=== PATIENT | female | born 1935 | race Caucasian/White ===

== ENCOUNTER → 2016-06-16 | Outpatient (CLI) | payer MEDICARE, BC ==
[2015-12-28 10:30] VITALS: BP 154/51
[~2016-06-16] MED LIST: 5-HY50CA PO; ACET500C6 PO; ALBU0.63 NEB; ASCO10002 PO; ASPI-482 PO; BETA1TAB10 PO; CALC1CAP13 PO; CHOL5000 PO; CLON0.1T PO; CLON0.2T PO; FLUT16SP NS; FURO40TA4 PO; GABA-585 PO; GABA-586 PO; GARL10002 PO; GEMF600T3 PO; GLUC1CAP48 PO; HYDR-2868 PO; IODI30TI TP; LEVO125T PO; MULT-658 PO; OMEG500C PO; POTA10CA PO; SELE200T10 PO; THYROID PO; TRAM50TA PO; TYROSINE PO; UBID200C4 PO; VERA240C2 PO; VITA100016 PO; VITA80003 PO
--- NOTE | 2016-06-16 12:00 | KCIC ---
PQRS STATEMENT One or more of the following individualized dose reduction techniques were utilized for this study: 1.Automated exposure control 2.Adjustment of the mA and/or kV according to patient size 3.Use of iterative reconstruction technique CT HEAD Indication: Reason For StudyReason: CONTUSION OF GLOBE RT EYE / Spl. Instructions: Hematoma Rt eye/temporal area. / History: Pt fell and struck Rt side of head on tile floor. Headache TECHNIQUE: 5 mm contiguous axial images were obtained from the skull base to the vertex in both bone and soft tissue algorithm. FINDINGS: There is some encephalomalacia in the right frontal lobe likely from an old infarct. No evidence of acute intracranial hemorrhage. No extra-axial fluid collections. No mass effect or midline shift.Ventricular size is appropriate. Basal cisterns are patent. There is a right frontal scalp contusion. No fractures identified. Globes and orbits are within normal limits. Paranasal sinuses and mastoid air cells are clear. IMPRESSION: - Right frontal scalp contusion with no evidence for calvarial fracture or acute intracranial hemorrhage. 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 Electronically signed by: Francois Mojica (Jun 16, 2016 11:58:37)
--- NOTE | 2016-06-16 12:37 | KCIC ---
Humerus right, two views Indication: Fall with pain and bruising to the right arm. Time of exam 11:57 a.m. Alignment at the shoulder and elbow appears normal. The humerus appears intact. No fractures are seen. Impression: No acute bony abnormality is detected. Electronically signed by: Parag Garrison MD (Jun 16, 2016 12:35:46)
--- NOTE | 2016-06-16 12:38 | KCIC ---
Shoulder three views right Indication: Fall and right shoulder pain. Time of exam 11:54 a.m. The glenohumeral and acromioclavicular alignment are normal. The acromiohumeral space is normal. No fracture or dislocation is seen. Mild degenerative changes at the AC joint are noted. There appear to be chronic interstitial changes in the right lung. Impression: No acute bony abnormality is detected. Electronically signed by: Parag Garrison MD (Jun 16, 2016 12:36:49)
== END | disposition home or self-care (01) ==
LOC: KCIC CT 11:26
PROVIDERS: ATTEND Nurse Practitioner Family
DX: S05.11XA Contusion of eyeball and orbital tissues, right eye, initial encounter (principal); S49.91XA Unspecified injury of right shoulder and upper arm, initial encounter; W19.XXXA Unspecified fall, initial encounter; Y93.89 Activity, other specified; Y92.89 Other specified places as the place of occurrence of the external cause; Y99.8 Other external cause status
CPT/HCPCS: 70450; 73030; 73060

== ENCOUNTER → 2016-11-09 | Outpatient (CLI) | payer MEDICARE, BC ==
[2015-12-28 10:30] VITALS: BP 154/51
[~2016-11-09] MED LIST changes: -POTA10CA PO; +POTASSIUM CHLO10 MEQ PO; -UBID200C4 PO; +UBID200C7 PO; -VITA100016 PO; +VITA100075 PO
--- NOTE | 2016-11-09 16:40 | RAD ---
Indication left calf swelling. Grayscale color Doppler and spectral imaging was performed. Examination was targeted to the veins of the left lower extremity. The common femoral, femoral and popliteal vessels demonstrate normal flow compressibility and augmentation. No thrombus is seen. The visualized calf veins appeared unremarkable. IMPRESSION: Negative left lower extremity venous analysis for DVT
== END | disposition home or self-care (01) ==
LOC: US 15:34
PROVIDERS: ATTEND Nurse Practitioner Family
DX: I87.312 Chronic venous hypertension (idiopathic) with ulcer of left lower extremity (principal); M79.89 Other specified soft tissue disorders
CPT/HCPCS: 93971

== ENCOUNTER → 2016-11-15 | Outpatient (CLI) | payer MEDICARE, BC ==
[2015-12-28 10:30] VITALS: BP 154/51
== END | disposition home or self-care (01) ==
LOC: PMGWOUND 10:27
PROVIDERS: ATTEND Emergency Medicine Undersea and Hyperbaric Medicine
DX: I87.312 Chronic venous hypertension (idiopathic) with ulcer of left lower extremity (principal); L97.221 Non-pressure chronic ulcer of left calf limited to breakdown of skin; I11.0 Hypertensive heart disease with heart failure; I50.9 Heart failure, unspecified; Z90.710 Acquired absence of both cervix and uterus
CPT/HCPCS: 99215

== ENCOUNTER → 2016-11-18 | Outpatient (CLI) | payer MEDICARE, BC ==
[2015-12-28 10:30] VITALS: BP 154/51
== END | disposition home or self-care (01) ==
LOC: PMGWOUND 12:04
PROVIDERS: ATTEND Preventive Medicine Undersea and Hyperbaric Medicine
DX: I87.312 Chronic venous hypertension (idiopathic) with ulcer of left lower extremity (principal); L97.821 Non-pressure chronic ulcer of other part of left lower leg limited to breakdown of skin; I11.0 Hypertensive heart disease with heart failure; I50.9 Heart failure, unspecified; Z90.710 Acquired absence of both cervix and uterus
CPT/HCPCS: 29581

== ENCOUNTER → 2016-11-21 | Outpatient (CLI) | payer MEDICARE, BC ==
[2015-12-28 10:30] VITALS: BP 154/51
== END | disposition home or self-care (01) ==
LOC: PMGWOUND 12:25
PROVIDERS: ATTEND Emergency Medicine Undersea and Hyperbaric Medicine
DX: I87.312 Chronic venous hypertension (idiopathic) with ulcer of left lower extremity (principal); L97.211 Non-pressure chronic ulcer of right calf limited to breakdown of skin; I11.0 Hypertensive heart disease with heart failure; I50.9 Heart failure, unspecified; Z90.710 Acquired absence of both cervix and uterus
CPT/HCPCS: 29581

== ENCOUNTER → 2016-11-28 | Outpatient (CLI) | payer MEDICARE, BC ==
[2015-12-28 10:30] VITALS: BP 154/51
== END | disposition home or self-care (01) ==
LOC: PMGWOUND 12:35
PROVIDERS: ATTEND Emergency Medicine Undersea and Hyperbaric Medicine
DX: I87.312 Chronic venous hypertension (idiopathic) with ulcer of left lower extremity (principal); L97.221 Non-pressure chronic ulcer of left calf limited to breakdown of skin; I11.0 Hypertensive heart disease with heart failure; I50.9 Heart failure, unspecified; Z90.710 Acquired absence of both cervix and uterus
CPT/HCPCS: 29580

== ENCOUNTER → 2016-12-05 | Outpatient (CLI) | payer MEDICARE, BC ==
[2015-12-28 10:30] VITALS: BP 154/51
== END | disposition home or self-care (01) ==
LOC: PMGWOUND 11:42
PROVIDERS: ATTEND Emergency Medicine Undersea and Hyperbaric Medicine
DX: I87.312 Chronic venous hypertension (idiopathic) with ulcer of left lower extremity (principal); L97.221 Non-pressure chronic ulcer of left calf limited to breakdown of skin; E03.9 Hypothyroidism, unspecified; E78.00 Pure hypercholesterolemia, unspecified; Z85.828 Personal history of other malignant neoplasm of skin; Z90.710 Acquired absence of both cervix and uterus
CPT/HCPCS: 99214

== ENCOUNTER 2017-07-13 11:33 | Emergency (ER) | payer MEDICARE, BC ==
[2017-07-13 13:14] LABS: ADD MAN DIFF? NO
[2017-07-13 13:16] LABS: BASO # 0.1 x10^3/uL (0.0-0.2); BASO % 1 % (0-3); EOS # 0.5 x10^3/uL (0.0-0.7); EOS % 6 % (0-3); HEMOGLOBIN 12.2 g/dL (12.0-15.5); LYMPH # 0.9 x10^3/uL (1.0-4.8); LYMPH % 12 % (24-48); MEAN CORPUSCULAR HEMOGLOBIN 32 pg (25-35); MEAN CORPUSCULAR HGB CONC 34 g/dL (31-37); MEAN CORPUSCULAR VOLUME 94 fL (79-100); MONO # 0.5 x10^3/uL (0.0-1.1); MONO % 7 % (0-9); NEUT # 5.6 x10^3uL (1.8-7.7); NEUT % 73 % (31-73); PLATELET COUNT 502 x10^3/uL (140-400); RED BLOOD COUNT 3.84 x10^6/uL (3.50-5.40); RED CELL DISTRIBUTION WIDTH 14.6 % (11.5-14.5); WHITE BLOOD COUNT 7.7 x10^3/uL (4.0-11.0)
== END 2017-07-13 15:30 | disposition home or self-care (01) ==
LOC: ER 11:33
DX: R04.0 Epistaxis (principal); I11.0 Hypertensive heart disease with heart failure; I50.9 Heart failure, unspecified; J45.909 Unspecified asthma, uncomplicated; M19.90 Unspecified osteoarthritis, unspecified site; M79.7 Fibromyalgia; Z86.718 Personal history of other venous thrombosis and embolism; Z88.2 Allergy status to sulfonamides; Z88.8 Allergy status to other drugs, medicaments and biological substances; Z88.6 Allergy status to analgesic agent; Z88.1 Allergy status to other antibiotic agents; Z91.041 Radiographic dye allergy status
CPT/HCPCS: 30905; 36415; 85025; 99284

== ENCOUNTER 2017-07-14 12:07 | Emergency (ER) | payer MEDICARE, BC ==
[2017-07-14] MEDS: traMADol 50 MG TABLET PO (13:51)
[2017-07-14 13:53] LABS: ADD MAN DIFF? NO
[2017-07-14 14:01] LABS: BASO # 0.1 x10^3/uL (0.0-0.2); BASO % 2 % (0-3); EOS # 0.3 x10^3/uL (0.0-0.7); EOS % 3 % (0-3); HEMATOCRIT 37.5 % (36.0-47.0); HEMOGLOBIN 12.6 g/dL (12.0-15.5); LYMPH # 1.2 x10^3/uL (1.0-4.8); LYMPH % 14 % (24-48); MEAN CORPUSCULAR HEMOGLOBIN 32 pg (25-35); MEAN CORPUSCULAR HGB CONC 34 g/dL (31-37); MEAN CORPUSCULAR VOLUME 94 fL (79-100); MONO # 0.7 x10^3/uL (0.0-1.1); MONO % 8 % (0-9); NEUT # 6.5 x10^3uL (1.8-7.7); NEUT % 74 % (31-73); PLATELET COUNT 526 x10^3/uL (140-400); RED BLOOD COUNT 3.98 x10^6/uL (3.50-5.40); RED CELL DISTRIBUTION WIDTH 15.1 % (11.5-14.5); WHITE BLOOD COUNT 8.8 x10^3/uL (4.0-11.0)
[2017-07-14 14:06] LABS: ANION GAP 10 (6-14); BLOOD UREA NITROGEN 26 mg/dL (7-20); CALCIUM 9.4 mg/dL (8.5-10.1); CARBON DIOXIDE 30 mmol/L (21-32); CHLORIDE 98 mmol/L (98-107); CREATININE 1.2 mg/dL (0.6-1.0); GFR 42.9; GLUCOSE 106 mg/dL (70-99); POTASSIUM 3.8 mmol/L (3.5-5.1); SODIUM 138 mmol/L (136-145)
== END 2017-07-14 15:51 | disposition home or self-care (01) ==
LOC: ER 12:07
DX: R04.0 Epistaxis (principal); I11.0 Hypertensive heart disease with heart failure; I50.9 Heart failure, unspecified; J45.909 Unspecified asthma, uncomplicated; M19.90 Unspecified osteoarthritis, unspecified site; M79.7 Fibromyalgia; Z88.2 Allergy status to sulfonamides; Z88.1 Allergy status to other antibiotic agents; Z88.5 Allergy status to narcotic agent; Z88.8 Allergy status to other drugs, medicaments and biological substances; Z88.6 Allergy status to analgesic agent
CPT/HCPCS: 36415; 80048; 85025; 99284

== ENCOUNTER 2017-09-08 15:43 | Emergency (ER) | payer MEDICARE, BC ==
[2017-09-08] MEDS: LIDOCAINE/EPI/TETRACAINE TOPICAL GEL 3 ML. TP (17:29)
[2017-09-08] MEDS: DIPHTH,PERTUSS(ACELL),TET TOX 0.5 ML DISP.SYRIN. VAX IM (17:31)
[2017-09-08] MEDS ORDERED: traMADol 50 MG TABLET PO (17:45)
[2017-09-08 18:03] LABS: BILIRUBIN,URINE NEGATIVE (NEG); CLARITY,URINE CLEAR; COLOR,URINE YELLOW; GLUCOSE,URINE NEGATIVE (NEG); NITRITE,URINE NEGATIVE (NEG); PROTEIN,URINE 30 mg/dL (NEG-TRACE)
[2017-09-08] MEDS: traMADol 50 MG TABLET PO (18:12)
[2017-09-08 18:14] LABS: BACTERIA,URINE MANY /HPF (0-FEW); SQUAMOUS EPITHELIAL CELL,UR FEW /LPF
== END 2017-09-08 20:05 | disposition home or self-care (01) ==
LOC: ER 20:05
DX: S01.01XA Laceration without foreign body of scalp, initial encounter (principal); S00.83XA Contusion of other part of head, initial encounter; S20.211A Contusion of right front wall of thorax, initial encounter; Z86.2 Personal history of diseases of the blood and blood-forming organs and certain disorders involving the immune mechanism; M19.90 Unspecified osteoarthritis, unspecified site; J45.909 Unspecified asthma, uncomplicated; M79.7 Fibromyalgia; I10 Essential (primary) hypertension; I50.9 Heart failure, unspecified; Z88.6 Allergy status to analgesic agent; Z88.1 Allergy status to other antibiotic agents; Z88.8 Allergy status to other drugs, medicaments and biological substances; W19.XXXA Unspecified fall, initial encounter; Y93.89 Activity, other specified; Y99.8 Other external cause status; Y92.89 Other specified places as the place of occurrence of the external cause
CPT/HCPCS: 12002; 70450; 71101; 72125; 72128; 81001; 87086; 90471; 90715; 99285-25

== ENCOUNTER → 2017-09-22 | Outpatient (CLI) | payer MEDICARE, BC | END | disposition home or self-care (01) | LOC: KCIC US 13:40 | DX: R22.1 Localized swelling, mass and lump, neck (principal); I11.0 Hypertensive heart disease with heart failure; I50.9 Heart failure, unspecified; E78.00 Pure hypercholesterolemia, unspecified; E03.9 Hypothyroidism, unspecified; E66.9 Obesity, unspecified | CPT/HCPCS: 76536 ==

== ENCOUNTER → 2017-09-22 | Outpatient (CLI) | payer MEDICARE, BC | END | disposition home or self-care (01) | LOC: KCIC MAMMO 13:50 | DX: Z12.31 Encounter for screening mammogram for malignant neoplasm of breast (principal); I11.0 Hypertensive heart disease with heart failure; I50.9 Heart failure, unspecified; E78.00 Pure hypercholesterolemia, unspecified; E03.9 Hypothyroidism, unspecified; J45.909 Unspecified asthma, uncomplicated | CPT/HCPCS: 77067 ==

== ENCOUNTER → 2017-09-22 | Outpatient (CLI) | payer MEDICARE, BC | END | disposition home or self-care (01) | LOC: KCIC 13:33 | DX: K44.9 Diaphragmatic hernia without obstruction or gangrene (principal); K22.4 Dyskinesia of esophagus; E78.00 Pure hypercholesterolemia, unspecified; I11.0 Hypertensive heart disease with heart failure; I50.31 Acute diastolic (congestive) heart failure; Z85.828 Personal history of other malignant neoplasm of skin | CPT/HCPCS: 74220 ==

== ENCOUNTER → 2017-10-20 | Outpatient (CLI) | payer MEDICARE, BC ==
[2017-09-08 17:08] VITALS: BP 156/74
[~2017-10-20] MED LIST changes: +ALLO300T PO; +CEPH-264 PO; +ONDA4TAB10 SL; +POTA10TA12 PO; -POTASSIUM CHLO10 MEQ PO
--- NOTE | 2017-10-20 16:32 | KCIC ---
Ultrasound of the left neck HISTORY: Left neck mass. TECHNIQUE: Targeted grayscale and color Doppler ultrasound performed at the area of concern Comparison: October 02, 2017. FINDINGS: Small nodule seen at the area of concern, measuring 4 mm x 5 mm x 7 mm. Morphology appears similar as on the prior study, with a central echogenic hilum. No other masses or fluid collections are seen in this area. IMPRESSION: Nonspecific lymph node appears similar as prior study, could be reactive or metastatic. Electronically signed by: Blake Funes MD (10/20/2017 4:28 PM) [facility]
== END | disposition home or self-care (01) ==
LOC: KCIC US 14:57
PROVIDERS: ATTEND Internal Medicine Gastroenterology
DX: R22.1 Localized swelling, mass and lump, neck (principal); I11.0 Hypertensive heart disease with heart failure; I50.32 Chronic diastolic (congestive) heart failure; E78.00 Pure hypercholesterolemia, unspecified; E03.9 Hypothyroidism, unspecified; Z90.49 Acquired absence of other specified parts of digestive tract; Z88.2 Allergy status to sulfonamides; Z88.1 Allergy status to other antibiotic agents; Z88.8 Allergy status to other drugs, medicaments and biological substances; Z88.5 Allergy status to narcotic agent; Z88.6 Allergy status to analgesic agent
CPT/HCPCS: 76536

== ENCOUNTER → 2017-10-23 | Outpatient (CLI) | payer MEDICARE, BC ==
[2017-09-08 17:08] VITALS: BP 156/74
--- NOTE | 2017-10-24 08:39 | KCIC ---
MRI Cervical Spine Without Contrast History: Cervical stenosis, neck pain Technique: Multiplanar, multi sequential noncontrast MR imaging was performed of the cervical spine. Comparison: None Findings: There is motion degradation, also decreased zkaunh-mt-zehvv ratio as the anterior neck coil could not be utilized. There is old superior compression deformity of T3 and T4. There is negligible anterior spondylolisthesis at C3-C4, also at T2-3. There is no significant abnormality of the cervical medullary junction. There is no significant marrow edema. Cervical cord caliber is within normal limits without convincing focal or expansile signal abnormality although limited evaluation for subtle signal change due to motion. There is abnormal T2 and STIR signal of the visualized andrés. There is more advanced degenerative disc disease at C6-7, mild to moderate degenerative disc disease C5-C6 and to a lesser degree at C3-4 greater posteriorly. C2-C3: Spinal canal and neural foramina are adequate. C3-C4: There is buckling of the ligamentum flavum. There is minimal posterior bulge/protrusion. Central canal is minimally narrowed to about 9 mm. Neural foramina are overall adequate. There is bilateral facet hypertrophic change. C4-C5: There is bilateral facet hypertrophic change. Spinal canal is adequate 11 mm. There is likely mild narrowing of the left neural foramen, right neural foramen adequate. C5-C6: There is bilateral facet hypertrophic change. Spinal canal is adequate. There is suspected at least moderate narrowing of the left neural foramen. Right neural foramen is adequate. C6-C7: There is bilateral facet hypertrophic change. There is negligible posterior protrusion. Central canal is adequate 11 mm. Right neural foramen is adequate, probable gbqw-xf-rmavwgve narrowing of the left neural foramen. C7-T1: Spinal canal and neural foramina are adequate. Impression: 1. There is some motion degradation. There is mild spinal stenosis C3-4. There is suspected moderate narrowing of the left C5-C6 and C6-7 neural foramina mostly from facet degenerative change. 2. There is degenerative disc disease greatest at C6-7, to lesser degree C5-6 and C3-4. 3. There is old compression deformity of T3 and T4. 4. There is multilevel facet degenerative change, negligible anterior spondylolisthesis C3-C4. 5. There is abnormal T2 and STIR signal of the visualized andrés, nonspecific findings most commonly due to chronic microvascular ischemic disease in a patient of this age. Electronically signed by: Marvin Brown MD (10/24/2017 8:35 AM) [facility]-KCIC1
--- NOTE | 2017-10-24 08:52 | KCIC ---
MRI Lumbar Spine without contrast History: Lumbar stenosis, back pain Technique: Multiplanar, multi sequential noncontrast MR imaging was performed of the lumbar spine. Contrast: None Comparison: 12/08/2014 Findings: There is some motion degradation. Lumbar vertebral body stature is unchanged. There is grade 1 anterior spondylolisthesis L4-5 and negligible anterior spondylolisthesis at L5-S1 and negligible posterior subluxation L1 relative L2 as seen previously. There is no significant marrow edema. There is again the moderate to severe degenerative disc disease greater anteriorly at L1-2, mild degenerative disc disease L4-5 and mild disc desiccation at other levels. Conus terminates at L1-L2. T12-L1: Spinal canal and neural foramina are adequate. L1-L2: There is minimal disc osteophyte complex superimposed on the posteriorly subluxed L1 vertebral body margin as seen previously. Spinal canal is adequate. There is mild narrowing of the left neural foramen, right neural foramen adequate. L2-L3: There is anterior annular tear. There is minimal disc osteophyte complex and bulge. There is mild buckling of the ligamentum flavum and mild to moderate facet hypertrophic change. Spinal canal is adequate. There is moderate left and reeu-di-dzlrrept right neural foramina compromise. L3-L4: There is mild buckling of the ligamentum flavum and moderate facet degenerative change. There is negligible bulge. There is mild narrowing of the far left lateral recess. There is mild left and mzwa-nw-obisyjyi right neural foramina compromise. L4-L5: There is moderate buckling of the ligamentum flavum and sgmp-ly-xkkkuqzg facet hypertrophic change. There is mild partial uncovering of the posterior aspect of the disc due to spondylolisthesis with minimal superimposed bulge. There is mild to moderate narrowing the far lateral recesses bilaterally somewhat greater on the right. There is mild neural foramina compromise bilaterally greater on the left. L5-S1: There is fairly severe, right greater than left facet degenerative change. There is mild buckling of the ligamentum flavum. There is a small synovial cyst associated with the left ligamentum flavum about 0.2 cm. There is mild narrowing of the far left lateral recess. There is moderate to severe narrowing of the left neural foramen primarily from posteriorly. Right neural foramen is adequate. Impression: 1. There is vgyw-go-itaqwnlw lateral recess stenosis bilaterally at L4-5, mild left lateral recess stenosis L5-S1 and L3-4. 2. There is multilevel facet degenerative change, multilevel abnormal alignment as stated. 3. There is neural foramina compromise as stated most notable moderate to severe narrowing on the left at L5-S1, lesser degree of prex-jq-ruywcvtq neural foramina compromise bilaterally at L2-L3 and on the right at L3-4. 4. There is degenerative disc disease greatest at L1-2. Electronically signed by: Marvin Brown MD (10/24/2017 8:49 AM) [facility]
== END | disposition home or self-care (01) ==
LOC: KCIC MRI 16:09
PROVIDERS: ATTEND Neurological Surgery
DX: M50.323 Other cervical disc degeneration at C6-C7 level (principal); M48.02 Spinal stenosis, cervical region; M51.36 Other intervertebral disc degeneration, lumbar region; M48.54XD Collapsed vertebra, not elsewhere classified, thoracic region, subsequent encounter for fracture with routine healing; M71.38 Other bursal cyst, other site; M43.16 Spondylolisthesis, lumbar region; M25.78 Osteophyte, vertebrae; M48.061 Spinal stenosis, lumbar region without neurogenic claudication; I11.0 Hypertensive heart disease with heart failure; I50.32 Chronic diastolic (congestive) heart failure; E78.00 Pure hypercholesterolemia, unspecified; Z86.2 Personal history of diseases of the blood and blood-forming organs and certain disorders involving the immune mechanism; Z86.73 Personal history of transient ischemic attack (TIA), and cerebral infarction without residual deficits; Z86.718 Personal history of other venous thrombosis and embolism; Z85.828 Personal history of other malignant neoplasm of skin; Z90.710 Acquired absence of both cervix and uterus; Z90.49 Acquired absence of other specified parts of digestive tract; Z88.8 Allergy status to other drugs, medicaments and biological substances; Z88.2 Allergy status to sulfonamides; Z88.1 Allergy status to other antibiotic agents; Z88.5 Allergy status to narcotic agent; Z83.3 Family history of diabetes mellitus
CPT/HCPCS: 72141; 72148

== ENCOUNTER → 2017-12-21 | Outpatient (CLI) | payer MEDICARE, BC, MEDICAID ==
[2017-09-08 17:08] VITALS: BP 156/74
[~2017-12-21] MED LIST changes: -GEMF600T3 PO; +GEMF600T4 PO; +IOHEXOL 300 MG/ML 100ML VIAL. IV ONE
--- NOTE | 2017-12-21 16:20 | KCIC ---
CT SOFT TISSUE NECK W/CONTRAST dated 12/21/2017 1:30 PM Indication: Lumps inside her neck, right greater than left... Comparison: Ultrasound dated 10/20/2017. Technique: Contiguous axial imaging the neck performed following the intravenous demonstration of 95 cc Isovue-300 One or more of the following individualized dose reduction techniques were utilized for this examination: 1. Automated exposure control 2. Adjustment of the mA and/or kV according to patient size 3. Use of iterative reconstruction technique Findings: Thyroid gland is heterogeneous. There is a heterogeneous mass of the right lobe thyroid gland that measures up to 1.9 cm in size. There is also a low-density nodular focus along the anterolateral margin of the right lobe thyroid gland anterior to the internal jugular vein that measures about 1.5 cm long axis. Nodular focus located posterior to the internal jugular vein on the right measures 1.2 cm long axis, likely a borderline enlarged lymph node. Small nodule at the posterior left lobe thyroid gland measures 7 mm. Visualized soft tissue structures are otherwise unremarkable. There is a borderline enlarged jugular digastric lymph node on the left measuring 7 mm long axis. Submandibular and parotid glands are symmetric. There are atherosclerotic calcifications of the bilateral carotid bifurcation. Mild narrowing of the proximal right ICA, estimated at about 50% stenosis. There is milder narrowing at the proximal left ICA. Images of the lung apices show mild interstitial changes and emphysema. No acute bony abnormality. Multilevel spondylosis. There is mild superior endplate compression deformity of T3, age indeterminate. IMPRESSION: 1. There is a heterogeneous mass at the right lobe thyroid gland measures up to 1.9 cm in size, nonspecific. Follow-up imaging versus FNA for further evaluation. 2. There is a smaller indeterminate nodule at the left lobe thyroid gland measuring 7 mm. 3. There are mildly enlarged lymph nodes at the lower right neck, largest of which measures 1.5 cm long axis, nonspecific. Consider infectious, inflammatory or neoplastic etiology. 4. Atherosclerotic calcifications at the carotid bifurcation with estimated 50% stenosis of the proximal right ICA. 5. Mild superior endplate compression deformity at T3, age indeterminate. Electronically signed by: Blake Bernal MD (12/21/2017 4:17 PM) [facility]2
== END | disposition home or self-care (01) ==
LOC: KCIC CT 13:45
PROVIDERS: ATTEND Otolaryngology
DX: I65.23 Occlusion and stenosis of bilateral carotid arteries (principal)
CPT/HCPCS: 70491; 82565; Q9967

== ENCOUNTER → 2017-12-26 | Outpatient (CLI) | payer MEDICARE, BC, MEDICAID ==
[2017-09-08 17:08] VITALS: BP 156/74
[~2017-12-26] MED LIST changes: -IOHEXOL 300 MG/ML 100ML VIAL. IV ONE
--- NOTE | 2017-12-27 10:20 | KCIC ---
2 views of the right foot compared to similar study dated June 13, 2015 for foot pain, ulcer. FINDINGS: There is no fracture, dislocation, or acute osseous abnormality identified. A small calcaneal bone spur is present. Dystrophic calcifications are seen along the medial soft tissues just above the ankle. These are unchanged. There is diffuse osteopenia. Old healed deformity of the fifth metatarsal is unchanged. There is also deformity of the medial aspect of the head of the first metatarsal, which may reflect surgical change from a prior bunionectomy. No significant degenerative changes are seen. No radiopaque foreign bodies are seen. IMPRESSION: 1. Stable right foot radiographs demonstrate diffuse osteopenia, with no acute localizable abnormalities. If there is clinical concern for osteomyelitis, consider further evaluation with MRI. Electronically signed by: Bethel Chandler MD (12/27/2017 10:17 AM) [facility]
== END | disposition home or self-care (01) ==
LOC: KCIC 15:57
PROVIDERS: ATTEND Nurse Practitioner Family
DX: L97.911 Non-pressure chronic ulcer of unspecified part of right lower leg limited to breakdown of skin (principal); M77.31 Calcaneal spur, right foot; G62.9 Polyneuropathy, unspecified; I11.0 Hypertensive heart disease with heart failure; I50.9 Heart failure, unspecified; E78.00 Pure hypercholesterolemia, unspecified; G47.30 Sleep apnea, unspecified; M19.90 Unspecified osteoarthritis, unspecified site; E03.9 Hypothyroidism, unspecified; Z90.49 Acquired absence of other specified parts of digestive tract; Z90.710 Acquired absence of both cervix and uterus; Z79.82 Long term (current) use of aspirin; Z79.899 Other long term (current) drug therapy
CPT/HCPCS: 73620

== ENCOUNTER → 2017-12-29 | Outpatient (CLI) | payer MEDICARE, BC, MEDICAID ==
[2017-09-08 17:08] VITALS: BP 156/74
== END | disposition home or self-care (01) ==
LOC: PMGWOUND 10:38
PROVIDERS: ATTEND Preventive Medicine Undersea and Hyperbaric Medicine
DX: I87.311 Chronic venous hypertension (idiopathic) with ulcer of right lower extremity (principal); L97.212 Non-pressure chronic ulcer of right calf with fat layer exposed; I11.0 Hypertensive heart disease with heart failure; I50.9 Heart failure, unspecified; E03.9 Hypothyroidism, unspecified; E78.00 Pure hypercholesterolemia, unspecified; M79.7 Fibromyalgia; G62.9 Polyneuropathy, unspecified; G47.30 Sleep apnea, unspecified; M19.90 Unspecified osteoarthritis, unspecified site; Z85.41 Personal history of malignant neoplasm of cervix uteri; Z90.710 Acquired absence of both cervix and uterus; Z90.49 Acquired absence of other specified parts of digestive tract
CPT/HCPCS: 97597; 97598

== ENCOUNTER → 2018-01-02 | Outpatient (CLI) | payer MEDICARE, BC, MEDICAID ==
[2017-09-08 17:08] VITALS: BP 156/74
== END | disposition home or self-care (01) ==
LOC: PMGWOUND 11:15
PROVIDERS: ATTEND Emergency Medicine Undersea and Hyperbaric Medicine
DX: I87.312 Chronic venous hypertension (idiopathic) with ulcer of left lower extremity (principal); L97.211 Non-pressure chronic ulcer of right calf limited to breakdown of skin; I11.0 Hypertensive heart disease with heart failure; I50.9 Heart failure, unspecified; E03.9 Hypothyroidism, unspecified; M79.7 Fibromyalgia; G62.9 Polyneuropathy, unspecified; G47.30 Sleep apnea, unspecified; E78.00 Pure hypercholesterolemia, unspecified; M19.90 Unspecified osteoarthritis, unspecified site; Z90.710 Acquired absence of both cervix and uterus; Z85.41 Personal history of malignant neoplasm of cervix uteri; Z90.49 Acquired absence of other specified parts of digestive tract
CPT/HCPCS: 29581

== ENCOUNTER → 2018-01-05 | Outpatient (CLI) | payer MEDICARE, BC, MEDICAID ==
[2017-09-08 17:08] VITALS: BP 156/74
== END | disposition home or self-care (01) ==
LOC: PMGWOUND 08:54
PROVIDERS: ATTEND Preventive Medicine Undersea and Hyperbaric Medicine
DX: I87.311 Chronic venous hypertension (idiopathic) with ulcer of right lower extremity (principal); L97.212 Non-pressure chronic ulcer of right calf with fat layer exposed; I11.0 Hypertensive heart disease with heart failure; I50.9 Heart failure, unspecified; E78.00 Pure hypercholesterolemia, unspecified; M79.7 Fibromyalgia; G62.9 Polyneuropathy, unspecified; G47.30 Sleep apnea, unspecified; E03.9 Hypothyroidism, unspecified; M19.90 Unspecified osteoarthritis, unspecified site; Z90.710 Acquired absence of both cervix and uterus; Z90.49 Acquired absence of other specified parts of digestive tract; Z85.41 Personal history of malignant neoplasm of cervix uteri
CPT/HCPCS: 29581; 97597; 97598

== ENCOUNTER → 2018-01-12 | Outpatient (CLI) | payer MEDICARE, BC, MEDICAID ==
[2017-09-08 17:08] VITALS: BP 156/74
== END | disposition home or self-care (01) ==
LOC: PMGWOUND 09:44
PROVIDERS: ATTEND Preventive Medicine Undersea and Hyperbaric Medicine
DX: I87.311 Chronic venous hypertension (idiopathic) with ulcer of right lower extremity (principal); L97.812 Non-pressure chronic ulcer of other part of right lower leg with fat layer exposed; I11.0 Hypertensive heart disease with heart failure; I50.9 Heart failure, unspecified; E03.9 Hypothyroidism, unspecified; E78.00 Pure hypercholesterolemia, unspecified; M79.7 Fibromyalgia; G47.30 Sleep apnea, unspecified; G62.9 Polyneuropathy, unspecified; M19.90 Unspecified osteoarthritis, unspecified site; E66.9 Obesity, unspecified; Z68.35 Body mass index [BMI] 35.0-35.9, adult; Z90.710 Acquired absence of both cervix and uterus; Z90.49 Acquired absence of other specified parts of digestive tract; Z85.41 Personal history of malignant neoplasm of cervix uteri
CPT/HCPCS: 29581; 97597; 97598

== ENCOUNTER → 2018-01-19 | Outpatient (CLI) | payer MEDICARE, BC, MEDICAID ==
[2017-09-08 17:08] VITALS: BP 156/74
== END | disposition home or self-care (01) ==
LOC: PMGWOUND 09:32
PROVIDERS: ATTEND Preventive Medicine Undersea and Hyperbaric Medicine
DX: I87.312 Chronic venous hypertension (idiopathic) with ulcer of left lower extremity (principal); L97.212 Non-pressure chronic ulcer of right calf with fat layer exposed; I11.0 Hypertensive heart disease with heart failure; I50.9 Heart failure, unspecified; E03.9 Hypothyroidism, unspecified; E78.00 Pure hypercholesterolemia, unspecified; M79.7 Fibromyalgia; G62.9 Polyneuropathy, unspecified; G47.30 Sleep apnea, unspecified; M19.90 Unspecified osteoarthritis, unspecified site; E66.9 Obesity, unspecified; Z68.35 Body mass index [BMI] 35.0-35.9, adult; Z90.49 Acquired absence of other specified parts of digestive tract; Z85.41 Personal history of malignant neoplasm of cervix uteri; Z90.710 Acquired absence of both cervix and uterus
CPT/HCPCS: 29581; 97597; 97598

== ENCOUNTER → 2018-01-24 | Outpatient (CLI) | payer MEDICARE, BC, MEDICAID ==
[2017-09-08 17:08] VITALS: BP 156/74
== END | disposition home or self-care (01) ==
LOC: PMGWOUND 09:32
PROVIDERS: ATTEND Preventive Medicine Undersea and Hyperbaric Medicine
DX: I87.312 Chronic venous hypertension (idiopathic) with ulcer of left lower extremity (principal); L97.212 Non-pressure chronic ulcer of right calf with fat layer exposed; I11.0 Hypertensive heart disease with heart failure; I50.9 Heart failure, unspecified; E03.9 Hypothyroidism, unspecified; E78.00 Pure hypercholesterolemia, unspecified; G47.30 Sleep apnea, unspecified; M79.7 Fibromyalgia; G62.9 Polyneuropathy, unspecified; M19.90 Unspecified osteoarthritis, unspecified site; E66.9 Obesity, unspecified; Z68.35 Body mass index [BMI] 35.0-35.9, adult; Z90.710 Acquired absence of both cervix and uterus; Z90.49 Acquired absence of other specified parts of digestive tract; Z85.41 Personal history of malignant neoplasm of cervix uteri
CPT/HCPCS: 29581; 97597

== ENCOUNTER → 2018-02-01 | Outpatient (CLI) | payer MEDICARE, BC, MEDICAID ==
[2017-09-08 17:08] VITALS: BP 156/74
[~2018-02-01] MED LIST changes: -GABA-586 PO; +GABA300C18 PO; -GEMF600T4 PO; +GEMF600T8 PO
== END | disposition home or self-care (01) ==
LOC: PMGWOUND 10:00
PROVIDERS: ATTEND Preventive Medicine Undersea and Hyperbaric Medicine
DX: I87.311 Chronic venous hypertension (idiopathic) with ulcer of right lower extremity (principal); L97.212 Non-pressure chronic ulcer of right calf with fat layer exposed; I11.0 Hypertensive heart disease with heart failure; I50.9 Heart failure, unspecified; M79.7 Fibromyalgia; E03.9 Hypothyroidism, unspecified; G62.9 Polyneuropathy, unspecified; E78.00 Pure hypercholesterolemia, unspecified; G47.30 Sleep apnea, unspecified; M19.90 Unspecified osteoarthritis, unspecified site; E66.9 Obesity, unspecified; Z68.35 Body mass index [BMI] 35.0-35.9, adult; Z90.710 Acquired absence of both cervix and uterus; Z90.49 Acquired absence of other specified parts of digestive tract; Z85.41 Personal history of malignant neoplasm of cervix uteri
CPT/HCPCS: 29581; 97597

== ENCOUNTER → 2018-02-08 | Outpatient (CLI) | payer MEDICARE, BC, MEDICAID ==
[2017-09-08 17:08] VITALS: BP 156/74
== END | disposition home or self-care (01) ==
LOC: PMGWOUND 10:21
PROVIDERS: ATTEND Emergency Medicine Undersea and Hyperbaric Medicine
DX: L97.211 Non-pressure chronic ulcer of right calf limited to breakdown of skin (principal); I87.2 Venous insufficiency (chronic) (peripheral); I11.0 Hypertensive heart disease with heart failure; I50.9 Heart failure, unspecified; E03.9 Hypothyroidism, unspecified; G62.9 Polyneuropathy, unspecified; E78.00 Pure hypercholesterolemia, unspecified; G47.30 Sleep apnea, unspecified; M19.90 Unspecified osteoarthritis, unspecified site; E66.9 Obesity, unspecified; Z68.35 Body mass index [BMI] 35.0-35.9, adult; Z90.710 Acquired absence of both cervix and uterus; Z90.49 Acquired absence of other specified parts of digestive tract; Z85.41 Personal history of malignant neoplasm of cervix uteri; Z79.82 Long term (current) use of aspirin; Z79.899 Other long term (current) drug therapy
CPT/HCPCS: 29581

== ENCOUNTER → 2018-02-14 | Outpatient (CLI) | payer MEDICARE, BC, MEDICAID ==
[2017-09-08 17:08] VITALS: BP 156/74
== END | disposition home or self-care (01) ==
LOC: PMGWOUND 10:23
PROVIDERS: ATTEND Preventive Medicine Undersea and Hyperbaric Medicine
DX: L97.211 Non-pressure chronic ulcer of right calf limited to breakdown of skin (principal); L97.222 Non-pressure chronic ulcer of left calf with fat layer exposed; I11.0 Hypertensive heart disease with heart failure; I50.9 Heart failure, unspecified; I87.2 Venous insufficiency (chronic) (peripheral); E03.9 Hypothyroidism, unspecified; E78.00 Pure hypercholesterolemia, unspecified; M79.7 Fibromyalgia; G62.9 Polyneuropathy, unspecified; G47.30 Sleep apnea, unspecified; M19.90 Unspecified osteoarthritis, unspecified site; E66.9 Obesity, unspecified; Z68.35 Body mass index [BMI] 35.0-35.9, adult; Z90.49 Acquired absence of other specified parts of digestive tract; Z90.710 Acquired absence of both cervix and uterus; Z85.41 Personal history of malignant neoplasm of cervix uteri
CPT/HCPCS: 29581; 97597

== ENCOUNTER → 2018-02-23 | Outpatient (CLI) | payer MEDICARE, BC, MEDICAID ==
[2017-09-08 17:08] VITALS: BP 156/74
== END | disposition home or self-care (01) ==
LOC: PMGWOUND 09:33
PROVIDERS: ATTEND Preventive Medicine Undersea and Hyperbaric Medicine
DX: L97.211 Non-pressure chronic ulcer of right calf limited to breakdown of skin (principal); I11.0 Hypertensive heart disease with heart failure; I50.9 Heart failure, unspecified; M79.7 Fibromyalgia; E03.9 Hypothyroidism, unspecified; G47.30 Sleep apnea, unspecified; I87.2 Venous insufficiency (chronic) (peripheral); E78.00 Pure hypercholesterolemia, unspecified; M19.90 Unspecified osteoarthritis, unspecified site; G90.09 Other idiopathic peripheral autonomic neuropathy; E66.9 Obesity, unspecified; Z68.35 Body mass index [BMI] 35.0-35.9, adult; Z85.41 Personal history of malignant neoplasm of cervix uteri; Z90.710 Acquired absence of both cervix and uterus; Z90.49 Acquired absence of other specified parts of digestive tract
CPT/HCPCS: 29581

== ENCOUNTER → 2018-03-02 | Outpatient (CLI) | payer MEDICARE, BC, MEDICAID ==
[2017-09-08 17:08] VITALS: BP 156/74
== END | disposition home or self-care (01) ==
LOC: PMGWOUND 09:03
PROVIDERS: ATTEND Preventive Medicine Undersea and Hyperbaric Medicine
DX: L97.212 Non-pressure chronic ulcer of right calf with fat layer exposed (principal); I11.0 Hypertensive heart disease with heart failure; I50.9 Heart failure, unspecified; M79.7 Fibromyalgia; I87.2 Venous insufficiency (chronic) (peripheral); E03.9 Hypothyroidism, unspecified; E78.00 Pure hypercholesterolemia, unspecified; G47.30 Sleep apnea, unspecified; M19.90 Unspecified osteoarthritis, unspecified site; G62.9 Polyneuropathy, unspecified; E66.9 Obesity, unspecified; Z68.35 Body mass index [BMI] 35.0-35.9, adult; Z85.41 Personal history of malignant neoplasm of cervix uteri; Z90.49 Acquired absence of other specified parts of digestive tract; Z90.710 Acquired absence of both cervix and uterus; Z85.118 Personal history of other malignant neoplasm of bronchus and lung
CPT/HCPCS: 29581; 97597

== ENCOUNTER → 2018-03-09 | Outpatient (CLI) | payer MEDICARE, BC, MEDICAID ==
[2017-09-08 17:08] VITALS: BP 156/74
== END | disposition home or self-care (01) ==
LOC: PMGWOUND 09:12
PROVIDERS: ATTEND Preventive Medicine Undersea and Hyperbaric Medicine
DX: L97.218 Non-pressure chronic ulcer of right calf with other specified severity (principal); I11.0 Hypertensive heart disease with heart failure; I50.9 Heart failure, unspecified; I87.2 Venous insufficiency (chronic) (peripheral); E03.9 Hypothyroidism, unspecified; E78.00 Pure hypercholesterolemia, unspecified; G47.30 Sleep apnea, unspecified; M79.7 Fibromyalgia; G62.9 Polyneuropathy, unspecified; M19.90 Unspecified osteoarthritis, unspecified site; E66.9 Obesity, unspecified; Z68.35 Body mass index [BMI] 35.0-35.9, adult; Z90.49 Acquired absence of other specified parts of digestive tract; Z85.41 Personal history of malignant neoplasm of cervix uteri; Z90.710 Acquired absence of both cervix and uterus; Z85.118 Personal history of other malignant neoplasm of bronchus and lung
CPT/HCPCS: 99213

== ENCOUNTER → 2018-04-03 | Outpatient (CLI) | payer MEDICARE, OTHER ==
[2017-09-08 17:08] VITALS: BP 156/74
--- NOTE | 2018-04-03 16:55 | RAD ---
MR#: [id number] Date of Study: 04/03/2018 Ordering Physician: TRACE LAURENT, Referring Physician: TRACE LAURENT, Tech: Leroy Cancino, CORBIN, RDMS, RVT, RDCS, RTR APPROVED REPORT Patient Location : OUT-PATIENT Indications Lower Extremity Edema : Bilateral Findings Grayscale images of the bilateral saphenofemoral junctions do not reveal any obvious evidence of thro mbus on limited images. The bilateral greater saphenous veins of been previously stripped. The bilateral lesser saphenous veins do not demonstrate any evidence of reflux. Critical Notification Critical Value: No <Conclusion> 1. Prior bilateral greater saphenous vein stripping 2. Negative for reflux in the bilateral lesser saphenous veins. Signed by : Diaz Reid, Electronically Approved : 04/03/2018 16:53:17
== END | disposition home or self-care (01) ==
LOC: US 09:47
PROVIDERS: ATTEND Internal Medicine Cardiovascular Disease
DX: I87.2 Venous insufficiency (chronic) (peripheral) (principal)
CPT/HCPCS: 93970

== ENCOUNTER → 2018-05-04 | Outpatient (CLI) | payer MEDICARE, OTHER ==
[2017-09-08 17:08] VITALS: BP 156/74
[~2018-05-04] MED LIST changes: +LEVO500T11 PO; +REGADENOSON 0.4 MG/5 ML DISP.SYRIN. IV ONE; +TYRO500C2 PO
--- NOTE | 2018-05-04 13:41 | RAD ---
MR#: [id number] Date of Study: 05/04/2018 Ordering Physician: TRACE LAURENT, Referring Physician: JAN ROSALES Tech: RT Armani (R) (N) APPROVED REPORT Test Type: Pharmacological Stress Nurse/Tech: Nina Pruett RN Test Indications: Pre-op clearance Cardiac History: asthma, arrythmia, syncope Medications: See Electronic Medical Record Medical History: See Electronic Medical Record Resting ECG: SR with PAC, PVC Resting Heart Rate: 85 bpm Resting Blood Pressure: 132/81mmHg Pretest Chest Pain: None Nurse/Tech Notes Lungs CTA, S1S2 Consent: The procedure was explained to the patient in lay terms. Informed consent was witnessed. Charanjit eout was entered into [employer]. History and Stress Test performed by Nina Pruett RN Pharm. Details Pharmacologic stress testing was performed using 0.4mg per 5ml of regadenoson given intravenously ove r 7-10 seconds. Stress Symptoms No chest pain or symptoms. POST EXERCISE Reason for Termination: Infusion complete Max HR: 115 bpm Max Blood Pressure: 132/81mmHg Blood Pressure response to exercise: Normal blood pressure response during stress. Heart Rate response to exercise: Normal response Chest Pain: No. Arrhythmia: Yes. see above baseline ST Change: No. INTERPRETATION Stress EKG Conclusion: The resting EKG shows a sinus rhythm with nonspecific ST-T wave changes and oc casional PVCs. The stress EKG shows no significant changes from baseline. No EKG evidence of stressed induced ischemia. Imaging Protocol IMAGE PROTOCOL: Rest Tc-99m/stress Tc-99m 1 day Rest: Stress: Viability: Radiopharm.Tc99m NvbitlnjkHq77r Sestamibi Vjea62wPm 31mCi Duration 13min. 13min. Img Date 05/04/2018 05/04/2018 Inj-Img Sxql09mcm. 60min. Rest Admin Site:IV - Left AntecubitalAdministrator:MJ Purvis Stress Admin Site: IV - Left AntecubitalAdministrator: RT Armani (R)(N) STRESS DATA End Diast. Vol.108.0mlLVEDV index BSA56.0ml End Syst. Vol.40.0mlLVESV index BSA21.0ml Myocardial Enyt272.0gEject. Gllwtrsu01.0% Stress Scores Regional WT2.00Summed WT19.00 Regional WM0.00Summed WM3.00 LV Perfusion The stress scans show no significant defects. The rest scans show no significant defects. Nuclear imaging shows no reversible ischemia or infarct. Wall Motion Left ventricular systolic function is normal with an ejection fraction of 63%. LV Perf. Quant 17 Seg. SSS1.00 17 Seg. SRS1.00 17 Seg. SDS1.00 Stress Defect Extent (% LAD)0.00Rest Defect Extent (% LAD)0.00Rev. Defect Extent (% LAD)0.00 Stress Defect Extent (% LCX) 0.00Rest Defect Extent (% LCX)0.00Rev. Defect Extent (% LCX)0.00 Stress Defect Extent (% RCA)0.00Rest Defect Extent (% RCA)0.00Rev. Defect Extent (% RCA)0.00 Stress Defect Extent (% EMILIANO)0.00Rest Defect Extent (% EMILIANO)1.10Rev. Defect Extent (% EMILIANO)0.00 IMPRESSION Diseased Vessels: Left Anterior Descending, Right Coronary, Left Circumflex, Left Main Conclusion 1. Abnormal baseline EKG but no EKG evidence of stressed induced ischemia. 2. Nuclear imaging shows no reversible ischemia or infarct. 3. Normal left ventricular systolic function with an ejection fraction of 63%. 4. Moderately low risk Lexiscan nuclear stress test. Signed by : Nino Chapa MD Electronically Approved : 05/04/2018 13:40:52
--- NOTE | 2018-05-04 13:46 | CARD ---
MR#: [id number] Date of Study: 05/04/2018 Ordering Physician: TRACE LAURENT, Referring Physician: TRACE LAURENT, Tech: Erna Cortes APPROVED REPORT EXAM: Two-dimensional and M-mode echocardiogram with Doppler and color Doppler. Other Information Quality : AverageHR: 53bpm INDICATION Pre-Op RISK FACTORS Hypertension 2D DIMENSIONS Left Atrium(2D)4.3 (1.6-4.0cm)IVSd1.5 (0.7-1.1cm) Aortic Root(2D)3.0 (2.0-3.7cm)LVDd4.4 (3.9-5.9cm) LVOT Diameter2.0 (1.8-2.4cm)PWd1.3 (0.7-1.1cm) IVSs1.5 (0.8-1.2cm)LVDs3.6 (2.5-4.0cm) FS (%) 18.4 %PWs1.2 (0.8-1.2cm) SV33.4 ml Aortic Valve AoV Peak Avery.107.6cm/sAoV VTI23.6cm AO Peak GR.4.6mmHgLVOT Peak Avery.87.8cm/s LVOT VTI 22.41cmAO Mean GR.2mmHg PAULINE (VMAX)2.95bn4THE (VTI)3.11cm2 AI P 1/2 Xxjy814cl Mitral Valve MV E Pxncdcpp665.6cm/sMV DECEL PHPM399ua MV A Waeybaom08.3cm/sMV SUF83rs E/A Ratio1.4MVA (PHT)5.09cm2 TDI E/Lateral E'9.9E/Medial E'18.6 Pulmonary Valve PV Peak Nwcnjtdc456.3cm/sPV Peak Grad.5mmHg Tricuspid Valve TR P. Reisncby830op/sRAP XHYWSBSG3zuMh TR Peak Gr.85ykLiJQIF06gpJd Pulmonary Vein S1 Lhctftju68.2cm/sD2 Bouobnib98.7cm/s PVa aqnjsiya630ongv LEFT VENTRICLE The left ventricle is normal size. There is mild concentric left ventricular hypertrophy. The left ve ntricular systolic function is normal. The Ejection Fraction is 55-60%. There is normal LV segmental wall motion. Transmitral Doppler flow pattern is Grade II-pseudonormal filling dynamics. RIGHT VENTRICLE The right ventricle is borderline dilated. There is normal right ventricular wall thickness. The righ t ventricular systolic function is normal. ATRIA The left atrium is borderline dilated. The right atrium size is normal. The interatrial septum is int act with no evidence for an atrial septal defect or patent foramen ovale as noted on 2-D or Doppler i maging. AORTIC VALVE The aortic valve is normal in structure and function. Doppler and Color Flow revealed mild aortic reg urgitation. There is no significant aortic valvular stenosis. MITRAL VALVE The mitral valve is thickened but opens well. There is no evidence of mitral valve prolapse. There is no mitral valve stenosis. Doppler and Color-flow revealed mild mitral regurgitation. TRICUSPID VALVE The tricuspid valve is normal in structure and function. Doppler and Color Flow revealed mild tricusp id regurgitation with an estimated PAP of 47 mmHg. There is no tricuspid valve stenosis. PULMONIC VALVE The pulmonary valve is normal in structure and function. Doppler and Color Flow revealed no pulmonic valvular regurgitation. GREAT VESSELS The aortic root is normal in size. The IVC is normal in size and collapses >50% with inspiration. PERICARDIAL EFFUSION There is no evidence of significant pericardial effusion. Critical Notification Critical Value: No <Conclusion> The left ventricle is normal size. The left ventricular systolic function is normal. The Ejection Fraction is 55-60%. There is mild concentric left ventricular hypertrophy. There is no significant aortic valvular stenosis. Doppler and Color Flow revealed mild aortic regurgitation. Doppler and Color-flow revealed mild mitral regurgitation. Doppler and Color Flow revealed mild tricuspid regurgitation with an estimated PAP of 47 mmHg. Signed by : Nino Chapa MD Electronically Approved : 05/04/2018 13:45:36
== END | disposition home or self-care (01) ==
LOC: NM 08:31
PROVIDERS: ATTEND Internal Medicine Cardiovascular Disease
DX: Z01.810 Encounter for preprocedural cardiovascular examination (principal); I08.3 Combined rheumatic disorders of mitral, aortic and tricuspid valves; I49.9 Cardiac arrhythmia, unspecified; I49.3 Ventricular premature depolarization; I11.9 Hypertensive heart disease without heart failure; J45.909 Unspecified asthma, uncomplicated; R55 Syncope and collapse
CPT/HCPCS: 78452; 93017; 93306; 96374; A9500; J2785

== ENCOUNTER → 2018-05-18 | Outpatient (CLI) | payer MEDICARE, OTHER ==
[2017-09-08 17:08] VITALS: BP 156/74
[~2018-05-18] MED LIST changes: -REGADENOSON 0.4 MG/5 ML DISP.SYRIN. IV ONE
--- NOTE | 2018-05-18 16:37 | KCIC ---
Carotid ultrasound, 05/18/2018: HISTORY: Blurred vision, dizziness Duplex evaluation of the carotid arteries and neck was performed including grayscale, color-flow and spectral Doppler analysis. There is mild to moderate atherosclerotic plaquing at the carotid bifurcations, left greater the right. The plaques are partially calcified. The peak systolic velocity in the right internal carotid artery is 114 cm per sec with an end-diastolic velocity of 10 cm/s and an internal carotid to common carotid artery ratio of 1.1. These Doppler findings suggest luminal narrowing in the 0-50 percent diameter range. There is a mild velocity acceleration in the right external carotid artery up to 162 cm/s. The color images do not suggest high-grade stenosis. On the left, the peak systolic velocity in the internal carotid artery is 134 cm/s with an end-diastolic velocity of 13 cm/s and an internal carotid to common carotid artery ratio 1.3. The peak systolic velocity suggests narrowing in the 50-70 percent diameter range while the end-diastolic velocity measurement and the internal carotid to common carotid artery ratio suggest a lesser degree of narrowing. Correlation with the color images suggests that the narrowing is probably in the 0-50 percent diameter range. Antegrade flow is present in both vertebral arteries in the neck. IMPRESSION: Mild to moderate atherosclerotic plaquing at both carotid bifurcations with underlying luminal narrowing in the 0-50 percent diameter range bilaterally. Note: Stenosis calculations for CT, MRA and conventional angiography are based upon determination of the distal ICA diameter in accordance with the NASCET methodology. Stenosis calculations for Doppler studies are derived from validated velocity criteria which are known to correlate with NASCET methodology of determining stenosis. Electronically signed by: Edgar Esteban MD (05/18/2018 4:34 PM) [facility]
== END | disposition home or self-care (01) ==
LOC: KCIC US 12:20
PROVIDERS: ATTEND Psychiatry & Neurology Neurology
DX: I65.23 Occlusion and stenosis of bilateral carotid arteries (principal)
CPT/HCPCS: 93880

== ENCOUNTER → 2018-07-11 | Outpatient (CLI) | payer MEDICARE, OTHER ==
[2017-09-08 17:08] VITALS: BP 156/74
--- NOTE | 2018-07-11 13:13 | RAD ---
Cervical spine, 5 views, 07/11/2018: HISTORY: Cervical radiculopathy The bony structures are demineralized. There is accentuation of the normal thoracic kyphosis with a prominent cervical lordosis. No cervical fracture is identified. There are moderate degenerative changes involving scattered facet joints, most severe at C3-4. There is partial fusion of the facet joints at C2-3. There is a slight anterolisthesis at C3-4. There are mild degenerative changes at that disc level. These findings appear unchanged since the CT study of 12/22/2017. Moderate calcific plaquing is present at both carotid bifurcations. IMPRESSION: 1. Demineralization. 2. Mild scattered degenerative changes. 3. Slight chronic anterolisthesis at C3-4 due to facet joint arthropathy. Electronically signed by: Edgar Esteban MD (07/11/2018 1:10 PM) [facility]
--- NOTE | 2018-07-12 01:50 | PAIN ---
DATE OF SERVICE: 07/11/2018 INITIAL CONSULTATION FOR PAIN CLINIC CHIEF COMPLAINT: Low back and bilateral lower extremity pain. SECONDARY COMPLAINT: Neck and bilateral shoulder and upper extremity pain. HISTORY OF PRESENT ILLNESS: This is an 82-year-old female who presents with history of pain in the low back, bilateral lower extremities, left greater than right and neck and upper extremities bilaterally for about 3 years, worse over the past year or so. The patient reports no specific injury or action that she is aware of, but has been getting worse with time. She is currently doing physical therapy, which she feels does help to some extent. She feels like she is getting stronger with her back, but her neck and shoulders is not improving as much. The patient reports the pain is across the low back, left greater than right and into the left posterior gluteus, posterior thigh, posterior calf with some pain into the right side as well, but mostly on the left. The patient reports it is worse with walking, standing, change in positions, describes the pain as constant, tingling in the legs, aching in the back, also in the base of the shoulders and neck and the bilateral upper extremities, mostly in the posterior aspect of the shoulder to some in the anterior as well, essentially equal left to right on the upper extremities and shoulders. The patient reports no loss of motor function, reports it wakes her from sleep at night fairly frequently, mostly with the low back and legs, especially when she changes positions or rolls from one side or the other. The patient is using a walker at all times, reports it does affect her ability to walk significantly, does not affect her bowel or bladder control, but again does affect her sleeping to a fairly significant extent. Physical therapy seems to be helping, but again the patient reports it is not decreasing the pain significantly. The patient has tried tramadol as well as acetaminophen. Acetaminophen does help as does the tramadol, but she only uses it very sparingly. The patient did have MRI scan of the lumbar spine dated 10/2017 and that is showing mild to moderate lateral recess stenosis bilaterally at L4-L5, mild lateral recess stenosis at L5-S1 and L3-L4, multilevel degenerative changes, neural foraminal compromise, most notable that is [id number] narrowing on the left at L5-S1. PAST MEDICAL HISTORY: Significant for shortness of breath, hypothyroidism, rhinitis, cervical cancer in 1973, blood clots in the leg in 2000, enlarged thyroid, hypertension, sleep apnea, congestive heart failure, paroxysmal atrial tachycardia, hyperlipidemia, phlebitis, peritonitis, gallstones, incontinence, dizziness, fainting, arthritis, osteoporosis, fibromyalgia. PREVIOUS SURGERY: Include excision of the coccyx, bilateral total knee replacements, hysterectomy, cholecystectomy, bilateral cataract extraction, kidney stone extraction, repair of bleeding ulcer, Kev shunt, varicose vein stripping, bilateral foot surgeries, bladder repair, hiatal hernia and abdominal hernia repairs. CURRENT MEDICATIONS: Include verapamil, potassium, Lasix, Synthroid, gemfibrozil, tramadol, clonidine, hydralazine, albuterol inhaler, and fluticasone. FAMILY HISTORY: Significant for tuberculosis, strokes, and stomach ulcers. SOCIAL HISTORY: The patient is retired, is . Does not drink alcohol, does not smoke. Does not use any illegal, illicit or recreational drugs. Have 4 children, not living with her. She lives in assisted living facility in [facility]. REVIEW OF SYSTEMS: The patient's review of systems is positive for those items mentioned in history of present illness. All systems reviewed and otherwise negative. It is complete, full and well documented on the patient's chart. ALLERGIES: THE PATIENT IS ALLERGIC TO SENOKOT, ZANTAC, LISINOPRIL, RITALIN, LIPITOR, MACROBID, ASPIRIN, DARVOCET, PAXIL, CARDIZEM, SULFA, FELDENE, HYDROCODONE, BEXTRA, BERENICE INHIBITORS, CIPRO, ALEVE, RED DYE AND ZEBETA. PHYSICAL EXAMINATION: VITAL SIGNS: The patient's blood pressure is 137/69, pulse 74, respirations 16, temperature 97.5 degrees Fahrenheit, height is 5 feet 2 inches, weight is 198 pounds. GENERAL: The patient is awake, alert, oriented, appropriate, very pleasant demeanor. HEENT: Shows normocephalic, atraumatic. Extraocular movements are intact and symmetrical. Oral cavity: Mucous membranes are moist and pink. Dentition is intact. NECK: Shows anterior throat supple without palpable lymphadenopathy noted. Swallow reflex is symmetrical. CHEST: Shows normal on inspection. Breath sounds are clear to auscultation bilaterally. HEART: Shows S1, S2 clear. No murmurs auscultated. ABDOMEN: Soft, nontender, nondistended. No palpable organomegaly is noted. No rebound or guarding demonstrated. BACK: Shows spine grossly in the midline. Normal appearing cervical lordotic curvature. Thoracic kyphosis is slightly exaggerated and some flattening of lumbar lordotic curvature. Cervical paraspinous muscle shows symmetrical on inspection. On palpation shows some moderate tenderness diffusely bilaterally with palpation, but only diffusely in the middle and lower distribution of paraspinous muscles without radiation, without trigger points. The patient has good rotational motion of cervical spine past 45 degrees, right and left lateral as well as extension and forward flexion without significant pain reported. The patient's lower back shows lumbar paraspinous muscles are symmetrical on inspection. On palpation shows some moderate tenderness diffusely, slightly worse on the left than the right in the low lumbar distribution, but without trigger points or without asymmetry. No tenderness over the sacrum or sacroiliac region or spinous processes. The patient has good rotational motion of lumbar spine, both laterally greater than 10 degrees right and left as well as extension greater than 10 degrees, forward flexion 45 degrees without significant increase in pain. EXTREMITIES: The patient's extremities show upper extremity deep tendon reflexes at 2+ in the biceps and triceps tendons. Motor exam is approximately 4 on a scale of 5 with lead generator strength that is equal and symmetrical. Peripheral pulses are 2+ radial distribution. Lower extremities show deep tendon reflexes 1+ in the patellar and tendo calcaneus tendons. Well-healed surgical scar is noted over the knees bilaterally. Motor exam is strong with approximately 4 on a scale of 5, symmetrical dorsiflexion, extension, quadriceps and hamstring flexion. Peripheral pulses are 1+ posterior tibia. No peripheral edema is noted in the upper or lower extremities. The patient's straight leg raise noted to be negative for reproduction of radicular symptoms on the right, but positive on the left at about 35-40 degrees, decreased with knee flexion. Gaenslen's and Steve's maneuvers are grossly negative bilaterally. The patient is able to stand, but has difficulty rising from her chair and requires assistance holding on to the arms of the chair and is using a walker to ambulate with a shuffling gait. DERMATOLOGIC: The patient's skin shows warm and dry, good turgor. No edema. No sores, rashes or bruising throughout. IMPRESSION: This is an 82-year-old female with: 1. Long history of approximately 3 years of increasing pain in the low back, bilateral lower extremities, left greater than right in a radicular fashion. 2. Cervical radicular pain in the bilateral lower extremities, right equal to left. 3. Lumbar MRI scan as noted. 4. Hypertension. 5. Dizziness. 6. Arthritis. PLAN: Options were discussed with the patient including conservative medical management, physical therapy, interventional techniques and she is doing physical therapy currently. She would like to complete this. We discussed the possible lumbar epidural steroid injection and possible cervical epidural steroid injection. In the future, she would like to consider this and think about it. Also, she has not had any recent films on her cervical spine. We will order a C-spine series today and see the result of this and decide further treatment as dictated in the future. The patient will continue with physical therapy at this point, would like to consider her options and we will contact the clinic for followup if she desires once x-rays are obtained and physical therapy is completed. HALLIE PERDOMO MD DR: MAGALI/dillon JOB#: [id number] / [id number]
== END | disposition home or self-care (01) ==
LOC: PNCL 10:55
PROVIDERS: ATTEND Anesthesiology
DX: M47.22 Other spondylosis with radiculopathy, cervical region (principal); M12.88 Other specific arthropathies, not elsewhere classified, other specified site; E03.9 Hypothyroidism, unspecified; I11.0 Hypertensive heart disease with heart failure; I50.9 Heart failure, unspecified; R42 Dizziness and giddiness; M19.90 Unspecified osteoarthritis, unspecified site; E78.5 Hyperlipidemia, unspecified; M81.0 Age-related osteoporosis without current pathological fracture; Z90.710 Acquired absence of both cervix and uterus; Z90.49 Acquired absence of other specified parts of digestive tract; Z88.8 Allergy status to other drugs, medicaments and biological substances; Z96.653 Presence of artificial knee joint, bilateral; Z85.41 Personal history of malignant neoplasm of cervix uteri
CPT/HCPCS: 72050; G0463

== ENCOUNTER → 2018-08-31 | Outpatient (CLI) | payer MEDICARE, OTHER ==
[2017-09-08 17:08] VITALS: BP 156/74
--- NOTE | 2018-09-04 11:54 | EEG ---
DATE OF SERVICE: 08/31/2018 EEG NUMBER: [id number]. OBJECTIVE: This is an 83-year-old female patient with a syncopal spell. EEG was requested to help rule out seizure. METHODS: Twenty electrodes were applied according to the international 10-20 electrode placement system. EKG monitoring, hyperventilation, intermittent photic stimulation, monopolar and bipolar montages are routinely utilized. The record was obtained on a digital system with video monitoring. FINDINGS: 1. Background: The patient was recorded in the awake, drowsy, and sleep states. The overall background amplitude is 10-30 microvolts. A posterior dominant rhythm of 8-9 Hz is observed. 2. Abnormalities: No specific epileptiform discharge or electrographic seizure is seen. No focal or diffuse slowing. 3. Activation: Hyperventilation was performed with good efforts and normal response. Intermittent photic stimulation was performed with photic driving. IMPRESSION: This EEG is a normal study for the awake, drowsy, and sleep states. No focal, lateralizing, specific epileptiform discharge or electrographic seizure is seen. PAULINO RAMON MD DR: MANISH/dillon JOB#: [id number] / [id number] LUCA
== END | disposition home or self-care (01) ==
LOC: RT 08:32
PROVIDERS: ATTEND Psychiatry & Neurology Neurology
DX: R55 Syncope and collapse (principal)
CPT/HCPCS: 95816

== ENCOUNTER 2018-11-16 11:06 | Inpatient (IN) | payer MEDICARE, OTHER ==
[~2018-11-16] VITALS: Ht 160 cm; Wt 82.7 kg
[~2018-11-16 11:06] MED LIST changes: +BISA10SU4 PR; +CEPH250C PO; +GABA300C9 PO; +LACT1CAP19 PO
--- NOTE | 2018-11-16 11:41 | PHYS DOC ---
Past Medical History Past Medical History: Anemia, Arthritis, Asthma, Cancer, CHF, Fibromyalgia, Hypertension, Other Additional Past Medical Histor: SLEEP APNEA, ARTHRITIS OF SPINE BOTH KNEES, AND LEFT HIP, CELLULITIS Past Surgical History: Cholecystectomy, Hysterectomy, Other Additional Past Surgical Histo: FOOT, COCCYX RMVD, VARICOSE VEINS BILAT LEG, BLADDER REPAIR, HERNIA, Alcohol Use: None Drug Use: None Adult General Chief Complaint Chief Complaint: MECHANICAL FALL HPI HPI Patient is a 83 year old right-handed female resident of assisted living who presents via EMS with complaining of a fall. Patient states she was going to the kitchen to make some for forehead at 0330 AM and lost her balance and had a fall without loss of consciousness. Patient complaining of pain in left shoulder and left elbow and left hip and rated her pain 9/10 with activity and movement. Patient also had some injury to right upper extremity with operation but denies pain in right upper extremity and other injuries. Patient complaining of problem with her balance for the last 2 or 3 weeks without focal neuro deficit. Patient last tetanus immunization is unknown. Patient has had the dressing of bilateral lower extremity and stated she has had some dove bilateral lower extremity f ourth to 4 months and has had home health care with changing the dressing daily but does not have a primary care physician. Review of Systems Review of Systems Constitutional: Denies fever or chills [] Eyes: Denies change in visual acuity, redness, or eye pain [] HENT: Denies nasal congestion or sore throat [] Respiratory: Denies cough or shortness of breath [] Cardiovascular: No additional information not addressed in HPI [] GI: Denies abdominal pain, nausea, vomiting, bloody stools or diarrhea [] : Denies dysuria or hematuria [] Musculoskeletal: Denies back pain, reports joint pain [] Integument: Denies rash or skin lesions [] Neurologic: Denies headache, focal weakness or sensory changes [] Endocrine: Denies polyuria or polydipsia [] All other systems were reviewed and found to be within normal limits, except as documented in this note. Allergies Allergies Allergies Coded Allergies Type Severity Reaction Last Updated Verified linaclotide Allergy Severe 07/03/17 Yes Sulfa (Sulfonamide Antibiotics) Allergy Intermediate 09/17/15 Yes acetaminophen Allergy Intermediate 09/17/15 Yes atorvastatin Allergy Intermediate 09/17/15 Yes bisoprolol Allergy Intermediate 09/14/15 Yes cadexomer iodine Allergy Intermediate itching 09/14/15 Yes ciprofloxacin Allergy Intermediate 09/17/15 Yes diltiazem Allergy Intermediate takes VERAPAMIL at home 07/02/17 Yes lisinopril Allergy Intermediate 09/18/15 Yes methylphenidate Allergy Intermediate 09/17/15 Yes naproxen Allergy Intermediate 07/03/17 Yes nitrofurantoin Allergy Intermediate 09/14/15 Yes ofloxacin Allergy Intermediate 09/17/15 Yes paroxetine Allergy Intermediate 09/17/15 Yes piroxicam Allergy Intermediate 09/17/15 Yes propoxyphene Allergy Intermediate 09/17/15 Yes ranitidine Allergy Intermediate 09/17/15 Yes senna Allergy Intermediate 09/17/15 Yes valdecoxib Allergy Intermediate 09/17/15 Yes Physical Exam Physical Exam Constitutional: Well developed, well nourished, mild distress, non-toxic appearance. [] HENT: Normocephalic, atraumatic. Eyes: PERRLA, EOMI, conjunctiva normal, no discharge. [] Neck: Normal range of motion, no tenderness, supple, no stridor. [] Cardiovascular: RRR , no murmur Lungs & Thorax: Bilateral breath sounds clear to auscultation [] Abdomen: Bowel sounds normal, soft, no tenderness, no masses, no pulsatile masses. [] Skin: Warm, dry, no erythema, no rash. [] Back: No tenderness, no CVA tenderness. [] Extremities: Right upper extremity with contusion and abrasion of forearm without deformity, normal range of motion, left shoulder tenderness without deformity, painful range of motion, no neurovascular deficit left hip with mild tenderness without deformity or abnormal range of motion, bilateral lower extremity erythema and edema and leaking clear fluid of bilateral legs. Neurologic: Alert and oriented X 3, no focal deficits noted. [] Psychologic: Affect normal, judgement normal, mood normal. [] Current Patient Data Vital Signs Vital Signs Date Time Temp Pulse Resp B/P (MAP) Pulse Ox O2 Delivery O2 Flow Rate FiO2 11/16/18 11:37 98 17 95 11/16/18 11:09 98.3 133/89 (104) Room Air 98.3 Lab Values Laboratory Tests Test 11/16/18 11:25 White Blood Count 6.0 x10^3/uL (4.0-11.0) Red Blood Count 4.03 x10^6/uL (3.50-5.40) Hemoglobin 12.4 g/dL (12.0-15.5) Hematocrit 37.7 % (36.0-47.0) Mean Corpuscular Volume 94 fL (79-100) Mean Corpuscular Hemoglobin 31 pg (25-35) Mean Corpuscular Hemoglobin Concent 33 g/dL (31-37) Red Cell Distribution Width 15.6 % (11.5-14.5) H Platelet Count 338 x10^3/uL (140-400) Neutrophils (%) (Auto) 80 % (31-73) H Lymphocytes (%) (Auto) 9 % (24-48) L Monocytes (%) (Auto) 7 % (0-9) Eosinophils (%) (Auto) 2 % (0-3) Basophils (%) (Auto) 1 % (0-3) Neutrophils # (Auto) 4.8 x10^3/uL (1.8-7.7) Lymphocytes # (Auto) 0.6 x10^3/uL (1.0-4.8) L Monocytes # (Auto) 0.4 x10^3/uL (0.0-1.1) Eosinophils # (Auto) 0.1 x10^3/uL (0.0-0.7) Basophils # (Auto) 0.1 x10^3/uL (0.0-0.2) Laboratory Tests 11/16/18 11:25 EKG EKG EKG interpreted by me. EKG at 1153 showed normal sinus rhythm at rate of 80, PVCs, abnormal left axis deviation, left anterior fascicular block, LVH, nonspecific T-wave abnormalities, no acute ST and T-wave abnormalities. Radiology/Procedures Radiology/Procedures [][facility] [address] [place], [place] [id number] IMAGING REPORT Signed PATIENT: KAILA DISLA LACCOUNT: [id number] : 1935 LOCATION: [address] [place] [address] AGE: 83 SEX: F EXAM STATUS: ADM IN ORD. PHYSICIAN: RAHEEL HUGHES MD REASON: fall, leg hip pain PROCEDURE: HIP LEFT 2V WITH PELVIS 2 view left hip study and AP view of the pelvis Clinical indications: Fall. Left hip pain. FINDINGS: No acute fracture or dislocation of the left hip is evident. No diastases of the symphysis pubis or either SI joint is seen. IMPRESSION: No acute fracture. Electronically signed by: Shelly Blank MD (11/16/2018 1:41 PM) [place] [id number] DICTATED and SIGNED BY: SHELLY BLANK MD DATE: 11/16/18 1341 [facility] [address] [place] [address] IMAGING REPORT Signed PATIENT: KAILA DISLA LACCOUNT: [id number] : 1935 LOCATION: [address] [place] [address] AGE: 83 SEX: F EXAM STATUS: ADM IN ORD. PHYSICIAN: RAHEEL HUGHES MD REASON: fall PROCEDURE: CT HEAD AND CERVICAL SPINE WO Examination: CT HEAD AND CERVICAL SPINE WO History: Fall, pain Comparison/Correlation: 10/10/2018 CT head and cervical spine without contrast Findings: Axial images of the head and cervical spine were obtained without contrast. Sagittal and coronal reformatted images were provided. Atrophy is present. Chronic ischemic changes white matter noted. Old right frontal lobe infarct or other encephalomalacia noted. No intracranial hemorrhage, midline shift, or mass effect. Cavernous carotid calcification is evident. Globes and optic nerves are unremarkable. No depressed skull fracture. Alignment is unremarkable. Atlantoaxial joint degenerative remodeling is present. Moderate C3-4 disc space narrowing is present. Facet joint degenerative changes are present. Neural foraminal narrowing on the right at the C3-4 neural foramen is moderate. Biapical scarring is noted. Soft tissues are unremarkable. Carotid bulb calcification bilaterally is present. Impression: No intracranial hemorrhage. No cervical spine malalignment or fracture. RS Compliance Statement: One or more of the following individualized dose reduction techniques were utilized for this examination: 1. Automated exposure control 2. Adjustment of the mA and/or kV according to patient size 3. Use of iterative reconstruction technique Electronically signed by: Mateo Pineda MD (11/16/2018 12:52 PM) [facility] DICTATED and SIGNED BY: MATEO PINEAD MD DATE: 11/16/18 1252 [facility] [address] [place] [address] IMAGING REPORT Signed PATIENT: KAILA DISLAOUNT: [id number] : 1935 LOCATION: [address] [place] [address] AGE: 83 SEX: F EXAM STATUS: ADM IN ORD. PHYSICIAN: RAHEEL HUGHES MD REASON: fall, leg shoulder pain PROCEDURE: ELBOW LEFT 3V ADDENDUM Addendum: Chest x-ray demonstrates a nondisplaced fracture of the lateral aspect of the greater tubercle region of the proximal left humerus. Note-this discrepancy was called to the emergency room physician at 1:45 PM on November 16, 2018. Electronically signed by: Shelly Blank MD (11/16/2018 1:47 PM) [place] [id number] DICTATED AND SIGNED BY: SHELLY BLANK MD DATE: 11/16/18 1347 CC: MARINE MORALES MD; RAHEEL HUGHES MD; ELY OLEARY MD ~ Examination: ELBOW LEFT 3V, SHOULDER 2+V LEFT History: Fall, pain Comparison/Correlation: None Findings: Two-view left shoulder x-ray exam was performed. Two-view left elbow x-ray exam was performed including nearly 90 degrees flexed lateral view. Portable technique was utilized for elbow x-ray exam. The graft artifact about the left shoulder is present and limits assessment. Glenohumeral joint relationship and acromioclavicular joint are unremarkable. Osteopenia noted. No conclusive fracture but this exam is limited. Elbow joint is unremarkable with no fat pad displacement. Joint spaces are adequate. Soft tissues are unremarkable. No fracture visualized. Impression: No fracture identified. The shoulder x-ray exam in particular is limited. Consider interval follow-up of concern for fracture persists. Electronically signed by: Mateo Pineda MD (11/16/2018 1:28 PM) [facility] DICTATED and SIGNED BY: MATEO PINEDA MD DATE: 11/16/18 1328 Corrected left shoulder x ray showed a proximal humerus fracture Course & Med Decision Making Course & Med Decision Making Pertinent Labs and Imaging studies reviewed. (See chart for details) Evaluation of patient in ER showed 83-year-old male patient with a fall and injury to left upper extremity. Patient also had bilateral lower extremity cellulitis with foul smelling dressing in place. Patient did not have elevation of lactic acid. Labs showed UTI without leukocytosis. Shoulder immobilizer was placed patient but did not want pain medication in ER. Plan patient with diagnosis of lower extremity cellulitis and will consult [facility] orthopedic. Patient requiring admission for further evaluation and treatment. Discussed with Dr. Jara who is in agreement with admission. Discussed findings and plan with patient and family, who acknowledge understanding and agreement. Dragon Disclaimer Dragon Disclaimer This electronic medical record was generated, in whole or in part, using a voice recognition dictation system. Departure Departure Impression: Primary Impression: Bilateral lower leg cellulitis Additional Impressions: Fracture of humeral head, left, closed Fall Renal insufficiency CHF (congestive heart failure) Disposition: 09 ADMITTED INPATIENT (at 1254) Admitting Physician: ANNE (Dr. Jara accepted admission at 1253) Condition: IMPROVED Referrals: [facility] (PCP) Problem Qualifiers Additional Impressions: Fracture of humeral head, left, closed Encounter type: initial encounter Qualified Codes: S42.292A - Other displaced fracture of upper end of left humerus, initial encounter for closed fracture Fall Encounter type: subsequent encounter Qualified Codes: W19.XXXD - Unspecified fall, subsequent encounter CHF (congestive heart failure) Heart failure type: unspecified Heart failure chronicity: unspecified Qualified Codes: I50.9 - Heart failure, unspecified RAHEEL HUGHES MD Nov 16, 2018 11:41
[2018-11-16 11:52] LABS: BASO # 0.1 x10^3/uL (0.0-0.2); BASO % 1 % (0-3); EOS # 0.1 x10^3/uL (0.0-0.7); EOS % 2 % (0-3); HEMATOCRIT 37.7 % (36.0-47.0); HEMOGLOBIN 12.4 g/dL (12.0-15.5); LYMPH # 0.6 x10^3/uL (1.0-4.8); LYMPH % 9 % (24-48); MEAN CORPUSCULAR HEMOGLOBIN 31 pg (25-35); MEAN CORPUSCULAR HGB CONC 33 g/dL (31-37); MEAN CORPUSCULAR VOLUME 94 fL (79-100); MONO # 0.4 x10^3/uL (0.0-1.1); MONO % 7 % (0-9); NEUT # 4.8 x10^3/uL (1.8-7.7); NEUT % 80 % (31-73); PLATELET COUNT 338 x10^3/uL (140-400); RED BLOOD COUNT 4.03 x10^6/uL (3.50-5.40); RED CELL DISTRIBUTION WIDTH 15.6 % (11.5-14.5)
[2018-11-16] MEDS ORDERED: DIPHTH,PERTUSS(ACELL),TET TOX 0.5 ML DISP.SYRIN. VAX IM ONE (12:15)
[2018-11-16 12:52] LABS: PROTHROMBIN TIME PATIENT 12.5 SEC (11.7-14.0)
--- NOTE | 2018-11-16 12:55 | RAD ---
Examination: CT HEAD AND CERVICAL SPINE WO History: Fall, pain Comparison/Correlation: 10/10/2018 CT head and cervical spine without contrast Findings: Axial images of the head and cervical spine were obtained without contrast. Sagittal and coronal reformatted images were provided. Atrophy is present. Chronic ischemic changes white matter noted. Old right frontal lobe infarct or other encephalomalacia noted. No intracranial hemorrhage, midline shift, or mass effect. Cavernous carotid calcification is evident. Globes and optic nerves are unremarkable. No depressed skull fracture. Alignment is unremarkable. Atlantoaxial joint degenerative remodeling is present. Moderate C3-4 disc space narrowing is present. Facet joint degenerative changes are present. Neural foraminal narrowing on the right at the C3-4 neural foramen is moderate. Biapical scarring is noted. Soft tissues are unremarkable. Carotid bulb calcification bilaterally is present. Impression: No intracranial hemorrhage. No cervical spine malalignment or fracture. PQRS Compliance Statement: One or more of the following individualized dose reduction techniques were utilized for this examination: 1. Automated exposure control 2. Adjustment of the mA and/or kV according to patient size 3. Use of iterative reconstruction technique Electronically signed by: Mateo Maciel MD (11/16/2018 12:52 PM) [facility]
[2018-11-16 13:05] LABS: CREATININE 1.1 mg/dL (0.6-1.0); GFR 47.2; POTASSIUM 4.2 mmol/L (3.5-5.1)
[2018-11-16 13:10] LABS: ALBUMIN 3.2 g/dL (3.4-5.0); ALBUMIN/GLOBULIN RATIO 0.9 (1.0-1.7); TOTAL BILIRUBIN 0.3 mg/dL (0.2-1.0); TOTAL PROTEIN 6.7 g/dL (6.4-8.2)
--- NOTE | 2018-11-16 13:31 | RAD ---
Examination: ELBOW LEFT 3V, SHOULDER 2+V LEFT History: Fall, pain Comparison/Correlation: None Findings: Two-view left shoulder x-ray exam was performed. Two-view left elbow x-ray exam was performed including nearly 90 degrees flexed lateral view. Portable technique was utilized for elbow x-ray exam. The graft artifact about the left shoulder is present and limits assessment. Glenohumeral joint relationship and acromioclavicular joint are unremarkable. Osteopenia noted. No conclusive fracture but this exam is limited. Elbow joint is unremarkable with no fat pad displacement. Joint spaces are adequate. Soft tissues are unremarkable. No fracture visualized. Impression: No fracture identified. The shoulder x-ray exam in particular is limited. Consider interval follow-up of concern for fracture persists. Electronically signed by: Mateo Maciel MD (11/16/2018 1:28 PM) [facility]
--- NOTE | 2018-11-16 13:40 | EKG ---
[facility] [address] [place] [address] Test Date: 2018-11-16 Test Time: 11:53:06 Pat Name: KAILA DISLA Department: Room: Gender: F Van Helper: : 1935 Requested By: RAHEEL HUGHES Order Number: [id number] Reading MD: Measurements Intervals [place] Rate: 80 P: -5 DE: 172 QRS: -34 QRSD: 92 T: 14 QT: 376 QTc: 437 Interpretive Statements SINUS RHYTHM ATRIAL PREMATURE COMPLEX(ES) ABNORMAL LEFT AXIS DEVIATION R-S TRANSITION ZONE IN V LEADS DISPLACED TO THE LEFT LEFT ANTERIOR FASCICULAR BLOCK CONSIDER LEFT VENTRICULAR HYPERTROPHY NON SPECIFIC T ABNORMALITY ABNORMAL ECG No previous ECG available for comparison
--- NOTE | 2018-11-16 13:41 | RAD ---
PORTABLE CHEST 1V Clinical indications: Fall. Left shoulder pain. COMPARISON: October 10, 2018. Findings: No acute lung infiltrate or pleural effusion or pulmonary edema or lung mass or pneumothorax is seen. The heart size, pulmonary vasculature, mediastinum and both calista are stable. Impression: No acute lung infiltrate. Electronically signed by: Noam Blank MD (11/16/2018 1:39 PM) [facility]
--- NOTE | 2018-11-16 13:44 | RAD ---
2 view left hip study and AP view of the pelvis Clinical indications: Fall. Left hip pain. FINDINGS: No acute fracture or dislocation of the left hip is evident. No diastases of the symphysis pubis or either SI joint is seen. IMPRESSION: No acute fracture. Electronically signed by: Noam Blank MD (11/16/2018 1:41 PM) [id number]
[2018-11-16 14:55] LABS: BILIRUBIN,URINE NEGATIVE (NEG); CLARITY,URINE CLEAR; COLOR,URINE YELLOW; NITRITE,URINE POSITIVE (NEG); PROTEIN,URINE NEGATIVE (NEG-TRACE); UROBILINOGEN,URINE 0.2 mg/dL (0.2 mg/dL)
[2018-11-16 15:02] LABS: HYALINE CASTS, URINE MODERATE /HPF; SQUAMOUS EPITHELIAL CELL,UR MANY /LPF
[2018-11-16 15:03] LABS: BACTERIA,URINE MANY /HPF (0-FEW); RBC,URINE 0 /HPF (0-2); WBC,URINE >40 /HPF (0-4)
[2018-11-16] MEDS ORDERED: TRAM50TA PO (16:58)
[2018-11-16] MEDS ORDERED: VITA10003 PO (17:11)
[2018-11-16] MEDS ORDERED: ALBU2.5V8 IH (17:19)
[2018-11-16] MEDS ORDERED: PROVENTIL HFA6.7 G2 INH (17:21)
[2018-11-16] MEDS ORDERED: CETI10TA16 PO (17:22)
[2018-11-16] MEDS ORDERED: DOCU100C28 PO (17:23)
[2018-11-16] MEDS ORDERED: CLOT15CR5 TP (17:25)
[2018-11-16] MEDS ORDERED: HYDROGEL (17:26)
--- NOTE | 2018-11-16 18:13 | NUR ---
Patient received to room 436 per [facility] at 1600. Patient total lift to bed. Left arm/shoulder immobilizer on. Patient alert and oriented times four. Patient received written information regards hospital and policies, patient received code for release of information to family and friends. Patient verb. understanding fall protocol, fall contract witnessed and bed alarm set. Side rails up times two,bed alarm set, call light at hand. See wound documentation. History and medication reconciliation completed. Dr. Jara here to see patient, see orders.
[2018-11-16 19:00] VITALS: BP 162/59
[2018-11-16] MEDS: cefTRIAXone IV Push 1 GM VIAL. IVP SCH (19:37)
[2018-11-16] MEDS: HYDROcodone/APAP 5/325MG 1 TAB TABLET PO PRN (19:37)
--- NOTE | 2018-11-16 20:00 | HP ---
ADMIT DATE: 11/16/2018 CHIEF COMPLAINT: Fall with shoulder pain. HISTORY OF PRESENT ILLNESS: The patient is a pleasant elderly female who fell. She complained of left shoulder pain. They brought her to the hospital and we did some x-rays and she does have a shoulder fracture. She also has severe lower extremity cellulitis. I have discussed the case with the ER physician. We are admitting the patient with IV antibiotics and consultation with Dr. Perlata. PAST MEDICAL HISTORY: Polypharmacy, arthritis, asthma, allergic rhinitis, constipation, hypertension, neuropathy, hypothyroidism. ALLERGIES: MULTIPLE INCLUDING SULFA, ATORVASTATIN, BUSPAR, CIPRO, CARDIZEM, LISINOPRIL, NAPROXEN, NITROFURANTOIN, PAROXETINE, PROPOXYPHENE NAPSYLATE, AND RANITIDINE. Please refer to the chart for further allergies. FAMILY HISTORY: Coronary artery disease. SOCIAL HISTORY: She is retired. She does not drink, smoke, or take drugs. MEDICATIONS: Reviewed, please refer to the MRAD. REVIEW OF SYSTEMS: GENERAL: No history of weight change, weakness or fevers. SKIN: She complains of a tear on her hand where she fell (that has been bandaged by the nurse). EYES: No blurred, double or loss of vision. NOSE AND THROAT: No history of nosebleeds, hoarseness or sore throat. HEART: No history of palpitations, chest pain or shortness of breath on exertion. LUNGS: Denies cough, hemoptysis, wheezing or shortness of breath. GASTROINTESTINAL: Denies changes in appetite, nausea, vomiting, diarrhea or constipation. GENITOURINARY: No history of frequency, urgency, hesitancy or nocturia. NEUROLOGIC: Denies history of numbness, tingling, tremor or weakness. PSYCHIATRIC: No history of panic, anxiety or depression. ENDOCRINE: No history of heat or cold intolerance, polyuria or polydipsia. EXTREMITIES: She complains of cellulitis. PHYSICAL EXAMINATION: VITALS: Within normal limits and are stable. GENERAL: No apparent distress. Alert and oriented. HEENT: Head is normocephalic, atraumatic, pupils were equally round and reactive to light and accommodation. NECK: Supple, no JVD, no thyromegaly was noted. LUNGS: Clear to auscultation in all lung dominique without rhonchi or wheezing. HEART: RRR, S1, S2 present. Peripheral pulses intact, no obvious murmurs were noted. ABDOMEN: Soft, nontender. Positive bowel sounds no organomegaly, normal bowel sounds. EXTREMITIES: She has got lower extremity bilateral cellulitis and the right hand has a tear on the palm and the left arm is in a sling. NEUROLOGIC: Normal speech, normal tone. A and O x3, moves all extremities, no obvious focal deficits. PSYCHIATRIC: Normal affect, normal mood. Stable. SKIN: No ulcerations or rashes, good skin turgor, no jaundice. VASCULAR: Good capillary refill, neurovascular bundle appears to be intact. LABORATORY DATA: White count 6, hemoglobin 12, platelets 338. Electrolytes are normal. INR is 1. Urinalysis, moderate leukocyte esterase and many white cells. ASSESSMENT AND PLAN: Fall with shoulder fracture with the incidental findings of urinary tract infection and cellulitis. The patient will be admitted. We will consult Dr. Peralta. I resumed most of her home medications, p.r.n. pain medications, wound care, physical therapy and occupational therapy. Postoperatively, she is probably going to need mcc. Deep venous thrombosis prophylaxis. SANDY MARCUS DO DR: GEOVANNA/dillon JOB#: [id number] / [id number]
[2018-11-16] MEDS ORDERED: traMADol 50 MG TABLET PO PRN (21:00)
[2018-11-16] MEDS: POTASSIUM CHLORIDE 10 MEQ TABLET.ER. PO SCH (21:15)
[2018-11-16] MEDS: CETIRIZINE HCL 10 MG TABLET. PO SCH (21:15)
[2018-11-16] MEDS: ALLOPURINOL 300 MG TABLET. PO SCH (21:15)
[2018-11-16] MEDS: ASPIRIN ENTERIC COATED 81 MG TABLET.DR. PO SCH (21:15)
[2018-11-16] MEDS: GABAPENTIN 300 MG CAPSULE. PO SCH (21:15)
[2018-11-16] MEDS: cloNIDine HCL 0.1 MG TABLET PO SCH (21:16)
[2018-11-16] MEDS: hydrALAZINE 25 MG TABLET PO SCH (21:17)
[2018-11-16] MEDS: CLOTRIMAZOLE/BETAMETH 1%-0.05% TOPICAL CREAM 15GM TUBE. TP SCH (21:47)
[2018-11-16 23:00] VITALS: BP 145/59
--- NOTE | 2018-11-17 01:52 | CONS ---
DATE OF CONSULTATION: 11/16/2018 ORTHOPEDIC CONSULTATION REQUESTING PHYSICIAN: Jailene Jara DO REASON FOR CONSULTATION: Left shoulder pain after a fall. HISTORY OF PRESENT ILLNESS: The patient is an 83-year-old female, who just had some longstanding lower extremity cellulitis for probably about 3-4 months, not getting better with current antibiotics, and apparently had a recent fall where she landed on her left shoulder and complains of some left shoulder and elbow pain; she landed on her left side as well, initially some concern with left hip soreness, but was diagnosed with a proximal humerus fracture. PAST MEDICAL HISTORY: Significant for neuropathy, hypertension, seasonal allergies, arthritis, asthma and hypothyroidism. ALLERGIES: SHE HAS MULTIPLE ALLERGIES INCLUDING CIPROFLOXACIN, SULFA, BUSPAR, ATORVASTATIN, CARDIZEM, LISINOPRIL, NAPROXEN, NITROFURANTOIN, PAROXETINE AND RANITIDINE. FAMILY HISTORY: Heart disease. SOCIAL HISTORY: She is retired. Denies smoking, alcohol or drug use. MEDICATIONS: Medication list is reviewed. REVIEW OF SYSTEMS: Significant for the recent fall and left-sided pain, particularly in the shoulder and elbow and the longstanding problems with cellulitis in the lower extremities that is severe and ongoing despite antibiotic treatment. PHYSICAL EXAMINATION: EXTREMITIES: She is in a shoulder immobilizer. She is very tender over the proximal humerus, minimal range of motion. Has normal examination of the contralateral right shoulder. Normal alignment and stability of bilateral elbows and wrists. Intact motor function, distal pulses and sensation in both upper extremities throughout. She has some slight tenderness on palpation over the lateral aspect of the left hip compared to the right. Normal alignment and stability of bilateral hips, knees and ankles, but has severe cellulitis basically in a stocking distribution, mainly in her lower extremities, the left side worse than the right, and skin is somewhat tense and red over the anterior aspect of the right ankle in particular. No open sores are noted. She does have some swelling generally in the feet and lower legs. She can wiggle her toes, but is painful to touch sensation over any of these areas. IMAGING: X-rays, left elbow, show no evidence of fracture; left hip, likewise, show no evidence of fracture; left shoulder shows a proximal humerus fracture that is impacted and acceptably aligned, well-maintained glenohumeral joint space otherwise. IMPRESSION: 1. Left proximal humerus fracture. 2. Cellulitis, bilateral lower extremities, unresponsive to ongoing oral antibiotics. TREATMENT PLAN: She can be treated nonoperatively with her proximal humerus fracture on the left in an immobilizer, medical treatment for her cellulitis with IV antibiotics, and basically fine motor use pendulum-type swings for the left shoulder only with her left elbow at the side with fine motor use of the hand being permitted. Follow up in about 2 weeks for reexamination and x-rays of the left shoulder from my standpoint in Orthopedics. ALVINA SHORT MD DR: LAUREN/dillon JOB#: [id number] / [id number]
[2018-11-17 03:00] VITALS: BP 134/56
[2018-11-17] MEDS ORDERED: LEVOTHYROXINE 125 MCG TABLET PO SCH (06:00)
[2018-11-17 07:00] VITALS: BP 141/58
[2018-11-17] MEDS: LEVOTHYROXINE 137 MCG TABLET PO SCH (07:46)
[2018-11-17] MEDS: FLUTICASONE 50MCG/NASAL SPRAY 16GM BOTTLE. NS SCH (08:34)
[2018-11-17] MEDS: VITAMIN A 10,000 UNIT CAPSULE. PO SCH (08:35)
[2018-11-17] MEDS: GABAPENTIN 300 MG CAPSULE. PO SCH ×2 (08:35→20:55)
[2018-11-17] MEDS: ALLOPURINOL 300 MG TABLET. PO SCH ×2 (08:36→20:54)
[2018-11-17] MEDS: ASPIRIN ENTERIC COATED 81 MG TABLET.DR. PO SCH ×2 (08:36→20:54)
[2018-11-17] MEDS: cloNIDine HCL 0.1 MG TABLET PO SCH ×3 (08:36→20:55)
[2018-11-17] MEDS: POTASSIUM CHLORIDE 10 MEQ TABLET.ER. PO SCH ×2 (08:36→20:54)
[2018-11-17] MEDS: DOCUSATE SODIUM 100 MG CAPSULE. PO SCH (08:36)
[2018-11-17] MEDS: FUROSEMIDE 40 MG TABLET. PO SCH ×2 (08:36→13:57)
[2018-11-17] MEDS: hydrALAZINE 25 MG TABLET PO SCH ×3 (08:37→20:54)
[2018-11-17] MEDS: CLOTRIMAZOLE/BETAMETH 1%-0.05% TOPICAL CREAM 15GM TUBE. TP SCH ×2 (08:37→20:55)
[2018-11-17] MEDS ORDERED: MORPHINE SULFATE 2 MG/ML VIAL. IV PRN (09:30)
[2018-11-17] MEDS ORDERED: TEMAZEPAM 7.5 MG CAPSULE PO PRN (09:30)
[2018-11-17] MEDS ORDERED: ONDANSETRON PF 4 MG/2 ML VIAL. IV PRN (09:30)
--- NOTE | 2018-11-17 10:45 | NUR ---
Client has BLE cellulitis, client refused stating she is in pain and her extremities have been hurting too much. Conferred with another IRAIDA SOARES possible contraindicated in clients healing. Addendum: 11/17/18 at 1048 by JONES VERGARA RN RN Amended: Links added.
[2018-11-17 10:53] VITALS: BP 122/77
--- NOTE | 2018-11-17 11:28 | PDOC ---
PROGRESS NOTES Chief Complaint Chief Complaint NOn op rt proximal humerus fx Mechanical fall at AL LEft leg cellulitis CHronic leg edema on lasix PO BID GEriatric HIgh fall risk HX syncope with indwelling cardiac device - cards DR cyr multiple allergies aSTHMA cONSTIpation History of Present Illness History of Present Illness painful rt shoulder when she ambulates Asthma too but no wheezing Ortho - non op, RT arm sling LEft leg red, swelling controlled, improving per her acct, NON dm,. hx of recurrent cellulitis, no skin breaks On IV rocpehin per DR Brown Multiple allergies PlaN; Counsult wound care, looks angry red leg COnt lasix PO for leg swelling - not too bad swelling COnt rocephin for now and ff BC Add PT, OT ESr on next blood draw SNU screen - SW - she is agreeable WOF constipation ALbuterol prn, slightly tachypneic today after potty Vitals Vitals Vital Signs Date Time Temp Pulse Resp B/P (MAP) Pulse Ox O2 Delivery O2 Flow Rate FiO2 11/17/18 10:53 97.8 62 22 122/77 (92) 90 Room Air 97.8 Physical Exam General: No acute distress Heart: Regular rate, Normal S1, Normal S2 Lungs: Clear Abdomen: No masses Extremities: No clubbing, No cyanosis, No tenderness/swelling Skin: Other (left leg red, no skin breaks, stable swelling,slightly warm to touch) Labs LABS Laboratory Tests Test 11/16/18 11:25 11/16/18 12:30 11/16/18 14:38 White Blood Count 6.0 x10^3/uL (4.0-11.0) Red Blood Count 4.03 x10^6/uL (3.50-5.40) Hemoglobin 12.4 g/dL (12.0-15.5) Hematocrit 37.7 % (36.0-47.0) Mean Corpuscular Volume 94 fL (79-100) Mean Corpuscular Hemoglobin 31 pg (25-35) Mean Corpuscular Hemoglobin Concent 33 g/dL (31-37) Red Cell Distribution Width 15.6 % (11.5-14.5) Platelet Count 338 x10^3/uL (140-400) Neutrophils (%) (Auto) 80 % (31-73) Lymphocytes (%) (Auto) 9 % (24-48) Monocytes (%) (Auto) 7 % (0-9) Eosinophils (%) (Auto) 2 % (0-3) Basophils (%) (Auto) 1 % (0-3) Neutrophils # (Auto) 4.8 x10^3/uL (1.8-7.7) Lymphocytes # (Auto) 0.6 x10^3/uL (1.0-4.8) Monocytes # (Auto) 0.4 x10^3/uL (0.0-1.1) Eosinophils # (Auto) 0.1 x10^3/uL (0.0-0.7) Basophils # (Auto) 0.1 x10^3/uL (0.0-0.2) Prothrombin Time 12.5 SEC (11.7-14.0) Prothromb Time International Ratio 1.0 (0.8-1.1) Sodium Level 138 mmol/L (136-145) Potassium Level 4.2 mmol/L (3.5-5.1) Chloride Level 104 mmol/L (98-107) Carbon Dioxide Level 24 mmol/L (21-32) Anion Gap 10 (6-14) Blood Urea Nitrogen 23 mg/dL (7-20) Creatinine 1.1 mg/dL (0.6-1.0) Estimated GFR (Cockcroft-Gault) 47.2 BUN/Creatinine Ratio 21 (6-20) Glucose Level 99 mg/dL (70-99) Lactic Acid Level 0.9 mmol/L (0.4-2.0) Calcium Level 9.0 mg/dL (8.5-10.1) Magnesium Level 2.0 mg/dL (1.8-2.4) Total Bilirubin 0.3 mg/dL (0.2-1.0) Aspartate Amino Transf (AST/SGOT) 27 U/L (15-37) Alanine Aminotransferase (ALT/SGPT) 17 U/L (14-59) Alkaline Phosphatase 221 U/L (46-116) Creatine Kinase 67 U/L (26-192) Troponin I Quantitative < 0.017 ng/mL (0.000-0.055) NN-Jkn-F-Type Natriuretic Peptide 2148 pg/mL (0-449) Total Protein 6.7 g/dL (6.4-8.2) Albumin 3.2 g/dL (3.4-5.0) Albumin/Globulin Ratio 0.9 (1.0-1.7) Urine Collection Type Unknown Urine Color Yellow Urine Clarity Clear Urine pH 5.0 Urine Specific [place] 1.015 Urine Protein Negative mg/dL (NEG-TRACE) Urine Glucose (UA) Negative mg/dL (NEG) Urine Ketones (Stick) Negative mg/dL (NEG) Urine Blood Negative (NEG) Urine Nitrite Positive (NEG) Urine Bilirubin Negative (NEG) Urine Urobilinogen Dipstick 0.2 mg/dL (0.2 mg/dL) Urine Leukocyte Esterase Moderate (NEG) Urine RBC 0 /HPF (0-2) Urine WBC >40 /HPF (0-4) Urine Squamous Epithelial Cells Many /LPF Urine Bacteria Many /HPF (0-FEW) Urine Hyaline Casts Moderate /HPF Urine Mucus Marked /LPF Assessment and Plan Assessmemt and Plan Problems Medical Problems: (1) Bilateral lower leg cellulitis Status: Acute (2) CHF (congestive heart failure) Status: Acute (3) Fall Status: Acute (4) Fracture of humeral head, left, closed Status: Acute (5) Renal insufficiency Status: Acute Comment Review of Relevant I have reviewed the following items radha (where applicable) has been applied. Labs Laboratory Tests Test 11/16/18 11:25 11/16/18 12:30 11/16/18 14:38 White Blood Count 6.0 x10^3/uL (4.0-11.0) Red Blood Count 4.03 x10^6/uL (3.50-5.40) Hemoglobin 12.4 g/dL (12.0-15.5) Hematocrit 37.7 % (36.0-47.0) Mean Corpuscular Volume 94 fL (79-100) Mean Corpuscular Hemoglobin 31 pg (25-35) Mean Corpuscular Hemoglobin Concent 33 g/dL (31-37) Red Cell Distribution Width 15.6 % (11.5-14.5) Platelet Count 338 x10^3/uL (140-400) Neutrophils (%) (Auto) 80 % (31-73) Lymphocytes (%) (Auto) 9 % (24-48) Monocytes (%) (Auto) 7 % (0-9) Eosinophils (%) (Auto) 2 % (0-3) Basophils (%) (Auto) 1 % (0-3) Neutrophils # (Auto) 4.8 x10^3/uL (1.8-7.7) Lymphocytes # (Auto) 0.6 x10^3/uL (1.0-4.8) Monocytes # (Auto) 0.4 x10^3/uL (0.0-1.1) Eosinophils # (Auto) 0.1 x10^3/uL (0.0-0.7) Basophils # (Auto) 0.1 x10^3/uL (0.0-0.2) Prothrombin Time 12.5 SEC (11.7-14.0) Prothromb Time International Ratio 1.0 (0.8-1.1) Sodium Level 138 mmol/L (136-145) Potassium Level 4.2 mmol/L (3.5-5.1) Chloride Level 104 mmol/L (98-107) Carbon Dioxide Level 24 mmol/L (21-32) Anion Gap 10 (6-14) Blood Urea Nitrogen 23 mg/dL (7-20) Creatinine 1.1 mg/dL (0.6-1.0) Estimated GFR (Cockcroft-Gault) 47.2 BUN/Creatinine Ratio 21 (6-20) Glucose Level 99 mg/dL (70-99) Lactic Acid Level 0.9 mmol/L (0.4-2.0) Calcium Level 9.0 mg/dL (8.5-10.1) Magnesium Level 2.0 mg/dL (1.8-2.4) Total Bilirubin 0.3 mg/dL (0.2-1.0) Aspartate Amino Transf (AST/SGOT) 27 U/L (15-37) Alanine Aminotransferase (ALT/SGPT) 17 U/L (14-59) Alkaline Phosphatase 221 U/L (46-116) Creatine Kinase 67 U/L (26-192) Troponin I Quantitative < 0.017 ng/mL (0.000-0.055) ZK-Wwo-V-Type Natriuretic Peptide 2148 pg/mL (0-449) Total Protein 6.7 g/dL (6.4-8.2) Albumin 3.2 g/dL (3.4-5.0) Albumin/Globulin Ratio 0.9 (1.0-1.7) Urine Collection Type Unknown Urine Color Yellow Urine Clarity Clear Urine pH 5.0 Urine Specific [place] 1.015 Urine Protein Negative mg/dL (NEG-TRACE) Urine Glucose (UA) Negative mg/dL (NEG) Urine Ketones (Stick) Negative mg/dL (NEG) Urine Blood Negative (NEG) Urine Nitrite Positive (NEG) Urine Bilirubin Negative (NEG) Urine Urobilinogen Dipstick 0.2 mg/dL (0.2 mg/dL) Urine Leukocyte Esterase Moderate (NEG) Urine RBC 0 /HPF (0-2) Urine WBC >40 /HPF (0-4) Urine Squamous Epithelial Cells Many /LPF Urine Bacteria Many /HPF (0-FEW) Urine Hyaline Casts Moderate /HPF Urine Mucus Marked /LPF Laboratory Tests Test 11/16/18 11:25 11/16/18 12:30 11/16/18 14:38 White Blood Count 6.0 x10^3/uL (4.0-11.0) Red Blood Count 4.03 x10^6/uL (3.50-5.40) Hemoglobin 12.4 g/dL (12.0-15.5) Hematocrit 37.7 % (36.0-47.0) Mean Corpuscular Volume 94 fL (79-100) Mean Corpuscular Hemoglobin 31 pg (25-35) Mean Corpuscular Hemoglobin Concent 33 g/dL (31-37) Red Cell Distribution Width 15.6 % (11.5-14.5) Platelet Count 338 x10^3/uL (140-400) Neutrophils (%) (Auto) 80 % (31-73) Lymphocytes (%) (Auto) 9 % (24-48) Monocytes (%) (Auto) 7 % (0-9) Eosinophils (%) (Auto) 2 % (0-3) Basophils (%) (Auto) 1 % (0-3) Neutrophils # (Auto) 4.8 x10^3/uL (1.8-7.7) Lymphocytes # (Auto) 0.6 x10^3/uL (1.0-4.8) Monocytes # (Auto) 0.4 x10^3/uL (0.0-1.1) Eosinophils # (Auto) 0.1 x10^3/uL (0.0-0.7) Basophils # (Auto) 0.1 x10^3/uL (0.0-0.2) Prothrombin Time 12.5 SEC (11.7-14.0) Prothromb Time International Ratio 1.0 (0.8-1.1) Sodium Level 138 mmol/L (136-145) Potassium Level 4.2 mmol/L (3.5-5.1) Chloride Level 104 mmol/L (98-107) Carbon Dioxide Level 24 mmol/L (21-32) Anion Gap 10 (6-14) Blood Urea Nitrogen 23 mg/dL (7-20) Creatinine 1.1 mg/dL (0.6-1.0) Estimated GFR (Cockcroft-Gault) 47.2 BUN/Creatinine Ratio 21 (6-20) Glucose Level 99 mg/dL (70-99) Lactic Acid Level 0.9 mmol/L (0.4-2.0) Calcium Level 9.0 mg/dL (8.5-10.1) Magnesium Level 2.0 mg/dL (1.8-2.4) Total Bilirubin 0.3 mg/dL (0.2-1.0) Aspartate Amino Transf (AST/SGOT) 27 U/L (15-37) Alanine Aminotransferase (ALT/SGPT) 17 U/L (14-59) Alkaline Phosphatase 221 U/L (46-116) Creatine Kinase 67 U/L (26-192) Troponin I Quantitative < 0.017 ng/mL (0.000-0.055) AY-Avn-X-Type Natriuretic Peptide 2148 pg/mL (0-449) Total Protein 6.7 g/dL (6.4-8.2) Albumin 3.2 g/dL (3.4-5.0) Albumin/Globulin Ratio 0.9 (1.0-1.7) Urine Collection Type Unknown Urine Color Yellow Urine Clarity Clear Urine pH 5.0 Urine Specific [place] 1.015 Urine Protein Negative mg/dL (NEG-TRACE) Urine Glucose (UA) Negative mg/dL (NEG) Urine Ketones (Stick) Negative mg/dL (NEG) Urine Blood Negative (NEG) Urine Nitrite Positive (NEG) Urine Bilirubin Negative (NEG) Urine Urobilinogen Dipstick 0.2 mg/dL (0.2 mg/dL) Urine Leukocyte Esterase Moderate (NEG) Urine RBC 0 /HPF (0-2) Urine WBC >40 /HPF (0-4) Urine Squamous Epithelial Cells Many /LPF Urine Bacteria Many /HPF (0-FEW) Urine Hyaline Casts Moderate /HPF Urine Mucus Marked /LPF Medications Current Medications Diphtheria/ Tetanus/Acell Pertussis (Boostrix) 0.5 ml ONCE ONCE VAX IM Last administered on 11/16/18 12:30; Start 11/16/18 at 12:15; Stop 11/16/18 at 12:16; Status DC Cefazolin Sodium 50 ml @ 100 mls/hr 1X ONCE IV Last administered on 11/16/18 13:48; Start 11/16/18 at 13:30; Stop 11/16/18 at 13:59; Status DC Allopurinol (Zyloprim) 300 mg BID PO Last administered on 11/17/18 08:37; Start 11/16/18 at 21:00 Aspirin (Ecotrin) 81 mg BID PO Last administered on 11/17/18 08:37; Start 11/16/18 at 21:00 Cetirizine HCl (ZyrTEC) 10 mg HS PO Last administered on 11/16/18 21:17; Start 11/16/18 at 21:00 Clonidine HCl (Catapres) 0.2 mg TID PO Last administered on 11/17/18 08:37; Start 11/16/18 at 21:00 Betamethasone/ Clotrimazole (Lotrisone) 1 stephen BID TP Last administered on 11/17/18 08:37; Start 11/16/18 at 21:00 Docusate Sodium (Colace) 100 mg DAILY PO Last administered on 11/17/18 08:37; Start 11/17/18 at 09:00 Fluticasone Propionate (Flonase) 2 spray DAILY NS ; Start 11/17/18 at 09:00 Furosemide (Lasix) 40 mg BID92 PO Last administered on 11/17/18 08:37; Start 11/17/18 at 09:00 Gabapentin (Neurontin) 600 mg HS PO Last administered on 11/16/18 21:17; Start 11/16/18 at 21:00 Gabapentin (Neurontin) 300 mg DAILY PO Last administered on 11/17/18 08:37; Start 11/17/18 at 09:00 Hydralazine HCl (Apresoline) 50 mg TID PO Last administered on 9/14/19at 08:37; Start 11/16/18 at 21:00 Levothyroxine Sodium (Synthroid) 137 mcg DAILY06 PO ; Start 11/17/18 at 06:00; Stop 11/17/18 at 06:21; Status DC Potassium Chloride (Klor-Con) 10 meq BID PO Last administered on 11/17/18at 08:37; Start 11/16/18 at 21:00 Tramadol HCl (Ultram) 50 mg PRN Q12HR PRN PO PAIN; Start 11/16/18 at 21:00 Vitamin A 10,000 unit DAILY PO Last administered on 11/17/18at 08:37; Start 11/17/18 at 09:00 Acetaminophen/ Hydrocodone Bitart (Lortab 5/325) 1 tab PRN Q4HRS PRN PO MODERATE PAIN Last administered on 11/16/18at 19:37; Start 11/16/18 at 17:45 Ceftriaxone Sodium (Rocephin) 1 gm Q24H IVP Last administered on 11/16/18at 19:37; Start 11/16/18 at 18:00 Levothyroxine Sodium (Synthroid) 137 mcg DAILY06 PO Last administered on 11/17/18at 07:46; Start 11/17/18 at 07:40 Ondansetron HCl (Zofran) 4 mg PRN Q6HRS PRN IV NAUSEA/VOMITING; Start 11/17/18 at 09:30 Temazepam (Restoril) 7.5 mg PRN QHS PRN PO INSOMNIA; Start 11/17/18 at 09:30 Morphine Sulfate (Morphine Sulfate) 1 mg PRN Q2HR PRN IV PAIN; Start 11/17/18 at 09:30 Active Scripts Active Hydralazine Hcl 25 Mg Tablet 50 Mg PO TID Reported [hydrogel] 80 Gm BID Clotrimazole-Betamethasone Crm (Clotrimazole/Betamethasone Dip) 15 Gm Cream..g. 1 Stephen TP BID Docusate Sodium 100 Mg Capsule 1 Cap PO DAILY Cetirizine Hcl 10 Mg Tablet 10 Mg PO HS Proventil Hfa (Albuterol Sulfate) 6.7 Gm Hfa.aer.ad 2 Puff INH QID PRN Proventil Hfa Inhaler (Albuterol Sulfate) 6.7 Gm Hfa.aer.ad 2 Puff IH QID Vitamin A 10,000 Unit Capsule 10,000 Unit PO DAILY Tramadol Hcl 50 Mg Tablet 50 Mg PO Q12HR PRN Allopurinol 300 Mg Tablet 300 Mg PO BID Gabapentin 300 Mg Capsule 600 Mg PO HS Gabapentin (Gabapentin) 300 Mg Capsule 300 Mg PO DAILY Clonidine Hcl 0.1 Mg Tablet 0.2 Mg PO TID Aspir 81 (Aspirin) 81 Mg Tablet.dr 1 Tab PO BID Garlic 1,000 Mg Capsule 1,200 Mg PO Vitamin E (Vitamin E (Dl,Tocopheryl Acet)) 1,000 Unit Capsule 1,000 Unit PO DAILY Vitamin C (Ascorbic Acid) 1,000 Mg Tablet 1,000 Mg PO Fluticasone Propionate Nasal [place] (Fluticasone Propionate) 16 Gm [place].susp 2 [place] NS DAILY Albuterol Sulfate Neb Soln (Albuterol Sulfate) 0.63 Mg/3 Ml Vial.neb 1 Vial NEB QID PRN Furosemide 40 Mg Tablet 40 Mg PO BID Synthroid (Levothyroxine Sodium) 125 Mcg Tablet 137 Mcg PO DAILYAC Potassium Chloride 10 Meq Capsule.er 10 Meq PO BID Verapamil Er (Verapamil Hcl) 240 Mg Cap24h.pel 180 Mg PO BID Vitals/I & O Vital Sign - Last 24 Hours 11/16/18 11/16/18 11/16/18 11/16/18 11:37 12:56 13:26 13:56 Pulse 98 82 82 80 Resp 17 13 14 16 Pulse Ox 95 90 93 93 11/16/18 11/16/18 11/16/18 11/16/18 14:26 16:00 19:00 19:37 Temp 98.7 98.7 Pulse 83 97 Resp 16 16 B/P (MAP) 162/59 (93) Pulse Ox 92 O2 Delivery Room Air Room Air Room Air 11/16/18 11/16/18 11/16/18 11/16/18 19:37 20:49 21:17 21:17 Pulse 97 97 Resp 18 B/P (MAP) 138/56 138/56 Pulse Ox 92 O2 Delivery Room Air Room Air 11/16/18 11/17/18 11/17/18 11/17/18 23:00 03:00 07:00 08:00 Temp 98.2 98.4 98.2 98.4 Pulse 87 62 66 Resp 16 16 20 B/P (MAP) 145/59 (87) 134/56 (82) 141/58 (85) Pulse Ox 92 98 O2 Delivery Room Air Room Air 11/17/18 11/17/18 11/17/18 08:37 08:37 10:53 Temp 97.8 97.8 Pulse 66 66 62 Resp 22 B/P (MAP) 141/58 141/58 122/77 (92) Pulse Ox 90 O2 Delivery Room Air Intake and Output 11/16/18 11/16/18 11/17/18 14:59 22:59 06:59 Intake Total 100 ml 200 ml Balance 100 ml 200 ml ELY OLEARY MD Nov 17, 2018 11:28
[2018-11-17] MEDS: MORPHINE SULFATE 2 MG/ML VIAL. IV PRN ×2 (13:58→16:35)
[2018-11-17 15:15] VITALS: BP 115/62
[2018-11-17] MEDS: HYDROcodone/APAP 5/325MG 1 TAB TABLET PO PRN (16:35)
[2018-11-17] MEDS: cefTRIAXone IV Push 1 GM VIAL. IVP SCH (18:00)
[2018-11-17 19:20] VITALS: BP 126/50
[2018-11-17] MEDS: CETIRIZINE HCL 10 MG TABLET. PO SCH (20:54)
[2018-11-17] MEDS: LACTOBACILLUS RHAMNOSUS GG 1 CAPSULE. PO SCH (20:54)
[2018-11-17 23:06] VITALS: BP 122/50
[2018-11-18 03:38] VITALS: BP 141/50
[2018-11-18] MEDS: LEVOTHYROXINE 137 MCG TABLET PO SCH (06:13)
[2018-11-18 07:00] VITALS: BP 131/54
[2018-11-18 08:39] LABS: BASO # 0.1 x10^3/uL (0.0-0.2); BASO % 2 % (0-3); EOS # 0.4 x10^3/uL (0.0-0.7); EOS % 8 % (0-3); HEMATOCRIT 35.8 % (36.0-47.0); HEMOGLOBIN 11.9 g/dL (12.0-15.5); LYMPH # 0.7 x10^3/uL (1.0-4.8); LYMPH % 15 % (24-48); MEAN CORPUSCULAR HEMOGLOBIN 31 pg (25-35); MEAN CORPUSCULAR HGB CONC 33 g/dL (31-37); MEAN CORPUSCULAR VOLUME 94 fL (79-100); MONO # 0.4 x10^3/uL (0.0-1.1); MONO % 10 % (0-9); NEUT % 65 % (31-73); PLATELET COUNT 290 x10^3/uL (140-400); RED BLOOD COUNT 3.81 x10^6/uL (3.50-5.40); RED CELL DISTRIBUTION WIDTH 15.2 % (11.5-14.5); WHITE BLOOD COUNT 4.6 x10^3/uL (4.0-11.0)
[2018-11-18] MEDS: DOCUSATE SODIUM 100 MG CAPSULE. PO SCH (08:59)
[2018-11-18] MEDS: LACTOBACILLUS RHAMNOSUS GG 1 CAPSULE. PO SCH ×2 (08:59→20:39)
[2018-11-18] MEDS: FUROSEMIDE 40 MG TABLET. PO SCH ×2 (08:59→14:07)
[2018-11-18] MEDS: ALLOPURINOL 300 MG TABLET. PO SCH ×2 (08:59→20:38)
[2018-11-18] MEDS: GABAPENTIN 300 MG CAPSULE. PO SCH ×2 (08:59→20:39)
[2018-11-18] MEDS: ASPIRIN ENTERIC COATED 81 MG TABLET.DR. PO SCH ×2 (08:59→20:38)
[2018-11-18] MEDS: VITAMIN A 10,000 UNIT CAPSULE. PO SCH (08:59)
[2018-11-18] MEDS: POTASSIUM CHLORIDE 10 MEQ TABLET.ER. PO SCH ×2 (08:59→20:38)
[2018-11-18] MEDS: cloNIDine HCL 0.1 MG TABLET PO SCH ×3 (08:59→20:40)
[2018-11-18] MEDS: hydrALAZINE 25 MG TABLET PO SCH ×3 (09:00→20:40)
[2018-11-18] MEDS: CLOTRIMAZOLE/BETAMETH 1%-0.05% TOPICAL CREAM 15GM TUBE. TP SCH ×2 (09:00→20:40)
[2018-11-18] MEDS: FLUTICASONE 50MCG/NASAL SPRAY 16GM BOTTLE. NS SCH (09:00)
--- NOTE | 2018-11-18 09:11 | PDOC ---
PROGRESS NOTES Chief Complaint Chief Complaint NOn op rt proximal humerus fx Mechanical fall at AL LEft leg cellulitis CHronic leg edema on lasix PO BID GEriatric HIgh fall risk HX syncope with indwelling cardiac device - cards DR cyr multiple allergies aSTHMA cONSTIpation History of Present Illness History of Present Illness painful rt shoulder when she ambulates Asthma too but no wheezing Ortho - non op, RT arm sling Asleep, i did not awaken VIt D levels pending PT resc snu and she is agreeable, she came form [facility] EN[facility]: LEft leg red, swelling controlled, improving per her acct, NON dm,. hx of recurrent cellulitis, no skin breaks On IV rocpehin per DR Brown Multiple allergies PlaN; Counsult wound care, looks angry red leg COnt lasix PO for leg swelling - not too bad swelling COnt rocephin for now and follow SNU screen - SW - she is agreeable WOF constipation ALbuterol prn, slightly tachypneic after transfers Vitals Vitals Vital Signs Date Time Temp Pulse Resp B/P (MAP) Pulse Ox O2 Delivery O2 Flow Rate FiO2 11/18/18 09:00 56 131/54 11/18/18 07:00 98.6 16 90 Room Air 98.6 Physical Exam General: No acute distress Heart: Regular rate, Normal S1, Normal S2 Lungs: Clear Abdomen: No masses Extremities: No clubbing, No cyanosis, No tenderness/swelling Skin: Other (left leg red, no skin breaks, stable swelling,slightly warm to touch) Labs LABS Laboratory Tests Test 11/17/18 09:53 11/18/18 07:10 Erythrocyte Sedimentation Rate 45 (0-25) White Blood Count 4.6 x10^3/uL (4.0-11.0) Red Blood Count 3.81 x10^6/uL (3.50-5.40) Hemoglobin 11.9 g/dL (12.0-15.5) Hematocrit 35.8 % (36.0-47.0) Mean Corpuscular Volume 94 fL (79-100) Mean Corpuscular Hemoglobin 31 pg (25-35) Mean Corpuscular Hemoglobin Concent 33 g/dL (31-37) Red Cell Distribution Width 15.2 % (11.5-14.5) Platelet Count 290 x10^3/uL (140-400) Neutrophils (%) (Auto) 65 % (31-73) Lymphocytes (%) (Auto) 15 % (24-48) Monocytes (%) (Auto) 10 % (0-9) Eosinophils (%) (Auto) 8 % (0-3) Basophils (%) (Auto) 2 % (0-3) Neutrophils # (Auto) 3.0 x10^3/uL (1.8-7.7) Lymphocytes # (Auto) 0.7 x10^3/uL (1.0-4.8) Monocytes # (Auto) 0.4 x10^3/uL (0.0-1.1) Eosinophils # (Auto) 0.4 x10^3/uL (0.0-0.7) Basophils # (Auto) 0.1 x10^3/uL (0.0-0.2) Review of Systems Review of Systems asleep i did not awaken Assessment and Plan Assessmemt and Plan Problems Medical Problems: (1) Bilateral lower leg cellulitis Status: Acute (2) CHF (congestive heart failure) Status: Acute (3) Fall Status: Acute (4) Fracture of humeral head, left, closed Status: Acute (5) Renal insufficiency Status: Acute Comment Review of Relevant I have reviewed the following items radha (where applicable) has been applied. Labs Laboratory Tests Test 11/16/18 11:25 11/16/18 12:30 11/16/18 14:38 11/17/18 09:53 White Blood Count 6.0 x10^3/uL (4.0-11.0) Red Blood Count 4.03 x10^6/uL (3.50-5.40) Hemoglobin 12.4 g/dL (12.0-15.5) Hematocrit 37.7 % (36.0-47.0) Mean Corpuscular Volume 94 fL (79-100) Mean Corpuscular Hemoglobin 31 pg (25-35) Mean Corpuscular Hemoglobin Concent 33 g/dL (31-37) Red Cell Distribution Width 15.6 % (11.5-14.5) Platelet Count 338 x10^3/uL (140-400) Neutrophils (%) (Auto) 80 % (31-73) Lymphocytes (%) (Auto) 9 % (24-48) Monocytes (%) (Auto) 7 % (0-9) Eosinophils (%) (Auto) 2 % (0-3) Basophils (%) (Auto) 1 % (0-3) Neutrophils # (Auto) 4.8 x10^3/uL (1.8-7.7) Lymphocytes # (Auto) 0.6 x10^3/uL (1.0-4.8) Monocytes # (Auto) 0.4 x10^3/uL (0.0-1.1) Eosinophils # (Auto) 0.1 x10^3/uL (0.0-0.7) Basophils # (Auto) 0.1 x10^3/uL (0.0-0.2) Prothrombin Time 12.5 SEC (11.7-14.0) Prothromb Time International Ratio 1.0 (0.8-1.1) Sodium Level 138 mmol/L (136-145) Potassium Level 4.2 mmol/L (3.5-5.1) Chloride Level 104 mmol/L (98-107) Carbon Dioxide Level 24 mmol/L (21-32) Anion Gap 10 (6-14) Blood Urea Nitrogen 23 mg/dL (7-20) Creatinine 1.1 mg/dL (0.6-1.0) Estimated GFR (Cockcroft-Gault) 47.2 BUN/Creatinine Ratio 21 (6-20) Glucose Level 99 mg/dL (70-99) Lactic Acid Level 0.9 mmol/L (0.4-2.0) Calcium Level 9.0 mg/dL (8.5-10.1) Magnesium Level 2.0 mg/dL (1.8-2.4) Total Bilirubin 0.3 mg/dL (0.2-1.0) Aspartate Amino Transf (AST/SGOT) 27 U/L (15-37) Alanine Aminotransferase (ALT/SGPT) 17 U/L (14-59) Alkaline Phosphatase 221 U/L (46-116) Creatine Kinase 67 U/L (26-192) Troponin I Quantitative < 0.017 ng/mL (0.000-0.055) MW-Lxy-L-Type Natriuretic Peptide 2148 pg/mL (0-449) Total Protein 6.7 g/dL (6.4-8.2) Albumin 3.2 g/dL (3.4-5.0) Albumin/Globulin Ratio 0.9 (1.0-1.7) Urine Collection Type Unknown Urine Color Yellow Urine Clarity Clear Urine pH 5.0 Urine Specific [place] 1.015 Urine Protein Negative mg/dL (NEG-TRACE) Urine Glucose (UA) Negative mg/dL (NEG) Urine Ketones (Stick) Negative mg/dL (NEG) Urine Blood Negative (NEG) Urine Nitrite Positive (NEG) Urine Bilirubin Negative (NEG) Urine Urobilinogen Dipstick 0.2 mg/dL (0.2 mg/dL) Urine Leukocyte Esterase Moderate (NEG) Urine RBC 0 /HPF (0-2) Urine WBC >40 /HPF (0-4) Urine Squamous Epithelial Cells Many /LPF Urine Bacteria Many /HPF (0-FEW) Urine Hyaline Casts Moderate /HPF Urine Mucus Marked /LPF Erythrocyte Sedimentation Rate 45 (0-25) Test 11/18/18 07:10 White Blood Count 4.6 x10^3/uL (4.0-11.0) Red Blood Count 3.81 x10^6/uL (3.50-5.40) Hemoglobin 11.9 g/dL (12.0-15.5) Hematocrit 35.8 % (36.0-47.0) Mean Corpuscular Volume 94 fL (79-100) Mean Corpuscular Hemoglobin 31 pg (25-35) Mean Corpuscular Hemoglobin Concent 33 g/dL (31-37) Red Cell Distribution Width 15.2 % (11.5-14.5) Platelet Count 290 x10^3/uL (140-400) Neutrophils (%) (Auto) 65 % (31-73) Lymphocytes (%) (Auto) 15 % (24-48) Monocytes (%) (Auto) 10 % (0-9) Eosinophils (%) (Auto) 8 % (0-3) Basophils (%) (Auto) 2 % (0-3) Neutrophils # (Auto) 3.0 x10^3/uL (1.8-7.7) Lymphocytes # (Auto) 0.7 x10^3/uL (1.0-4.8) Monocytes # (Auto) 0.4 x10^3/uL (0.0-1.1) Eosinophils # (Auto) 0.4 x10^3/uL (0.0-0.7) Basophils # (Auto) 0.1 x10^3/uL (0.0-0.2) Laboratory Tests Test 11/17/18 09:53 11/18/18 07:10 Erythrocyte Sedimentation Rate 45 (0-25) White Blood Count 4.6 x10^3/uL (4.0-11.0) Red Blood Count 3.81 x10^6/uL (3.50-5.40) Hemoglobin 11.9 g/dL (12.0-15.5) Hematocrit 35.8 % (36.0-47.0) Mean Corpuscular Volume 94 fL (79-100) Mean Corpuscular Hemoglobin 31 pg (25-35) Mean Corpuscular Hemoglobin Concent 33 g/dL (31-37) Red Cell Distribution Width 15.2 % (11.5-14.5) Platelet Count 290 x10^3/uL (140-400) Neutrophils (%) (Auto) 65 % (31-73) Lymphocytes (%) (Auto) 15 % (24-48) Monocytes (%) (Auto) 10 % (0-9) Eosinophils (%) (Auto) 8 % (0-3) Basophils (%) (Auto) 2 % (0-3) Neutrophils # (Auto) 3.0 x10^3/uL (1.8-7.7) Lymphocytes # (Auto) 0.7 x10^3/uL (1.0-4.8) Monocytes # (Auto) 0.4 x10^3/uL (0.0-1.1) Eosinophils # (Auto) 0.4 x10^3/uL (0.0-0.7) Basophils # (Auto) 0.1 x10^3/uL (0.0-0.2) Microbiology 11/16/18 Blood Culture - Preliminary, Resulted NO GROWTH AFTER 1 DAY Medications Current Medications Diphtheria/ Tetanus/Acell Pertussis (Boostrix) 0.5 ml ONCE ONCE VAX IM Last administered on 11/16/18at 12:30; Start 11/16/18 at 12:15; Stop 11/16/18 at 12:16; Status DC Cefazolin Sodium 50 ml @ 100 mls/hr 1X ONCE IV Last administered on 11/16/18at 13:48; Start 11/16/18 at 13:30; Stop 11/16/18 at 13:59; Status DC Allopurinol (Zyloprim) 300 mg BID PO Last administered on 11/18/18 09:00; Start 11/16/18 at 21:00 Aspirin (Ecotrin) 81 mg BID PO Last administered on 11/18/18at 09:00; Start 11/16/18 at 21:00 Cetirizine HCl (ZyrTEC) 10 mg HS PO Last administered on 11/17/18 20:55; Start 11/16/18 at 21:00 Clonidine HCl (Catapres) 0.2 mg TID PO Last administered on 11/18/18 09:00; Start 11/16/18 at 21:00 Betamethasone/ Clotrimazole (Lotrisone) 1 stephen BID TP Last administered on 11/18/18 09:00; Start 11/16/18 at 21:00 Docusate Sodium (Colace) 100 mg DAILY PO Last administered on 11/18/18at 09:00; Start 11/17/18 at 09:00 Fluticasone Propionate (Flonase) 2 spray DAILY NS ; Start 11/17/18 at 09:00 Furosemide (Lasix) 40 mg BID92 PO Last administered on 11/18/18at 09:00; Start 11/17/18 at 09:00 Gabapentin (Neurontin) 600 mg HS PO Last administered on 11/17/18 20:55; Start 11/16/18 at 21:00 Gabapentin (Neurontin) 300 mg DAILY PO Last administered on 11/18/18at 09:00; Start 11/17/18 at 09:00 Hydralazine HCl (Apresoline) 50 mg TID PO Last administered on 11/18/18at 09:00; Start 11/16/18 at 21:00 Levothyroxine Sodium (Synthroid) 137 mcg DAILY06 PO ; Start 11/17/18 at 06:00; Stop 11/17/18 at 06:21; Status DC Potassium Chloride (Klor-Con) 10 meq BID PO Last administered on 11/18/18at 09:00; Start 11/16/18 at 21:00 Tramadol HCl (Ultram) 50 mg PRN Q12HR PRN PO MILD TO MODERATE PAIN; Start 11/16/18 at 21:00 Vitamin A 10,000 unit DAILY PO Last administered on 11/18/18at 09:00; Start 11/17/18 at 09:00 Acetaminophen/ Hydrocodone Bitart (Lortab 5/325) 1 tab PRN Q4HRS PRN PO MODERATE PAIN Last administered on 11/17/18at 16:36; Start 11/16/18 at 17:45 Ceftriaxone Sodium (Rocephin) 1 gm Q24H IVP Last administered on 11/17/18at 18:00; Start 11/16/18 at 18:00 Levothyroxine Sodium (Synthroid) 137 mcg DAILY06 PO Last administered on 11/18/18at 06:13; Start 11/17/18 at 07:40 Ondansetron HCl (Zofran) 4 mg PRN Q6HRS PRN IV NAUSEA/VOMITING; Start 11/17/18 at 09:30 Temazepam (Restoril) 7.5 mg PRN QHS PRN PO INSOMNIA; Start 11/17/18 at 09:30 Morphine Sulfate (Morphine Sulfate) 1 mg PRN Q2HR PRN IV PAIN; Start 11/17/18 at 09:30; Stop 11/17/18 at 11:30; Status DC Morphine Sulfate (Morphine Sulfate) 2 mg PRN Q2HR PRN IV PAIN Last administered on 11/17/18at 16:36; Start 11/17/18 at 11:30 Lactobacillus Rhamnosus (Culturelle) 1 cap BID PO Last administered on 11/18/18at 09:00; Start 11/17/18 at 21:00 Active Scripts Active Hydralazine Hcl 25 Mg Tablet 50 Mg PO TID Reported [hydrogel] 80 Gm BID Clotrimazole-Betamethasone Crm (Clotrimazole/Betamethasone Dip) 15 Gm Cream..g. 1 Stephen TP BID Docusate Sodium 100 Mg Capsule 1 Cap PO DAILY Cetirizine Hcl 10 Mg Tablet 10 Mg PO HS Proventil Hfa (Albuterol Sulfate) 6.7 Gm Hfa.aer.ad 2 Puff INH QID PRN Proventil Hfa Inhaler (Albuterol Sulfate) 6.7 Gm Hfa.aer.ad 2 Puff IH QID Vitamin A 10,000 Unit Capsule 10,000 Unit PO DAILY Tramadol Hcl 50 Mg Tablet 50 Mg PO Q12HR PRN Allopurinol 300 Mg Tablet 300 Mg PO BID Gabapentin 300 Mg Capsule 600 Mg PO HS Gabapentin (Gabapentin) 300 Mg Capsule 300 Mg PO DAILY Clonidine Hcl 0.1 Mg Tablet 0.2 Mg PO TID Aspir 81 (Aspirin) 81 Mg Tablet.dr 1 Tab PO BID Garlic 1,000 Mg Capsule 1,200 Mg PO Vitamin E (Vitamin E (Dl,Tocopheryl Acet)) 1,000 Unit Capsule 1,000 Unit PO DAILY Vitamin C (Ascorbic Acid) 1,000 Mg Tablet 1,000 Mg PO Fluticasone Propionate Nasal [place] (Fluticasone Propionate) 16 Gm [place].susp 2 [place] NS DAILY Albuterol Sulfate Neb Soln (Albuterol Sulfate) 0.63 Mg/3 Ml Vial.neb 1 Vial NEB QID PRN Furosemide 40 Mg Tablet 40 Mg PO BID Synthroid (Levothyroxine Sodium) 125 Mcg Tablet 137 Mcg PO DAILYAC Potassium Chloride 10 Meq Capsule.er 10 Meq PO BID Verapamil Er (Verapamil Hcl) 240 Mg Cap24h.pel 180 Mg PO BID Vitals/I & O Vital Sign - Last 24 Hours 11/17/18 11/17/18 11/17/18 11/17/18 10:53 13:58 13:58 13:58 Temp 97.8 97.8 Pulse 62 62 62 Resp 22 B/P (MAP) 122/77 (92) 122/77 122/77 Pulse Ox 90 O2 Delivery Room Air Room Air 11/17/18 11/17/18 11/17/18 11/17/18 15:15 16:36 16:36 16:36 Temp 98.8 98.8 Pulse 82 Resp 16 B/P (MAP) 115/62 (79) Pulse Ox 92 O2 Delivery Room Air Room Air Room Air Room Air 11/17/18 11/17/18 11/17/18 11/17/18 17:09 18:00 19:20 20:00 Temp 98.0 98.0 Pulse 72 Resp 18 18 B/P (MAP) 126/50 (75) Pulse Ox 96 O2 Delivery Room Air Room Air Room Air Room Air 11/17/18 11/17/18 11/17/18 11/18/18 20:55 20:55 23:06 03:38 Temp 97.9 97.8 97.9 97.8 Pulse 72 72 91 61 Resp 18 18 B/P (MAP) 126/50 126/50 122/50 (74) 141/50 (80) Pulse Ox 90 92 O2 Delivery Room Air Room Air 11/18/18 11/18/18 11/18/18 07:00 09:00 09:00 Temp 98.6 98.6 Pulse 56 56 56 Resp 16 B/P (MAP) 131/54 (79) 131/54 131/54 Pulse Ox 90 O2 Delivery Room Air Intake and Output 0 11/17/18 11/17/18 11/18/18 14:59 22:59 06:59 Intake Total 480 ml Output Total 250 ml Balance 230 ml ELY OLEARY MD Nov 18, 2018 09:11
--- NOTE | 2018-11-18 09:45 | NUR ---
No CHG bath given d/t contraindicated because of skin integrity and condition.
[2018-11-18] MEDS: HYDROcodone/APAP 5/325MG 1 TAB TABLET PO PRN ×3 (09:54→23:14)
[2018-11-18 10:45] VITALS: BP 112/53
[2018-11-18 15:00] VITALS: BP 81/59
[2018-11-18] MEDS: cefTRIAXone IV Push 1 GM VIAL. IVP SCH (18:30)
[2018-11-18 19:30] VITALS: BP 130/40
[2018-11-18] MEDS: CETIRIZINE HCL 10 MG TABLET. PO SCH (20:39)
[2018-11-18 23:38] VITALS: BP 129/60
[2018-11-19 02:59] VITALS: BP 122/51
[2018-11-19] MEDS: LEVOTHYROXINE 137 MCG TABLET PO SCH (06:26)
[2018-11-19 07:00] VITALS: BP 140/63
[2018-11-19] MEDS: FLUTICASONE 50MCG/NASAL SPRAY 16GM BOTTLE. NS SCH (09:37)
[2018-11-19] MEDS ORDERED: AMOX1TAB58 PO (09:37)
[2018-11-19] MEDS ORDERED: HYDR-2761 PO (09:37)
[2018-11-19] MEDS: CLOTRIMAZOLE/BETAMETH 1%-0.05% TOPICAL CREAM 15GM TUBE. TP SCH (09:37)
[2018-11-19] MEDS ORDERED: TRAM50TA PO (09:37)
[2018-11-19] MEDS: ASPIRIN ENTERIC COATED 81 MG TABLET.DR. PO SCH (09:37)
[2018-11-19] MEDS: ALLOPURINOL 300 MG TABLET. PO SCH (09:37)
[2018-11-19] MEDS: DOCUSATE SODIUM 100 MG CAPSULE. PO SCH (09:38)
[2018-11-19] MEDS: LACTOBACILLUS RHAMNOSUS GG 1 CAPSULE. PO SCH (09:38)
[2018-11-19] MEDS: hydrALAZINE 25 MG TABLET PO SCH (09:38)
[2018-11-19] MEDS: GABAPENTIN 300 MG CAPSULE. PO SCH (09:38)
[2018-11-19] MEDS: VITAMIN A 10,000 UNIT CAPSULE. PO SCH (09:38)
[2018-11-19] MEDS: POTASSIUM CHLORIDE 10 MEQ TABLET.ER. PO SCH (09:38)
--- NOTE | 2018-11-19 09:38 | SNU/HH DC ---
DISCHARGE ORDERS DISCHARGE INFORMATION: DISCHARGE DATE: Nov 19, 2018 FINAL DIAGNOSIS Problems Medical Problems: (1) Bilateral lower leg cellulitis Status: Acute (2) Cellulitis of both lower extremities Status: Acute (3) CHF (congestive heart failure) Status: Acute (4) Fall Status: Acute (5) Fracture of humeral head, left, closed Status: Acute (6) Renal insufficiency Status: Acute CONDITION ON DISCHARGE: Stable CODE STATUS: Code Status: Full SENIOR LIVING: SNF STAY <30 DAYS: Yes HOSPICE: HOSPICE: No HOSPICE EVAL & TREAT: No LTAC: ADMIT TO LTAC: No POST DISCHARGE ORDERS: ACTIVITY ORDERS: Activity as tolerated WEIGHT BEARING STATUS: As tolerated DIET AFTER DISCHARGE: Cardiac WOUND/INCISION CARE: Change dressing CHECKS AFTER DISCHARGE: CHECKS AFTER DISCHARGE: Check blood press - daily, Weigh Yourself Daily FOLLOW-UP: PHYSICIAN FOLLOW-UP: pcp re that bilateral LE cellulitis TREATMENT/EQUIPMENT ORDERS: ADAPTIVE EQUIPMENT NEEDED: None, Front wheeled walker Physical Therapy For: Evalulation/Treatment Occupational Therapy For: Evaluation/Treatment DISCHARGE MEDICATIONS: Home Meds Active Scripts Amoxicillin/Potassium Clav (AUGMENTIN 500-125 TABLET) 1 Each Tablet, 1 TAB PO BID for cellulitis both legs, #20 TAB Prov:ELY OLEARY MD 11/19/18 Hydrocodone Bit/Acetaminophen (HYDROCODONE-APAP 5-325 ) 1 Tab Tablet, 1 TAB PO PRN Q4HRS PRN for MODERATE PAIN, #30 TAB Prov:ELY OLEARY MD 11/19/18 Tramadol Hcl (TRAMADOL HCL) 50 Mg Tablet, 50 MG PO Q12HR PRN for PAIN, #30 TAB Prov:ELY OLEARY MD 11/19/18 Hydralazine Hcl (HYDRALAZINE HCL) 25 Mg Tablet, 50 MG PO TID, #90 TAB 3 Refills Prov:EDE PHILIPPE MD 09/17/15 Reported Medications [hydrogel] No Conflict Check, 80 GM BID for topically to affected areas 11/16/18 Clotrimazole/Betamethasone Dip (CLOTRIMAZOLE-BETAMETHASONE CRM) 15 Gm Cream..g., 1 YUSUF TP BID for to affected areas, #15 GM 11/16/18 Docusate Sodium (DOCUSATE SODIUM) 100 Mg Capsule, 1 CAP PO DAILY for constipation, #30 CAP 11/16/18 Cetirizine Hcl (CETIRIZINE HCL) 10 Mg Tablet, 10 MG PO HS for allergies, TAB 11/16/18 Albuterol Sulfate (Proventil Hfa) 6.7 Gm Hfa.aer.ad, 2 PUFF INH QID PRN for SHORTNESS OF BREATH, INHALER 11/16/18 Vitamin A (VITAMIN A) 10,000 Unit Capsule, 63750 UNIT PO DAILY for supplement, CAP 11/16/18 Allopurinol (ALLOPURINOL) 300 Mg Tablet, 300 MG PO BID for ulcer prevention, TAB 10/10/18 Gabapentin (Gabapentin) 300 Mg Capsule, 600 MG PO HS for Neurogenic pain, CAP 10/10/18 Gabapentin (GABAPENTIN ) 300 Mg Capsule, 300 MG PO DAILY for NEUROGENIC PAIN, CAP 10/10/18 Clonidine Hcl (CLONIDINE HCL) 0.1 Mg Tablet, 0.2 MG PO TID for unk, TAB 07/11/18 Aspirin (ASPIR 81) 81 Mg Tablet.dr, 1 TAB PO BID for clot prevention, #30 TAB 5 Refills 01/06/15 Garlic (GARLIC) 1,000 Mg Capsule, 1200 MG PO 01/06/15 Vitamin E (Dl,Tocopheryl Acet) (VITAMIN E) 1,000 Unit Capsule, 1000 UNIT PO DAILY for supplement 01/06/15 Ascorbic Acid (VITAMIN C) 1,000 Mg Tablet, 1000 MG PO for supplement 01/06/15 Fluticasone Propionate (FLUTICASONE PROPIONATE [place]AL SPRAY) 16 Gm [place].susp, 2 SPRAY NS DAILY, #1 INHALER 11 Refills 01/06/15 Albuterol Sulfate (ALBUTEROL SULFATE NEB SOLN) 0.63 Mg/3 Ml Vial.neb, 1 VIAL NEB QID PRN for SHORTNESS OF BREATH, #150 ML 1 Refill 01/06/15 Furosemide (FUROSEMIDE) 40 Mg Tablet, 40 MG PO BID, TAB 01/06/15 Levothyroxine Sodium (SYNTHROID) 125 Mcg Tablet, 137 MCG PO DAILYAC for Thyroid supplement, #30 TAB 0 Refills 01/06/15 Potassium Chloride (POTASSIUM CHLORIDE) 10 Meq Capsule.er, 10 MEQ PO BID for supp, TAB.SR 01/06/15 Verapamil Hcl (VERAPAMIL ER) 240 Mg Cap24h.pel, 180 MG PO BID, CAP.SR 01/06/15 Discontinued Reported Medications Albuterol Sulfate (PROVENTIL HFA INHALER) 6.7 Gm Hfa.aer.ad, 2 PUFF IH QID for breathing, INHALER 0 Refills 11/16/18 ELY OLEARY MD Nov 19, 2018 09:38
[2018-11-19] MEDS: FUROSEMIDE 40 MG TABLET. PO SCH (09:39)
[2018-11-19] MEDS: cloNIDine HCL 0.1 MG TABLET PO SCH (09:39)
--- NOTE | 2018-11-19 09:41 | PDOC3 ---
Discharge Summary Visit Information Date of Admission: Nov 16, 2018 Date of Discharge: Nov 19, 2018 Admitting Diagnosis Comment: NOn op rt proximal humerus fx Mechanical fall at [place] LEft leg cellulitis CHronic leg edema on lasix PO BID GEriatric HIgh fall risk HX syncope with indwelling cardiac device - cards DR cyr multiple allergies aSTHMA cONSTIpation Final Diagnosis Problems Medical Problems: (1) Bilateral lower leg cellulitis Status: Acute (2) Cellulitis of both lower extremities Status: Acute (3) CHF (congestive heart failure) Status: Acute (4) Fall Status: Acute (5) Fracture of humeral head, left, closed Status: Acute (6) Renal insufficiency Status: Acute Brief Hospital Course Allergies Allergies Coded Allergies Type Severity Reaction Last Updated Verified linaclotide Allergy Severe 07/03/17 Yes Sulfa (Sulfonamide Antibiotics) Allergy Intermediate 09/17/15 Yes atorvastatin Allergy Intermediate 09/17/15 Yes bisoprolol Allergy Intermediate 09/14/15 Yes cadexomer iodine Allergy Intermediate itching 09/14/15 Yes ciprofloxacin Allergy Intermediate 09/17/15 Yes diltiazem Allergy Intermediate takes VERAPAMIL at home 07/02/17 Yes lisinopril Allergy Intermediate 09/18/15 Yes methylphenidate Allergy Intermediate 09/17/15 Yes naproxen Allergy Intermediate 07/03/17 Yes nitrofurantoin Allergy Intermediate 09/14/15 Yes ofloxacin Allergy Intermediate 09/17/15 Yes paroxetine Allergy Intermediate 09/17/15 Yes piroxicam Allergy Intermediate 09/17/15 Yes propoxyphene Allergy Intermediate 09/17/15 Yes ranitidine Allergy Intermediate 09/17/15 Yes senna Allergy Intermediate 09/17/15 Yes valdecoxib Allergy Intermediate 09/17/15 Yes Vital Signs Vital Signs Date Time Temp Pulse Resp B/P (MAP) Pulse Ox O2 Delivery O2 Flow Rate FiO2 11/19/18 07:00 98.5 50 18 140/63 (88) 90 Room Air 98.5 11/18/18 16:31 2.0 Lab Results Laboratory Tests Test 11/17/18 09:53 11/18/18 07:10 Erythrocyte Sedimentation Rate 45 (0-25) White Blood Count 4.6 x10^3/uL (4.0-11.0) Red Blood Count 3.81 x10^6/uL (3.50-5.40) Hemoglobin 11.9 g/dL (12.0-15.5) Hematocrit 35.8 % (36.0-47.0) Mean Corpuscular Volume 94 fL (79-100) Mean Corpuscular Hemoglobin 31 pg (25-35) Mean Corpuscular Hemoglobin Concent 33 g/dL (31-37) Red Cell Distribution Width 15.2 % (11.5-14.5) Platelet Count 290 x10^3/uL (140-400) Neutrophils (%) (Auto) 65 % (31-73) Lymphocytes (%) (Auto) 15 % (24-48) Monocytes (%) (Auto) 10 % (0-9) Eosinophils (%) (Auto) 8 % (0-3) Basophils (%) (Auto) 2 % (0-3) Neutrophils # (Auto) 3.0 x10^3/uL (1.8-7.7) Lymphocytes # (Auto) 0.7 x10^3/uL (1.0-4.8) Monocytes # (Auto) 0.4 x10^3/uL (0.0-1.1) Eosinophils # (Auto) 0.4 x10^3/uL (0.0-0.7) Basophils # (Auto) 0.1 x10^3/uL (0.0-0.2) Brief Hospital Course Ms. Garcia is a 83 old female [place] had a mechanical fall and sustained left arm fx, non op per ortho and sling arm,. NEeds SNU, BUt course remarkable for cellulitis both legs, she says its better, Was getting iV rocpehin, KEeping it elevated, FULL CODE< multiple drug allergies but not to PCN,. WIll dc to SNU (pplace) ith PO augmentin, full code and some minor pain meds Ff up ortho Dr raygoza upon snu dc. WOF worsening leg cellulitis - BC have been NEG and SHE CLAIMS IT ACTUALLY LOOKS BETTER than on admission Discharge Information Condition at Discharge: Improved, Stable Disposition/Orders: Other (snu) Scheduled Allopurinol (Allopurinol) 300 Mg Tablet, 300 MG PO BID for ulcer prevention, (Reported) Entered as Reported by: AMALIA BYRNES RN on 10/10/18 1614 Last Action: Continued on 11/16/181735 by SANDY MARCUS Amoxicillin/Potassium Clav (Augmentin 500-125 Tablet) 1 Each Tablet, 1 TAB PO BID for cellulitis both legs, #20 Prescribed by: ELY OLEARY on 11/19/18 0937 Aspirin (Aspir 81) 81 Mg Tablet.dr, 1 TAB PO BID for clot prevention, #30 Ref 5 (Reported) Entered as Reported by: CATALINA BALBUENA on 01/06/15 1225 Last Action: Continued on 11/16/181735 by NIAL CASTLE Cetirizine Hcl (Cetirizine Hcl) 10 Mg Tablet, 10 MG PO HS for allergies, (Reported) Entered as Reported by: NII HUTTON on 11/16/18 1722 Last Action: Continued on 11/16/181735 by NIAL CASTLE Clonidine Hcl (Clonidine Hcl) 0.1 Mg Tablet, 0.2 MG PO TID for unk, (Reported) Entered as Reported by: JOSE PAULSON on 07/11/18 1304 Last Action: Continued on 11/16/181735 by NIAL CASTLE Clotrimazole/Betamethasone Dip (Clotrimazole-Betamethasone Crm) 15 Gm Cream..g., 1 YUSUF TP BID for to affected areas, #15 (Reported) Entered as Reported by: NII HUTTON on 11/16/18 172 Last Action: Continued on 11/16/181735 by NIAL CASTLE Docusate Sodium (Docusate Sodium) 100 Mg Capsule, 1 CAP PO DAILY for constipation, #30 (Reported) Entered as Reported by: NII HUTTON on 11/16/18 1723 Last Action: Continued on 11/16/181735 by NIAL CASTLE Fluticasone Propionate (Fluticasone Propionate Nasal [place]) 16 Gm [place].susp, 2 SPRAY NS DAILY, #1 Ref 11 (Reported) Entered as Reported by: JAZ PATEL on 01/06/15 1200 Last Action: Continued on 11/16/181735 by NIAL CASTLE Furosemide (Furosemide) 40 Mg Tablet, 40 MG PO BID, (Reported) Entered as Reported by: JAZ PATEL on 01/06/15 1156 Last Action: Continued on 11/16/181735 by NIAL CASTLE Gabapentin (Gabapentin ) 300 Mg Capsule, 300 MG PO DAILY for NEUROGENIC PAIN, (Reported) Entered as Reported by: AMALIA BYRNES RN on 10/10/181613 Last Action: Continued on 11/16/181735 by NIAL CASTLE Gabapentin (Gabapentin) 300 Mg Capsule, 600 MG PO HS for Neurogenic pain, (Reported) Entered as Reported by: AMALIA BYRNES RN on 10/10/181613 Last Action: Continued on 11/16/181735 by NIAL CASTLE Hydralazine Hcl (Hydralazine Hcl) 25 Mg Tablet, 50 MG PO TID, #90 Ref 3 Prescribed by: EDE PHILIPPE on 09/17/15 1334 Last Action: Continued on 11/16/181735 by NIAL CASTPALOMO Levothyroxine Sodium (Synthroid) 125 Mcg Tablet, 137 MCG PO DAILYAC for Thyroid supplement, #30 Ref 0 (Reported) Entered as Reported by: JAZ PATEL on 01/06/151154 Last Action: Continued on 11/16/181735 by NIAL CASTLE Potassium Chloride (Potassium Chloride) 10 Meq Capsule.er, 10 MEQ PO BID for supp, (Reported) Entered as Reported by: JAZ PATEL on 01/06/151154 Last Action: Continued on 11/16/181735 by NIAL CASTPALOMO Verapamil Hcl (Verapamil Er) 240 Mg Cap24h.pel, 180 MG PO BID, (Reported) Entered as Reported by: JAZ PATEL on 01/06/151153 Vitamin A (Vitamin A) 10,000 Unit Capsule, 10,000 UNIT PO DAILY for supplement, (Reported) Entered as Reported by: NII HUTTON on 11/16/181710 Last Action: Continued on 11/16/181735 by NIAHans MARCUS Vitamin E (Dl,Tocopheryl Acet) (Vitamin E) 1,000 Unit Capsule, 1,000 UNIT PO DAILY for supplement, (Reported) Entered as Reported by: CATALINA BALBUENA on 01/06/15 1225 Last Action: Edited on 11/16/181713 by NII HUTTON [hydrogel] , 80 GM BID for topically to affected areas, (Reported) Entered as Reported by: NII HUTTON on 11/16/181725 Last Action: New Order on 11/16/181725 by NII HUTTON Scheduled PRN Albuterol Sulfate (Albuterol Sulfate Neb Soln) 0.63 Mg/3 Ml Vial.neb, 1 VIAL NEB QID PRN for SHORTNESS OF BREATH, #150 Ref 1 (Reported) Entered as Reported by: JAZ PATEL on 01/06/15 1159 Last Action: Edited on 11/16/181652 by NII HUTTON Albuterol Sulfate (Proventil Hfa) 6.7 Gm Hfa.aer.ad, 2 PUFF INH QID PRN for SHORTNESS OF BREATH, (Reported) Entered as Reported by: NII HUTTON on 11/16/181720 Last Action: Edited on 11/16/181720 by NII HUTTON Hydrocodone Bit/Acetaminophen (Hydrocodone-Apap 5-325 ) 1 Tab Tablet, 1 TAB PO PRN Q4HRS PRN for MODERATE PAIN, #30 Prescribed by: ELY OLEARY on 11/19/18 0937 Tramadol Hcl (Tramadol Hcl) 50 Mg Tablet, 50 MG PO Q12HR PRN for PAIN, #30 Prescribed by: ELY OLEARY on 11/19/18 0937 Miscellaneous Medications Ascorbic Acid (Vitamin C) 1,000 Mg Tablet, 1,000 MG PO for supplement, (Reporte d) Entered as Reported by: CATALINA BALBUENA on 01/06/15 1225 Garlic (Garlic) 1,000 Mg Capsule, 1,200 MG PO, (Reported) Entered as Reported by: CATALINA BALBUENA on 01/06/15 1225 Discontinued Medications Albuterol Sulfate (Proventil Hfa Inhaler) 6.7 Gm Hfa.aer.ad, 2 PUFF IH QID for breathing, Ref 0 (Reported) Entered as Reported by: NII HUTTON on 11/16/181718 Last Action: New Order on 11/16/181718 by ELY ARREOLA MD Nov 19, 2018 09:41
[2018-11-19] MEDS: HYDROcodone/APAP 5/325MG 1 TAB TABLET PO PRN (09:46)
--- NOTE | 2018-11-19 10:24 | NUR ---
SS following for discharge planning. SS reviewed pt chart. Pt is from [facility] and is currently on room air. PT/OT recommended longterm unit at discharge. SS spoke with pt and pt's daughter, Danelle, via phone. Pt and pt's daughter requested that pt go to [facility], ; fax [phone]. Discharge orders received. SS phoned and faxed referral and discharge orders to [facility]. Pt will discharge today and go to [facility] at 1300 via [facility] transport, [id number]. Pt, pt's RN, and pt's daughter notified.
[2018-11-19 11:00] VITALS: BP 114/45
--- NOTE | 2018-11-19 14:23 | NUR ---
pt is discharged to [facility] at 1321 via wheelchair via transportation. pt is in stable condition. pt has all belongings with her. gave report to FANY Chiu at [facility] and she stated she had no further questions for me. discharge packet given to transportation with prescriptions in packet. discharge pictures taken.
== END 2018-11-19 13:21 | DRG 563 ==
LOC: ER 11:06 → 4 NORTH 11:44
PROVIDERS: ADMIT Internal Medicine; ATTEND Internal Medicine
DX: S42.295A Other nondisplaced fracture of upper end of left humerus, initial encounter for closed fracture (principal); L03.116 Cellulitis of left lower limb; N39.0 Urinary tract infection, site not specified; L03.115 Cellulitis of right lower limb; I50.9 Heart failure, unspecified; E03.9 Hypothyroidism, unspecified; G47.30 Sleep apnea, unspecified; I11.0 Hypertensive heart disease with heart failure; J45.909 Unspecified asthma, uncomplicated; K59.00 Constipation, unspecified; M19.90 Unspecified osteoarthritis, unspecified site; M79.7 Fibromyalgia; N28.9 Disorder of kidney and ureter, unspecified; W01.0XXA Fall on same level from slipping, tripping and stumbling without subsequent striking against object, initial encounter; Z79.899 Other long term (current) drug therapy; Z82.49 Family history of ischemic heart disease and other diseases of the circulatory system; Z88.9 Allergy status to unspecified drugs, medicaments and biological substances; Z90.710 Acquired absence of both cervix and uterus; Z91.81 History of falling; Z88.2 Allergy status to sulfonamides; Z88.8 Allergy status to other drugs, medicaments and biological substances; Y93.89 Activity, other specified; Y92.89 Other specified places as the place of occurrence of the external cause; Y99.8 Other external cause status
CPT/HCPCS: 29105; 36415; 70450; 71045; 72125; 73030; 73080; 73502; 80053; 81001; 82306; 82550; 83605; 83735; 83880; 84484; 85025; 85610; 85651; 87040; 87086; 90471; 90715; 93005; 96365; J0690; J0696; J2270; 97116; 97535; 99285-25; G0378

== ENCOUNTER → 2019-02-13 | Outpatient (CLI) | payer MEDICARE, OTHER ==
[~2019-02-13] MED LIST changes: +AMOX1TAB58 PO; +CETI10TA16 PO; +CLOT15CR5 TP; +DOCU100C28 PO; +HYDR-2761 PO; +HYDROGEL; +PROVENTIL HFA6.7 G2 INH; +PROVENTIL HFA6.7 GM IH; +VITA10003 PO
--- NOTE | 2019-02-18 13:36 | EEG ---
DATE OF SERVICE: 02/13/2019 EEG NUMBER: [id number]. OBJECTIVE: This is an 83-year-old female patient who had syncopal versus seizure episode. EEG was requested to help rule out seizure. METHODS: Twenty electrodes were applied according to the international 10-20 electrode placement system. EKG monitoring, hyperventilation, intermittent photic stimulation, monopolar and bipolar montages are routinely utilized. The record was obtained on a digital system with video monitoring. FINDINGS: 1. Background: The patient was recorded in the awake, drowsy, and sleep states. The overall background amplitude is 10-25 microvolts. A posterior dominant rhythm of 8-10 Hz is observed. 2. Abnormalities: No specific epileptiform discharge or electrographic seizure is seen. No focal or diffuse slowing. 3. Activation: Hyperventilation was performed with good efforts and normal response. Intermittent photic stimulation was performed with photic driving. No specific epileptiform discharge or electrographic seizure induced by hyperventilation or intermittent photic stimulation. IMPRESSION: This EEG is a normal study for the awake, drowsy, and sleep states. No focal, lateralizing, specific epileptiform discharge, or electrographic seizure is seen. PAULINO RAMON MD DR: MANISH/dillon JOB#: [id number] / [id number] LUCA
== END | disposition home or self-care (01) ==
LOC: RT 09:37
PROVIDERS: ATTEND Psychiatry & Neurology Neurology
DX: R55 Syncope and collapse (principal); I11.0 Hypertensive heart disease with heart failure; I50.9 Heart failure, unspecified; Z79.82 Long term (current) use of aspirin; Z79.899 Other long term (current) drug therapy
CPT/HCPCS: 95816

== ENCOUNTER → 2019-04-04 | Outpatient (CLI) | payer MEDICARE, OTHER ==
--- NOTE | 2019-04-04 14:45 | KCIC ---
EXAM: THYROID ULTRASOUND. HISTORY: Nontoxic multinodular goiter. Nodule on recent CT. COMPARISON: 10/11/2018. FINDINGS: Sonographic evaluation of the thyroid gland was performed and evaluated using ACR TI-RADS criteria. Right lobe: The right lobe measures 2.9 x 2.3 x 1.6 cm. The parenchyma is heterogeneous and hypoechoic. Left lobe: The left lobe measures 3.0 x 1.7 x 1.6 cm. The parenchyma is heterogeneous. 2 small cystic nodules on the right measure 8 mm or less and are likely benign. Isthmus: The isthmus measures thin at <2 mm. Nodule #: 1. Maximum size: 1.8 cm; Other 2 dimensions 1.6 x 1.3 cm. Location Right lobe; mid pole. ACR TI-RADS risk category: TR3 (3 points): FNA if 2.5 cm, follow-up if 1.5-2.4 cm in 1, 3, and 5 years. Number of spongiform nodules of at least 2 cm not described (TR1): 0. Number of mixed cystic and solid nodules of at least 1.5 cm not described (TR 2): 0. ACR TI-RADS RECOMMENDATION: Follow-up ultrasound in one year. Other findings: Thyroid atrophy and parenchymal heterogeneity. Correlate with thyroid function tests. Electronically signed by: Thiago Patterson MD (04/04/2019 2:42 PM) [facility]
== END | disposition home or self-care (01) ==
LOC: KCIC US 13:03
PROVIDERS: ATTEND Otolaryngology
DX: E04.2 Nontoxic multinodular goiter (principal)
CPT/HCPCS: 76536

== ENCOUNTER → 2019-09-11 | Outpatient (CLI) | payer MEDICARE, OTHER ==
--- NOTE | 2019-09-11 17:31 | CARD ---
MR#: [id number] Date of Study: 09/11/2019 Ordering Physician: TRACE LAURENT, Referring Physician: TRACE LAURENT Tech: Kathryn Horn RDCS APPROVED REPORT EXAM: Two-dimensional and M-mode echocardiogram with Doppler and color Doppler. Other Information Quality : Good INDICATION Congestive Heart Failure 2D DIMENSIONS RVDd4.0 (2.9-3.5cm)Left Atrium(2D)4.4 (1.6-4.0cm) IVSd1.2 (0.7-1.1cm)Aortic Root(2D)3.1 (2.0-3.7cm) LVDd4.7 (3.9-5.9cm)LVOT Diameter2.1 (1.8-2.4cm) PWd1.1 (0.7-1.1cm)LVDs3.2 (2.5-4.0cm) FS (%) 32.2 %SV61.8 ml LVEF(%)60.4 (>50%) Aortic Valve AoV Peak Avery.179.1cm/sAoV VTI33.8cm AO Peak GR.12.8mmHgLVOT Peak Avery.98.3cm/s AO Mean GR.7mmHgAVA (VMAX)1.96cm2 PAULINE (VTI)2.73ye4UL P 1/2 Kvre300xr Mitral Valve MV E Slzbfukj94.0cm/sMV DECEL KHFS369yf MV A Lvikkyap51.5cm/sE/A Ratio0.7 Tricuspid Valve TR P. Acswfpto182ds/sRAP BOMQKQLO0zvQn TR Peak Gr.57tjAeOBLE79boJr Pulmonary Vein S1 Dxbxgfkf32.7cm/sD2 Zofzirqs10.6cm/s LEFT VENTRICLE The left ventricle is normal size. There is mild concentric left ventricular hypertrophy. The left ve ntricular systolic function is normal and the ejection fraction is within normal range. The Ejection Fraction is 55-60%. There is normal LV segmental wall motion. Transmitral Doppler flow pattern is Gra de I-abnormal relaxation pattern. RIGHT VENTRICLE The right ventricle is moderately dilated. The right ventricular systolic function is normal. ATRIA The left atrium is mildly dilated. The right atrium is mildly dilated. The interatrial septum is inta ct with no evidence for an atrial septal defect or patent foramen ovale as noted on 2-D or Doppler im aging. AORTIC VALVE The aortic valve is heavily calcified with restricted leaflet motion. Doppler and Color Flow revealed mild aortic regurgitation. There is no significant aortic valvular stenosis. MITRAL VALVE The mitral valve is mildly thickened but opens well. There is no evidence of mitral valve prolapse. T here is no mitral valve stenosis. Doppler and Color-flow revealed mild mitral regurgitation. TRICUSPID VALVE The tricuspid valve is normal in structure and function. Doppler and Color Flow revealed trace tricus pid regurgitation. There is moderate pulmonary hypertension. The PA pressure was estimated at 42 mmHg . There is no tricuspid valve stenosis. PULMONIC VALVE The pulmonic valve is not well visualized. Doppler and Color Flow revealed no pulmonic valvular regur gitation. There is no pulmonic valvular stenosis. GREAT VESSELS The aortic root is normal in size. The ascending aorta is not well seen. The IVC was not visualized. PERICARDIAL EFFUSION There is no evidence of significant pericardial effusion. Critical Notification Critical Value: No <Conclusion> The left ventricular systolic function is normal and the ejection fraction is within normal range. Th e Ejection Fraction is 55-60%. There is normal LV segmental wall motion. The right ventricle is moderately dilated. Doppler and Color Flow revealed trace tricuspid regurgitation. There is moderate pulmonary hypertensi on. The PA pressure was estimated at 42 mmHg. The aortic valve is heavily calcified with restricted leaflet motion. Signed by : Diaz Reid, Electronically Approved : 09/11/2019 17:30:47
== END | disposition home or self-care (01) ==
LOC: ECHO 14:23
PROVIDERS: ATTEND Internal Medicine Cardiovascular Disease
DX: I08.0 Rheumatic disorders of both mitral and aortic valves (principal); I50.32 Chronic diastolic (congestive) heart failure; I27.20 Pulmonary hypertension, unspecified
CPT/HCPCS: 93306

== ENCOUNTER → 2019-10-25 | Outpatient (CLI) | payer MEDICARE, OTHER ==
[~2019-10-25] MED LIST changes: +ASCO100019 PO; -ASCO10002 PO
--- NOTE | 2019-10-25 16:13 | RAD ---
EXAM: Bilateral lower extremity venous Doppler. HISTORY: Bilateral lower extremity pain/swelling. Venous insufficiency. COMPARISON: None. FINDINGS: Grayscale and Doppler analysis of the both lower extremity deep venous systems was performed with graded compression and augmentation. The common femoral, greater saphenous, superficial femoral, popliteal and calf veins were assessed. The calf veins could not be visualized bilaterally. The left popliteal vein could only be visualized by color flow. No clear deep venous thrombosis is identified. IMPRESSION: 1. Limited visualization as above. No clear evidence of deep venous thrombosis. Electronically signed by: Thiago Patterson MD (10/25/2019 4:10 PM) [id number]
== END | disposition home or self-care (01) ==
LOC: US 14:54
DX: I87.2 Venous insufficiency (chronic) (peripheral) (principal)
CPT/HCPCS: 93970

== ENCOUNTER → 2019-10-28 | Outpatient (CLI) | payer MEDICARE, OTHER ==
--- NOTE | 2019-10-28 12:13 | RAD ---
Examination: Ultrasound bilateral lower extremity arterial system HISTORY: History of bilateral lower extremity pain COMPARISON: 10/11/2018 Technique: Grayscale, Doppler 2-D, spectral waveforms of the bilateral lower extremity arterial system FINDINGS: The following are the velocities in the right lower extremity Common femoral artery 169 cm/s, biphasic. Deep femoral artery 98 cm/s, biphasic Proximal superficial femoral artery 133 cm/s Distal superficial femoral artery 117 cm/s Distal superficial femoral artery 167 cm/s Popliteal artery 69 cm/s. Proximal [employer] 117 cm/s. Distal [employer] 143 cm/s. Peroneal artery is not visualized. Anterior tibialis artery 90 cm/s Deep femoral artery 30 cm/s Monophasic waveforms identified throughout the right lower extremity from superior femoral artery to the dorsalis pedis artery. The following are the velocities in the left lower extremity: Common femoral artery 175 cm/s Deep femoral artery 53 cm/s Proximal SFA 135 cm/s Mid SFA 149 cm/s Distal SFA 183 cm/s Popliteal artery 125 cm/s Proximal [employer] 20 cm/s Distal [employer] 19 cm/s Anterior tibialis artery 116 cm/s Dorsalis pedis artery 89 cm/s Physicians identified throughout the left lower extremity arterial system The peroneal artery could not be visualized. IMPRESSION: 1. Mild increase in velocity in the bilateral common femoral arteries and distal [employer] and left superficial femoral artery could be stenosis of less than 50 percent stenosis. Monophasic waveforms throughout bilateral lower extremity arterial system likely due inflow atherosclerotic disease. Electronically signed by: Sean Otaes MD (10/28/2019 12:10 PM) [id number]
== END ==
LOC: US 10:45
PROVIDERS: ATTEND Podiatrist Foot & Ankle Surgery
DX: I73.9 Peripheral vascular disease, unspecified (principal)
CPT/HCPCS: 93925

== ENCOUNTER 2019-12-24 14:35 | Emergency (ER) | payer MEDICARE, OTHER ==
[~2019-12-24] VITALS: Ht 160 cm; Wt 77.3 kg
--- NOTE | 2019-12-24 15:37 | PHYS DOC ---
Past Medical History Past Medical History: Anemia, Arthritis, Asthma, Cancer, CHF, Fibromyalgia, Hypertension, Other Additional Past Medical Histor: SLEEP APNEA, ARTHRITIS OF SPINE BOTH KNEES, AND LEFT HIP, CELLULITIS Past Surgical History: Cholecystectomy, Hysterectomy, Other Additional Past Surgical Histo: FOOT, COCCYX RMVD, VARICOSE VEINS BILAT LEG, BLADDER REPAIR, HERNIA, Smoking Status: Never Smoker Alcohol Use: None Drug Use: None General Adult EDM: Chief Complaint: MECHANICAL FALL HPI: HPI: History obtained from patient and EMS. Patient is an 84-year-old female with multiple comorbidities who presents with chief complaint of left shoulder pain status post mechanical fall. She is wheelchair-bound at baseline. EMS states they were called to the patient's facility at [facility] for increased confusion from baseline. State they found the patient down in her room. Patient states that she fell out of her wheelchair face for striking her head. Denies loss of conscious. She states that she follows regularly. She notes that she has left shoulder pain. She does not take any medicine prior to arrival. Per nursing facility the patient was confused as to who her daughter was. EMS states the patient has had a GCS of 15 since their arrival. Patient denies taking any blood thinners. Denies chest pain or shortness of breath before or after falling. Denies any new back pain. Does note a mild abrasion to the back of her left hand. No other complaints. Review of Systems: Review of Systems: Constitutional: Denies fever or chills. [] Eyes: Denies change in visual acuity. [] HENT: Denies nasal congestion or sore throat. [] Respiratory: Denies cough or shortness of breath. [] Cardiovascular: Denies chest pain or edema. [] GI: Denies abdominal pain, nausea, vomiting, bloody stools or diarrhea. [] : Denies dysuria. [] Musculoskeletal: Positive for fall Integument: Positive for abrasion Neurologic: Denies headache, focal weakness or sensory changes. [] Endocrine: Denies polyuria or polydipsia. [] Lymphatic: Denies swollen glands. [] Psychiatric: Denies depression or anxiety. [] Heart Score: Risk Factors: Risk Factors: DM, Current or recent (<one month) smoker, HTN, HLP, family history of CAD, obesity. Risk Scores: Score 0 - 3: 2.5% MACE over next 6 weeks - Discharge Home Score 4 - 6: 20.3% MACE over next 6 weeks - Admit for Clinical Observation Score 7 - 10: 72.7% MACE over next 6 weeks - Early Invasive Strategies Allergies: Allergies: Allergies Coded Allergies Type Severity Reaction Last Updated Verified linaclotide Allergy Severe 07/03/17 Yes Sulfa (Sulfonamide Antibiotics) Allergy Intermediate 09/17/15 Yes atorvastatin Allergy Intermediate 09/17/15 Yes bisoprolol Allergy Intermediate 09/14/15 Yes cadexomer iodine Allergy Intermediate itching 09/14/15 Yes ciprofloxacin Allergy Intermediate 09/17/15 Yes diltiazem Allergy Intermediate takes VERAPAMIL at home 07/02/17 Yes lisinopril Allergy Intermediate 09/18/15 Yes methylphenidate Allergy Intermediate 09/17/15 Yes naproxen Allergy Intermediate 07/03/17 Yes nitrofurantoin Allergy Intermediate 09/14/15 Yes ofloxacin Allergy Intermediate 09/17/15 Yes paroxetine Allergy Intermediate 09/17/15 Yes piroxicam Allergy Intermediate 09/17/15 Yes propoxyphene Allergy Intermediate 09/17/15 Yes ranitidine Allergy Intermediate 09/17/15 Yes senna Allergy Intermediate 09/17/15 Yes valdecoxib Allergy Intermediate 09/17/15 Yes Physical Exam: PE: Physical Exam Trauma: Primary Survey: Airway: Intact. Speaks in normal voice and phonation. Breathing: Breath sounds are clear and equal bilaterally. Circulation: Regular rhythm, 2+ and symmetric radial, DP and PT pulses. Disability: GCS on arrival was 15. Pupils 3 mm, ERRL Exposure: Complete exposure obtained and described in detail below. Secondary Survey: General: Awake, alert, appropriate, and in no acute distress HENT: Atraumatic. TMs clear bilaterally, no hemotympanum. No periorbital tenderness or deformity. No obvious craniofacial trauma. Midface is stable. No apparent dental or tongue/oropharyngeal injury. No septal hematoma. Neck: C-spine: no midline tenderness. Without step-off, deformity, abrasion, ecchymosis, or other signs of trauma. Paraspinal musculature with no tenderness and/or hypertonicity. Eyes: Pupils 3 mm ERRL, EOMI grossly, no evidence of ocular trauma, conjunctivae normal Respiratory: CTAB without wheezing, rhonchi, or rales. No distress. Chest wall with no tenderness to palpation. No crepitus, ecchymosis, or flail segment present. Cardiovascular: Regular rhythm without murmurs noted. 2+ and symmetric radial, DP and PT pulses. GI: Soft, non-tender, non-distended Musculoskeletal: T-spine: no midline tenderness. Without step-off, deformity, abrasion, ecchymosis, or other signs of trauma. Paraspinal musculature with no tenderness and/or hypertonicity. L-spine: no midline tenderness. Without step-off, deformity, abrasion, ecchymosis, or other signs of trauma. Paraspinal musculature with no tenderness and/or hypertonicity. RUE: Active ROM, no obvious deformity, no gross weakness or sensory deficits, warm & well-perfused LUE: Limited active ROM secondary to pain, no obvious deformity, no gross weakness or sensory deficits, warm & well-perfused. Ecchymosis of the left index finger noted. 0.5 cm abrasion noted overlying the left second metacarpal. RLE: Active ROM, no obvious deformity, no gross weakness or sensory deficits, warm & well-perfused LLE: Active ROM, no obvious deformity, no gross weakness or sensory deficits, warm & well-perfused Integument: Without abrasions, contusions, or lacerations. Neurologic: GCS on arrival as noted above. No obvious focal motor or sensory deficits on examination. Gait not assessed due to acuity of trauma assessment. Current Patient Data: Vital Signs: Vital Signs Date Time Temp Pulse Resp B/P (MAP) Pulse Ox O2 Delivery O2 Flow Rate FiO2 12/24/19 15:14 96.3 68 24 144/69 (94) 96 Room Air 96.3 EKG: EKG: [] Radiology/Procedures: Radiology/Procedures: [facility] [address] [place] [address] IMAGING REPORT Signed PATIENT: KAILA DISLA LACCOUNT: [id number] : 1935 LOCATION: ER AGE: 84 SEX: F EXAM STATUS: REG ER ORD. PHYSICIAN: JOHN PAT DO REASON: LEFT SIDE PAIN S/P FALL TODAY PROCEDURE: CT HEAD AND CERVICAL SPINE WO Exam: CT head and cervical spine without contrast INDICATION: Left-sided pain status post fall today TECHNIQUE: Sequential axial images through the head and cervical spine were obtained without the administration of IV contrast. Comparisons: None FINDINGS: Head: No focal parenchymal lesion or hemorrhage is identified. There is no midline shift or sulcal effacement. Patchy hypodensity in the periventricular white matter. Chronic infarct in the right frontal lobe. No acute vascular territory infarction is identified. Merrill-white distinction is preserved. The ventricular system is within normal limits without compression hydrocephalus. The basal cisterns are well maintained. Extra cranial soft tissue scalp contusion/hematoma overlying the left superior frontal region. The visualized portions of the paranasal sinuses and mastoid air cells are well-pneumatized. No acute fractures. Cervical spine: Vertebral body heights and alignment are well-maintained. Fracture to the cervical spine is not identified. Mild multilevel spondylotic change in cervical spine with degenerative disc disease greatest at C3-C4 and C6-C7. Mild bilateral facet arthropathy is also noted. Visualized soft tissues are unremarkable. IMPRESSION: 1. Extra cranial soft tissue scalp contusion/hematoma overlying the left superior frontal region without underlying osseous or intracranial abnormality. 2. Negative CT C-spine for acute traumatic injury. Exposure: One or more of the following in the visualized dose reduction techniques were utilized for this examination: 1. Automated exposure control 2. Adjustment of the MA and/or KV according to patient size Use of iterative of reconstructive technique Electronically signed by: Brit Winters MD (12/24/2019 3:54 PM) [facility] DICTATED and SIGNED BY: BRIT WINTERS MD DATE: 12/24/19 1554 [][facility] [address] [place] [address] IMAGING REPORT Signed PATIENT: KAILA DISLA LACCOUNT: [id number] : 1935 LOCATION: ER AGE: 84 SEX: F EXAM STATUS: REG ER ORD. PHYSICIAN: JOHN PAT DO REASON: FALL pain and brusiing PROCEDURE: CHEST AP ONLY EXAM: SHOULDER 2+V LEFT, HIP BILATERAL WITH PELVIS, HAND LEFT 3V, CHEST AP ONLY 12/24/2019 3:11 PM CLINICAL INDICATION:Fall. Left shoulder, hip, and left index finger pain and bruising. COMPARISON:Left shoulder radiograph 01/22/2019 FINDINGS: LEFT SHOULDER: 3 views of the left shoulder were obtained. There is an old healed humeral neck fracture. No acute fracture. Alignment is normal. There is mild acromioclavicular degenerative joint disease. BILATERAL HIPS: 5 views of the hips and pelvis. No acute fracture. Alignment is normal. There is moderate medial joint space narrowing bilaterally. Mild diffuse symphysis is degenerative joint disease. The sacrum is partially obscured by stool. There is lower lumbar degenerative disc disease. Surgical clips are in the lower abdomen. LEFT HAND: The bones are diffusely demineralized. There is no acute fracture. There is severe joint space narrowing with small central erosions and mild degenerative subluxation at the second and DIP joints. Moderate triscaphe joint space narrowing and subchondral sclerosis. There is chondrocalcinosis in the fibrocartilage complex. CHEST: The heart is enlarged. There are calcifications in the thoracic aorta. An electronic device projects over left heart border. Calcified mediastinal and hilar lymph nodes are noted. There is right paratracheal fullness with adjacent interstitial changes in the right upper lobe, stable from prior exam. No pleural effusion or pneumothorax. No acute osseous abnormality. There are surgical clips in the upper abdomen. IMPRESSION: 1. LEFT SHOULDER: No acute abnormality. Old healed humeral neck fracture. 2. BILATERAL HIPS: No acute osseous abnormality. 3. LEFT HAND: No acute osseous abnormality. Osteopenia and inflammatory arthritis with severe joint space narrowing and central erosions at the second and fifth DIP joints. 4. CHEST: No acute cardiopulmonary abnormality Unchanged cardiomegaly, calcified mediastinal and hilar lymph nodes, and interstitial opacities in the right apex. Electronically signed by: Neda Vargas MD (12/24/2019 4:37 PM) [id number] DICTATED and SIGNED BY: NEDA VARGAS MD DATE: 12/24/191636 Course & Med Decision Making: Course & Med Decision Making Pertinent Labs and Imaging studies reviewed. (See chart for details) [] Patient is an overall well-appearing 84-year-old female who presents status post mechanical fall from her wheelchair. CT head reveals no acute intracranial abnormality. Plain film imaging of the left shoulder, left hand, hips bilaterally, and chest reveals no acute abnormality. Low suspicion for acute underlying traumatic etiology given the low mechanism of injury. She is alert and oriented x3. GCS 15. Has no other complaints. I do feel she is appropriate for discharge home back to her nursing care facility which can be monitored closely. Vital signs been stable. Return precautions discussed and understood. Stable for discharge back to her nursing care facility. Elmo Disclaimer: Elmo Disclaimer: This electronic medical record was generated, in whole or in part, using a voice recognition dictation system. Departure Departure Impression: Primary Impression: Fall Qualified Codes: W19.XXXA - Unspecified fall, initial encounter Disposition: 03 DC/TRF TO SNF Condition: STABLE Referrals: VERO WYNN MD (PCP) Patient Instructions: Fall Prevention and Home Safety Additional Instructions: Please follow-up with your primary care physician in the next 2 to 3 days. JOHN PAT DO Dec 24, 2019 15:37
--- NOTE | 2019-12-24 15:57 | RAD ---
Exam: CT head and cervical spine without contrast INDICATION: Left-sided pain status post fall today TECHNIQUE: Sequential axial images through the head and cervical spine were obtained without the administration of IV contrast. Comparisons: None FINDINGS: Head: No focal parenchymal lesion or hemorrhage is identified. There is no midline shift or sulcal effacement. Patchy hypodensity in the periventricular white matter. Chronic infarct in the right frontal lobe. No acute vascular territory infarction is identified. Merrill-white distinction is preserved. The ventricular system is within normal limits without compression hydrocephalus. The basal cisterns are well maintained. Extra cranial soft tissue scalp contusion/hematoma overlying the left superior frontal region. The visualized portions of the paranasal sinuses and mastoid air cells are well-pneumatized. No acute fractures. Cervical spine: Vertebral body heights and alignment are well-maintained. Fracture to the cervical spine is not identified. Mild multilevel spondylotic change in cervical spine with degenerative disc disease greatest at C3-C4 and C6-C7. Mild bilateral facet arthropathy is also noted. Visualized soft tissues are unremarkable. IMPRESSION: 1. Extra cranial soft tissue scalp contusion/hematoma overlying the left superior frontal region without underlying osseous or intracranial abnormality. 2. Negative CT C-spine for acute traumatic injury. Exposure: One or more of the following in the visualized dose reduction techniques were utilized for this examination: 1. Automated exposure control 2. Adjustment of the MA and/or KV according to patient size Use of iterative of reconstructive technique Electronically signed by: Brit Hayes MD (12/24/2019 3:54 PM) [facility]
--- NOTE | 2019-12-24 16:39 | RAD ---
EXAM: SHOULDER 2+V LEFT, HIP BILATERAL WITH PELVIS, HAND LEFT 3V, CHEST AP ONLY 12/24/2019 3:11 PM CLINICAL INDICATION:Fall. Left shoulder, hip, and left index finger pain and bruising. COMPARISON:Left shoulder radiograph 01/22/2019 FINDINGS: LEFT SHOULDER: 3 views of the left shoulder were obtained. There is an old healed humeral neck fracture. No acute fracture. Alignment is normal. There is mild acromioclavicular degenerative joint disease. BILATERAL HIPS: 5 views of the hips and pelvis. No acute fracture. Alignment is normal. There is moderate medial joint space narrowing bilaterally. Mild diffuse symphysis is degenerative joint disease. The sacrum is partially obscured by stool. There is lower lumbar degenerative disc disease. Surgical clips are in the lower abdomen. LEFT HAND: The bones are diffusely demineralized. There is no acute fracture. There is severe joint space narrowing with small central erosions and mild degenerative subluxation at the second and DIP joints. Moderate triscaphe joint space narrowing and subchondral sclerosis. There is chondrocalcinosis in the fibrocartilage complex. CHEST: The heart is enlarged. There are calcifications in the thoracic aorta. An electronic device projects over left heart border. Calcified mediastinal and hilar lymph nodes are noted. There is right paratracheal fullness with adjacent interstitial changes in the right upper lobe, stable from prior exam. No pleural effusion or pneumothorax. No acute osseous abnormality. There are surgical clips in the upper abdomen. IMPRESSION: 1. LEFT SHOULDER: No acute abnormality. Old healed humeral neck fracture. 2. BILATERAL HIPS: No acute osseous abnormality. 3. LEFT HAND: No acute osseous abnormality. Osteopenia and inflammatory arthritis with severe joint space narrowing and central erosions at the second and fifth DIP joints. 4. CHEST: No acute cardiopulmonary abnormality Unchanged cardiomegaly, calcified mediastinal and hilar lymph nodes, and interstitial opacities in the right apex. Electronically signed by: Neda Vargas MD (12/24/2019 4:37 PM) [id number]
[2019-12-24 18:00] VITALS: BP 145/67
== END 2019-12-24 18:50 | disposition home or self-care (01) ==
LOC: ER 14:35
DX: S60.022A Contusion of left index finger without damage to nail, initial encounter (principal); S00.93XA Contusion of unspecified part of head, initial encounter; M50.31 Other cervical disc degeneration, high cervical region; M50.323 Other cervical disc degeneration at C6-C7 level; M19.012 Primary osteoarthritis, left shoulder; M25.552 Pain in left hip; R41.0 Disorientation, unspecified; I11.0 Hypertensive heart disease with heart failure; I50.9 Heart failure, unspecified; J45.909 Unspecified asthma, uncomplicated; Z90.49 Acquired absence of other specified parts of digestive tract; Z90.710 Acquired absence of both cervix and uterus; Z88.1 Allergy status to other antibiotic agents; Z88.2 Allergy status to sulfonamides; Z88.5 Allergy status to narcotic agent; Z88.8 Allergy status to other drugs, medicaments and biological substances; W05.0XXA Fall from non-moving wheelchair, initial encounter; Y93.89 Activity, other specified; Y92.89 Other specified places as the place of occurrence of the external cause; Y99.8 Other external cause status
CPT/HCPCS: 70450; 71045; 72125; 73030; 73130; 73521; 99285

== ENCOUNTER 2020-03-04 05:42 | Inpatient (IN) | payer MEDICARE, OTHER ==
[~2020-03-04] VITALS: Ht 160 cm; Wt 78.6 kg
[~2020-03-04 05:42] MED LIST changes: +GEMF600T20 PO; -GEMF600T8 PO
--- NOTE | 2020-03-04 05:57 | PHYS DOC ---
Past Medical History Past Medical History: Arthritis, Hypertension, Other Additional Past Medical Histor: Malignant neoplasm (ALIRIO MARES MD) Past Medical History: Hypertension (KENNETH PARDO DO) Past Surgical History: Pacemaker, Other Additional Past Surgical Histo: FOOT, COCCYX RMVD, VARICOSE VEINS BILAT LEG, BLADDER REPAIR, HERNIA, (ALIRIO MARES MD) Smoking Status: Never Smoker Alcohol Use: Rarely Drug Use: None (ALIRIO MARES MD) Adult General Chief Complaint Chief Complaint: MECHANICAL FALL HPI HPI Patient is a 84 year old female presenting the emergency department for left- sided shoulder pain after a fall. Patient states that she is getting up out of bed when she lost balance and causing her stumble and fall onto her left side. Patient states she struck her left shoulder and left hip. Patient is also states she struck her head on the left side. Patient primarily complaining of left-sided shoulder pain but does also complain of pain to left hand and left hip. Denies any dizziness, lightheadedness, nausea, vomiting or loss of conscious (ALIRIO MARES MD) Review of Systems Review of Systems Constitutional: Denies fever or chills [] Eyes: Denies change in visual acuity, redness, or eye pain [] HENT: Denies nasal congestion or sore throat [] Respiratory: Denies cough or shortness of breath [] Cardiovascular: No additional information not addressed in HPI [] GI: Denies abdominal pain, nausea, vomiting, bloody stools or diarrhea [] : Denies dysuria or hematuria [] Musculoskeletal: Denies back pain or joint pain [] Integument: Denies rash or skin lesions [] Neurologic: Denies headache, focal weakness or sensory changes [] Endocrine: Denies polyuria or polydipsia [] All other systems were reviewed and found to be within normal limits, except as documented in this note. (ALIRIO MARES MD) Family History Family History Noncontributory (KENNETH PARDO DO) Current Medications Current Medications Current Medications Medications (Trade) Dose Ordered Sig/Jena Start Time Stop Time Status Last Admin Dose Admin Ceftriaxone Sodium (Rocephin) 1 gm 1X ONCE 03/04/20 08:00 03/04/20 08:01 DC 03/04/20 08:17 1 GM Morphine Sulfate (Morphine Sulfate) 4 mg ONCE ONCE 03/04/20 06:00 12/30/20 06:01 DC 03/04/20 06:40 4 MG (KENNETH PARDO DO) Allergies Allergies Allergies Coded Allergies Type Severity Reaction Last Updated Verified linaclotide Allergy Severe 07/03/17 Yes Sulfa (Sulfonamide Antibiotics) Allergy Intermediate 09/17/15 Yes atorvastatin Allergy Intermediate 09/17/15 Yes bisoprolol Allergy Intermediate 09/14/15 Yes cadexomer iodine Allergy Intermediate itching 09/14/15 Yes ciprofloxacin Allergy Intermediate 09/17/15 Yes diltiazem Allergy Intermediate takes VERAPAMIL at home 07/02/17 Yes lisinopril Allergy Intermediate 09/18/15 Yes methylphenidate Allergy Intermediate 09/17/15 Yes naproxen Allergy Intermediate 07/03/17 Yes nitrofurantoin Allergy Intermediate 09/14/15 Yes ofloxacin Allergy Intermediate 09/17/15 Yes paroxetine Allergy Intermediate 09/17/15 Yes piroxicam Allergy Intermediate 09/17/15 Yes propoxyphene Allergy Intermediate 09/17/15 Yes ranitidine Allergy Intermediate 09/17/15 Yes senna Allergy Intermediate 09/17/15 Yes valdecoxib Allergy Intermediate 09/17/15 Yes (KENNETH PARDO DO) Physical Exam Physical Exam Constitutional: Well developed, well nourished, no acute distress, non-toxic appearance. [] HENT: Normocephalic, bilateral external ears normal, oropharynx moist, no oral exudates, nose normal. L lateral scalp and catholic bruising Eyes: PERRLA, EOMI, conjunctiva normal, no discharge. [] Neck: Normal range of motion, no tenderness, supple, no stridor. [] Cardiovascular:Heart rate regular rhythm, no murmur [] Lungs & Thorax: Bilateral breath sounds clear to auscultation [] Abdomen: Bowel sounds normal, soft, no masses, no pulsatile masses. Moderate LLQ tenderness Skin: Warm, dry, no erythema, no rash. [] Back: No tenderness, no CVA tenderness. [] Extremities: no cyanosis, no clubbing, ROM intact, no edema. L shoulder with obvious deformity and tenderness over the deltoid Neurologic: Alert and oriented X 3, normal motor function, normal sensory function, no focal deficits noted. [] Psychologic: Affect normal, judgement normal, mood normal. [] (ALIRIO MARES MD) Current Patient Data Vital Signs Vital Signs Date Time Temp Pulse Resp B/P (MAP) Pulse Ox O2 Delivery O2 Flow Rate FiO2 03/04/20 08:14 74 93 03/04/20 06:40 20 Room Air 03/04/20 05:44 98.0 153/89 (110) 98.0 (PARDOKENNETH DO) Lab Values Laboratory Tests Test 03/04/20 06:20 03/04/20 07:16 03/04/20 07:25 White Blood Count 4.2 x10^3/uL (4.0-11.0) Red Blood Count 4.24 x10^6/uL (3.50-5.40) Hemoglobin 13.2 g/dL (12.0-15.5) Hematocrit 40.4 % (36.0-47.0) Mean Corpuscular Volume 95 fL (79-100) Mean Corpuscular Hemoglobin 31 pg (25-35) Mean Corpuscular Hemoglobin Concent 33 g/dL (31-37) Red Cell Distribution Width 15.7 % (11.5-14.5) H Platelet Count 223 x10^3/uL (140-400) Neutrophils (%) (Auto) 61 % (31-73) Lymphocytes (%) (Auto) 25 % (24-48) Monocytes (%) (Auto) 6 % (0-9) Eosinophils (%) (Auto) 6 % (0-3) H Basophils (%) (Auto) 1 % (0-3) Neutrophils # (Auto) 2.6 x10^3/uL (1.8-7.7) Lymphocytes # (Auto) 1.1 x10^3/uL (1.0-4.8) Monocytes # (Auto) 0.3 x10^3/uL (0.0-1.1) Eosinophils # (Auto) 0.3 x10^3/uL (0.0-0.7) Basophils # (Auto) 0.1 x10^3/uL (0.0-0.2) Prothrombin Time 12.3 SEC (11.7-14.0) Prothrombin Time INR 1.0 (0.8-1.1) Activated Partial Thromboplast Time 39 SEC (24-38) H Sodium Level 140 mmol/L (136-145) Potassium Level 3.8 mmol/L (3.5-5.1) Chloride Level 104 mmol/L (98-107) Carbon Dioxide Level 28 mmol/L (21-32) Anion Gap 8 (6-14) Blood Urea Nitrogen 36 mg/dL (7-20) H Creatinine 1.4 mg/dL (0.6-1.0) H Estimated GFR (Cockcroft-Gault) 35.7 Glucose Level 115 mg/dL (70-99) H Calcium Level 9.3 mg/dL (8.5-10.1) Urine Collection Type U cath Urine Color Yellow Urine Clarity Clear Urine pH 6.5 (<5.0-8.0) Urine Specific [place] 1.010 (1.000-1.030) Urine Protein Negative mg/dL (NEG-TRACE) Urine Glucose (UA) Negative mg/dL (NEG) Urine Ketones (Stick) Negative mg/dL (NEG) Urine Blood Negative (NEG) Urine Nitrite Positive (NEG) Urine Bilirubin Negative (NEG) Urine Urobilinogen Dipstick 0.2 mg/dL (0.2 mg/dL) Urine Leukocyte Esterase Moderate (NEG) Urine RBC 1-2 /HPF (0-2) Urine WBC 11-20 /HPF (0-4) Urine Renal Epithelial Cells Occ /LPF Urine Bacteria Many /HPF (0-FEW) Urine Hyaline Casts Few /HPF Urine Mucus Slight /LPF Urine Opiates Screen Pos (NEG) Urine Methadone Screen Neg (NEG) Urine Barbiturates Neg (NEG) Urine Phencyclidine Screen Neg (NEG) Urine Amphetamine/Methamphetamine Neg (NEG) Urine Benzodiazepines Screen Neg (NEG) Urine Cocaine Screen Neg (NEG) Urine Cannabinoids Screen Neg (NEG) Urine Ethyl Alcohol Neg (NEG) Laboratory Tests 03/04/20 06:20 Laboratory Tests 03/04/20 07:16 (KENNETH PARDO DO) EKG EKG [] (ALIRIO MARES MD) EKG EKG was obtained at 0625 hrs. there is an irregular rhythm present without clear evidence of clear P wave morphology to indicate likely atrial fibrillation. There are PVCs present with left axis deviation as well as a left anterior fascicular block. There is also evidence of mild T wave inversion in the inferior leads with a prolonged QT interval. There is otherwise no acutely ischemic ST/T wave changes present. (KENNETH PARDO DO) Radiology/Procedures Radiology/Procedures [] (ALIRIO MARES MD) Impressions: [address] [address] IMAGING REPORT Signed PATIENT: KAILA DISLA LACCOUNT: [id number] : 1935 LOCATION: ER AGE: 84 SEX: F EXAM STATUS: REG ER ORD. PHYSICIAN: ALIRIO MARES MD REASON: fall PROCEDURE: SHOULDER 2+V LEFT XR SHOULDER_LEFT 2+ VIEWS 03/04/2020 5:45 AM INDICATION: Fall COMPARISON: None available. TECHNIQUE: 2 views of the left shoulder are provided. FINDINGS/ IMPRESSION: Limited evaluation on this two-view examination. No definite dislocation of the glenohumeral joint. No acute fracture is identified. Mild cardiomegaly with pulmonary vascular congestion. Right suprahilar interstitial airspace disease is noted. Electronically signed by: Bonita Decker MD (03/04/2020 6:04 AM) UI-ALAP DICTATED and SIGNED BY: BONITA DECKER MD DATE: 03/04/20 [id number] [address] [address] IMAGING REPORT Signed PATIENT: KAILA DISLA LACCOUNT: [id number] : 1935 LOCATION: ER AGE: 84 SEX: F EXAM STATUS: REG ER ORD. PHYSICIAN: ALIRIO MARES MD REASON: fall PROCEDURE: PORTABLE CHEST 1V AP chest. HISTORY: History: Fall AP view was taken of the chest. There is no pneumothorax or pleural effusion. Heart is normal in size. There is atherosclerotic change in the aorta. There is chronic fibrosis in the right upper lobe unchanged from old studies. An acute infiltrate is not identified. IMPRESSION: 1. Mild fibrosis unchanged from old studies. 2. No acute infiltrates. 3. No pneumothorax. Electronically signed by: Jacob Palmer MD (03/04/2020 7:55 AM) [id number] DICTATED and SIGNED BY: JACOB PALMER MD DATE: 03/04/20 [id number] [facility] [address] [place] [address] IMAGING REPORT Signed PATIENT: KAILA DISLAOUNT: [id number] : 1935 LOCATION: ER AGE: 84 SEX: F EXAM STATUS: REG ER ORD. PHYSICIAN: ALIRIO MARES MD REASON: fall PROCEDURE: CT HEAD WO CONTRAST CT HEAD/BRAIN WO Date: 03/04/2020 7:51 AM Clinical Indication: Reason: fall / Spl. Instructions: / History: Comparison: None. Technique: 5 mm axial tomographic images were obtained of the head without contrast. These were viewed on brain and bone windows. One or more of the following dose reduction techniques were utilized: Automated exposure control (AEC), Adjustment of mA and/or kV according to patient size, Use of iterative reconstruction technique such as ASiR, CT scan done according to ALARA and image gently/image wisely Findings: Mild generalized cerebral and cerebellar volume loss. Mild nonspecific periventricular hypoattenuation, most commonly seen with chronic small vessel ischemic disease. Calcified atherosclerosis of the bilateral cavernous and paraclinoid internal carotid arteries and intracranial vertebral arteries. Small area of right frontal encephalomalacia. No intra- or extra-axial mass or fluid collection. No acute hemorrhage. The ventricles are normal in size, shape, and morphology. The more-white matter junction is normal. The subarachnoid cisterns are patent. The visualized paranasal sinuses are normal. The visualized portions of the orbits and globes are normal. The mastoid air cells are clear. The concrete spreader topogram shows no lytic lesion or fracture. Impression: No acute intracranial process. Small area of right frontal encephalomalacia. Mild cerebral volume loss. Mild chronic small vessel ischemic disease. Electronically signed by: Marvin Torres MD (03/04/2020 7:59 AM) [id number] [facility] [address] [place] [address] IMAGING REPORT Signed PATIENT: KAILA DISLA LACCOUNT: [id number] : 1935 LOCATION: ER AGE: 84 SEX: F EXAM STATUS: REG ER ORD. PHYSICIAN: ALIRIO MARES MD REASON: fall PROCEDURE: CT CHEST ABDOMEN PELVIS WO EXAM: CT Chest, Abdomen, and Pelvis without IV contrast INDICATION: Reason: fall / Spl. Instructions: NO CONTRAST PER ORDERING LOW GFR / History: TECHNIQUE: Multi-detector row CT images were acquired from the thoracic inlet through the ischial tuberosities without the use of IV contrast. Sagittal and coronal images were acquired from the transaxial data. All CT scans performed at this facility utilize dose optimization techniques as appropriate to the exam, including the following: Automated exposure control and adjustment of the mA and/or KV according to patient size (this includes techniques or standardized protocols for targeted exams where dose is indication/reason for exam). ORAL CONTRAST: Not administered COMPARISON: None FINDINGS: The absence of IV contrast limits evaluation of soft tissue pathology. CHEST: CARDIOVASCULAR: There is borderline cardiomegaly with multivessel coronary calcifications and calcifications in the aortic valve. MEDIASTINUM & LYNN: There is mild prominence of the mediastinal lymph nodes including a 10 mm short axis precarinal node. There is a calcified left hilar lymph nodes are present. LUNGS: Lungs show subpleural reticular densities and mild bronchiectasis with early changes of honeycombing at the periphery of the upper lobes in a pattern consistent with underlying interstitial lung disease. PLEURAL SPACE: No pleural effusions or pneumothorax. OSSEOUS & SOFT TISSUE: Exaggerated thoracic kyphosis. Generalized osteopenia. No acute fracture or aggressive appearing bony lesions noted. ABDOMEN/PELVIS: LIVER: Unremarkable BILIARY SYSTEM: Gallbladder is surgically absent. Bile ducts are not dilated. PANCREAS: Unremarkable SPLEEN: Unremarkable ADRENALS: Unremarkable KIDNEYS & URETERS: Unremarkable BLADDER: Unremarkable REPRODUCTIVE ORGANS: Surgical changes consistent with previous hysterectomy and bilateral retroperitoneal lymphadenopathy. GASTROINTESTINAL: Numerous surgical clips in the left upper quadrant abdomen are consistent with previous abdominal surgery including distal gastrectomy althou gh lack of enteric and IV contrast and the presence of respiratory motion artifact limit detailed assessment. Large bowel contains a moderate amount of formed stool primarily in the right-sided and proximal transverse colon. The appendix is well seen but there are no findings of acute appendicitis.. MESENTERY/PERITONEUM/RETROPERITONEUM: Unremarkable VASCULAR: Mild ectasia of the distal abdominal aorta to 2.6 x 2.8 cm (image 40 axial series 4) LYMPH NODES: No adenopathy OSSEOUS & SOFT TISSUES: Osteopenia. No acute fractures are identified. No dislocation noted. Central concave deformity to the inferior endplate of L4 is favored to represent a Schmorl's node rather than an acute compression fracture. Sclerosis of the bilateral sacroiliac joints is noted. Surgical changes from previous ventral abdominal hernia mesh repair are present with no findings suggesting a recurrent hernia. Partially imaged subcutaneous soft tissue fluid collection overlying the left gluteus muscle is present and could represent a degloving type injury. Event monitor in the left chest wall is present as well. IMPRESSION: 1. No acute traumatic findings shown on CT of the chest with underlying cardi ovascular and interstitial lung disease noted. 2. Probable soft tissue contusion or degloving injury in the left gluteal subcutaneous fat. Otherwise no acute traumatic findings identified in the abdo men or pelvis on noncontrast CT with numerous additional degenerative and postsurgical changes as described. Electronically signed by: Wilver Galvan MD (03/04/2020 8:37 AM) [id number] DICTATED and SIGNED BY: WILVER GALVAN MD DATE: 03/04/20 [id number] (KENNETH PARDO DO) Course & Med Decision Making Course & Med Decision Making Pertinent Labs and Imaging studies reviewed. (See chart for details) 84-year-old female presenting the emergency department after what appears to be a mechanical fall. Primary concern is for a left shoulder dislocation based on the initial physical exam findings. In addition the patient is on baby aspirin clearly suffered a head injury. Will obtain full trauma labs as well as a CT scan of the head, left shoulder x-ray and left hip x-ray. C spine cleared by nexus criteria. (ALIRIO MARES MD) Dragon Disclaimer Dragon Disclaimer This electronic medical record was generated, in whole or in part, using a voice recognition dictation system. (ALIRIO MARES MD) Departure Departure Impression: Primary Impression: Fall Additional Impressions: Renal insufficiency Scalp contusion Head contusion UTI (urinary tract infection) Contusion of shoulder, left Disposition: 09 ADMITTED INPT THIS HOSP Admitting Physician: ANNE (KENNETH PARDO DO) Condition: GOOD Referrals: VERO WYNN MD (PCP) Problem Qualifiers ALIRIO MARES MD Mar 04, 2020 05:57 KENNETH PARDO DO Mar 04, 2020 06:34
[2020-03-04] MEDS ORDERED: MORPHINE SULFATE 4 MG/ML VIAL. IV/SQ ONE (06:00)
--- NOTE | 2020-03-04 06:07 | RAD ---
XR SHOULDER_LEFT 2+ VIEWS 03/04/2020 5:45 AM INDICATION: Fall COMPARISON: None available. TECHNIQUE: 2 views of the left shoulder are provided. FINDINGS/ IMPRESSION: Limited evaluation on this two-view examination. No definite dislocation of the glenohumeral joint. N o acute fracture is identified. Mild cardiomegaly with pulmonary vascular congestion. Right suprahilar interstitial airspace disease is noted. Electronically signed by: Mary aCrmen Daniels MD (03/04/2020 6:04 AM) ERASTO
[2020-03-04 06:40] LABS: BASO # 0.1 x10^3/uL (0.0-0.2); BASO % 1 % (0-3); EOS # 0.3 x10^3/uL (0.0-0.7); EOS % 6 % (0-3); HEMATOCRIT 40.4 % (36.0-47.0); HEMOGLOBIN 13.2 g/dL (12.0-15.5); LYMPH # 1.1 x10^3/uL (1.0-4.8); LYMPH % 25 % (24-48); MEAN CORPUSCULAR HEMOGLOBIN 31 pg (25-35); MEAN CORPUSCULAR HGB CONC 33 g/dL (31-37); MEAN CORPUSCULAR VOLUME 95 fL (79-100); MONO # 0.3 x10^3/uL (0.0-1.1); MONO % 6 % (0-9); NEUT # 2.6 x10^3/uL (1.8-7.7); NEUT % 61 % (31-73); PLATELET COUNT 223 x10^3/uL (140-400); RED BLOOD COUNT 4.24 x10^6/uL (3.50-5.40); RED CELL DISTRIBUTION WIDTH 15.7 % (11.5-14.5); WHITE BLOOD COUNT 4.2 x10^3/uL (4.0-11.0)
[2020-03-04 06:51] LABS: PROTHROMBIN TIME PATIENT 12.3 SEC (11.7-14.0)
[2020-03-04 07:30] LABS: CALCIUM 9.3 mg/dL (8.5-10.1); CREATININE 1.4 mg/dL (0.6-1.0); GFR 35.7; POTASSIUM 3.8 mmol/L (3.5-5.1)
[2020-03-04 07:36] LABS: BILIRUBIN,URINE NEGATIVE (NEG); CLARITY,URINE CLEAR; COLOR,URINE YELLOW; NITRITE,URINE POSITIVE (NEG); PH,URINE 6.5 (<5.0-8.0); PROTEIN,URINE NEGATIVE (NEG-TRACE); UROBILINOGEN,URINE 0.2 mg/dL (0.2 mg/dL)
[2020-03-04 07:47] LABS: BACTERIA,URINE MANY /HPF (0-FEW); HYALINE CASTS, URINE FEW /HPF
[2020-03-04 07:48] LABS: BARBITURATES NEG (NEG); BENZODIAZEPINES NEG (NEG); CANNABINOIDS NEG (NEG); COCAINE NEG (NEG); METHADONE NEG (NEG); OPIATES POS (NEG); PHENCYCLIDINE NEG (NEG)
[2020-03-04 07:56] LABS: AMPHETAMINE/METHAMPHETAMINE NEG (NEG)
--- NOTE | 2020-03-04 07:57 | RAD ---
AP chest. HISTORY: History: Fall AP view was taken of the chest. There is no pneumothorax or pleural effusion. Heart is normal in size . There is atherosclerotic change in the aorta. There is chronic fibrosis in the right upper lobe unc hanged from old studies. An acute infiltrate is not identified. IMPRESSION: 1. Mild fibrosis unchanged from old studies. 2. No acute infiltrates. 3. No pneumothorax. Electronically signed by: Jacob Palmer MD (03/04/2020 7:55 AM) [id number]
[2020-03-04] MEDS ORDERED: cefTRIAXone IV Push 1 GM VIAL. IVP ONE (08:00)
--- NOTE | 2020-03-04 08:01 | RAD ---
CT HEAD/BRAIN WO Date: 03/04/2020 7:51 AM Clinical Indication: Reason: fall / Spl. Instructions: / History: Comparison: None. Technique: 5 mm axial tomographic images were obtained of the head without contrast. These were view ed on brain and bone windows. One or more of the following dose reduction techniques were utilized: A utomated exposure control (AEC), Adjustment of mA and/or kV according to patient size, Use of iterati ve reconstruction technique such as ASiR, CT scan done according to ALARA and image gently/image interiano ly Findings: Mild generalized cerebral and cerebellar volume loss. Mild nonspecific periventricular hypoattenuatio n, most commonly seen with chronic small vessel ischemic disease. Calcified atherosclerosis of the bi lateral cavernous and paraclinoid internal carotid arteries and intracranial vertebral arteries. Small area of right frontal encephalomalacia. No intra- or extra-axial mass or fluid collection. No acute hemorrhage. The ventricles are normal in size, shape, and morphology. The more-white matter junction is normal. The subarachnoid cisterns are patent. The visualized paranasal sinuses are normal. The visualized portions of the orbits and globes are no rmal. The mastoid air cells are clear. The salesperson pets and pet supplies topogram shows no lytic lesion or fracture. Impression: No acute intracranial process. Small area of right frontal encephalomalacia. Mild cerebral volume loss. Mild chronic small vessel ischemic disease. Electronically signed by: Marvin Torres MD (03/04/2020 7:59 AM) [id number]
--- NOTE | 2020-03-04 08:39 | RAD ---
EXAM: CT Chest, Abdomen, and Pelvis without IV contrast INDICATION: Reason: fall / Spl. Instructions: NO CONTRAST PER ORDERING LOW GFR / History: TECHNIQUE: Multi-detector row CT images were acquired from the thoracic inlet through the ischial tu berosities without the use of IV contrast. Sagittal and coronal images were acquired from the transax ial data. All CT scans performed at this facility utilize dose optimization techniques as appropriate to the exam, including the following: Automated exposure control and adjustment of the mA and/or KV according to patient size (this includes techniques or standardized protocols for targeted exams wher e dose is indication/reason for exam). ORAL CONTRAST: Not administered COMPARISON: None FINDINGS: The absence of IV contrast limits evaluation of soft tissue pathology. CHEST: CARDIOVASCULAR: There is borderline cardiomegaly with multivessel coronary calcifications and calcif ications in the aortic valve. MEDIASTINUM & LYNN: There is mild prominence of the mediastinal lymph nodes including a 10 mm short a xis precarinal node. There is a calcified left hilar lymph nodes are present. LUNGS: Lungs show subpleural reticular densities and mild bronchiectasis with early changes of honeyc ombing at the periphery of the upper lobes in a pattern consistent with underlying interstitial lung disease. PLEURAL SPACE: No pleural effusions or pneumothorax. OSSEOUS & SOFT TISSUE: Exaggerated thoracic kyphosis. Generalized osteopenia. No acute fracture or ag gressive appearing bony lesions noted. ABDOMEN/PELVIS: LIVER: Unremarkable BILIARY SYSTEM: Gallbladder is surgically absent. Bile ducts are not dilated. PANCREAS: Unremarkable SPLEEN: Unremarkable ADRENALS: Unremarkable KIDNEYS & URETERS: Unremarkable BLADDER: Unremarkable REPRODUCTIVE ORGANS: Surgical changes consistent with previous hysterectomy and bilateral retroperit vera lymphadenopathy. GASTROINTESTINAL: Numerous surgical clips in the left upper quadrant abdomen are consistent with prev ious abdominal surgery including distal gastrectomy although lack of enteric and IV contrast and the presence of respiratory motion artifact limit detailed assessment. Large bowel contains a moderate am ount of formed stool primarily in the right-sided and proximal transverse colon. The appendix is well seen but there are no findings of acute appendicitis.. MESENTERY/PERITONEUM/RETROPERITONEUM: Unremarkable VASCULAR: Mild ectasia of the distal abdominal aorta to 2.6 x 2.8 cm (image 40 axial series 4) LYMPH NODES: No adenopathy OSSEOUS & SOFT TISSUES: Osteopenia. No acute fractures are identified. No dislocation noted. Central concave deformity to the inferior endplate of L4 is favored to represent a Schmorl's node rather than an acute compression fr acture. Sclerosis of the bilateral sacroiliac joints is noted. Surgical changes from previous ventral abdominal hernia mesh repair are present with no findings sugg esting a recurrent hernia. Partially imaged subcutaneous soft tissue fluid collection overlying the l eft gluteus muscle is present and could represent a degloving type injury. Event monitor in the left chest wall is present as well. IMPRESSION: 1. No acute traumatic findings shown on CT of the chest with underlying cardiovascular and interstiti al lung disease noted. 2. Probable soft tissue contusion or degloving injury in the left gluteal subcutaneous fat. Otherwise no acute traumatic findings identified in the abdomen or pelvis on noncontrast CT with numerous nabil tional degenerative and postsurgical changes as described. Electronically signed by: Kadie Galvan MD (03/04/2020 8:37 AM) [id number]
[2020-03-04] MEDS ORDERED: ONDANSETRON PF 4 MG/2 ML VIAL. IV PRN (10:00)
--- NOTE | 2020-03-04 13:17 | HP ---
ADMIT DATE: 03/04/2020 CHIEF COMPLAINT: Fall. HISTORY OF PRESENT ILLNESS: The patient is a pleasant 84-year-old female who was at home and fell. She complains of some shoulder pain. While in the ER, we did numerous imaging. We do not see anything that is acutely fractured. She does have a UTI. I discussed the case with the ER physician. We are going to admit the patient and do some pain management, some IV antibiotics and physical therapy and occupational therapy. PAST MEDICAL HISTORY: Arthritis, hypertension, pacemaker, foot surgery, coccyx surgery, varicose vein surgery, bladder repair and hernia repair. ALLERGIES: SULFA, STATINS, CIPRO, CARDIZEM, LISINOPRIL, NAPROXEN, NITROFURANTOIN, PAROXETINE, RANITIDINE, SENNA. Please see the complete list of allergies in the chart, there are several more. FAMILY HISTORY: Diabetes. SOCIAL HISTORY: She does not drink, smoke or take drugs. She is retired, used to work for the government. MEDICATIONS: Reviewed, please refer to the MRAD. REVIEW OF SYSTEMS: GENERAL: No history of weight change, weakness or fevers. SKIN: No bruising, hair changes or rashes. EYES: No blurred, double or loss of vision. NOSE AND THROAT: No history of nosebleeds, hoarseness or sore throat. HEART: No history of palpitations, chest pain or shortness of breath on exertion. LUNGS: Denies cough, hemoptysis, wheezing or shortness of breath. GASTROINTESTINAL: Denies changes in appetite, nausea, vomiting, diarrhea or constipation. GENITOURINARY: No history of frequency, urgency, hesitancy or nocturia. NEUROLOGIC: Denies history of numbness, tingling, tremor or weakness. PSYCHIATRIC: No history of panic, anxiety or depression. ENDOCRINE: No history of heat or cold intolerance, polyuria or polydipsia. EXTREMITIES: Denies muscle weakness, joint pain, pain on walking or stiffness. PHYSICAL EXAMINATION: VITALS: Within normal limits and are stable. GENERAL: No apparent distress. Alert and oriented. HEENT: Normal cephalic atraumatic, external auditory canals are patent EYES: Extraocular muscles are intact, pupils are equally round and reactive to light and accommodation MUSCULOSKELETAL: Well developed, well nourished, good range of motion ENDOCRINE: No thyromegaly was palpated LYMPHATICS: No cervical chain or axillary nodes were noted HEMATOPOIETIC: No bruising NECK: Supple, no JVD, no thyromegaly was noted. LUNGS: Clear to auscultation in all lung dominique without rhonchi or wheezing. HEART: RRR, S1, S2 present. Peripheral pulses intact, no obvious murmurs were noted. ABDOMEN: Soft, nontender. Positive bowel sounds no organomegaly, normal bowel sounds. EXTREMITIES: Without any cyanosis, clubbing, or edema. Pedal pulses intact, Homans sign is negative. NEUROLOGIC: Normal speech, normal tone. A & O x3, moves all extremities, no obvious focal deficits. PSYCHIATRIC: Normal affect, normal mood. Stable. SKIN: No ulcerations or rashes, good skin turgor, no jaundice. VASCULAR: Good capillary refill, neurovascular bundle appears to be intact. IMAGING: CT of the head did not show any acute changes. CT of the chest, abdomen and pelvis did not show any acute changes. Chest x-ray did not show any acute changes, but did show some fibrosis. Shoulder x-ray did not show any acute issues. Urinalysis showed moderate leukocyte esterase with 11-20 white cells. White count 4, hemoglobin 13, platelets 223. Electrolytes are normal other than a BUN of 36, creatinine 1.4. Drug screen positive for opiates. I suspect that is from the opiates she got to the ER, INR is 1. ASSESSMENT AND PLAN: Fall, UTI, chronic renal insufficiency. The patient has been admitted. We will give her p.r.n. pain meds, IV antibiotics, IV fluids, home meds, DVT prophylaxis. Full code. Consult Nephrology. Suspect she may need half-way. SANDY MARCUS DO DR: GEOVANNA/dillon JOB#: [id number] / [id number]
[2020-03-04] MEDS ORDERED: FLUT9.9S NS (14:30)
[2020-03-04] MEDS ORDERED: ACET500T68 PO (14:30)
[2020-03-04] MEDS ORDERED: LACT1CAP19 PO (14:30)
[2020-03-04] MEDS ORDERED: POTA20TA4 PO (14:30)
[2020-03-04] MEDS ORDERED: LIDO700A21 TP (14:30)
[2020-03-04 15:00] VITALS: BP 135/64
[2020-03-04] MEDS ORDERED: MULT-246 PO (15:54)
[2020-03-04] MEDS ORDERED: ACETAMINOPHEN 500 MG TABLET PO PRN (16:00)
[2020-03-04] MEDS: cloNIDine HCL 0.2 MG TABLET PO SCH ×3 (16:00→21:00)
[2020-03-04] MEDS: HYDROcodone/APAP 5/325MG 1 TAB TABLET PO PRN (17:32)
[2020-03-04] MEDS: FUROSEMIDE 40 MG TABLET. PO SCH (17:33)
[2020-03-04 19:00] VITALS: BP 122/52
[2020-03-04] MEDS: VERAPAMIL SR 180 MG TABLET.ER. PO SCH (21:00)
[2020-03-04] MEDS ORDERED: CLOTRIMAZOLE/BETAMETH 1%-0.05% TOPICAL CREAM 15GM TUBE. TP SCH (21:00)
[2020-03-04] MEDS ORDERED: MINERAL OIL/PETROLATUM TOPICAL CREAM 113GM JAR. TP SCH (21:00)
[2020-03-04] MEDS: GABAPENTIN 300 MG CAPSULE. PO SCH (21:28)
[2020-03-04] MEDS: ASPIRIN ENTERIC COATED 81 MG TABLET.DR. PO SCH (21:29)
[2020-03-04] MEDS: CETIRIZINE HCL 10 MG TABLET. PO SCH (21:30)
[2020-03-04] MEDS: ALLOPURINOL 300 MG TABLET. PO SCH (21:30)
--- NOTE | 2020-03-04 22:00 | NUR ---
Patient reports she does not take Calan anymore, that Dr Reid discontinued it due to low heart rate.
[2020-03-04 23:00] VITALS: BP 143/68
[2020-03-05 03:00] VITALS: BP 134/58
[2020-03-05] MEDS: LEVOTHYROXINE 137 MCG TABLET PO SCH (06:48)
[2020-03-05] MEDS: HYDROcodone/APAP 5/325MG 1 TAB TABLET PO PRN ×2 (06:49→20:20)
[2020-03-05 07:00] VITALS: BP 141/54
[2020-03-05] MEDS: VERAPAMIL SR 180 MG TABLET.ER. PO SCH (09:00)
[2020-03-05] MEDS: FLUTICASONE 50MCG/NASAL SPRAY 16GM BOTTLE. NS SCH (09:00)
[2020-03-05] MEDS: cefTRIAXone IV Push 1 GM VIAL. IVP SCH (09:34)
[2020-03-05] MEDS: POTASSIUM CHLORIDE 20 MEQ TABLET.ER. PO SCH (09:35)
[2020-03-05] MEDS: cloNIDine HCL 0.2 MG TABLET PO SCH ×3 (09:35→20:12)
[2020-03-05] MEDS: DOCUSATE SODIUM 100 MG CAPSULE. PO SCH (09:35)
[2020-03-05] MEDS: GABAPENTIN 300 MG CAPSULE. PO SCH ×2 (09:36→20:13)
[2020-03-05] MEDS: VITAMIN A 10,000 UNIT CAPSULE. PO SCH (09:36)
[2020-03-05] MEDS: ASCORBIC ACID 1,000 MG TABLET PO SCH (09:36)
[2020-03-05] MEDS: ASPIRIN ENTERIC COATED 81 MG TABLET.DR. PO SCH ×2 (09:36→20:12)
[2020-03-05] MEDS: VITAMIN E 200 UNIT CAPSULE. PO SCH (09:36)
[2020-03-05] MEDS: FUROSEMIDE 40 MG TABLET. PO SCH ×2 (09:37→15:30)
[2020-03-05] MEDS: ALLOPURINOL 300 MG TABLET. PO SCH ×2 (09:37→20:12)
[2020-03-05] MEDS: LACTOBACILLUS RHAMNOSUS GG 1 CAPSULE. PO SCH (09:37)
[2020-03-05] MEDS: LIDOCAINE (700MG/PATCH) PATCH. TP SCH (09:38)
--- NOTE | 2020-03-05 10:10 | NUR ---
SW following. Discussed with RN, pt from [facility], room air, cardiac diet. RN ordering PT/OT and covid swab for possible SNF placement. SW will continue to follow.
--- NOTE | 2020-03-05 10:41 | PDOC ---
[employer] PROGRESS NOTE Date of Service DOS: DATE: 03/05/20 TIME: 10:41 Chief Complaint Chief Complaint Fall UTI chronic renal insufficiency History of Present Illness History of Present Illness 03/04/2020 Patient seen and examined Patient appears comfortable and in NAD DWRN Charts reviewed Vitals/I&O Vitals/I&O: Vital Signs Date Time Temp Pulse Resp B/P (MAP) Pulse Ox O2 Delivery O2 Flow Rate FiO2 03/05/20 09:47 Nasal Cannula 03/05/20 09:36 80 141/54 03/05/20 07:00 97.9 18 97 2.0 97.9 I & O 03/04/20 03/04/20 03/05/20 15:00 23:00 07:00 Intake Total 50 ml Output Total 3 ml 1 ml Balance 47 ml -1 ml Physical Exam General: Alert, Oriented X3, Cooperative Heart: Regular rate, Normal S1, Normal S2 Lungs: Clear Abdomen: Normal bowel sounds, Soft Extremities: No clubbing, No cyanosis Skin: No rashes, No breakdown Assessment and Plan Assessmemt and Plan Assessment Fall UTI chronic renal insufficiency Plan Awaiting SNU eval Full code PT/OT Continue home meds DVt PPX Ordered COVID/SARS testing today Continue IV Rocephin Problems Medical Problems: (1) Contusion of shoulder, left Status: Acute (2) Fall Status: Acute (3) Head contusion Status: Acute (4) Renal insufficiency Status: Acute (5) Scalp contusion Status: Acute Comment Review of Relevant I have reviewed the following items radha (where applicable) has been applied. Medications: Current Medications Medications (Trade) Dose Ordered Sig/Jena Route PRN Reason Start Time Stop Time Status Last Admin Dose Admin Ceftriaxone Sodium (Rocephin) 1 gm Q24H IVP 03/05/20 08:00 03/05/20 09:34 Allopurinol (Zyloprim) 300 mg BID PO 03/04/20 21:00 03/05/20 09:37 Ascorbic Acid (Vitamin C) 1,000 mg DAILY PO 03/05/20 09:00 03/05/20 09:36 Aspirin (Ecotrin) 81 mg BID PO 03/04/20 21:00 03/05/20 09:36 Cetirizine HCl (ZyrTEC) 10 mg HS PO 03/04/20 21:00 03/04/20 21:30 Clonidine HCl (Catapres) 0.2 mg TID PO 03/04/20 16:00 03/05/20 09:35 Docusate Sodium (Colace) 100 mg DAILY PO 03/05/20 09:00 03/05/20 09:35 Furosemide (Lasix) 40 mg BID92 PO 03/04/20 16:00 03/05/20 09:37 Gabapentin (Neurontin) 600 mg HS PO 03/04/20 21:00 03/04/20 21:28 Gabapentin (Neurontin) 300 mg DAILY PO 03/05/20 09:00 03/05/20 09:36 Hydralazine HCl (Apresoline) 50 mg TID PO 03/04/20 16:00 03/05/20 09:36 Acetaminophen/ Hydrocodone Bitart (Lortab 5/325) 1 tab PRN Q4HRS PRN PO MODERATE PAIN 03/04/20 16:00 03/05/20 06:49 Lactobacillus Rhamnosus (Culturelle) 1 cap DAILY PO 03/05/20 09:00 03/05/20 09:37 Levothyroxine Sodium (Synthroid) 137 mcg DAILY06 PO 03/05/20 06:00 03/05/20 06:48 Lidocaine (Lidoderm) 1 patch DAILY TP 03/05/20 09:00 03/05/20 09:38 Potassium Chloride (Klor-Con) 20 meq DAILY PO 03/05/20 09:00 03/05/20 09:35 Vitamin A 10,000 unit DAILY PO 03/05/20 09:00 03/05/20 09:36 Vitamin E (Vitamin E) 1,000 unit DAILY PO 03/05/20 09:00 03/05/20 09:36 Justifications for Admission Other Justification SANDY MARCUS III DO Mar 05, 2020 10:41
[2020-03-05] MEDS ORDERED: IV NORMAL SALINE 50 ML BAG IV ONE (10:45)
[2020-03-05 11:00] VITALS: BP 148/63
--- NOTE | 2020-03-05 11:26 | PDOC2 ---
CONSULT Date of Consult Date of Consult DATE: 03/05/20 TIME: 11:25 Referring Physician Referring Physician: Dr Jara Identification/Chief Complaint Chief Complaint none currently Source Source: Chart review History of Present Illness Reason for Visit: Patient is a 84-year-old CF who was at home and fell. She complains of some shoulder pain. Imaging done in ER did not show any acute Fracture. She denies any N/V/D. States has good uop, denies any dysuria or hematuria. Denies F/C . No blurred, double or loss of vision. No sore throat. Denies chest pain or shortness of breath . Denies cough Past Medical History Cardiovascular: CHF, HTN, Hyperlipidemia, Other Pulmonary: Asthma, Other CENTRAL NERVOUS SYSTEM: Periperal neuropathy GI: Peptic Ulcer disease, Other Heme/Onc: Cancer Musculoskeletal: low back pain, Osteoarthritis Rheumatologic: Fibromyalgia Renal/: Other Endocrine: Hypothyroidism, Other Past Surgical History Past Surgical History: Cholecystectomy, Cataract Removal, Hernia Repair, Total knee replacement, Tonsillectomy, Hysterectomy, Other Family History Family History: Diabetes, Heart Disease, Hypertension Social History ALCOHOL: none Drugs: None Lives: Longterm Current Problem List Problem List Problems Medical Problems: (1) Contusion of shoulder, left Status: Acute (2) Fall Status: Acute (3) Head contusion Status: Acute (4) Renal insufficiency Status: Acute (5) Scalp contusion Status: Acute Current Medications Current Medications Current Medications Morphine Sulfate (Morphine Sulfate) 4 mg ONCE ONCE IV/SQ Last administered on 03/04/20at 06:40; Start 03/04/20 at 06:00; Stop 03/04/20 at 06:01; Status DC Ceftriaxone Sodium (Rocephin) 1 gm 1X ONCE IVP Last administered on 03/04/20at 08:17; Start 03/04/20 at 08:00; Stop 03/04/20 at 08:01; Status DC Ondansetron HCl (Zofran) 4 mg PRN Q8HRS PRN IV NAUSEA/VOMITING; Start 03/04/20 at 10:00; Stop 03/05/20 at 09:59; Status DC Ceftriaxone Sodium (Rocephin) 1 gm Q24H IVP Last administered on 03/05/20at 09:34; Start 03/05/20 at 08:00 Acetaminophen (Tylenol) 500 mg TID PRN PO Mild pain/fever; Start 03/04/20 at 16:00 Allopurinol (Zyloprim) 300 mg BID PO Last administered on 03/05/20at 09:37; Start 03/04/20 at 21:00 Ascorbic Acid (Vitamin C) 1,000 mg DAILY PO Last administered on 03/05/20at 09:36; Start 03/05/20 at 09:00 Aspirin (Ecotrin) 81 mg BID PO Last administered on 03/05/20at 09:36; Start 03/04/20 at 21:00 Cetirizine HCl (ZyrTEC) 10 mg HS PO Last administered on 03/04/20at 21:30; Start 03/04/20 at 21:00 Clonidine HCl (Catapres) 0.2 mg TID PO Last administered on 03/05/20at 09:35; Start 03/04/20 at 16:00 Betamethasone/ Clotrimazole (Lotrisone) 1 stephen BID TP ; Start 03/04/20 at 21:00; Stop 03/04/20 at 18:59; Status DC Docusate Sodium (Colace) 100 mg DAILY PO Last administered on 03/05/20at 09:35; Start 03/05/20 at 09:00 Furosemide (Lasix) 40 mg BID92 PO Last administered on 03/05/20at 09:37; Start 03/04/20 at 16:00 Gabapentin (Neurontin) 600 mg HS PO Last administered on 03/04/20at 21:28; Start 03/04/20 at 21:00 Gabapentin (Neurontin) 300 mg DAILY PO Last administered on 03/05/20at 09:36; Start 03/05/20 at 09:00 Hydralazine HCl (Apresoline) 50 mg TID PO Last administered on 03/05/20at 09:36; Start 03/04/20 at 16:00 Acetaminophen/ Hydrocodone Bitart (Lortab 5/325) 1 tab PRN Q4HRS PRN PO MODER ATE PAIN Last administered on 03/05/20at 06:49; Start 03/04/20 at 16:00 Lactobacillus Rhamnosus (Culturelle) 1 cap DAILY PO Last administered on 03/05/20at 09:37; Start 03/05/20 at 09:00 Levothyroxine Sodium (Synthroid) 137 mcg DAILY06 PO Last administered on 03/05/20at 06:48; Start 03/05/20 at 06:00 Lidocaine (Lidoderm) 1 patch DAILY TP Last administered on 03/05/20at 09:38; Start 03/05/20 at 09:00 Potassium Chloride (Klor-Con) 20 meq DAILY PO Last administered on 03/05/20at 09:35; Start 03/05/20 at 09:00 Vitamin A 10,000 unit DAILY PO Last administered on 03/05/20at 09:36; Start 03/05/20 at 09:00 Fluticasone Propionate (Flonase) 2 spray DAILY NS ; Start 03/05/20 at 09:00 Verapamil HCl (Calan Sr) 180 mg BID PO ; Start 03/04/20 at 21:00 Vitamin E (Vitamin E) 1,000 unit DAILY PO Last administered on 03/05/20at 09:36; Start 03/05/20 at 09:00 Multi-Ingredient Ointment (Hydrocerin Cream) 1 stephen BID TP ; Start 03/04/20 at 21:00; Stop 03/04/20 at 18:59; Status DC Sodium Chloride (Iv Sodium Chloride 0.9% 50ml) 50 ml 1X ONCE IV ; Start 03/05/20 at 10:45; Stop 03/05/20 at 11:03; Status DC Sodium Chloride 1,000 ml @ 75 mls/hr [id number] IV ; Start 03/05/20 at 11:00 Active Scripts Active Hydrocodone-Apap 5-325 (Hydrocodone Bit/Acetaminophen) 1 Tab Tablet 1 Tab PO PRN Q4HRS PRN Tramadol Hcl 50 Mg Tablet 50 Mg PO Q12HR PRN Hydralazine Hcl 25 Mg Tablet 50 Mg PO TID Reported Multi-Vitamin Daily (Multivitamin) 1 Each Tablet 1 Tab PO DAILY 30 Days Potassium Chloride (Potassium Chloride) 20 Meq Tablet.er 20 Meq PO DAILY Lidocaine PATCH (Lidocaine) 1 Each Adh..patch 1 Each TP DAILY REMOVE AFTER 12 HOURS Flonase Allergy Relief (Fluticasone Propionate) 9.9 Ml Kirk.susp 2 Sprays NS DAILY Culturelle (Lactobacillus Rhamnosus Gg) 1 Each Cap.sprink 1 Cap PO DAILY 30 Days Acetaminophen 500 Mg Tablet 1 Tab PO TID PRN 15 Days [hydrogel] 80 Gm BID Clotrimazole-Betamethasone Crm (Clotrimazole/Betamethasone Dip) 15 Gm Cream..g. 1 Stephen TP BID Docusate Sodium 100 Mg Capsule 1 Cap PO DAILY Cetirizine Hcl 10 Mg Tablet 10 Mg PO HS Vitamin A 10,000 Unit Capsule 10,000 Unit PO DAILY Allopurinol 300 Mg Tablet 300 Mg PO BID Gabapentin 300 Mg Capsule 600 Mg PO HS Gabapentin (Gabapentin) 300 Mg Capsule 300 Mg PO DAILY Clonidine Hcl 0.1 Mg Tablet 0.2 Mg PO TID Aspir 81 (Aspirin) 81 Mg Tablet.dr 1 Tab PO BID Vitamin E (Vitamin E (Dl,Tocopheryl Acet)) 1,000 Unit Capsule 1,000 Unit PO DAILY Vitamin C (Ascorbic Acid) 1,000 Mg Tablet 1,000 Mg PO Furosemide 40 Mg Tablet 40 Mg PO BID Synthroid (Levothyroxine Sodium) 125 Mcg Tablet 137 Mcg PO DAILYAC Verapamil Er (Verapamil Hcl) 240 Mg Cap24h.pel 180 Mg PO BID Allergies Allergies: Coded Allergies: linaclotide (Verified Allergy, Severe, 07/03/17) Sulfa (Sulfonamide Antibiotics) (Verified Allergy, Intermediate, 09/17/15) atorvastatin (Verified Allergy, Intermediate, 09/17/15) bisoprolol (Verified Allergy, Intermediate, 09/14/15) cadexomer iodine (Verified Allergy, Intermediate, itching, 09/14/15) ciprofloxacin (Verified Allergy, Intermediate, 09/17/15) diltiazem (Verified Allergy, Intermediate, takes VERAPAMIL at home, 07/02/17) lisinopril (Verified Allergy, Intermediate, 09/18/15) methylphenidate (Verified Allergy, Intermediate, 09/17/15) naproxen (Verified Allergy, Intermediate, 07/03/17) TOLERATES ASA nitrofurantoin (Verified Allergy, Intermediate, 09/14/15) ofloxacin (Verified Allergy, Intermediate, 09/17/15) paroxetine (Verified Allergy, Intermediate, 09/17/15) piroxicam (Verified Allergy, Intermediate, 09/17/15) propoxyphene (Verified Allergy, Intermediate, 09/17/15) ranitidine (Verified Allergy, Intermediate, 09/17/15) senna (Verified Allergy, Intermediate, 09/17/15) valdecoxib (Verified Allergy, Intermediate, 09/17/15) ROS Review of System As per HPI, rest of the ROS is negative Physical Exam Physical Exam GENERAL: No apparent distress. HEENT: OM mildly dry NECK: Supple, LUNGS: Clear to auscultation, non labored HEART: RRR, S1, S2 present. ABDOMEN: Soft, nontender. Positive bowel sounds EXTREMITIES: Without any cyanosis, clubbing, or edema. NEUROLOGIC: Normal speech, normal tone. A & O x3, moves all extremities, no obvious focal deficits. PSYCHIATRIC: Normal affect, normal mood. Stable. SKIN: No ulcerations or rashes, No gaspar, No CVA or SP tendernes Vital Signs Vital Signs Date Time Temp Pulse Resp B/P (MAP) Pulse Ox O2 Delivery O2 Flow Rate FiO2 03/05/20 09:47 Nasal Cannula 03/05/20 09:36 80 141/54 03/05/20 08:10 2.0 03/05/20 07:00 97.9 18 97 97.9 Assessment & Plan ULISES - Suspect pre-renal/UTI/Poor Po intake No labs ordered this am , clinically stable ,E-Lytes stable at presentation, UA cw UTI, Ct scan abdomen Kidneys unremarkable IVF, Supportive care, strict I/O, avoid nephrotoxins, daily labs CKD stage 3- based on previous labs in [facility] records with normal baseline Creat Fall- no fracture UTI- Abx per primary Labs Labs Laboratory Tests Test 03/04/20 06:20 03/04/20 07:16 03/04/20 07:25 White Blood Count 4.2 x10^3/uL (4.0-11.0) Red Blood Count 4.24 x10^6/uL (3.50-5.40) Hemoglobin 13.2 g/dL (12.0-15.5) Hematocrit 40.4 % (36.0-47.0) Mean Corpuscular Volume 95 fL (79-100) Mean Corpuscular Hemoglobin 31 pg (25-35) Mean Corpuscular Hemoglobin Concent 33 g/dL (31-37) Red Cell Distribution Width 15.7 % (11.5-14.5) Platelet Count 223 x10^3/uL (140-400) Neutrophils (%) (Auto) 61 % (31-73) Lymphocytes (%) (Auto) 25 % (24-48) Monocytes (%) (Auto) 6 % (0-9) Eosinophils (%) (Auto) 6 % (0-3) Basophils (%) (Auto) 1 % (0-3) Neutrophils # (Auto) 2.6 x10^3/uL (1.8-7.7) Lymphocytes # (Auto) 1.1 x10^3/uL (1.0-4.8) Monocytes # (Auto) 0.3 x10^3/uL (0.0-1.1) Eosinophils # (Auto) 0.3 x10^3/uL (0.0-0.7) Basophils # (Auto) 0.1 x10^3/uL (0.0-0.2) Prothrombin Time 12.3 SEC (11.7-14.0) Prothromb Time International Ratio 1.0 (0.8-1.1) Activated Partial Thromboplast Time 39 SEC (24-38) Sodium Level 140 mmol/L (136-145) Potassium Level 3.8 mmol/L (3.5-5.1) Chloride Level 104 mmol/L (98-107) Carbon Dioxide Level 28 mmol/L (21-32) Anion Gap 8 (6-14) Blood Urea Nitrogen 36 mg/dL (7-20) Creatinine 1.4 mg/dL (0.6-1.0) Estimated GFR (Cockcroft-Gault) 35.7 Glucose Level 115 mg/dL (70-99) Calcium Level 9.3 mg/dL (8.5-10.1) Urine Collection Type U cath Urine Color Yellow Urine Clarity Clear Urine pH 6.5 (<5.0-8.0) Urine Specific Gregory 1.010 (1.000-1.030) Urine Protein Negative mg/dL (NEG-TRACE) Urine Glucose (UA) Negative mg/dL (NEG) Urine Ketones (Stick) Negative mg/dL (NEG) Urine Blood Negative (NEG) Urine Nitrite Positive (NEG) Urine Bilirubin Negative (NEG) Urine Urobilinogen Dipstick 0.2 mg/dL (0.2 mg/dL) Urine Leukocyte Esterase Moderate (NEG) Urine RBC 1-2 /HPF (0-2) Urine WBC 11-20 /HPF (0-4) Urine Renal Epithelial Cells Occ /LPF Urine Bacteria Many /HPF (0-FEW) Urine Hyaline Casts Few /HPF Urine Mucus Slight /LPF Urine Opiates Screen Pos (NEG) Urine Methadone Screen Neg (NEG) Urine Barbiturates Neg (NEG) Urine Phencyclidine Screen Neg (NEG) Urine Amphetamine/Methamphetamine Neg (NEG) Urine Benzodiazepines Screen Neg (NEG) Urine Cocaine Screen Neg (NEG) Urine Cannabinoids Screen Neg (NEG) Urine Ethyl Alcohol Neg (NEG) Review All relevant outside records, renal labs, imaging studies, telemetry/EKG's were reviewed. Images Images IMAGING: CT of the head did not show any acute changes. CT of the chest, abdomen and pelvis did not show any acute changes. Chest x-ray did not show any acute changes, but did show some fibrosis. Shoulder x-ray did not show any acute issues. TAE ALFARO MD Mar 05, 2020 11:26
[2020-03-05] MEDS: IV NORMAL SALINE 1000ML BAG 1,000 ML IV SCH ×2 (12:43→23:03)
--- NOTE | 2020-03-05 14:10 | NUR ---
Wound/Ostomy Care Wound Type/Assessment: right medial ankle stage III PU, cleansed and assessed wound. Treatment Recommendations/Plan: Cleanse wound, apply Hydrofera blue and foam dressing, change every 3 days. Education provided: WC POC and PU Prevention. Pt refused WCC follow as she has HHRN. Offloading surface/device: na Recommended Referrals/Tests: none Discharge Recommendations for dressings: Continue as above noted
[2020-03-05 15:00] VITALS: BP 145/67
[2020-03-05 19:00] VITALS: BP 130/62
[2020-03-05] MEDS: CETIRIZINE HCL 10 MG TABLET. PO SCH (20:12)
[2020-03-05 23:00] VITALS: BP 130/55
[2020-03-06 03:01] VITALS: BP 126/60
[2020-03-06] MEDS: LEVOTHYROXINE 137 MCG TABLET PO SCH (06:03)
[2020-03-06 07:00] VITALS: BP 129/55
[2020-03-06 08:15] LABS: BASO % 1 % (0-3); EOS # 0.3 x10^3/uL (0.0-0.7); EOS % 7 % (0-3); HEMATOCRIT 34.4 % (36.0-47.0); HEMOGLOBIN 11.4 g/dL (12.0-15.5); LYMPH # 0.8 x10^3/uL (1.0-4.8); LYMPH % 17 % (24-48); MEAN CORPUSCULAR HEMOGLOBIN 31 pg (25-35); MEAN CORPUSCULAR HGB CONC 33 g/dL (31-37); MEAN CORPUSCULAR VOLUME 95 fL (79-100); MONO # 0.3 x10^3/uL (0.0-1.1); MONO % 6 % (0-9); NEUT # 3.1 x10^3/uL (1.8-7.7); NEUT % 69 % (31-73); PLATELET COUNT 165 x10^3/uL (140-400); RED BLOOD COUNT 3.63 x10^6/uL (3.50-5.40); RED CELL DISTRIBUTION WIDTH 15.6 % (11.5-14.5); WHITE BLOOD COUNT 4.5 x10^3/uL (4.0-11.0)
[2020-03-06 08:51] LABS: ALBUMIN 2.5 g/dL (3.4-5.0); CREATININE 0.9 mg/dL (0.6-1.0); GFR 59.4; PHOSPHORUS 3.2 mg/dL (2.6-4.7); POTASSIUM 3.5 mmol/L (3.5-5.1)
--- NOTE | 2020-03-06 08:53 | PDOC ---
[employer] PROGRESS NOTE Date of Service DOS: DATE: 03/06/20 TIME: 08:51 Chief Complaint Chief Complaint Fall UTI Renal disease Chest pain History of Present Illness History of Present Illness 03/06/2020 Patient seen and examined at bedside today Patient eating normal diet upon examination Patient complains of chest pain, stating it is likely from her fall and believes she has bruised rips Discussed with RN Discussed wt rn case mgr Charts reviewed 03/04/2020 Patient seen and examined Patient appears comfortable and in NAD DWRN Charts reviewed Vitals/I&O Vitals/I&O: Vital Signs Date Time Temp Pulse Resp B/P (MAP) Pulse Ox O2 Delivery O2 Flow Rate FiO2 03/06/20 07:00 98.0 58 18 129/55 (79) 94 Nasal Cannula 2.0 98.0 I & O 03/05/20 03/05/20 03/06/20 15:00 23:00 07:00 Intake Total 240 ml Balance 240 ml Physical Exam General: Alert, Oriented X3, Cooperative Heart: Regular rate, Normal S1, Normal S2 Lungs: Clear Abdomen: Normal bowel sounds, Soft Extremities: No clubbing, No cyanosis Skin: No rashes, No breakdown Labs Labs: Laboratory Tests Test 03/06/20 07:30 White Blood Count 4.5 x10^3/uL (4.0-11.0) Red Blood Count 3.63 x10^6/uL (3.50-5.40) Hemoglobin 11.4 g/dL (12.0-15.5) Hematocrit 34.4 % (36.0-47.0) Mean Corpuscular Volume 95 fL (79-100) Mean Corpuscular Hemoglobin 31 pg (25-35) Mean Corpuscular Hemoglobin Concent 33 g/dL (31-37) Red Cell Distribution Width 15.6 % (11.5-14.5) Platelet Count 165 x10^3/uL (140-400) Neutrophils (%) (Auto) 69 % (31-73) Lymphocytes (%) (Auto) 17 % (24-48) Monocytes (%) (Auto) 6 % (0-9) Eosinophils (%) (Auto) 7 % (0-3) Basophils (%) (Auto) 1 % (0-3) Neutrophils # (Auto) 3.1 x10^3/uL (1.8-7.7) Lymphocytes # (Auto) 0.8 x10^3/uL (1.0-4.8) Monocytes # (Auto) 0.3 x10^3/uL (0.0-1.1) Eosinophils # (Auto) 0.3 x10^3/uL (0.0-0.7) Basophils # (Auto) 0.0 x10^3/uL (0.0-0.2) Assessment and Plan Assessmemt and Plan Problems Medical Problems: (1) Contusion of shoulder, left Status: Acute (2) Fall Status: Acute (3) Head contusion Status: Acute (4) Renal insufficiency Status: Acute (5) Scalp contusion Status: Acute ASSESSMENT Fall UTI Renal disease Chest pain PLAN Continue monitoring Continue home meds DVT ppx Trend labs Full code Comment Review of Relevant I have reviewed the following items radha (where applicable) has been applied. Medications: Current Medications Medications (Trade) Dose Ordered Sig/Jena Route PRN Reason Start Time Stop Time Status Last Admin Dose Admin Ascorbic Acid (Vitamin C) 1,000 mg DAILY PO 03/05/20 09:00 03/05/20 09:36 Docusate Sodium (Colace) 100 mg DAILY PO 03/05/20 09:00 03/05/20 09:35 Gabapentin (Neurontin) 300 mg DAILY PO 03/05/20 09:00 03/05/20 09:36 Lactobacillus Rhamnosus (Culturelle) 1 cap DAILY PO 03/05/20 09:00 03/05/20 09:37 Lidocaine (Lidoderm) 1 patch DAILY TP 03/05/20 09:00 03/05/20 09:38 Potassium Chloride (Klor-Con) 20 meq DAILY PO 03/05/20 09:00 03/05/20 09:35 Vitamin A 10,000 unit DAILY PO 03/05/20 09:00 03/05/20 09:36 Vitamin E (Vitamin E) 1,000 unit DAILY PO 03/05/20 09:00 03/05/20 09:36 Sodium Chloride 1,000 ml @ 75 mls/hr [id number] IV 03/05/20 11:00 03/05/20 23:03 Justifications for Admission Other Justification SANDY MARCUS III DO Mar 06, 2020 08:53
[2020-03-06] MEDS: cloNIDine HCL 0.2 MG TABLET PO SCH ×3 (09:38→20:36)
[2020-03-06] MEDS: ASPIRIN ENTERIC COATED 81 MG TABLET.DR. PO SCH ×2 (09:39→20:36)
[2020-03-06] MEDS: FUROSEMIDE 40 MG TABLET. PO SCH (09:39)
[2020-03-06] MEDS: VITAMIN A 10,000 UNIT CAPSULE. PO SCH (09:39)
[2020-03-06] MEDS: LACTOBACILLUS RHAMNOSUS GG 1 CAPSULE. PO SCH (09:40)
[2020-03-06] MEDS: DOCUSATE SODIUM 100 MG CAPSULE. PO SCH (09:40)
[2020-03-06] MEDS: ASCORBIC ACID 1,000 MG TABLET PO SCH (09:40)
[2020-03-06] MEDS: ALLOPURINOL 300 MG TABLET. PO SCH ×2 (09:40→20:36)
[2020-03-06] MEDS: FLUTICASONE 50MCG/NASAL SPRAY 16GM BOTTLE. NS SCH (09:40)
[2020-03-06] MEDS: POTASSIUM CHLORIDE 20 MEQ TABLET.ER. PO SCH (09:40)
[2020-03-06] MEDS: cefTRIAXone IV Push 1 GM VIAL. IVP SCH (09:41)
[2020-03-06] MEDS: LIDOCAINE (700MG/PATCH) PATCH. TP SCH (09:42)
[2020-03-06 11:00] VITALS: BP 115/49
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
[2020-03-06] MEDS: VITAMIN E 200 UNIT CAPSULE. PO SCH (13:48)
[2020-03-06] MEDS: GABAPENTIN 300 MG CAPSULE. PO SCH ×2 (13:49→20:36)
[2020-03-06] MEDS: IV NORMAL SALINE 1000ML BAG 1,000 ML IV SCH (14:22)
[2020-03-06 15:00] VITALS: BP 141/55
[2020-03-06] MEDS: HYDROcodone/APAP 5/325MG 1 TAB TABLET PO PRN (18:33)
[2020-03-06 19:00] VITALS: BP 113/72
[2020-03-06] MEDS ORDERED: METOPROLOL IV PUSH 5 MG/5 ML VIAL. IVP PRN (19:00)
--- NOTE | 2020-03-06 19:15 | NUR ---
NURSING NOTE Upon assuming care of pt, pt HR anywhere from 130's - 160's on telemetry. Sejal SOARES spoke with Dr. Medina, orders were obtained. Pt denies any pain or feeling that her heart is racing. Pt states she had recently gotten back in bed from the recliner she was in for "3 hours". Pt reports being slightly nauseated, but denies any pain. Will monitor.
--- NOTE | 2020-03-06 20:25 | NUR ---
NURSING NOTE Pts heart rate running in 120's/130's still, irregular. Pt given IV Metoprolol per orders. After administration, pts heart rate down to 70's - 90's. Pts ordered CMP labs reviewed, no electrolyte abnormalities noted. Pt running afib/sinus arrythmia with PVC's. When asked, pt states she does have a history of irregular heart beat, but denies knowing what atrial fibrillation is or having it before. Will monitor.
[2020-03-06 20:27] LABS: CALCIUM 8.5 mg/dL (8.5-10.1); GFR 52.6; POTASSIUM 3.8 mmol/L (3.5-5.1)
[2020-03-06 20:32] LABS: ALBUMIN 2.6 g/dL (3.4-5.0); ALBUMIN/GLOBULIN RATIO 0.7 (1.0-1.7); TOTAL BILIRUBIN 0.3 mg/dL (0.2-1.0); TOTAL PROTEIN 6.1 g/dL (6.4-8.2)
[2020-03-06] MEDS: CETIRIZINE HCL 10 MG TABLET. PO SCH (20:36)
[2020-03-06 23:00] VITALS: BP 120/60
[2020-03-07 03:00] VITALS: BP 127/67
[2020-03-07] MEDS: LEVOTHYROXINE 137 MCG TABLET PO SCH (06:04)
[2020-03-07 07:00] VITALS: BP 126/47
[2020-03-07] MEDS: ALLOPURINOL 300 MG TABLET. PO SCH ×2 (08:31→21:29)
[2020-03-07] MEDS: VITAMIN A 10,000 UNIT CAPSULE. PO SCH (08:31)
[2020-03-07] MEDS: VITAMIN E 200 UNIT CAPSULE. PO SCH (08:31)
[2020-03-07] MEDS: cloNIDine HCL 0.2 MG TABLET PO SCH ×3 (08:31→21:28)
[2020-03-07] MEDS: DOCUSATE SODIUM 100 MG CAPSULE. PO SCH (08:32)
[2020-03-07] MEDS: LACTOBACILLUS RHAMNOSUS GG 1 CAPSULE. PO SCH (08:32)
[2020-03-07] MEDS: ASCORBIC ACID 1,000 MG TABLET PO SCH (08:32)
[2020-03-07] MEDS: POTASSIUM CHLORIDE 20 MEQ TABLET.ER. PO SCH (08:32)
[2020-03-07] MEDS: ASPIRIN ENTERIC COATED 81 MG TABLET.DR. PO SCH ×2 (08:33→21:28)
[2020-03-07] MEDS: FUROSEMIDE 40 MG TABLET. PO SCH (08:33)
[2020-03-07] MEDS: GABAPENTIN 300 MG CAPSULE. PO SCH ×2 (08:33→21:29)
[2020-03-07] MEDS: FLUTICASONE 50MCG/NASAL SPRAY 16GM BOTTLE. NS SCH (08:34)
[2020-03-07] MEDS: LIDOCAINE (700MG/PATCH) PATCH. TP SCH (08:34)
[2020-03-07] MEDS: cefTRIAXone IV Push 1 GM VIAL. IVP SCH (08:34)
--- NOTE | 2020-03-07 09:46 | PDOC ---
[employer] PROGRESS NOTE Date of Service DOS: DATE: 03/07/20 TIME: 09:43 Chief Complaint Chief Complaint Fall UTI Renal disease Chest pain History of Present Illness History of Present Illness 03/07/2020 Patient seen and examined Patient appears comfortable eating and drinking and in NAD Charts reviewed DWRN 03/06/2020 Patient seen and examined at bedside today Patient eating normal diet upon examination Patient complains of chest pain, stating it is likely from her fall and believes she has bruised rips Discussed with RN Discussed [facility] case manager specialist Charts reviewed 03/04/2020 Patient seen and examined Patient appears comfortable and in NAD DWRN Charts reviewed Vitals/I&O Vitals/I&O: Vital Signs Date Time Temp Pulse Resp B/P (MAP) Pulse Ox O2 Delivery O2 Flow Rate FiO2 03/07/20 08:31 72 126/47 03/07/20 07:00 97.6 18 96 Nasal Cannula 2.0 97.6 I & O 03/06/20 03/06/20 03/07/20 15:00 23:00 07:00 Intake Total 400 ml 200 ml 450 ml Balance 400 ml 200 ml 450 ml Physical Exam General: Alert, Oriented X3, Cooperative Heart: Regular rate, Normal S1, Normal S2 Lungs: Clear Abdomen: Normal bowel sounds, Soft Extremities: No clubbing, No cyanosis Skin: No rashes, No breakdown Labs Labs: Laboratory Tests Test 03/06/20 20:00 Sodium Level 141 mmol/L (136-145) Potassium Level 3.8 mmol/L (3.5-5.1) Chloride Level 105 mmol/L (98-107) Carbon Dioxide Level 27 mmol/L (21-32) Anion Gap 9 (6-14) Blood Urea Nitrogen 27 mg/dL (7-20) Creatinine 1.0 mg/dL (0.6-1.0) Estimated GFR (Cockcroft-Gault) 52.6 BUN/Creatinine Ratio 27 (6-20) Glucose Level 110 mg/dL (70-99) Calcium Level 8.5 mg/dL (8.5-10.1) Total Bilirubin 0.3 mg/dL (0.2-1.0) Aspartate Amino Transf (AST/SGOT) 34 U/L (15-37) Alanine Aminotransferase (ALT/SGPT) 24 U/L (14-59) Alkaline Phosphatase 161 U/L (46-116) Total Protein 6.1 g/dL (6.4-8.2) Albumin 2.6 g/dL (3.4-5.0) Albumin/Globulin Ratio 0.7 (1.0-1.7) Assessment and Plan Assessmemt and Plan Assessment Fall UTI Renal disease Chest pain Plan Probable DC to [facility] For now continue the following: PT/OT Trend labs Full code DVT PPX Appreciate subspecialty input Continue home meds Problems Medical Problems: (1) Contusion of shoulder, left Status: Acute (2) Fall Status: Acute (3) Head contusion Status: Acute (4) Renal insufficiency Status: Acute (5) Scalp contusion Status: Acute Comment Review of Relevant I have reviewed the following items radha (where applicable) has been applied. Medications: Current Medications Medications (Trade) Dose Ordered Sig/Jena Route PRN Reason Start Time Stop Time Status Last Admin Dose Admin Furosemide (Lasix) 40 mg DAILY PO 03/07/20 09:00 03/07/20 08:33 Metoprolol Tartrate (Lopressor Vial) 5 mg PRN Q5MIN PRN IVP TACHYCARDIA 03/06/20 19:00 03/06/20 20:32 Justifications for Admission Other Justification SANDY MARCUS III DO Mar 07, 2020 09:46
[2020-03-07 11:00] VITALS: BP 133/52
[2020-03-07 14:55] VITALS: BP 129/50
[2020-03-07 19:00] VITALS: BP 132/60
[2020-03-07] MEDS: CEFDINIR 300 MG CAPSULE PO SCH (21:28)
[2020-03-07] MEDS: CETIRIZINE HCL 10 MG TABLET. PO SCH (21:29)
[2020-03-07 23:00] VITALS: BP 132/79
[2020-03-08 03:00] VITALS: BP 124/62
[2020-03-08] MEDS: LEVOTHYROXINE 137 MCG TABLET PO SCH (05:10)
[2020-03-08 07:00] VITALS: BP 143/65
[2020-03-08] MEDS: POTASSIUM CHLORIDE 20 MEQ TABLET.ER. PO SCH (08:23)
[2020-03-08] MEDS: DOCUSATE SODIUM 100 MG CAPSULE. PO SCH (08:23)
[2020-03-08] MEDS: ALLOPURINOL 300 MG TABLET. PO SCH ×2 (08:23→21:06)
[2020-03-08] MEDS: GABAPENTIN 300 MG CAPSULE. PO SCH ×2 (08:24→21:06)
[2020-03-08] MEDS: cloNIDine HCL 0.2 MG TABLET PO SCH ×3 (08:24→21:05)
[2020-03-08] MEDS: CEFDINIR 300 MG CAPSULE PO SCH ×2 (08:24→21:05)
[2020-03-08] MEDS: VITAMIN A 10,000 UNIT CAPSULE. PO SCH (08:24)
[2020-03-08] MEDS: ASCORBIC ACID 1,000 MG TABLET PO SCH (08:24)
[2020-03-08] MEDS: ASPIRIN ENTERIC COATED 81 MG TABLET.DR. PO SCH ×2 (08:24→21:05)
[2020-03-08] MEDS: LACTOBACILLUS RHAMNOSUS GG 1 CAPSULE. PO SCH (08:24)
[2020-03-08] MEDS: FUROSEMIDE 40 MG TABLET. PO SCH (08:25)
[2020-03-08] MEDS: FLUTICASONE 50MCG/NASAL SPRAY 16GM BOTTLE. NS SCH (08:25)
[2020-03-08] MEDS: LIDOCAINE (700MG/PATCH) PATCH. TP SCH (08:26)
[2020-03-08] MEDS: VITAMIN E 200 UNIT CAPSULE. PO SCH (10:25)
--- NOTE | 2020-03-08 10:59 | PDOC ---
[employer] PROGRESS NOTE Date of Service DOS: DATE: 03/08/20 TIME: 10:56 Chief Complaint Chief Complaint Fall UTI Renal disease Chest pain History of Present Illness History of Present Illness 03/08/2020 Patient seen sleeping comfortably . Charts reviewed DWRN 03/07/2020 Patient seen and examined Patient appears comfortable eating and drinking and in NAD Charts reviewed DWRN 03/06/2020 Patient seen and examined at bedside today Patient eating normal diet upon examination Patient complains of chest pain, stating it is likely from her fall and believes she has bruised rips Discussed with RN Discussed wtih case managers Charts reviewed 03/04/2020 Patient seen and examined Patient appears comfortable and in NAD DWRN Charts reviewed Vitals/I&O Vitals/I&O: Vital Signs Date Time Temp Pulse Resp B/P (MAP) Pulse Ox O2 Delivery O2 Flow Rate FiO2 03/08/20 08:24 66 143/65 03/08/20 07:00 97.9 18 96 Room Air 97.9 03/07/20 20:09 2.0 I & O 0 03/07/20 03/07/20 03/08/20 15:00 23:00 07:00 Intake Total 240 ml 320 ml 165 ml Output Total 300 ml Balance 240 ml 320 ml -135 ml Physical Exam General: Alert, Oriented X3, Cooperative Heart: Regular rate, Normal S1, Normal S2 Lungs: Clear Abdomen: Normal bowel sounds, Soft Extremities: No clubbing, No cyanosis Skin: No rashes, No breakdown Assessment and Plan Assessmemt and Plan Assessment Fall UTI Renal disease Chest pain Plan Probable DC to [facility] For now continue the following: Full code PT/OT Trend labs DVT PPX Appreciate subspecialty input Continue home meds Problems Medical Problems: (1) Contusion of shoulder, left Status: Acute (2) Fall Status: Acute (3) Head contusion Status: Acute (4) Renal insufficiency Status: Acute (5) Scalp contusion Status: Acute Comment Review of Relevant I have reviewed the following items radha (where applicable) has been applied. Medications: Current Medications Medications (Trade) Dose Ordered Sig/Jena Route PRN Reason Start Time Stop Time Status Last Admin Dose Admin Cefdinir (Omnicef) 300 mg BID PO 03/07/20 21:00 03/08/20 08:24 Justifications for Admission Other Justification SANDY MARCUS III DO Mar 08, 2020 10:59
[2020-03-08 11:00] VITALS: BP 127/70
[2020-03-08 15:00] VITALS: BP 137/64
[2020-03-08 19:00] VITALS: BP 127/61
[2020-03-08] MEDS: CETIRIZINE HCL 10 MG TABLET. PO SCH (21:05)
[2020-03-08 23:00] VITALS: BP 118/63
[2020-03-09 03:15] VITALS: BP 114/73
[2020-03-09] MEDS: LEVOTHYROXINE 137 MCG TABLET PO SCH (05:26)
[2020-03-09 07:00] VITALS: BP 122/50
[2020-03-09] MEDS: FLUTICASONE 50MCG/NASAL SPRAY 16GM BOTTLE. NS SCH (09:00)
[2020-03-09] MEDS: CEFDINIR 300 MG CAPSULE PO SCH (09:46)
[2020-03-09] MEDS: cloNIDine HCL 0.2 MG TABLET PO SCH ×2 (09:46→14:40)
[2020-03-09] MEDS: ASPIRIN ENTERIC COATED 81 MG TABLET.DR. PO SCH (09:46)
[2020-03-09] MEDS: VITAMIN E 200 UNIT CAPSULE. PO SCH (09:46)
[2020-03-09] MEDS: LACTOBACILLUS RHAMNOSUS GG 1 CAPSULE. PO SCH (09:47)
[2020-03-09] MEDS: GABAPENTIN 300 MG CAPSULE. PO SCH (09:47)
[2020-03-09] MEDS: POTASSIUM CHLORIDE 20 MEQ TABLET.ER. PO SCH (09:47)
[2020-03-09] MEDS: FUROSEMIDE 40 MG TABLET. PO SCH (09:47)
[2020-03-09] MEDS: VITAMIN A 10,000 UNIT CAPSULE. PO SCH (09:47)
[2020-03-09] MEDS: ASCORBIC ACID 1,000 MG TABLET PO SCH (09:48)
[2020-03-09] MEDS: DOCUSATE SODIUM 100 MG CAPSULE. PO SCH (09:48)
[2020-03-09] MEDS: ALLOPURINOL 300 MG TABLET. PO SCH (09:48)
[2020-03-09] MEDS: LIDOCAINE (700MG/PATCH) PATCH. TP SCH (09:49)
[2020-03-09 11:00] VITALS: BP 115/58
[2020-03-09] MEDS ORDERED: CEFD300C PO (14:04)
--- NOTE | 2020-03-09 14:06 | SNU/HH DC ---
DISCHARGE ORDERS DISCHARGE INFORMATION: DISCHARGE DATE: Mar 09, 2020 FINAL DIAGNOSIS Problems Medical Problems: (1) Contusion of shoulder, left Status: Acute (2) Fall Status: Acute (3) Head contusion Status: Acute (4) Renal insufficiency Status: Acute (5) Scalp contusion Status: Acute CONDITION ON DISCHARGE: Stable CODE STATUS: Code Status: Full INTERMEDIATE: SNF STAY <30 DAYS: Yes POST DISCHARGE ORDERS: ACTIVITY ORDERS: Activity as tolerated WEIGHT BEARING STATUS: As tolerated DIET AFTER DISCHARGE: Cardiac WOUND/INCISION CARE: Change dressing CHECKS AFTER DISCHARGE: CHECKS AFTER DISCHARGE: Check blood press - daily, Weigh Yourself Daily TREATMENT/EQUIPMENT ORDERS: ADAPTIVE EQUIPMENT NEEDED: None, Front wheeled walker Physical Therapy For: Evalulation/Treatment Occupational Therapy For: Evaluation/Treatment DISCHARGE MEDICATIONS: Home Meds Active Scripts Cefdinir (CEFDINIR) 300 Mg Capsule, 300 MG PO BID for UTI for 3 Days, #6 CAP Prov:PAUL ALANIS MD 03/09/20 Hydrocodone Bit/Acetaminophen (HYDROCODONE-APAP 5-325 ) 1 Tab Tablet, 1 TAB PO PRN Q4HRS PRN for MODERATE PAIN, #30 TAB Prov:ELY OLEARY MD 11/19/18 Tramadol Hcl (TRAMADOL HCL) 50 Mg Tablet, 50 MG PO Q12HR PRN for PAIN, #30 TAB Prov:ELY OLEARY MD 11/19/18 Hydralazine Hcl (HYDRALAZINE HCL) 25 Mg Tablet, 50 MG PO TID, #90 TAB 3 Refills Prov:EDE PHILIPPE MD 09/17/15 Reported Medications Multivitamin (MULTI-VITAMIN DAILY) 1 Each Tablet, 1 TAB PO DAILY for supp for 30 Days, #30 TAB 0 Refills 03/04/20 Potassium Chloride (POTASSIUM CHLORIDE ) 20 Meq Tablet.er, 20 MEQ PO DAILY for SUPPLEMENT, TAB.SR 03/04/20 Lidocaine (Lidocaine PATCH ) 1 Each Adh..patch, 1 EACH TP DAILY for FOR LOCAL PAIN, PATCH REMOVE AFTER 12 HOURS 03/04/20 Fluticasone Propionate (Flonase Allergy Relief) 9.9 Ml [place].susp, 2 SPRAYS NS DAILY for allergies, BOTTLE 03/04/20 Lactobacillus Rhamnosus Gg (CULTURELLE) 1 Each Cap.sprink, 1 CAP PO DAILY for supp for 30 Days, #30 CAP 0 Refills 03/04/20 Acetaminophen (ACETAMINOPHEN) 500 Mg Tablet, 1 TAB PO TID PRN for pain or fever for 15 Days, #60 TAB 0 Refills 03/04/20 [hydrogel] No Conflict Check, 80 GM BID for topically to affected areas 11/16/18 Clotrimazole/Betamethasone Dip (CLOTRIMAZOLE-BETAMETHASONE CRM) 15 Gm Cream..g., 1 YUSUF TP BID for to affected areas, #15 GM 11/16/18 Docusate Sodium (DOCUSATE SODIUM) 100 Mg Capsule, 1 CAP PO DAILY for constipation, #30 CAP 11/16/18 Cetirizine Hcl (CETIRIZINE HCL) 10 Mg Tablet, 10 MG PO HS for allergies, TAB 11/16/18 Vitamin A (VITAMIN A) 10,000 Unit Capsule, 98198 UNIT PO DAILY for supplement, CAP 11/16/18 Allopurinol (ALLOPURINOL) 300 Mg Tablet, 300 MG PO BID for ulcer prevention, TAB 10/10/18 Gabapentin (Gabapentin) 300 Mg Capsule, 600 MG PO HS for Neurogenic pain, CAP 10/10/18 Gabapentin (GABAPENTIN ) 300 Mg Capsule, 300 MG PO DAILY for NEUROGENIC PAIN, CAP 10/10/18 Clonidine Hcl (CLONIDINE HCL) 0.1 Mg Tablet, 0.2 MG PO TID for unk, TAB 07/11/18 Aspirin (ASPIR 81) 81 Mg Tablet.dr, 1 TAB PO BID for clot prevention, #30 TAB 5 Refills 01/06/15 Vitamin E (Dl,Tocopheryl Acet) (VITAMIN E) 1,000 Unit Capsule, 1000 UNIT PO DAILY for supplement 01/06/15 Ascorbic Acid (VITAMIN C) 1,000 Mg Tablet, 1000 MG PO for supplement 01/06/15 Levothyroxine Sodium (SYNTHROID) 125 Mcg Tablet, 137 MCG PO DAILYAC for Thyroid supplement, #30 TAB 0 Refills 01/06/15 Discontinued Reported Medications Furosemide (FUROSEMIDE) 40 Mg Tablet, 40 MG PO BID, TAB 01/06/15 Verapamil Hcl (VERAPAMIL ER) 240 Mg Cap24h.pel, 180 MG PO BID, CAP.SR 01/06/15 Albuterol Sulfate (Proventil Hfa) 6.7 Gm Hfa.aer.ad, 2 PUFF INH QID PRN for SHORTNESS OF BREATH, INHALER 11/16/18 Garlic (GARLIC) 1,000 Mg Capsule, 1200 MG PO 01/06/15 Fluticasone Propionate (FLUTICASONE PROPIONATE NASAL SPRAY) 16 Gm [place].susp, 2 SPRAY NS DAILY, #1 INHALER 11 Refills 01/06/15 Albuterol Sulfate (ALBUTEROL SULFATE NEB SOLN) 0.63 Mg/3 Ml Vial.neb, 1 VIAL NEB QID PRN for SHORTNESS OF BREATH, #150 ML 1 Refill 01/06/15 Potassium Chloride (POTASSIUM CHLORIDE ) 10 Meq Capsule.er, 10 MEQ PO BID for supp, TAB.SR 01/06/15 PAUL ALANIS MD Mar 09, 2020 14:05
--- NOTE | 2020-03-09 14:47 | PDOC3 ---
Discharge Summary Visit Information Date of Admission: Mar 04, 2020 Date of Discharge: Mar 09, 2020 Admitting Diagnosis Comment: Fall, UTI, chronic renal insufficiency. Final Diagnosis Problems Medical Problems: (1) Contusion of shoulder, left Status: Acute (2) Fall Status: Acute (3) Head contusion Status: Acute (4) Renal insufficiency Status: Acute (5) Scalp contusion Status: Acute Fall UTI Renal disease Chest pain Brief Hospital Course Allergies Allergies Coded Allergies Type Severity Reaction Last Updated Verified linaclotide Allergy Severe 07/03/17 Yes Sulfa (Sulfonamide Antibiotics) Allergy Intermediate 09/17/15 Yes atorvastatin Allergy Intermediate 09/17/15 Yes bisoprolol Allergy Intermediate 09/14/15 Yes cadexomer iodine Allergy Intermediate itching 09/14/15 Yes ciprofloxacin Allergy Intermediate 09/17/15 Yes diltiazem Allergy Intermediate takes VERAPAMIL at home 07/02/17 Yes lisinopril Allergy Intermediate 09/18/15 Yes methylphenidate Allergy Intermediate 09/17/15 Yes naproxen Allergy Intermediate 07/03/17 Yes nitrofurantoin Allergy Intermediate 09/14/15 Yes ofloxacin Allergy Intermediate 09/17/15 Yes paroxetine Allergy Intermediate 09/17/15 Yes piroxicam Allergy Intermediate 09/17/15 Yes propoxyphene Allergy Intermediate 09/17/15 Yes ranitidine Allergy Intermediate 09/17/15 Yes senna Allergy Intermediate 09/17/15 Yes valdecoxib Allergy Intermediate 09/17/15 Yes Vital Signs Vital Signs Date Time Temp Pulse Resp B/P (MAP) Pulse Ox O2 Delivery O2 Flow Rate FiO2 03/09/20 11:00 98.0 86 18 115/58 (77) 92 Room Air 98.0 03/09/20 08:00 2.0 Brief Hospital Course HISTORY OF PRESENT ILLNESS: The patient is a pleasant 84-year-old female who was at home and fell. She complains of some shoulder pain. While in the ER, we did numerous imaging. We do not see anything that is acutely fractured. She does have a UTI. I discussed the case with the ER physician. We are going to admit the patient and do some pain management, some IV antibiotics and physical therapy and occupational therapy. 03/09/2020 Patient was admitted to the medical floor where she was started on broad- spectrum antibiotics and subsequently transitioned to cefdinir. Results of her blood cultures were negative. The patient was quite debilitated and will require transitioning to a rehab facility in order to minimize her risk of her suffering another fall with subsequent bad outcome No concerns were voiced on the last hospital stay. Medical reconciliation was done and her diuretics were discontinued given the renal dysfunction that was noted upon admission. Nephrology was consulted and their recommendations were greatly appreciated. No indication for continued diuretic use at this time and she was in good spirits to be transitioning to a rehab facility and hopefully transition home soon thereafter. All of her concerns were addressed to the best of my abilities prior to her departure 03/08/2020 Patient seen sleeping comfortably . Charts reviewed RN 03/07/2020 Patient seen and examined Patient appears comfortable eating and drinking and in NAD Charts reviewed DWRN 03/06/2020 Patient seen and examined at bedside today Patient eating normal diet upon examination Patient complains of chest pain, stating it is likely from her fall and believes she has bruised rips Discussed with RN Discussed [facility] Charts reviewed 03/04/2020 Patient seen and examined Patient appears comfortable and in NAD RN Charts reviewed Discharge Information Condition at Discharge: Improved Follow Up: Weeks Disposition/Orders: D/C to Home Scheduled Allopurinol (Allopurinol) 300 Mg Tablet, 300 MG PO BID for ulcer prevention, (Reported) Entered as Reported by: AMALIA BYRNES RN on 10/10/18 1614 Last Action: Continued on 03/04/20 1554 by SANA PRETTY Aspirin (Aspir 81) 81 Mg Tablet.dr, 1 TAB PO BID for clot prevention, #30 Ref 5 (Reported) Entered as Reported by: CATALINA BALBUENA on 01/06/15 1225 Last Action: Continued on 03/04/20 1554 by SANA PRETTY Cefdinir (Cefdinir) 300 Mg Capsule, 300 MG PO BID for UTI for 3 Days, #6 Prescribed by: PAUL ALANIS MD on 03/09/20 1404 Cetirizine Hcl (Cetirizine Hcl) 10 Mg Tablet, 10 MG PO HS for allergies, (Reported) Entered as Reported by: NII HUTTON on 11/16/18 1722 Last Action: Continued on 03/04/20 1554 by SANA PRETTY Clonidine Hcl (Clonidine Hcl) 0.1 Mg Tablet, 0.2 MG PO TID for unk, (Reported) Entered as Reported by: JOSE PAULSON on 07/11/18 1304 Last Action: Continued on 03/04/201553 by SANA PRETTY Clotrimazole/Betamethasone Dip (Clotrimazole-Betamethasone Crm) 15 Gm Cream..g., 1 YUSUF TP BID for to affected areas, #15 (Reported) Entered as Reported by: NII HUTTON on 11/16/18 1725 Last Action: Continued on 03/04/201553 by SANA PRETTY Docusate Sodium (Docusate Sodium) 100 Mg Capsule, 1 CAP PO DAILY for constipation, #30 (Reported) Entered as Reported by: NII HUTTON on 11/16/18 1723 Last Action: Continued on 03/04/201553 by SANA PRETTY Fluticasone Propionate (Flonase Allergy Relief) 9.9 Ml Bude.susp, 2 SPRAYS NS DAILY for allergies, (Reported) Entered as Reported by: SANA PRETTY on 03/04/20 1430 Last Action: Converted on 03/04/201553 by SANA PRETTY Gabapentin (Gabapentin ) 300 Mg Capsule, 300 MG PO DAILY for NEUROGENIC PAIN, (Reported) Entered as Reported by: AMALIA BYRNES RN on 10/10/18 1614 Last Action: Continued on 03/04/201553 by SANA PRETTY Gabapentin (Gabapentin) 300 Mg Capsule, 600 MG PO HS for Neurogenic pain, (Reported) Entered as Reported by: AMALIA BYRNES RN on 10/10/18 161 Last Action: Continued on 03/04/201553 by SANA PRETTY Hydralazine Hcl (Hydralazine Hcl) 25 Mg Tablet, 50 MG PO TID, #90 Ref 3 Prescribed by: EDE PHILIPPE on 09/17/15 1334 Last Action: Continued on 03/04/201553 by SANA PRETTY Lactobacillus Rhamnosus Gg (Culturelle) 1 Each Cap.sprink, 1 CAP PO DAILY for supp for 30 Days, #30 Ref 0 (Reported) Entered as Reported by: SANA PRETTY on 03/04/20 143 Last Action: Continued on 03/04/201553 by SANA PRETTY Levothyroxine Sodium (Synthroid) 125 Mcg Tablet, 137 MCG PO DAILYAC for Thyroid supplement, #30 Ref 0 (Reported) Entered as Reported by: JAZ PATEL on 01/06/15 1155 Last Action: Continued on 03/04/201553 by SANA PRETTY Lidocaine (Lidocaine PATCH ) 1 Each Adh..patch, 1 EACH TP DAILY for FOR LOCAL PAIN, (Reported) REMOVE AFTER 12 HOURS Entered as Reported by: SANA PRETTY on 03/04/201429 Last Action: Continued on 03/04/201553 by SANA PRETTY Multivitamin (Multi-Vitamin Daily) 1 Each Tablet, 1 TAB PO DAILY for supp for 30 Days, #30 Ref 0 (Reported) Entered as Reported by: SANA PRETTY on 03/04/201553 Last Action: New Order on 03/04/201553 by SANA PRETTY Potassium Chloride (Potassium Chloride ) 20 Meq Tablet.er, 20 MEQ PO DAILY for SUPPLEMENT, (Reported) Entered as Reported by: SANA PRETTY on 03/04/201429 Last Action: Continued on 03/04/201553 by SANA PRETTY Vitamin A (Vitamin A) 10,000 Unit Capsule, 10,000 UNIT PO DAILY for supplement, (Reported) Entered as Reported by: NII HUTTON on 11/16/18 1711 Last Action: Continued on 03/04/201553 by SANA PRETTY Vitamin E (Dl,Tocopheryl Acet) (Vitamin E) 1,000 Unit Capsule, 1,000 UNIT PO DAVID LY for supplement, (Reported) Entered as Reported by: CATALINA BALBUENA on 01/06/15 1225 Last Action: Converted on 03/04/201553 by SANA PRETTY [hydrogel] , 80 GM BID for topically to affected areas, (Reported) Entered as Reported by: NII HUTTON on 11/16/18 1726 Last Action: Converted on 03/04/20 155 by SANA PRETTY Scheduled PRN Acetaminophen (Acetaminophen) 500 Mg Tablet, 1 TAB PO TID PRN for pain or fever for 15 Days, #60 Ref 0 (Reported) Entered as Reported by: SANA PRETTY on 03/04/20 1430 Last Action: Continued on 03/04/201553 by SANA PRETTY Hydrocodone Bit/Acetaminophen (Hydrocodone-Apap 5-325 ) 1 Tab Tablet, 1 TAB PO PRN Q4HRS PRN for MODERATE PAIN, #30 Prescribed by: ELY OLEARY on 11/19/18 0937 Last Action: Continued on 03/04/201553 by SANA PRETTY Tramadol Hcl (Tramadol Hcl) 50 Mg Tablet, 50 MG PO Q12HR PRN for PAIN, #30 Prescribed by: ELY OLEARY on 11/19/18 0937 Miscellaneous Medications Ascorbic Acid (Vitamin C) 1,000 Mg Tablet, 1,000 MG PO for supplement, (Reported ) Entered as Reported by: CATALINA BALBUENA on 01/06/15 1225 Last Action: Continued on 03/04/201553 by SANA PRETTY Discontinued Medications Albuterol Sulfate (Albuterol Sulfate Neb Soln) 0.63 Mg/3 Ml Vial.neb, 1 VIAL NEB QID PRN for SHORTNESS OF BREATH, #150 Ref 1 (Reported) Entered as Reported by: JAZ PATEL on 01/06/15 1159 Last Action: Discontinued on 03/04/201551 by SANA PRETTY Albuterol Sulfate (Proventil Hfa) 6.7 Gm Hfa.aer.ad, 2 PUFF INH QID PRN for SHORTNESS OF BREATH, (Reported) Entered as Reported by: NII HUTTON on 11/16/18 1721 Last Action: Discontinued on 03/04/20 155 by SANA PRETTY Fluticasone Propionate (Fluticasone Propionate Nasal Bude) 16 Gm Bude.susp, 2 SPRAY NS DAILY, #1 Ref 11 (Reported) Entered as Reported by: JAZ PATEL on 01/06/15 1200 Last Action: Discontinued on 03/04/20 1552 by SANA PRETTY Furosemide (Furosemide) 40 Mg Tablet, 40 MG PO BID, (Reported) Entered as Reported by: JAZ PATEL on 01/06/15 1156 Last Action: Continued on 03/04/20 1554 by SANA PRETTY Garlic (Garlic) 1,000 Mg Capsule, 1,200 MG PO, (Reported) Entered as Reported by: CATALINA BALBUENA on 01/06/15 1225 Last Action: Discontinued on 03/04/20 1552 by SANA PRETTY Potassium Chloride (Potassium Chloride ) 10 Meq Capsule.er, 10 MEQ PO BID for supp, (Reported) Entered as Reported by: JAZ PATEL on 01/06/15 1155 Last Action: Discontinued on 03/04/20 1430 by SANA PRETTY Verapamil Hcl (Verapamil Er) 240 Mg Cap24h.pel, 180 MG PO BID, (Reported) Discontinued Reason: NOT TAKING Entered as Reported by: JAZ PATEL on 01/06/15 1154 Last Action: Discontinued on 03/05/20 1637 by Lexus Paul RPH Justicifation of Admission Dx: Justifications for Admission: Justification of Admission Dx: N/A PAUL ALANIS MD Mar 09, 2020 14:47
[2020-03-09 15:00] VITALS: BP 120/57
--- NOTE | 2020-03-09 15:15 | NUR ---
REPORT CALLED TO AL (RECEIVING NURSE AT [facility]), QUESTIONS AND CONCERNS ANSWERED, PATIENT CONTINUES TO AWAIT TRANSPORT AT THIS TIME.
--- NOTE | 2020-03-09 15:43 | NUR ---
PATIENT LEAVES THE UNIT PER W/C ALL PERSONAL BELONGINGS SENT WITH PATIENT AT TIME OF DISCHARGE, EMOTIONAL SUPPORT GIVEN, FOLLOW UP APPOINTMENTS ENCOURAGED.
== END 2020-03-09 15:43 | DRG 871 ==
LOC: ER 05:42 → 5 NORTH 09:20
PROVIDERS: ADMIT Internal Medicine; ATTEND Internal Medicine
DX: A41.9 Sepsis, unspecified organism (principal); E43 Unspecified severe protein-calorie malnutrition; N39.0 Urinary tract infection, site not specified; N17.9 Acute kidney failure, unspecified; I13.0 Hypertensive heart and chronic kidney disease with heart failure and stage 1 through stage 4 chronic kidney disease, or unspecified chronic kidney disease; S40.012A Contusion of left shoulder, initial encounter; S00.03XA Contusion of scalp, initial encounter; E03.9 Hypothyroidism, unspecified; E78.5 Hyperlipidemia, unspecified; G93.89 Other specified disorders of brain; I50.9 Heart failure, unspecified; I70.0 Atherosclerosis of aorta; J45.909 Unspecified asthma, uncomplicated; M79.7 Fibromyalgia; N18.9 Chronic kidney disease, unspecified; W01.0XXA Fall on same level from slipping, tripping and stumbling without subsequent striking against object, initial encounter; Y92.009 Unspecified place in unspecified non-institutional (private) residence as the place of occurrence of the external cause; Z82.49 Family history of ischemic heart disease and other diseases of the circulatory system; Z83.3 Family history of diabetes mellitus; Z87.11 Personal history of peptic ulcer disease; Z90.710 Acquired absence of both cervix and uterus; Z96.659 Presence of unspecified artificial knee joint; M19.90 Unspecified osteoarthritis, unspecified site; Y93.89 Activity, other specified; Y99.8 Other external cause status; Z20.822 Contact with and (suspected) exposure to COVID-19
CPT/HCPCS: 36415; 70450; 71045; 71250; 73030; 74176; 80048; 80053; 80069; 80307; 81001; 82550; 85025; 85610; 85730; 87040; 93005; 96374; 96375; J0696; J2270; J3490; J7030; U0003; 97530-GO; 97530-GP; 97535-GO; 99285-25; G0378

== ENCOUNTER 2020-05-13 10:29 | Inpatient (IN) | payer MEDICARE, OTHER ==
[~2020-05-13] VITALS: Ht 160 cm; Wt 78.0 kg
[~2020-05-13 10:29] MED LIST changes: +ACET500T68 PO; +CEFD300C PO; +FLUT9.9S NS; +LIDO700A21 TP; +MULT-246 PO; +POTA20TA4 PO
--- NOTE | 2020-05-13 10:44 | PHYS DOC ---
Past Medical History Past Medical History: Hypertension Additional Past Medical Histor: Malignant neoplasm Past Surgical History: Pacemaker, Other Additional Past Surgical Histo: FOOT, COCCYX RMVD, VARICOSE VEINS BILAT LEG, BLADDER REPAIR, HERNIA, Smoking Status: Never Smoker Alcohol Use: None Drug Use: None General Adult EDM: Chief Complaint: ALTERED MENTAL STATUS HPI: HPI: This is a pleasant 84-year-old female who was sent here by half-way staff after the patient had an episode of confusion while at the half-way facility. No report of facial drooping or arm or leg weakness. She currently is feeling better and not confused. She denies any symptoms at this time. She denies any pain. She has not had any recent traumatic injuries. She denies dysuria polyuria abdominal pain chest pain shortness of breath. She denies fevers or chills or cough. Onset today. Location generalized. Duration intermittent. No alleviating factors. ED course: 84-year-old female presenting with an episode of confusion which was brief and improved upon arrival to the emergency department. Here she has a normal neurologic exam. Labs obtained. White blood cell count within normal limits. Hemoglobin is 11.9. Chemistry panel unremarkable. proBNP is elevated at 1241. Creatinine 1.4 up from baseline about 1. BUN elevated 28. We attempted to get a urine specimen however unfortunately after straight cath we did not get any urine. We will admit the patient for observation medically. Will consult neurology given the patient's brief change in mental status for possible TIA. We will give the patient some IV fluids (clinically the pt appears volume down). I spoke with Dr. Wilcox who accepts patient for admission. Review of Systems: Review of Systems: Constitutional: Denies fever or chills. [] Eyes: Denies change in visual acuity. [] HENT: Denies nasal congestion or sore throat. [] Respiratory: Denies cough or shortness of breath. [] Cardiovascular: Denies chest pain or edema. [] GI: Denies abdominal pain, nausea, vomiting, bloody stools or diarrhea. [] : Denies dysuria. [] Musculoskeletal: Denies back pain or joint pain. [] Integument: Denies rash. [] Neurologic: Denies headache, focal weakness or sensory changes. [] Endocrine: Denies polyuria or polydipsia. [] Lymphatic: Denies swollen glands. [] Psychiatric: Denies depression or anxiety. [] Heart Score: C/O Chest Pain: No Risk Factors: Risk Factors: DM, Current or recent (<one month) smoker, HTN, HLP, family history of CAD, obesity. Risk Scores: Score 0 - 3: 2.5% MACE over next 6 weeks - Discharge Home Score 4 - 6: 20.3% MACE over next 6 weeks - Admit for Clinical Observation Score 7 - 10: 72.7% MACE over next 6 weeks - Early Invasive Strategies Allergies: Allergies: Allergies Coded Allergies Type Severity Reaction Last Updated Verified linaclotide Allergy Severe 07/03/17 Yes Sulfa (Sulfonamide Antibiotics) Allergy Intermediate 09/17/15 Yes atorvastatin Allergy Intermediate 09/17/15 Yes bisoprolol Allergy Intermediate 09/14/15 Yes cadexomer iodine Allergy Intermediate itching 09/14/15 Yes ciprofloxacin Allergy Intermediate 09/17/15 Yes diltiazem Allergy Intermediate takes VERAPAMIL at home 07/02/17 Yes lisinopril Allergy Intermediate 09/18/15 Yes methylphenidate Allergy Intermediate 09/17/15 Yes naproxen Allergy Intermediate 07/03/17 Yes nitrofurantoin Allergy Intermediate 09/14/15 Yes ofloxacin Allergy Intermediate 09/17/15 Yes paroxetine Allergy Intermediate 09/17/15 Yes piroxicam Allergy Intermediate 09/17/15 Yes propoxyphene Allergy Intermediate 09/17/15 Yes ranitidine Allergy Intermediate 09/17/15 Yes senna Allergy Intermediate 09/17/15 Yes valdecoxib Allergy Intermediate 09/17/15 Yes Physical Exam: PE: Constitutional: Well developed, well nourished, no acute distress, non-toxic appearance. [] HENT: Normocephalic, atraumatic, bilateral external ears normal, oropharynx moist, no oral exudates, nose normal. [] Eyes: PERRLA, EOMI, conjunctiva normal, no discharge. [] Neck: Normal range of motion, no tenderness, supple, no stridor. [] Cardiovascular:Heart rate regular rhythm, no murmur [] Lungs & Thorax: Bilateral breath sounds clear to auscultation [] Abdomen: Bowel sounds normal, soft, no tenderness, no masses, no pulsatile masses. [] Skin: Warm, dry, no erythema, no rash. [] Back: No tenderness, no CVA tenderness. [] Extremities: No tenderness, no cyanosis, no clubbing, ROM intact, no edema. [] Neurologic: Mental status: Awake oriented to person and place and alert Cranial nerves: Extraocular movements intact, eyebrows franki bilaterally, smile symmetric, uvula elevation nl, shoulder shrug intact bilaterally, tongue protrusion normal Clear speech. Sensation: equal and normal in all extremities Strength: 5/5 in upper and lower extremities bilaterally Psychologic: Affect normal, judgement normal, mood normal. [] EKG: EKG: EKG shows sinus rhythm with a regular rate. A few PVCs noted. ST segments congruent. Not suggestive of acute ischemia. Nonspecific T wave flattening in the inferior leads. Radiology/Procedures: Radiology/Procedures: [] Course & Med Decision Making: Course & Med Decision Making Pertinent Labs and Imaging studies reviewed. (See chart for details) [] Dragon Disclaimer: Dragon Disclaimer: This electronic medical record was generated, in whole or in part, using a voice recognition dictation system. Departure Departure Impression: Primary Impression: ULISES (acute kidney injury) Additional Impression: Altered mental status Disposition: 09 ADMITTED INPT THIS HOSP Admitting Physician: ANNE Condition: STABLE Referrals: VERO WYNN MD (PCP) NIHSS Stroke Scale NIH Stroke Scale: NIH Stroke Scale Response (Comments) Value Level of Consciousness: 0 Alert/Responsive 0 LOC Questions: 0 Answers both correctly 0 LOC Commands: 0 Performs both tasks 0 Best Gaze: 0 Normal 0 Visual: 0 No visual loss 0 Facial Palsy: 0 Normal, symmetrical 0 Motor - Left Arm 0 No drift 0 Motor - Right Arm 0 No drift 0 Motor - Left Leg 0 No drift 0 Motor: Right Leg 0 No drift 0 Limb Ataxia: 0 Absent 0 Sensory: 0 No loss 0 Best Language: 0 Normal 0 Dysathria: 0 Normal 0 Extinction and Inattention: 0 Normal 0 Total 0 MELI NUNEZ MD May 13, 2020 10:43
--- NOTE | 2020-05-13 11:08 | RAD ---
EXAM: Chest, single view. HISTORY: Mental status changes. COMPARISON: 03/04/2020 FINDINGS: A frontal view of the chest is obtained. There is stable coarse diffuse increased interstit ial opacity. There is no consolidation, pleural effusion or pneumothorax. There is a stable prominent cardiac silhouette and enlarged central pulmonary arteries likely due to chronic portal hypertension . There is a cardiac event monitor overlying the left upper abdomen. There are surgical clips within the upper abdomen. IMPRESSION: 1. Stable suspected chronic coarse increased interstitial markings due to fibrosis. No consolidated i nfiltrate is seen. 2. Stable cardiomegaly and suspected chronic pulmonary artery hypertension. Electronically signed by: Lila Oliver MD (05/13/2020 11:06 AM) [id number]
[2020-05-13 11:39] LABS: BASO # 0.1 x10^3/uL (0.0-0.2); BASO % 3 % (0-3); EOS # 0.3 x10^3/uL (0.0-0.7); EOS % 6 % (0-3); HEMATOCRIT 36.8 % (36.0-47.0); HEMOGLOBIN 11.9 g/dL (12.0-15.5); LYMPH # 0.6 x10^3/uL (1.0-4.8); LYMPH % 15 % (24-48); MEAN CORPUSCULAR HEMOGLOBIN 32 pg (25-35); MEAN CORPUSCULAR HGB CONC 32 g/dL (31-37); MEAN CORPUSCULAR VOLUME 99 fL (79-100); MONO # 0.4 x10^3/uL (0.0-1.1); MONO % 9 % (0-9); NEUT % 68 % (31-73); PLATELET COUNT 253 x10^3/uL (140-400); RED BLOOD COUNT 3.72 x10^6/uL (3.50-5.40); RED CELL DISTRIBUTION WIDTH 16.4 % (11.5-14.5); WHITE BLOOD COUNT 4.4 x10^3/uL (4.0-11.0)
--- NOTE | 2020-05-13 11:40 | RAD ---
EXAM: Head CT without contrast. HISTORY: Altered mental status. TECHNIQUE: Computed tomographic images of the head were obtained without contrast. *One or more of the following individualized dose reduction techniques were utilized for this examina tion: 1. Automated exposure control. 2. Adjustment of the mA and/or kV according to patient size. 3. Use of iterative reconstruction technique. COMPARISON: 03/04/2020. FINDINGS: There is no acute or subacute extra-axial or intraparenchymal hemorrhage. There is no mass effect or midline shift. There is no hydrocephalus. There is encephalomalacia within the inferior lateral right frontal lobe, likely due to chronic infar ction with sequela of remote injury. There are extensive areas of hypodensity within the cerebral whi te matter, most commonly due to chronic small vessel disease. There is cerebral volume loss. There is evidence of lens surgery. There is ethmoid sinus because of thickening. The mastoid air cell s are clear. There is no suspicious calvarial lesion. The visualized portions of the orbits, paranasal sinuses and mastoid air cells are unremarkable. No s uspicious calvarial lesion is seen. IMPRESSION: 1. No acute intracranial finding. Note is made that MRI is more sensitive for acute infarction. 2. Stable encephalomalacia within the inferior lateral right frontal lobe, likely due to chronic infa rction or the sequela of remote trauma. 3. Bilateral cerebral white matter changes, likely due to chronic small vessel disease. Electronically signed by: Lila Oliver MD (05/13/2020 11:38 AM) [id number]
--- NOTE | 2020-05-13 11:42 | EKG ---
[facility] [address] [place] [address] Test Date: 2020-05-13 Test Time: 11:24:01 Pat Name: KAILA DISLA Department: Room: Gender: F [employer] Supervisor: : [id number] Requested By: MELI NUNEZ Order Number: [id number] Reading MD: Measurements Intervals [place] Rate: 71 P: -15 NV: 198 QRS: -28 QRSD: 96 T: -1 QT: 438 QTc: 481 Interpretive Statements SINUS RHYTHM VENTRICULAR PREMATURE COMPLEX(ES) INTERPOLATED VENTRICULAR PREMATURE COMPLEX(ES) LEFTWARD AXIS R-S TRANSITION ZONE IN V LEADS DISPLACED TO THE LEFT PROLONGED QT ABNORMAL ECG RI6.01 No previous ECG available for comparison
[2020-05-13 11:51] LABS: CREATININE 1.4 mg/dL (0.6-1.0); GFR 35.7; POTASSIUM 4.8 mmol/L (3.5-5.1)
[2020-05-13 11:54] LABS: ALBUMIN 3.2 g/dL (3.4-5.0); DIRECT BILIRUBIN 0.1 mg/dL (0.0-0.2); TOTAL BILIRUBIN 0.4 mg/dL (0.2-1.0); TOTAL PROTEIN 6.6 g/dL (6.4-8.2)
[2020-05-13] MEDS ORDERED: IV NORMAL SALINE 500ML BAG 500 ML IV ONE (12:30)
--- NOTE | 2020-05-13 12:51 | PDOC1 ---
History and Physical Date of Admission Date of Admission DATE: 05/13/20 TIME: 12:53 Identification/Chief Complaint Chief Complaint DICTATED Past Medical History Past Medical History Past Medical History Past Medical History: Hypertension Additional Past Medical Histor: Malignant neoplasm Past Surgical History: Pacemaker, Other Additional Past Surgical Histo: FOOT, COCCYX RMVD, VARICOSE VEINS BILAT LEG, BLADDER REPAIR, HERNIA, Smoking Status: Never Smoker Alcohol Use: None Drug Use: None fhx htn Cardiovascular: CHF, HTN, Hyperlipidemia, Other Pulmonary: Asthma, Other CENTRAL NERVOUS SYSTEM: Periperal neuropathy GI: Peptic Ulcer disease, Other Heme/Onc: Cancer Hepatobiliary: No pertinent hx Musculoskeletal: low back pain, Osteoarthritis Rheumatologic: Fibromyalgia Renal/: Chronic renal insuff, Other Endocrine: Hypothyroidism, Other Past Surgical History Past Surgical History: Cholecystectomy, Cataract Removal, Hernia Repair, Total knee replacement, Tonsillectomy, Hysterectomy, Other Family History Family History: Diabetes, Heart Disease, Hypertension Social History Smoke: No ALCOHOL: none Drugs: None Current Problem List Problem List Problems Medical Problems: (1) ULISES (acute kidney injury) Status: Acute (2) Altered mental status Status: Acute Current Medications Current Medications Current Medications Sodium Chloride 500 ml @ 500 mls/hr 1X ONCE IV ; Start 05/13/20 at 12:30; Stop 05/13/20 at 13:29 Active Scripts Active Cefdinir 300 Mg Capsule 300 Mg PO BID 3 Days Hydralazine Hcl 25 Mg Tablet 50 Mg PO TID Reported Multi-Vitamin Daily (Multivitamin) 1 Each Tablet 1 Tab PO DAILY 30 Days Potassium Chloride (Potassium Chloride) 20 Meq Tablet.er 20 Meq PO DAILY Lidocaine PATCH (Lidocaine) 1 Each Adh..patch 1 Each TP DAILY REMOVE AFTER 12 HOURS Flonase Allergy Relief (Fluticasone Propionate) 9.9 Ml Addison.susp 2 Sprays NS DAILY Culturelle (Lactobacillus Rhamnosus Gg) 1 Each Cap.sprink 1 Cap PO DAILY 30 Days Acetaminophen 500 Mg Tablet 1 Tab PO TID PRN 15 Days [hydrogel] 80 Gm BID Clotrimazole-Betamethasone Crm (Clotrimazole/Betamethasone Dip) 15 Gm Cream..g. 1 Stephen TP BID Docusate Sodium 100 Mg Capsule 1 Cap PO DAILY Cetirizine Hcl 10 Mg Tablet 10 Mg PO HS Vitamin A 10,000 Unit Capsule 10,000 Unit PO DAILY Allopurinol 300 Mg Tablet 300 Mg PO BID Gabapentin 300 Mg Capsule 600 Mg PO HS Gabapentin (Gabapentin) 300 Mg Capsule 300 Mg PO DAILY Clonidine Hcl 0.1 Mg Tablet 0.2 Mg PO TID Aspir 81 (Aspirin) 81 Mg Tablet.dr 1 Tab PO BID Vitamin E (Vitamin E (Dl,Tocopheryl Acet)) 1,000 Unit Capsule 1,000 Unit PO DAILY Vitamin C (Ascorbic Acid) 1,000 Mg Tablet 1,000 Mg PO Synthroid (Levothyroxine Sodium) 125 Mcg Tablet 137 Mcg PO DAILYAC Allergies Allergies: Coded Allergies: linaclotide (Verified Allergy, Severe, 07/03/17) Sulfa (Sulfonamide Antibiotics) (Verified Allergy, Intermediate, 09/17/15) atorvastatin (Verified Allergy, Intermediate, 09/17/15) bisoprolol (Verified Allergy, Intermediate, 09/14/15) cadexomer iodine (Verified Allergy, Intermediate, itching, 09/14/15) ciprofloxacin (Verified Allergy, Intermediate, 09/17/15) diltiazem (Verified Allergy, Intermediate, takes VERAPAMIL at home, 07/02/17) lisinopril (Verified Allergy, Intermediate, 09/18/15) methylphenidate (Verified Allergy, Intermediate, 09/17/15) naproxen (Verified Allergy, Intermediate, 07/03/17) TOLERATES ASA nitrofurantoin (Verified Allergy, Intermediate, 09/14/15) ofloxacin (Verified Allergy, Intermediate, 09/17/15) paroxetine (Verified Allergy, Intermediate, 09/17/15) piroxicam (Verified Allergy, Intermediate, 09/17/15) propoxyphene (Verified Allergy, Intermediate, 09/17/15) ranitidine (Verified Allergy, Intermediate, 09/17/15) senna (Verified Allergy, Intermediate, 09/17/15) valdecoxib (Verified Allergy, Intermediate, 09/17/15) Physical Exam Physical Exam Constitutional: Well developed, well nourished, no acute distress, non-toxic appearance. [] HENT: Normocephalic, atraumatic, bilateral external ears normal, oropharynx moist, no oral exudates, nose normal. [] Eyes: PERRLA, EOMI, conjunctiva normal, no discharge. [] Neck: Normal range of motion, no tenderness, supple, no stridor. [] Cardiovascular:Heart rate regular rhythm, no murmur [] Lungs & Thorax: Bilateral breath sounds clear to auscultation [] Abdomen: Bowel sounds normal, soft, no tenderness, no masses, no pulsatile masses. [] Skin: Warm, dry, no erythema, no rash. [] Back: No tenderness, no CVA tenderness. [] Extremities: No tenderness, no cyanosis, no clubbing, ROM intact, no edema. [] Neurologic: Mental status: Awake oriented to person and place and alert General: Oriented X3, Cooperative, No acute distress HEENT: Atraumatic, EOMI, Mucous membr. moist/pink Lungs: Normal air movement Heart: RRR, no gallops Breasts: Not examined Abdomen: Normal bowel sounds, Soft Rectal Exam: not examined PELVIC: Examination not indicated Extremities: No clubbing, No cyanosis Neuro: Normal speech, Cranial nerves 3-12 NL Psych/Mental Status: Mood NL Labs Labs Laboratory Tests Test 05/13/20 11:30 White Blood Count 4.4 x10^3/uL (4.0-11.0) Red Blood Count 3.72 x10^6/uL (3.50-5.40) Hemoglobin 11.9 g/dL (12.0-15.5) Hematocrit 36.8 % (36.0-47.0) Mean Corpuscular Volume 99 fL (79-100) Mean Corpuscular Hemoglobin 32 pg (25-35) Mean Corpuscular Hemoglobin Concent 32 g/dL (31-37) Red Cell Distribution Width 16.4 % (11.5-14.5) Platelet Count 253 x10^3/uL (140-400) Neutrophils (%) (Auto) 68 % (31-73) Lymphocytes (%) (Auto) 15 % (24-48) Monocytes (%) (Auto) 9 % (0-9) Eosinophils (%) (Auto) 6 % (0-3) Basophils (%) (Auto) 3 % (0-3) Neutrophils # (Auto) 3.0 x10^3/uL (1.8-7.7) Lymphocytes # (Auto) 0.6 x10^3/uL (1.0-4.8) Monocytes # (Auto) 0.4 x10^3/uL (0.0-1.1) Eosinophils # (Auto) 0.3 x10^3/uL (0.0-0.7) Basophils # (Auto) 0.1 x10^3/uL (0.0-0.2) Sodium Level 139 mmol/L (136-145) Potassium Level 4.8 mmol/L (3.5-5.1) Chloride Level 107 mmol/L (98-107) Carbon Dioxide Level 27 mmol/L (21-32) Anion Gap 5 (6-14) Blood Urea Nitrogen 28 mg/dL (7-20) Creatinine 1.4 mg/dL (0.6-1.0) Estimated GFR (Cockcroft-Gault) 35.7 Glucose Level 100 mg/dL (70-99) Calcium Level 9.0 mg/dL (8.5-10.1) Total Bilirubin 0.4 mg/dL (0.2-1.0) Direct Bilirubin 0.1 mg/dL (0.0-0.2) Aspartate Amino Transf (AST/SGOT) 41 U/L (15-37) Alanine Aminotransferase (ALT/SGPT) 26 U/L (14-59) Alkaline Phosphatase 137 U/L (46-116) Troponin I Quantitative < 0.017 ng/mL (0.000-0.055) VT-Tqz-Z-Type Natriuretic Peptide 1241 pg/mL (0-449) Total Protein 6.6 g/dL (6.4-8.2) Albumin 3.2 g/dL (3.4-5.0) Lipase 182 U/L (73-393) Laboratory Tests Test 05/13/20 11:30 White Blood Count 4.4 x10^3/uL (4.0-11.0) Red Blood Count 3.72 x10^6/uL (3.50-5.40) Hemoglobin 11.9 g/dL (12.0-15.5) Hematocrit 36.8 % (36.0-47.0) Mean Corpuscular Volume 99 fL (79-100) Mean Corpuscular Hemoglobin 32 pg (25-35) Mean Corpuscular Hemoglobin Concent 32 g/dL (31-37) Red Cell Distribution Width 16.4 % (11.5-14.5) Platelet Count 253 x10^3/uL (140-400) Neutrophils (%) (Auto) 68 % (31-73) Lymphocytes (%) (Auto) 15 % (24-48) Monocytes (%) (Auto) 9 % (0-9) Eosinophils (%) (Auto) 6 % (0-3) Basophils (%) (Auto) 3 % (0-3) Neutrophils # (Auto) 3.0 x10^3/uL (1.8-7.7) Lymphocytes # (Auto) 0.6 x10^3/uL (1.0-4.8) Monocytes # (Auto) 0.4 x10^3/uL (0.0-1.1) Eosinophils # (Auto) 0.3 x10^3/uL (0.0-0.7) Basophils # (Auto) 0.1 x10^3/uL (0.0-0.2) Sodium Level 139 mmol/L (136-145) Potassium Level 4.8 mmol/L (3.5-5.1) Chloride Level 107 mmol/L (98-107) Carbon Dioxide Level 27 mmol/L (21-32) Anion Gap 5 (6-14) Blood Urea Nitrogen 28 mg/dL (7-20) Creatinine 1.4 mg/dL (0.6-1.0) Estimated GFR (Cockcroft-Gault) 35.7 Glucose Level 100 mg/dL (70-99) Calcium Level 9.0 mg/dL (8.5-10.1) Total Bilirubin 0.4 mg/dL (0.2-1.0) Direct Bilirubin 0.1 mg/dL (0.0-0.2) Aspartate Amino Transf (AST/SGOT) 41 U/L (15-37) Alanine Aminotransferase (ALT/SGPT) 26 U/L (14-59) Alkaline Phosphatase 137 U/L (46-116) Troponin I Quantitative < 0.017 ng/mL (0.000-0.055) ES-Ubd-D-Type Natriuretic Peptide 1241 pg/mL (0-449) Total Protein 6.6 g/dL (6.4-8.2) Albumin 3.2 g/dL (3.4-5.0) Lipase 182 U/L (73-393) Images Images EXAM: Head CT without contrast. HISTORY: Altered mental status. TECHNIQUE: Computed tomographic images of the head were obtained without contrast. *One or more of the following individualized dose reduction techniques were utilized for this examination: 1. Automated exposure control. 2. Adjustment of the mA and/or kV according to patient size. 3. Use of iterative reconstruction technique. COMPARISON: 03/04/2020. FINDINGS: There is no acute or subacute extra-axial or intraparenchymal hemorrhage. There is no mass effect or midline shift. There is no hydrocephalus. There is encephalomalacia within the inferior lateral right frontal lobe, likely due to chronic infarction with sequela of remote injury. There are extensive areas of hypodensity within the cerebral white matter, most commonly due to chronic small vessel disease. There is cerebral volume loss. There is evidence of lens surgery. There is ethmoid sinus because of thickening. The mastoid air cells are clear. There is no suspicious calvarial lesion. The visualized portions of the orbits, paranasal sinuses and mastoid air cells are unremarkable. No suspicious calvarial lesion is seen. IMPRESSION: 1. No acute intracranial finding. Note is made that MRI is more sensitive for acute infarction. 2. Stable encephalomalacia within the inferior lateral right frontal lobe, likely due to chronic infarction or the sequela of remote trauma. 3. Bilateral cerebral white matter changes, likely due to chronic small vessel disease. Electronically signed by: Lila Oliver MD (05/13/2020 11:38 AM) [id number] DICTATED and SIGNED BY: LILA OLIVER MD VTE Prophylaxis Ordered VTE Prophylaxis Devices: No VTE Pharmacological Prophylaxi: Yes Assessment/Plan Assessment/Plan Impression: ULISES (acute kidney injury) ACUTE METABOLIC ENCEPHALOPATHY POSSIBLE TIA Altered mental status ADMITTED EMPERIC IV ANTIBIOTICS IV FLUID SUPPORT NEUROLOGY CONSULT DICTATED Justifications for Admission Other Justification NEIL BRANTLEY MD May 13, 2020 12:51
[2020-05-13] MEDS ORDERED: ONDANSETRON PF 4 MG/2 ML VIAL. IV PRN (16:00)
[2020-05-13] MEDS ORDERED: ALBUTEROL SULFATE 2.5 MG/3 ML NEBU. NEB PRN (16:00)
[2020-05-13] MEDS ORDERED: 0.9 % SODIUM CHLORIDE 10 ML DISP.SYRIN. IV PRN (16:00)
[2020-05-13] MEDS ORDERED: ACETAMINOPHEN 500 MG TABLET PO PRN (16:00)
[2020-05-13] MEDS ORDERED: DOCUSATE SODIUM 100 MG CAPSULE. PO PRN (16:00)
[2020-05-13] MEDS ORDERED: ACETAMINOPHEN 325 MG TABLET. PO PRN (16:00)
[2020-05-13] MEDS ORDERED: ACETAMINOPHEN 650 MG SUPP.RECT. PR PRN (16:00)
--- NOTE | 2020-05-13 16:33 | HP ---
ADMIT DATE: 05/13/2020 CHIEF COMPLAINT: Episode of confusion and altered mental status. HISTORY OF PRESENT ILLNESS: This is a pleasant 84-year-old female seen by detention staff due to new onset episode of confusion. Upon arrival, she was feeling better, more alert. Denies any pain or traumatic injury. Denied fever or chills. UA was attempted in the ER, but none was obtained. She did have a recent UTI. White cell count is normal, hemoglobin is 11.9, creatinine was elevated at 1.4, baseline was about 1. Dr. Galvan saw the patient in the Emergency Room and because of her mental status changes, thought that she might have a TIA. She was therefore admitted for IV fluids, Neurology consult. PAST MEDICAL HISTORY: Significant for hypertension, varicose veins, bladder repair, hernia repair. No history of tobacco or alcohol use. FAMILY HISTORY: Positive for hypertension. REVIEW OF SYSTEMS: The patient denies chills, fevers, visual change, cough, shortness of breath, chest pain, abdominal pain, hematuria, melena, or hematochezia. Denies dysuria, back pain, joint pain, rash, headache, focal weakness, polyuria or polydipsia. Denies depression or anxiety. ALLERGIES: MULTIPLE INCLUDING CIPRO, ATORVASTATIN, AND SULFA. PHYSICAL EXAMINATION: GENERAL: She is reclining in the ER bed, in no acute distress, more alert. HEENT: Throat and pharynx are clear. Extraocular muscles are intact. NECK: Supple, without tenderness. CARDIOVASCULAR: Regular rate without murmur, S3 or S4. LUNGS: Without rales or rhonchi. ABDOMEN: Soft, nontender. SKIN: Warm and dry. EXTREMITIES: There is no CVA tenderness. No cyanosis or clubbing. Range of motion is intact. NEUROLOGIC: She is alert and oriented to person, place, time and year; however eyebrows raise symmetrically. Uvula normal midline. Shoulder shrug intact. There is no facial asymmetry. Muscles of mastication are symmetric. Speech is normal. Affect is normal as well as mood. LABORATORY DATA: EKG shows no specific changes or T-wave flattening. UA is pending as well as blood culture. ASSESSMENT: 1. Kidney injury. 2. Acute metabolic encephalopathy. 3. Probable urinary tract infection. 4. Hypertension. 5. History of frequent falls. 6. 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 7. Chronic small vessel CIRCUIT WALKER disease. 8. Possible transient ischemic attack. PLAN: IV Rocephin and IV fluid support and Neurology consult. Bed rest. PT, OT and speech therapy. Estimated length of stay 72 hours, may require skilled bed placement due to frequent falls and altered mental status. Total time spent with the patient exam, chart review, 74 minutes, greater than 50% of time was spent with the patient exam, chart review and care coordination. NEIL BRANTLEY MD DR: KATHY/dillon JOB#: [id number] / [id number]
[2020-05-13] MEDS: IV NORMAL SALINE 1000ML BAG 1,000 ML IV SCH (17:03)
[2020-05-13] MEDS: hydrALAZINE 25 MG TABLET PO SCH ×2 (17:04→21:00)
[2020-05-13] MEDS: ENOXAPARIN 40 MG/0.4 ML SYRINGE. SQ SCH (17:06)
[2020-05-13] MEDS: cefTRIAXone IV Push 1 GM VIAL. IVP SCH (17:06)
[2020-05-13 17:51] VITALS: BP 120/47
[2020-05-13 19:00] VITALS: BP 120/46
[2020-05-13] MEDS: CETIRIZINE HCL 10 MG TABLET. PO SCH (21:00)
[2020-05-13] MEDS: ASPIRIN ENTERIC COATED 81 MG TABLET.DR. PO SCH (21:00)
[2020-05-13] MEDS: CLOTRIMAZOLE/BETAMETH 1%-0.05% TOPICAL CREAM 15GM TUBE. TP SCH (21:00)
--- NOTE | 2020-05-13 21:22 | PDOC2 ---
NEUROLOGY CONSULT Date of Service DOS: DATE: 05/13/20 TIME: 20:54 Reason for Consult Reason for Consult: Possible transient ischemic Referring Physician Referring Physician: Dr. Wilcox PCP: Dr. Blum Source Source: Chart review, Patient History of Present Illness History of Present Illness The patient is an 84-year-old writing a female who [facility] confusion. No one has diagnosed any type of focal neurological issues, and there were no focal findings in the emergency department. I discussed the case with Dr. Crowley and saw no reason for any acute neurological intervention such as alteplace. Patient has followed with Dr. Lopez, and more recently with MANE Scott for memory loss, syncope, dizziness, blurred vision, left carpal and cubital tunnel syndromes, and lower extremity pain. She has been wheelchair-bound for nearly 3 years. Carpal/cubital tunnel symptoms have improved with a wrist splint and avoiding bending or resting on the elbow. Patient has cervical spondylosis, with MRI cervical spine on 10/23/17 showing moderate stenosis at C5-6 and C6-7, with a T3-4 compression fracture. When I saw her for and EMG study 7 months ago, I did not consider her a good surgical candidate. She also has abnormal MRI lumbar spine from 10/23/17 showing moderate to severe canal narrowing at L5-S1. She has negative EEG studies on 08/21/18 and 02/13/19, normal carotid Dopper studies on 05/18/18, normal echocardiogram on 05/04/18. Implantable loop recorder was analyzed 05/04/20, showing atrial fibrillation with a 54.4% burden (Mean ventricular rate during AF/AT is 84 bpm, 12 episodes of atrial fibrillation per day) Past Medical History Cardiovascular: AFIB, CHF, HTN, Hyperlipidemia Heme/Onc: Cancer (cervical) Musculoskeletal: low back pain (lumbar and cervical spinal stenosis) Rheumatologic: Other (environmental allergies) ENT: Allergic Rhinitis Past Surgical History Past Surgical History: Total knee replacement, Hysterectomy, Other (vein stripping, bleeding ulcer with peritonitis, loop recorder implanted) Family History Family History: Cancer Social History Social History correction resident, retired, , no alcohol or tobacco Current Medications Current Medications Current Medications Sodium Chloride 500 ml @ 500 mls/hr 1X ONCE IV Last administered on 05/13/20at 13:36; Start 05/13/20 at 12:30; Stop 05/13/20 at 13:29; Status DC Ceftriaxone Sodium (Rocephin) 1 gm Q24H IVP Last administered on 05/13/20at 17:06; Start 05/13/20 at 15:00 Acetaminophen (Tylenol) 500 mg PRN TID PRN PO MILD PAIN OR FEVER; Start 05/13/20 at 16:00 Ascorbic Acid (Vitamin C) 1,000 mg DAILY08 PO ; Start 05/14/20 at 08:00 Aspirin (Ecotrin) 81 mg BID PO ; Start 05/13/20 at 21:00 Cetirizine HCl (ZyrTEC) 10 mg HS PO ; Start 05/13/20 at 21:00 Betamethasone/ Clotrimazole (Lotrisone) 1 stephen BID TP ; Start 05/13/20 at 21:00 Docusate Sodium (Colace) 100 mg DAILY PO ; Start 05/14/20 at 09:00 Hydralazine HCl (Apresoline) 50 mg TID PO Last administered on 05/13/20at 17:04; Start 05/13/20 at 16:00 Lactobacillus Rhamnosus (Culturelle) 1 cap DAILY PO ; Start 05/14/20 at 09:00 Levothyroxine Sodium (Synthroid) 137 mcg DAILY06 PO ; Start 05/14/20 at 06:00 Lidocaine (Lidoderm) 1 patch DAILY TP ; Start 05/14/20 at 09:00 Potassium Chloride (Klor-Con) 20 meq DAILY PO ; Start 05/14/20 at 09:00 Vitamin A 10,000 unit DAILY PO ; Start 05/14/20 at 09:00 Fluticasone Propionate (Flonase) 2 spray DAILY NS ; Start 05/14/20 at 09:00 Multivitamins (Thera M Plus) 1 tab DAILY PO ; Start 05/14/20 at 09:00 Vitamin E (Vitamin E) 1,000 unit DAILY PO ; Start 05/14/20 at 09:00 Sodium Chloride (Normal Saline Flush) 3 ml QSHIFT PRN IV AFTER MEDS AND BLOOD DRAWS; Start 05/13/20 at 16:00 Sodium Chloride 1,000 ml @ 80 mls/hr [id number] IV Last administered on 05/13/20at 17:03; Start 05/13/20 at 16:00 Ondansetron HCl (Zofran) 4 mg PRN Q4HRS PRN IV NAUSEA/VOMITING; Start 05/13/20 at 16:00 Acetaminophen (Tylenol) 650 mg PRN Q4HRS PRN PO TEMP OVER 100.4F OR MILD PAIN; Start 05/13/20 at 16:00 Acetaminophen (Tylenol Supp) 650 mg PRN Q4HRS PRN [place] TEMP OVER 100.4F OR MILD PAIN; Start 05/13/20 at 16:00 Docusate Sodium (Colace) 100 mg PRN BID PRN PO HARD STOOLS; Start 05/13/20 at 16:00 Albuterol Sulfate (Ventolin Neb Soln) 2.5 mg PRN Q4HRS PRN NEB SHORTNESS OF BREATH; Start 05/13/20 at 16:00 Enoxaparin Sodium (Lovenox 40mg Syringe) 40 mg Q24H SQ Last administered on 05/13/20at 17:06; Start 05/13/20 at 16:00 Active Scripts Active Cefdinir 300 Mg Capsule 300 Mg PO BID 3 Days Hydralazine Hcl 25 Mg Tablet 50 Mg PO TID Reported Multi-Vitamin Daily (Multivitamin) 1 Each Tablet 1 Tab PO DAILY 30 Days Potassium Chloride (Potassium Chloride) 20 Meq Tablet.er 20 Meq PO DAILY Lidocaine PATCH (Lidocaine) 1 Each Adh..patch 1 Each TP DAILY REMOVE AFTER 12 HOURS Flonase Allergy Relief (Fluticasone Propionate) 9.9 Ml [place].susp 2 Sprays NS DAILY Culturelle (Lactobacillus Rhamnosus Gg) 1 Each Cap.sprink 1 Cap PO DAILY 30 Days Acetaminophen 500 Mg Tablet 1 Tab PO TID PRN 15 Days [hydrogel] 80 Gm BID Clotrimazole-Betamethasone Crm (Clotrimazole/Betamethasone Dip) 15 Gm Cream..g. 1 Stephen TP BID Docusate Sodium 100 Mg Capsule 1 Cap PO DAILY Cetirizine Hcl 10 Mg Tablet 10 Mg PO HS Vitamin A 10,000 Unit Capsule 10,000 Unit PO DAILY Allopurinol 300 Mg Tablet 300 Mg PO BID Gabapentin 300 Mg Capsule 600 Mg PO HS Gabapentin (Gabapentin) 300 Mg Capsule 300 Mg PO DAILY Clonidine Hcl 0.1 Mg Tablet 0.2 Mg PO TID Aspir 81 (Aspirin) 81 Mg Tablet.dr 1 Tab PO BID Vitamin E (Vitamin E (Dl,Tocopheryl Acet)) 1,000 Unit Capsule 1,000 Unit PO DAILY Vitamin C (Ascorbic Acid) 1,000 Mg Tablet 1,000 Mg PO Synthroid (Levothyroxine Sodium) 125 Mcg Tablet 137 Mcg PO DAILYAC Allergies Allergies: Coded Allergies: linaclotide (Verified Allergy, Severe, 07/03/17) Sulfa (Sulfonamide Antibiotics) (Verified Allergy, Intermediate, 09/17/15) atorvastatin (Verified Allergy, Intermediate, 09/17/15) bisoprolol (Verified Allergy, Intermediate, 09/14/15) cadexomer iodine (Verified Allergy, Intermediate, itching, 09/14/15) ciprofloxacin (Verified Allergy, Intermediate, 09/17/15) diltiazem (Verified Allergy, Intermediate, takes VERAPAMIL at home, 07/02/17) lisinopril (Verified Allergy, Intermediate, 09/18/15) methylphenidate (Verified Allergy, Intermediate, 09/17/15) naproxen (Verified Allergy, Intermediate, 07/03/17) TOLERATES ASA nitrofurantoin (Verified Allergy, Intermediate, 09/14/15) ofloxacin (Verified Allergy, Intermediate, 09/17/15) paroxetine (Verified Allergy, Intermediate, 09/17/15) piroxicam (Verified Allergy, Intermediate, 09/17/15) propoxyphene (Verified Allergy, Intermediate, 09/17/15) ranitidine (Verified Allergy, Intermediate, 09/17/15) senna (Verified Allergy, Intermediate, 09/17/15) valdecoxib (Verified Allergy, Intermediate, 09/17/15) ROS Review of System Negative for fever, chills, weight loss, shortness of breath, chest pain, indigestion, hematochezia, melena, and dysuria. Full 14-point review of systems is negative. Physical Exam Physical Examination General: Well-developed, well-nourished white female in no acute distress HEENT: Normocephalic andatraumatic. Temporal arteriespulsatile and nontender. Neck: Supple without bruit, no meningismus Musculoskeletal: Stability:see neurologic. Gait exam:see neurologic. Tone:see neurologic.Strength:see neurologic. Neurological: Mental Status:orientation, memory, attention span/concentration, language, fund of knowledge: Knows she's in the hospital but does not know its name, does not know the date, says that the president is "Theresa, but the communists stole the election from him." Cranial Nerves:Pupils equal and reactive to light, extraocular movements areintact, visual dominique are full to confrontation. Facial sensation is normal. There is no facial asymmetry. Vestibulo-ocular reflex is intact. Palate elevates and tongue protrudes in midline. All other cranial related problems are negative except as mentioned before.Reflexes:1+ and symmetric with flexor plantar responses. Motor:4/5 arms, 3/5 legs, with normal tone and bulk. Coordination:Finger-nose finger and [id number] testing are normal. Rapid alternating movements and fine finger movements are intact. Gait:not tested. Sensory:Normal pinprick, vibration, light touch, proprioception. Vitals VITALS Vital Signs Date Time Temp Pulse Resp B/P (MAP) Pulse Ox O2 Delivery O2 Flow Rate FiO2 05/13/20 19:00 97.8 56 17 120/46 (70) 95 Room Air 97.8 Labs Labs Laboratory Tests Test 05/13/20 11:30 05/13/20 16:53 White Blood Count 4.4 x10^3/uL (4.0-11.0) Red Blood Count 3.72 x10^6/uL (3.50-5.40) Hemoglobin 11.9 g/dL (12.0-15.5) Hematocrit 36.8 % (36.0-47.0) Mean Corpuscular Volume 99 fL (79-100) Mean Corpuscular Hemoglobin 32 pg (25-35) Mean Corpuscular Hemoglobin Concent 32 g/dL (31-37) Red Cell Distribution Width 16.4 % (11.5-14.5) Platelet Count 253 x10^3/uL (140-400) Neutrophils (%) (Auto) 68 % (31-73) Lymphocytes (%) (Auto) 15 % (24-48) Monocytes (%) (Auto) 9 % (0-9) Eosinophils (%) (Auto) 6 % (0-3) Basophils (%) (Auto) 3 % (0-3) Neutrophils # (Auto) 3.0 x10^3/uL (1.8-7.7) Lymphocytes # (Auto) 0.6 x10^3/uL (1.0-4.8) Monocytes # (Auto) 0.4 x10^3/uL (0.0-1.1) Eosinophils # (Auto) 0.3 x10^3/uL (0.0-0.7) Basophils # (Auto) 0.1 x10^3/uL (0.0-0.2) Sodium Level 139 mmol/L (136-145) Potassium Level 4.8 mmol/L (3.5-5.1) Chloride Level 107 mmol/L (98-107) Carbon Dioxide Level 27 mmol/L (21-32) Anion Gap 5 (6-14) Blood Urea Nitrogen 28 mg/dL (7-20) Creatinine 1.4 mg/dL (0.6-1.0) Estimated GFR (Cockcroft-Gault) 35.7 Glucose Level 100 mg/dL (70-99) Calcium Level 9.0 mg/dL (8.5-10.1) Total Bilirubin 0.4 mg/dL (0.2-1.0) Direct Bilirubin 0.1 mg/dL (0.0-0.2) Aspartate Amino Transf (AST/SGOT) 41 U/L (15-37) Alanine Aminotransferase (ALT/SGPT) 26 U/L (14-59) Alkaline Phosphatase 137 U/L (46-116) Troponin I Quantitative < 0.017 ng/mL (0.000-0.055) < 0.017 ng/mL (0.000-0.055) AO-Nfe-R-Type Natriuretic Peptide 1241 pg/mL (0-449) Total Protein 6.6 g/dL (6.4-8.2) Albumin 3.2 g/dL (3.4-5.0) Lipase 182 U/L (73-393) Laboratory Tests Test 05/13/20 11:30 05/13/20 16:53 White Blood Count 4.4 x10^3/uL (4.0-11.0) Red Blood Count 3.72 x10^6/uL (3.50-5.40) Hemoglobin 11.9 g/dL (12.0-15.5) Hematocrit 36.8 % (36.0-47.0) Mean Corpuscular Volume 99 fL (79-100) Mean Corpuscular Hemoglobin 32 pg (25-35) Mean Corpuscular Hemoglobin Concent 32 g/dL (31-37) Red Cell Distribution Width 16.4 % (11.5-14.5) Platelet Count 253 x10^3/uL (140-400) Neutrophils (%) (Auto) 68 % (31-73) Lymphocytes (%) (Auto) 15 % (24-48) Monocytes (%) (Auto) 9 % (0-9) Eosinophils (%) (Auto) 6 % (0-3) Basophils (%) (Auto) 3 % (0-3) Neutrophils # (Auto) 3.0 x10^3/uL (1.8-7.7) Lymphocytes # (Auto) 0.6 x10^3/uL (1.0-4.8) Monocytes # (Auto) 0.4 x10^3/uL (0.0-1.1) Eosinophils # (Auto) 0.3 x10^3/uL (0.0-0.7) Basophils # (Auto) 0.1 x10^3/uL (0.0-0.2) Sodium Level 139 mmol/L (136-145) Potassium Level 4.8 mmol/L (3.5-5.1) Chloride Level 107 mmol/L (98-107) Carbon Dioxide Level 27 mmol/L (21-32) Anion Gap 5 (6-14) Blood Urea Nitrogen 28 mg/dL (7-20) Creatinine 1.4 mg/dL (0.6-1.0) Estimated GFR (Cockcroft-Gault) 35.7 Glucose Level 100 mg/dL (70-99) Calcium Level 9.0 mg/dL (8.5-10.1) Total Bilirubin 0.4 mg/dL (0.2-1.0) Direct Bilirubin 0.1 mg/dL (0.0-0.2) Aspartate Amino Transf (AST/SGOT) 41 U/L (15-37) Alanine Aminotransferase (ALT/SGPT) 26 U/L (14-59) Alkaline Phosphatase 137 U/L (46-116) Troponin I Quantitative < 0.017 ng/mL (0.000-0.055) < 0.017 ng/mL (0.000-0.055) PT-Jgq-H-Type Natriuretic Peptide 1241 pg/mL (0-449) Total Protein 6.6 g/dL (6.4-8.2) Albumin 3.2 g/dL (3.4-5.0) Lipase 182 U/L (73-393) Images Images Head CT without contrast. There is no acute or subacute extra-axial or intraparenchymal hemorrhage. There is no mass effect or midline shift. There is no hydrocephalus. There is encephalomalacia within the inferior lateral right frontal lobe, likely due to chronic infarction with sequela of remote injury. There are extensive areas of hypodensity within the cerebral white matter, most commonly due to chronic small vessel disease. There is cerebral volume loss. There is evidence of lens surgery. There is ethmoid sinus because of thickening. The mastoid air cells are clear. There is no suspicious calvarial lesion. The visualized portions of the orbits, paranasal sinuses and mastoid air cells are unremarkable. No suspicious calvarial lesion is seen. IMPRESSION: 1. No acute intracranial finding. Note is made that MRI is more sensitive for acute infarction. 2. Stable encephalomalacia within the inferior lateral right frontal lobe, likely due to chronic infarction or the sequela of remote trauma. 3. Bilateral cerebral white matter changes, likely due to chronic small vessel disease. Assessment/Plan Assessment/Plan Impression: Metabolic encephalopathy, with renal insufficiency, possible urinary tract infection, elevated BNP No evidence of transient ischemic attack or stroke Suspect underlying dementia Right frontal encephalomalacia. Cervical and lumbar stenosis, gait disorder, wheelchair bound for nearly 3 years Left carpal and cubital tunnel syndromes. Atrial fibrillation, hypertension, hyperlipidemia Recommendation: No purpose of further neurological studies such as MRI, repeat EEG, carotid studies. She has had a thorough neurological workup over the past 2 years. Treat medical diseases Okay to return to [facility]. Follow up with neurology as needed. Neurology signs off. Thank you for letting me help with the patient's care. KRISTYN DOOLEY MD May 13, 2020 21:22
[2020-05-13 22:48] VITALS: BP 130/48
--- NOTE | 2020-05-13 23:18 | NUR ---
Patient's PO meds not given at 2100, as reported is NPO, awaiting speech/swallow eval tomorrow.
[2020-05-14 02:54] VITALS: BP 147/50
[2020-05-14] MEDS: LEVOTHYROXINE 137 MCG TABLET PO SCH (05:03)
[2020-05-14] MEDS: IV NORMAL SALINE 1000ML BAG 1,000 ML IV SCH ×2 (05:58→16:29)
[2020-05-14 06:54] LABS: BASO # 0.1 x10^3/uL (0.0-0.2); BASO % 2 % (0-3); EOS # 0.2 x10^3/uL (0.0-0.7); EOS % 6 % (0-3); HEMATOCRIT 39.1 % (36.0-47.0); HEMOGLOBIN 12.8 g/dL (12.0-15.5); LYMPH # 0.6 x10^3/uL (1.0-4.8); LYMPH % 14 % (24-48); MEAN CORPUSCULAR HEMOGLOBIN 32 pg (25-35); MEAN CORPUSCULAR HGB CONC 33 g/dL (31-37); MEAN CORPUSCULAR VOLUME 98 fL (79-100); MONO # 0.3 x10^3/uL (0.0-1.1); MONO % 7 % (0-9); NEUT # 2.8 x10^3/uL (1.8-7.7); NEUT % 72 % (31-73); PLATELET COUNT 251 x10^3/uL (140-400); RED BLOOD COUNT 3.97 x10^6/uL (3.50-5.40)
[2020-05-14 07:00] VITALS: BP 140/53
[2020-05-14 07:11] LABS: ALBUMIN 2.7 g/dL (3.4-5.0); ALBUMIN/GLOBULIN RATIO 0.9 (1.0-1.7); CALCIUM 8.3 mg/dL (8.5-10.1); GFR 52.6; POTASSIUM 4.3 mmol/L (3.5-5.1); TOTAL BILIRUBIN 0.4 mg/dL (0.2-1.0); TOTAL PROTEIN 5.7 g/dL (6.4-8.2)
[2020-05-14 11:00] VITALS: BP 146/44
[2020-05-14] MEDS: LIDOCAINE (700MG/PATCH) PATCH. TP SCH (11:57)
[2020-05-14] MEDS: CLOTRIMAZOLE/BETAMETH 1%-0.05% TOPICAL CREAM 15GM TUBE. TP SCH ×2 (11:57→21:16)
[2020-05-14] MEDS: DOCUSATE SODIUM 100 MG CAPSULE. PO SCH (12:03)
[2020-05-14] MEDS: VITAMIN E 200 UNIT CAPSULE. PO SCH (12:04)
[2020-05-14] MEDS: MULTIVITAMIN with MINERAL TABLET. PO SCH (12:05)
[2020-05-14] MEDS: ASPIRIN ENTERIC COATED 81 MG TABLET.DR. PO SCH ×2 (12:05→21:16)
[2020-05-14] MEDS: hydrALAZINE 25 MG TABLET PO SCH ×3 (12:05→21:17)
[2020-05-14] MEDS: VITAMIN A 10,000 UNIT CAPSULE. PO SCH (12:05)
[2020-05-14] MEDS: LACTOBACILLUS RHAMNOSUS GG 1 CAPSULE. PO SCH (12:05)
[2020-05-14] MEDS: POTASSIUM CHLORIDE 20 MEQ TABLET.ER. PO SCH (12:06)
[2020-05-14] MEDS: ASCORBIC ACID 1,000 MG TABLET PO SCH (12:06)
[2020-05-14] MEDS: FLUTICASONE 50MCG/NASAL SPRAY 16GM BOTTLE. NS SCH (12:40)
--- NOTE | 2020-05-14 13:28 | PDOC ---
[employer] PROGRESS NOTE Date of Service DOS: DATE: 05/14/20 TIME: 13:27 Chief Complaint Chief Complaint ASSESSMENT: 1. Kidney injury. 2. Acute metabolic encephalopathy. 3. Probable urinary tract infection. 4. Hypertension. 5. History of frequent falls. 6. 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 7. Chronic small vessel POLE CLIMBER disease. 8. Possible transient ischemic attack. PLAN: IV Rocephin and IV fluid support and Neurology consult. Bed rest. PT, OT and speech therapy. Estimated length of stay 72 hours, may require skilled bed placement due to frequent falls and altered mental status. History of Present Illness History of Present Illness 05/14/2020 No acute events overnight. Afebrile. No concerns from nursing. Patient's chart, labs, images were reviewed and discussed with RN 84-year-old female seen by retirement staff due to new onset episode of confusion. Upon arrival, she was feeling better, more alert. Denies any pain or traumatic injury. Denied fever or chills. UA was attempted in the ER, but none was obtained. She did have a recent UTI. White cell count is normal, hemoglobin is 11.9, creatinine was elevated at 1.4, baseline was about 1. Dr. Galvan saw the patient in the Emergency Room and because of her mental status changes, thought that she might have a TIA. She was therefore admitted for IV fluids, Neurology consult. Vitals/I&O Vitals/I&O: Vital Signs Date Time Temp Pulse Resp B/P (MAP) Pulse Ox O2 Delivery O2 Flow Rate FiO2 05/14/20 12:06 Room Air 05/14/20 12:05 73 146/44 05/14/20 11:00 98.1 18 91 98.1 I & O 05/13/20 05/13/20 05/14/20 15:00 23:00 07:00 Intake Total 500 ml Balance 500 ml Physical Exam General: Oriented X3, Cooperative, No acute distress Lungs: Clear Abdomen: Normal bowel sounds, Soft Extremities: No clubbing, No cyanosis Labs Labs: Laboratory Tests Test 05/13/20 13:40 05/13/20 16:53 05/14/20 05:53 Coronavirus (PCR) Not detected (Not Detected) Troponin I Quantitative < 0.017 ng/mL (0.000-0.055) White Blood Count 4.0 x10^3/uL (4.0-11.0) Red Blood Count 3.97 x10^6/uL (3.50-5.40) Hemoglobin 12.8 g/dL (12.0-15.5) Hematocrit 39.1 % (36.0-47.0) Mean Corpuscular Volume 98 fL (79-100) Mean Corpuscular Hemoglobin 32 pg (25-35) Mean Corpuscular Hemoglobin Concent 33 g/dL (31-37) Red Cell Distribution Width 16.0 % (11.5-14.5) Platelet Count 251 x10^3/uL (140-400) Neutrophils (%) (Auto) 72 % (31-73) Lymphocytes (%) (Auto) 14 % (24-48) Monocytes (%) (Auto) 7 % (0-9) Eosinophils (%) (Auto) 6 % (0-3) Basophils (%) (Auto) 2 % (0-3) Neutrophils # (Auto) 2.8 x10^3/uL (1.8-7.7) Lymphocytes # (Auto) 0.6 x10^3/uL (1.0-4.8) Monocytes # (Auto) 0.3 x10^3/uL (0.0-1.1) Eosinophils # (Auto) 0.2 x10^3/uL (0.0-0.7) Basophils # (Auto) 0.1 x10^3/uL (0.0-0.2) Sodium Level 145 mmol/L (136-145) Potassium Level 4.3 mmol/L (3.5-5.1) Chloride Level 109 mmol/L (98-107) Carbon Dioxide Level 27 mmol/L (21-32) Anion Gap 9 (6-14) Blood Urea Nitrogen 22 mg/dL (7-20) Creatinine 1.0 mg/dL (0.6-1.0) Estimated GFR (Cockcroft-Gault) 52.6 BUN/Creatinine Ratio 22 (6-20) Glucose Level 79 mg/dL (70-99) Calcium Level 8.3 mg/dL (8.5-10.1) Total Bilirubin 0.4 mg/dL (0.2-1.0) Aspartate Amino Transf (AST/SGOT) 57 U/L (15-37) Alanine Aminotransferase (ALT/SGPT) 24 U/L (14-59) Alkaline Phosphatase 140 U/L (46-116) Total Protein 5.7 g/dL (6.4-8.2) Albumin 2.7 g/dL (3.4-5.0) Albumin/Globulin Ratio 0.9 (1.0-1.7) Assessment and Plan Assessmemt and Plan Problems Medical Problems: (1) ULISES (acute kidney injury) Status: Acute (2) Altered mental status Status: Acute Comment Review of Relevant I have reviewed the following items radha (where applicable) has been applied. Medications: Current Medications Medications (Trade) Dose Ordered Sig/Jena Route PRN Reason Start Time Stop Time Status Last Admin Dose Admin Ceftriaxone Sodium (Rocephin) 1 gm Q24H IVP 05/13/20 15:00 05/13/20 17:06 Ascorbic Acid (Vitamin C) 1,000 mg DAILY08 PO 05/14/20 08:00 05/14/20 12:06 Aspirin (Ecotrin) 81 mg BID PO 05/13/20 21:00 05/14/20 12:05 Betamethasone/ Clotrimazole (Lotrisone) 1 jose guadalupe BID TP 05/13/20 21:00 05/14/20 11:57 Docusate Sodium (Colace) 100 mg DAILY PO 05/14/20 09:00 05/14/20 12:03 Hydralazine HCl (Apresoline) 50 mg TID PO 05/13/20 16:00 05/14/20 12:05 Lactobacillus Rhamnosus (Culturelle) 1 cap DAILY PO 05/14/20 09:00 05/14/20 12:05 Lidocaine (Lidoderm) 1 patch DAILY TP 05/14/20 09:00 05/14/20 11:57 Potassium Chloride (Klor-Con) 20 meq DAILY PO 05/14/20 09:00 05/14/20 12:06 Vitamin A 10,000 unit DAILY PO 05/14/20 09:00 05/14/20 12:05 Fluticasone Propionate (Flonase) 2 spray DAILY NS 05/14/20 09:00 05/14/20 12:40 Multivitamins (Thera M Plus) 1 tab DAILY PO 05/14/20 09:00 05/14/20 12:05 Vitamin E (Vitamin E) 1,000 unit DAILY PO 05/14/20 09:00 05/14/20 12:04 Sodium Chloride 1,000 ml @ 80 mls/hr [id number] IV 05/13/20 16:00 05/14/20 05:58 Enoxaparin Sodium (Lovenox 40mg Syringe) 40 mg Q24H SQ 05/13/20 16:00 05/13/20 17:06 Justifications for Admission General Conditions Altered mental status?: Yes Justification of admission: Patient has tachycardia (> 100 beats per minute) or hypotension (SBP < 90 mm Hg) leading to inadequate systemic perfusion as indicated by severe/persistent altered mental status. Reduced urine output?: Yes Justification of admission: Patient has tachycardia (> 100 beats per minute) or hypotension (SBP < 90 mm Hg) leading to inadequate systemic perfusion as indicated by reduced urine output. Other justification for admit: ACUTE METABOLIC ENCEPHALOPATHY Other Justification JAYNE DUBOIS MD May 14, 2020 13:28
[2020-05-14] MEDS: cefTRIAXone IV Push 1 GM VIAL. IVP SCH (14:33)
--- NOTE | 2020-05-14 14:33 | NUR ---
MARYURI following this BPCI patient today. MARYURI reviewed chart and coordinated care with RN. Pt currently on room air, COVID negative, IV Rocephin. Pt on a cardiac diet. PT/OT has been consulted. Per admitting, pt has 0 SNU days. Pt has Medicare/Medicaid. Wound care consulted. Daughter is POA for HC. Possible referral for LTC with hospice or back to [facility] with HH. Pt resides at [facility] in [facility]. Addendum: 05/15/20 at 0915 by ANNA WAHL Pt current with [facility]
[2020-05-14 15:00] VITALS: BP 138/50
--- NOTE | 2020-05-14 15:49 | NUR ---
Wound/Ostomy Care Wound Type/Assessment: Wound care consult for right ankle wound and left toe wounds (see wound intervention). No other wounds noted on head to toe skin assessment. Wounds cleansed and dressing applied. Treatment Recommendations/Plan: right ankle: cleanse wound and cover with xeroform and foam, change every 3 days. Left toe: paint with Betadine daily. Education provided: pt educated on PU prevention Offloading surface/device: pillows to elevate legs when in bed Recommended Referrals/Tests: n/a Discharge Recommendations for dressings: same as above
[2020-05-14] MEDS: ENOXAPARIN 40 MG/0.4 ML SYRINGE. SQ SCH (16:27)
[2020-05-14 19:00] VITALS: BP 118/54
[2020-05-14] MEDS: CETIRIZINE HCL 10 MG TABLET. PO SCH (21:16)
[2020-05-14 23:42] VITALS: BP 149/61
[2020-05-15 03:00] VITALS: BP 154/66
[2020-05-15] MEDS: IV NORMAL SALINE 1000ML BAG 1,000 ML IV SCH (03:35)
--- NOTE | 2020-05-15 03:39 | NUR ---
At change of shift it was reported that the pts PIV had infiltrated. No fluids infusing. Saline lock removed at 0315. Pt refused IV restart. Reports she wants to talk to doctor before we stick her again.
[2020-05-15] MEDS: LEVOTHYROXINE 137 MCG TABLET PO SCH (06:13)
[2020-05-15 07:00] VITALS: BP 140/70
[2020-05-15] MEDS: ASPIRIN ENTERIC COATED 81 MG TABLET.DR. PO SCH (08:51)
[2020-05-15] MEDS: LACTOBACILLUS RHAMNOSUS GG 1 CAPSULE. PO SCH (08:51)
[2020-05-15] MEDS: MULTIVITAMIN with MINERAL TABLET. PO SCH (08:51)
[2020-05-15] MEDS: ASCORBIC ACID 1,000 MG TABLET PO SCH (08:51)
[2020-05-15] MEDS: VITAMIN A 10,000 UNIT CAPSULE. PO SCH (08:51)
[2020-05-15] MEDS: POTASSIUM CHLORIDE 20 MEQ TABLET.ER. PO SCH (08:51)
[2020-05-15] MEDS: VITAMIN E 200 UNIT CAPSULE. PO SCH (08:51)
[2020-05-15] MEDS: hydrALAZINE 25 MG TABLET PO SCH ×2 (08:52→14:03)
[2020-05-15] MEDS: FLUTICASONE 50MCG/NASAL SPRAY 16GM BOTTLE. NS SCH (08:52)
[2020-05-15] MEDS: DOCUSATE SODIUM 100 MG CAPSULE. PO SCH (08:52)
[2020-05-15] MEDS: LIDOCAINE (700MG/PATCH) PATCH. TP SCH (08:53)
[2020-05-15] MEDS: CLOTRIMAZOLE/BETAMETH 1%-0.05% TOPICAL CREAM 15GM TUBE. TP SCH (08:54)
[2020-05-15 11:00] VITALS: BP 159/70
[2020-05-15] MEDS ORDERED: CEFD300C PO (13:06)
[2020-05-15] MEDS ORDERED: HYDR-2868 PO (13:06)
--- NOTE | 2020-05-15 13:12 | SNU/HH DC ---
DISCHARGE WITH HOME HEALTH DISCHARGE INFORMATION: Discharge Date: May 15, 2020 Final Diagnosis: Problems Medical Problems: (1) ULISES (acute kidney injury) Status: Acute (2) Altered mental status Status: Acute Condition on Discharge: Stable CODE STATUS: Code Status: DNR/DNI HOME HEALTH: Face to Face: I certify this patient is under my care and that I, or a nurse practitioner or physician's front office assistant working with me, had a face to face encounter that meets the physician face to face encounter requirements with this patient on []. Medical Complications: CHF, Dementia, Falls, HTN RN For Eval/Treatment: Yes Physical Therapy For: Evalulation/Treatment Occupational Therapy For: Evaluation/Treatment Speech Language Pathology For: Swallow Cognition Home Health Aide For: Self-care Pt Meets Homebound Status: Frequent falls w/ injury, Limited distance walking, Unable to negotiate home POST DISCHARGE ORDERS: Activity Instructions for Disc: Activity as tolerated Weight Bearing Status after Di: Full weight bearing DIET AFTER DISCHARGE: Cardiac Wound/Incision Care: Other, see below CHECKS AFTER DISCHARGE: Checks after discharge: Check blood press - daily, Weigh Yourself Daily FOLLOW-UP: Follow up with: PCP within 2 weeks of discharge DC TO SNF LABS: CBC, CMP TREATMENT/EQUIPMENT ORDERS: Adaptive Equipment Issued: None, Cane, Commode, Front wheeled walker CERTIFICATION STATEMENT: Certification Statement: Certification Statement: Based on the above finding, I certify that this patient is confined to the home and needs intermittent senior living care, physical therapy and/or speech therapy, or continues to need occupational therapy.~ This patient is under my care, and I have initiated the establishment of the plan of care.~ This patient will be followed by myself or a community physician who will periodically review the plan of care. Home Meds Active Scripts Cefdinir (CEFDINIR) 300 Mg Capsule, 300 MG PO BID for UTI for 3 Days, #6 CAP Prov:JAYNE DUBOIS MD 05/15/20 Hydralazine Hcl (HYDRALAZINE HCL) 25 Mg Tablet, 25 MG PO TID for hypertension, #90 TAB 3 Refills Prov:JAYNE DUBOIS MD 05/15/20 Reported Medications Multivitamin (MULTI-VITAMIN DAILY) 1 Each Tablet, 1 TAB PO DAILY for supp for 30 Days, #30 TAB 0 Refills 03/04/20 Lidocaine (Lidocaine PATCH ) 1 Each Adh..patch, 1 EACH TP DAILY for FOR LOCAL PAIN, PATCH REMOVE AFTER 12 HOURS 03/04/20 Fluticasone Propionate (Flonase Allergy Relief) 9.9 Ml [place].susp, 2 SPRAYS NS DAILY for allergies, BOTTLE 03/04/20 Lactobacillus Rhamnosus Gg (CULTURELLE) 1 Each Cap.sprink, 1 CAP PO DAILY for supp for 30 Days, #30 CAP 0 Refills 03/04/20 Acetaminophen (ACETAMINOPHEN) 500 Mg Tablet, 1 TAB PO TID PRN for pain or fever for 15 Days, #60 TAB 0 Refills 03/04/20 Clotrimazole/Betamethasone Dip (CLOTRIMAZOLE-BETAMETHASONE CRM) 15 Gm Cream..g., 1 YUSUF TP BID for to affected areas, #15 GM 11/16/18 Docusate Sodium (DOCUSATE SODIUM) 100 Mg Capsule, 1 CAP PO DAILY for constipation, #30 CAP 11/16/18 Cetirizine Hcl (CETIRIZINE HCL) 10 Mg Tablet, 10 MG PO HS for allergies, TAB 11/16/18 Vitamin A (VITAMIN A) 10,000 Unit Capsule, 45299 UNIT PO DAILY for supplement, CAP 11/16/18 Allopurinol (ALLOPURINOL) 300 Mg Tablet, 300 MG PO BID for ulcer prevention, TAB 10/10/18 Gabapentin (GABAPENTIN ) 300 Mg Capsule, 300 MG PO DAILY for NEUROGENIC PAIN, CAP 10/10/18 Aspirin (ASPIR 81) 81 Mg Tablet.dr, 1 TAB PO BID for clot prevention, #30 TAB 5 Refills 01/06/15 Vitamin E (Dl,Tocopheryl Acet) (VITAMIN E) 1,000 Unit Capsule, 1000 UNIT PO DAILY for supplement 01/06/15 Ascorbic Acid (VITAMIN C) 1,000 Mg Tablet, 1000 MG PO for supplement 01/06/15 Levothyroxine Sodium (SYNTHROID) 125 Mcg Tablet, 137 MCG PO DAILYAC for Thyroid supplement, #30 TAB 0 Refills 01/06/15 Discontinued Reported Medications Potassium Chloride (POTASSIUM CHLORIDE ) 20 Meq Tablet.er, 20 MEQ PO DAILY for SUPPLEMENT, TAB.SR 03/04/20 [hydrogel] No Conflict Check, 80 GM BID for topically to affected areas 11/16/18 Gabapentin (Gabapentin) 300 Mg Capsule, 600 MG PO HS for Neurogenic pain, CAP 10/10/18 Clonidine Hcl (CLONIDINE HCL) 0.1 Mg Tablet, 0.2 MG PO TID for unk, TAB 07/11/18 JAYNE DUBOIS MD May 15, 2020 13:12
[2020-05-15 15:00] VITALS: BP 183/86
--- NOTE | 2020-05-15 15:00 | NUR ---
Pt stated that she normally takes lasix 40mg daily at home for her CHF. Pt states "they haven't given me that for a week and that is why I can't catch my breath." Dr. Medina notified, stated to give patient her home dose a lasix before discharge. Pt refused to take medication. Pt stated she would eat and take it when she got home. Okay to continue with discharge.
--- NOTE | 2020-05-15 15:20 | NUR ---
Discharge Note: KAILA DISLA Discharge instructions and discharge home medications reviewed with Patient and daughter and a copy given. All questions have been answered and understanding verbalized. The following instructions and handouts were given: f/u with PCP within one week. Discontinued lines and drains: Peripheral IV intact. Patient discharged to Home with home health with Family Member via Wheelchair.
--- NOTE | 2020-05-18 16:32 | PDOC3 ---
[facility]-Discharge Summary Date of Admission: Date of Admission: May 13, 2020 Date of Discharge: Date of Discharge: May 15, 2020 Discharge Diagnosis: Discharge Diagnosis: 1. Kidney injury. 2. Acute metabolic encephalopathy. 3. Probable urinary tract infection. 4. Hypertension. 5. History of frequent falls. 6. 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 7. Chronic small vessel SECY disease. 8. Possible transient ischemic attack. Hospital Course: Hospital Course: By day of her discharge, patient was clinically stable and doing well. She will go home with PO cefdinir. 05/14/2020 No acute events overnight. Afebrile. No concerns from nursing. Patient's chart, labs, images were reviewed and discussed with RN 84-year-old female seen by intermediate staff due to new onset episode of confusion. Upon arrival, she was feeling better, more alert. Denies any pain or traumatic injury. Denied fever or chills. UA was attempted in the ER, but none was obtained. She did have a recent UTI. White cell count is normal, hemoglobin is 11.9, creatinine was elevated at 1.4, baseline was about 1. Dr. Galvan saw the patient in the Emergency Room and because of her mental status changes, thought that she might have a TIA. She was therefore admitted for IV fluids, Neurology consult. Disposition: Disposition/Orders: D/C to Home Activity: Activity: Resume previous activity Diet: Diet: Regular, Renal Medications: Home Meds Active Scripts Cefdinir (CEFDINIR) 300 Mg Capsule, 300 MG PO BID for UTI for 3 Days, #6 CAP Prov:JAYNE DUBOIS MD 05/15/20 Hydralazine Hcl (HYDRALAZINE HCL) 25 Mg Tablet, 25 MG PO TID for hypertension, #90 TAB 3 Refills Prov:JAYNE DUBOIS MD 05/15/20 Reported Medications Multivitamin (MULTI-VITAMIN DAILY) 1 Each Tablet, 1 TAB PO DAILY for supp for 30 Days, #30 TAB 0 Refills 03/04/20 Lidocaine (Lidocaine PATCH ) 1 Each Adh..patch, 1 EACH TP DAILY for FOR LOCAL PAIN, PATCH REMOVE AFTER 12 HOURS 03/04/20 Fluticasone Propionate (Flonase Allergy Relief) 9.9 Ml [place].susp, 2 SPRAYS NS DAILY for allergies, BOTTLE 12/30/20 Lactobacillus Rhamnosus Gg (CULTURELLE) 1 Each Cap.sprink, 1 CAP PO DAILY for supp for 30 Days, #30 CAP 0 Refills 03/04/20 Acetaminophen (ACETAMINOPHEN) 500 Mg Tablet, 1 TAB PO TID PRN for pain or fever for 15 Days, #60 TAB 0 Refills 03/04/20 Clotrimazole/Betamethasone Dip (CLOTRIMAZOLE-BETAMETHASONE CRM) 15 Gm Cream..g., 1 YUSUF TP BID for to affected areas, #15 GM 11/16/18 Docusate Sodium (DOCUSATE SODIUM) 100 Mg Capsule, 1 CAP PO DAILY for constipation, #30 CAP 11/16/18 Cetirizine Hcl (CETIRIZINE HCL) 10 Mg Tablet, 10 MG PO HS for allergies, TAB 11/16/18 Vitamin A (VITAMIN A) 10,000 Unit Capsule, 95629 UNIT PO DAILY for supplement, CAP 11/16/18 Allopurinol (ALLOPURINOL) 300 Mg Tablet, 300 MG PO BID for ulcer prevention, TAB 10/10/18 Gabapentin (GABAPENTIN ) 300 Mg Capsule, 300 MG PO DAILY for NEUROGENIC PAIN, CAP 10/10/18 Aspirin (ASPIR 81) 81 Mg Tablet.dr, 1 TAB PO BID for clot prevention, #30 TAB 5 Refills 01/06/15 Vitamin E (Dl,Tocopheryl Acet) (VITAMIN E) 1,000 Unit Capsule, 1000 UNIT PO DAILY for supplement 01/06/15 Ascorbic Acid (VITAMIN C) 1,000 Mg Tablet, 1000 MG PO for supplement 01/06/15 Levothyroxine Sodium (SYNTHROID) 125 Mcg Tablet, 137 MCG PO DAILYAC for Thyroid supplement, #30 TAB 0 Refills 01/06/15 Discontinued Reported Medications Potassium Chloride (POTASSIUM CHLORIDE ) 20 Meq Tablet.er, 20 MEQ PO DAILY for SUPPLEMENT, TAB.SR 03/04/20 [hydrogel] No Conflict Check, 80 GM BID for topically to affected areas 11/16/18 Gabapentin (Gabapentin) 300 Mg Capsule, 600 MG PO HS for Neurogenic pain, CAP 10/10/18 Clonidine Hcl (CLONIDINE HCL) 0.1 Mg Tablet, 0.2 MG PO TID for unk, TAB 07/11/18 Scheduled Allopurinol (Allopurinol), 300 MG PO BID, (Reported) Aspirin (Aspir 81), 1 TAB PO BID, (Reported) Cefdinir (Cefdinir), 300 MG PO BID Cetirizine Hcl (Cetirizine Hcl), 10 MG PO HS, (Reported) Clotrimazole/Betamethasone Dip (Clotrimazole-Betamethasone Crm), 1 YUSUF TP BID, (Reported) Docusate Sodium (Docusate Sodium), 1 CAP PO DAILY, (Reported) Fluticasone Propionate (Flonase Allergy Relief), 2 SPRAYS NS DAILY, (Reported) Gabapentin (Gabapentin ), 300 MG PO DAILY, (Reported) Hydralazine Hcl (Hydralazine Hcl), 25 MG PO TID Lactobacillus Rhamnosus Gg (Culturelle), 1 CAP PO DAILY, (Reported) Levothyroxine Sodium (Synthroid), 137 MCG PO DAILYAC, (Reported) Lidocaine (Lidocaine PATCH ), 1 EACH TP DAILY, (Reported) Multivitamin (Multi-Vitamin Daily), 1 TAB PO DAILY, (Reported) Vitamin A (Vitamin A), 10,000 UNIT PO DAILY, (Reported) Vitamin E (Dl,Tocopheryl Acet) (Vitamin E), 1,000 UNIT PO DAILY, (Reported) Scheduled PRN Acetaminophen (Acetaminophen), 1 TAB PO TID PRN for pain or fever, (Reported) Miscellaneous Medications Ascorbic Acid (Vitamin C), 1,000 MG PO, (Reported) Discontinued Medications Clonidine Hcl (Clonidine Hcl), 0.2 MG PO TID, (Reported) Gabapentin (Gabapentin), 600 MG PO HS, (Reported) Potassium Chloride (Potassium Chloride ), 20 MEQ PO DAILY, (Reported) [hydrogel], 80 GM BID, (Reported) Total Time: Total Time: Total time spent was 35 minutes in preparing scripts, discharge planning with SW and RN, and preparing this discharge summary. Patient seen and examined on day of discharge. Justicifation of Admission Dx: Justifications for Admission: Justification of Admission Dx: N/A JAYNE DUBOIS MD May 18, 2020 16:32
== END 2020-05-15 15:20 | disposition home health service (06) | DRG 682 ==
LOC: ER 10:29 → 6 SOUTH 12:43
PROVIDERS: ADMIT Family Medicine; ATTEND Family Medicine
DX: N17.0 Acute kidney failure with tubular necrosis (principal); G93.41 Metabolic encephalopathy; I13.0 Hypertensive heart and chronic kidney disease with heart failure and stage 1 through stage 4 chronic kidney disease, or unspecified chronic kidney disease; N39.0 Urinary tract infection, site not specified; N18.9 Chronic kidney disease, unspecified; I50.9 Heart failure, unspecified; R29.6 Repeated falls; G93.89 Other specified disorders of brain; I73.9 Peripheral vascular disease, unspecified; M48.061 Spinal stenosis, lumbar region without neurogenic claudication; R26.9 Unspecified abnormalities of gait and mobility; E78.5 Hyperlipidemia, unspecified; I48.91 Unspecified atrial fibrillation; E03.9 Hypothyroidism, unspecified; J45.909 Unspecified asthma, uncomplicated; M48.02 Spinal stenosis, cervical region; Z96.659 Presence of unspecified artificial knee joint; G62.9 Polyneuropathy, unspecified; M47.812 Spondylosis without myelopathy or radiculopathy, cervical region; I49.3 Ventricular premature depolarization; M19.90 Unspecified osteoarthritis, unspecified site; Z20.822 Contact with and (suspected) exposure to COVID-19; Z99.3 Dependence on wheelchair; Z82.49 Family history of ischemic heart disease and other diseases of the circulatory system; Z83.3 Family history of diabetes mellitus; Z87.11 Personal history of peptic ulcer disease; Z90.710 Acquired absence of both cervix and uterus; Z88.1 Allergy status to other antibiotic agents; Z88.2 Allergy status to sulfonamides; Z88.8 Allergy status to other drugs, medicaments and biological substances; Z90.49 Acquired absence of other specified parts of digestive tract; Z85.41 Personal history of malignant neoplasm of cervix uteri
CPT/HCPCS: 36415; 70450; 71045; 80048; 80053; 80076; 83690; 83880; 84443; 84484; 85025; 87040; 93005; 96360; 96361; 99285; J0696; J1650; J7030; J7040; U0003; 97110-GP; 97530-GO; 97535-GO; G0378

== ENCOUNTER 2020-09-12 18:21 | Inpatient (IN) | payer MEDICARE, OTHER ==
[~2020-09-12] VITALS: Ht 160 cm; Wt 76.2 kg
[~2020-09-12 18:21] MED LIST changes: -VITA10003 PO; +[UNRECOGNIZED DRUG - CODE] PO
--- NOTE | 2020-09-12 18:49 | ED.ADGEN ---
Past Medical History Past Medical History: Anemia, Asthma, Cancer, CHF, DVT, Fibromyalgia, High Cholesterol, Hypertension, Other Additional Past Medical Histor: NEUROPATHY Past Surgical History: Cholecystectomy, Pacemaker, Other Additional Past Surgical Histo: FOOT, COCCYX RMVD, VARICOSE VEINS BILAT LEG, BLADDER REPAIR, HERNIA, Smoking Status: Never Smoker Alcohol Use: None Drug Use: None General Adult EDM: Chief Complaint: WOUND CHECK HPI: HPI: Patient is a 85 year old female coming in from home at direction of her home health wound care nurse for failed outpatient treatment of bilateral lower extremity cellulitis and wounds. Patient states that recent culture had come back positive for MRSA. Has been on 3 rounds of antibiotics for 10 days each without improvement. Has had chills but denies any fevers. No other complaints. Per wound culture provided the patient the MRSA is resistant to multiple medications including tetracyclines. Patient has allergy to sulfa and multiple other antibiotics Review of Systems: Review of Systems: All other systems within normal limits except for as noted in the HPI Allergies: Allergies: Allergies Coded Allergies Type Severity Reaction Last Updated Verified linaclotide Allergy Severe 07/03/17 Yes Sulfa (Sulfonamide Antibiotics) Allergy Intermediate 09/17/15 Yes atorvastatin Allergy Intermediate 09/17/15 Yes bisoprolol Allergy Intermediate 09/14/15 Yes cadexomer iodine Allergy Intermediate itching 09/14/15 Yes ciprofloxacin Allergy Intermediate 09/17/15 Yes diltiazem Allergy Intermediate takes VERAPAMIL at home 07/02/17 Yes lisinopril Allergy Intermediate 09/18/15 Yes methylphenidate Allergy Intermediate 09/17/15 Yes naproxen Allergy Intermediate 07/03/17 Yes nitrofurantoin Allergy Intermediate 09/14/15 Yes ofloxacin Allergy Intermediate 09/17/15 Yes paroxetine Allergy Intermediate 09/17/15 Yes piroxicam Allergy Intermediate 09/17/15 Yes propoxyphene Allergy Intermediate 09/17/15 Yes ranitidine Allergy Intermediate 09/17/15 Yes senna Allergy Intermediate 09/17/15 Yes valdecoxib Allergy Intermediate 09/17/15 Yes Physical Exam: PE: Constitutional: Well developed, well nourished, no acute distress, non-toxic appearance. [] HENT: Normocephalic, atraumatic, bilateral external ears normal, oropharynx moist, no oral exudates, nose normal. [] Eyes: PERRLA, EOMI, conjunctiva normal, no discharge. [] Neck: Normal range of motion, no tenderness, supple, no stridor. [] Cardiovascular:Heart rate regular rhythm, no murmur [] Lungs & Thorax: Bilateral breath sounds clear to auscultation [] Abdomen: Bowel sounds normal, soft, no tenderness, no masses, no pulsatile masses. [] Skin: Right lower extremity erythematous and edematous, multiple ulcerations on medial aspect of right lower leg, skin split on right second toe. Back: No tenderness, no CVA tenderness. [] Extremities: No tenderness, no cyanosis, no clubbing, ROM intact, no edema. [] Neurologic: Alert and oriented X 3, normal motor function, normal sensory function, no focal deficits noted. [] Psychologic: Affect normal, judgement normal, mood normal. [] Current Patient Data: Labs: Laboratory Tests Test 09/12/20 19:30 White Blood Count 4.5 x10^3/uL (4.0-11.0) Red Blood Count 3.70 x10^6/uL (3.50-5.40) Hemoglobin 11.2 g/dL (12.0-15.5) L Hematocrit 35.2 % (36.0-47.0) L Mean Corpuscular Volume 95 fL (79-100) Mean Corpuscular Hemoglobin 30 pg (25-35) Mean Corpuscular Hemoglobin Concent 32 g/dL (31-37) Red Cell Distribution Width 17.3 % (11.5-14.5) H Platelet Count 259 x10^3/uL (140-400) Neutrophils (%) (Auto) 64 % (31-73) Lymphocytes (%) (Auto) 22 % (24-48) L Monocytes (%) (Auto) 10 % (0-9) H Eosinophils (%) (Auto) 3 % (0-3) Basophils (%) (Auto) 1 % (0-3) Neutrophils # (Auto) 2.9 x10^3/uL (1.8-7.7) Lymphocytes # (Auto) 1.0 x10^3/uL (1.0-4.8) Monocytes # (Auto) 0.4 x10^3/uL (0.0-1.1) Eosinophils # (Auto) 0.1 x10^3/uL (0.0-0.7) Basophils # (Auto) 0.0 x10^3/uL (0.0-0.2) Sodium Level 146 mmol/L (136-145) H Potassium Level 4.1 mmol/L (3.5-5.1) Chloride Level 108 mmol/L (98-107) H Carbon Dioxide Level 30 mmol/L (21-32) Anion Gap 8 (6-14) Blood Urea Nitrogen 22 mg/dL (7-20) H Creatinine 1.1 mg/dL (0.6-1.0) H Estimated GFR (Cockcroft-Gault) 47.0 BUN/Creatinine Ratio 20 (6-20) Glucose Level 94 mg/dL (70-99) Lactic Acid Level 0.9 mmol/L (0.4-2.0) Calcium Level 8.8 mg/dL (8.5-10.1) Total Bilirubin 0.4 mg/dL (0.2-1.0) Aspartate Amino Transferase (AST) 34 U/L (15-37) Alanine Aminotransferase (ALT) 22 U/L (14-59) Alkaline Phosphatase 160 U/L (46-116) H C-Reactive Protein, Quantitative 11.7 mg/L (0-3.3) H Total Protein 6.8 g/dL (6.4-8.2) Albumin 3.4 g/dL (3.4-5.0) Albumin/Globulin Ratio 1.0 (1.0-1.7) Laboratory Tests 09/12/20 19:30 Laboratory Tests 09/12/20 19:30 Vital Signs: Vital Signs Date Time Temp Pulse Resp B/P (MAP) Pulse Ox O2 Delivery O2 Flow Rate FiO2 09/12/20 19:01 98.0 79 18 160/68 (118) 96 Room Air 98.0 EKG: EKG: [] Heart Score: C/O Chest Pain: No Risk Factors: Risk Factors: DM, Current or recent (<one month) smoker, HTN, HLP, family history of CAD, obesity. Risk Scores: Score 0 - 3: 2.5% MACE over next 6 weeks - Discharge Home Score 4 - 6: 20.3% MACE over next 6 weeks - Admit for Clinical Observation Score 7 - 10: 72.7% MACE over next 6 weeks - Early Invasive Strategies Radiology/Procedures: Radiology/Procedures: [] Course & Med Decision Making: Course & Med Decision Making Pertinent Labs and Imaging studies reviewed. (See chart for details) [] Dragon Disclaimer: Dragon Disclaimer: This electronic medical record was generated, in whole or in part, using a voice recognition dictation system. Departure Departure Impression: Primary Impression: Cellulitis of right foot due to methicillin-resistant Staphylococcus aureus Disposition: ADMITTED INPATIENT Admitting Physician: ANNE Condition: STABLE Referrals: VERO WYNN MD (PCP) JAIRO GALLO MD Sep 12, 2020 18:49
[2020-09-12 19:51] LABS: BASO % 1 % (0-3); EOS # 0.1 x10^3/uL (0.0-0.7); EOS % 3 % (0-3); HEMATOCRIT 35.2 % (36.0-47.0); HEMOGLOBIN 11.2 g/dL (12.0-15.5); LYMPH % 22 % (24-48); MEAN CORPUSCULAR HEMOGLOBIN 30 pg (25-35); MEAN CORPUSCULAR HGB CONC 32 g/dL (31-37); MEAN CORPUSCULAR VOLUME 95 fL (79-100); MONO # 0.4 x10^3/uL (0.0-1.1); MONO % 10 % (0-9); NEUT # 2.9 x10^3/uL (1.8-7.7); NEUT % 64 % (31-73); PLATELET COUNT 259 x10^3/uL (140-400); RED CELL DISTRIBUTION WIDTH 17.3 % (11.5-14.5); WHITE BLOOD COUNT 4.5 x10^3/uL (4.0-11.0)
[2020-09-12 19:56] LABS: CALCIUM 8.8 mg/dL (8.5-10.1); CREATININE 1.1 mg/dL (0.6-1.0); POTASSIUM 4.1 mmol/L (3.5-5.1)
[2020-09-12 20:01] LABS: ALBUMIN 3.4 g/dL (3.4-5.0); C-REACTIVE PROTEIN 11.7 mg/L (0-3.3); TOTAL BILIRUBIN 0.4 mg/dL (0.2-1.0); TOTAL PROTEIN 6.8 g/dL (6.4-8.2)
[2020-09-12 20:09] LABS: BILIRUBIN,URINE NEGATIVE (NEG); CLARITY,URINE CLEAR; COLOR,URINE YELLOW; NITRITE,URINE POSITIVE (NEG); PH,URINE 5.5 (<5.0-8.0); PROTEIN,URINE NEGATIVE (NEG-TRACE); UROBILINOGEN,URINE 0.2 mg/dL (0.2 mg/dL)
[2020-09-12 20:16] LABS: BACTERIA,URINE MANY /HPF (0-FEW)
[2020-09-12 20:18] LABS: RBC,URINE OCC /HPF (0-2)
[2020-09-12] MEDS ORDERED: ACETAMINOPHEN 325 MG TABLET. PO PRN (20:30)
[2020-09-12] MEDS ORDERED: ONDANSETRON PF 4 MG/2 ML VIAL. IV PRN (20:30)
[2020-09-12] MEDS ORDERED: VANCOMYCIN 1.5 GM in IV NORMAL SALINE 500ML BAG 500 ML IV ONE (21:00)
[2020-09-12] MEDS: MORPHINE SULFATE 4 MG/ML INJ. IV PRN (21:03)
[2020-09-12] MEDS: IV NORMAL SALINE 1000ML BAG 1,000 ML IV SCH (21:03)
--- NOTE | 2020-09-12 22:55 | RAD ---
Exam Date: 09/12/2020 7:07 PM XR EXAM OF ANKLE_RIGHT 3VIEWS, XR FOOT_RIGHT 3 VIEWS Indication: Reason: Osteomyelitis / Spl. Instructions: / History: . FINDINGS/ IMPRESSION: Bones are diffusely osteopenia which limits evaluation. Moderate degenerative changes are noted. Ramirez mmertoe deformities further limit evaluation. No definite osseous destructive changes are seen to co nfirm acute osteomyelitis, however, given the limitations of this exam, and the limitations of radiog terrell in general in detecting acute osteomyelitis, further evaluation MRI with and without contrast s hould be performed if there is clinical suspicion for acute osteomyelitis. Prominent vascular calcif ications are seen. Ankle mortise is intact. No definite acute fracture or dislocation. Electronically signed by: Oracio Olguin MD (09/12/2020 10:53 PM) YAMILA
--- NOTE | 2020-09-12 23:55 | RAD ---
Exam: Chest one view INDICATION: CHF TECHNIQUE: Frontal view of the chest Comparisons: 05/13/2020 FINDINGS: Heart is mildly enlarged. Pulmonary vessels are within normal limits. Bandlike airspace disease at the right upper lung. No pleural effusion. IMPRESSION: Right apical airspace disease may represent infectious or inflammatory process. Electronically signed by: Brit Hayes MD (09/12/2020 11:52 PM) DOUGLAS
[2020-09-13] MEDS: MORPHINE SULFATE 4 MG/ML INJ. IV PRN ×2 (01:24→04:30)
[2020-09-13 03:49] VITALS: BP 123/48
[2020-09-13 07:00] VITALS: BP 147/75
[2020-09-13 07:45] LABS: BASO % 1 % (0-3); EOS # 0.2 x10^3/uL (0.0-0.7); EOS % 4 % (0-3); HEMATOCRIT 35.8 % (36.0-47.0); HEMOGLOBIN 11.5 g/dL (12.0-15.5); LYMPH # 0.9 x10^3/uL (1.0-4.8); LYMPH % 19 % (24-48); MEAN CORPUSCULAR HEMOGLOBIN 31 pg (25-35); MEAN CORPUSCULAR HGB CONC 32 g/dL (31-37); MEAN CORPUSCULAR VOLUME 96 fL (79-100); MONO # 0.4 x10^3/uL (0.0-1.1); MONO % 8 % (0-9); NEUT # 3.4 x10^3/uL (1.8-7.7); NEUT % 69 % (31-73); PLATELET COUNT 262 x10^3/uL (140-400); RED BLOOD COUNT 3.71 x10^6/uL (3.50-5.40); RED CELL DISTRIBUTION WIDTH 17.2 % (11.5-14.5)
--- NOTE | 2020-09-13 08:00 | PDOC1 ---
History and Physical Date of Admission Date of Admission DATE: 09/13/20 TIME: 07:38 Identification/Chief Complaint Chief Complaint Right leg pain Source Source: Patient History of Present Illness History of Present Illness Ms Garcia is an 85 yo female w/ PMHx HLD, HTN, AFIB, chronic diastolic CHF, cervical cancer, allergic rhinitis, lumbar and cervical spinal stenosis who is most wheelchair bound coming in from home at direction of her home health wound care nurse from her assisted living facility, [facility] for failed outpatient treatment of bilateral lower extremity cellulitis and wounds. Has been on home health wound nursing for wound of 3rd right toe and medial lower leg ulcers and recently been on 3 rounds of antibiotics for 10 days each without improvement. Has had chills but denies any fevers. No other complaints. Per wound culture provided the patient has MRSA is resistant to multiple medications including tetracyclines the wound culture was from 09/09/2020 and is in her paper chart Started on linezolid here. Patient has allergy to sulfa and multiple other antibiotics Labs with WBC 4.5, Hb 11.2, platelets 259, sed rate 29, NA 146, K4.1, BUN 22, CR 1.1, glucose 94, alk phos 160 LFTs otherwise within normal laboratory limits, C RP 11.7, lactic acid 0.9 urinalysis large leuk esterase positive nitrates. Chest radiograph with right apical small consolidation and right ankle and foot x-rays with no acute findings. Admitted for further care. Past Medical History Cardiovascular: AFIB, CHF, HTN, Hyperlipidemia Pulmonary: Asthma, Other CENTRAL NERVOUS SYSTEM: Periperal neuropathy GI: Peptic Ulcer disease, Other Heme/Onc: Cancer Hepatobiliary: No pertinent hx Musculoskeletal: low back pain Rheumatologic: Other Renal/: Chronic renal insuff, Other Endocrine: Hypothyroidism, Other Past Surgical History Past Surgical History: Total knee replacement, Hysterectomy, Other Family History Family History: Diabetes, Heart Disease, Hypertension Social History Smoke: No ALCOHOL: none Drugs: None Current Problem List Problem List Problems Medical Problems: (1) Cellulitis of right foot due to methicillin-resistant Staphylococcus aureus Status: Acute Current Medications Current Medications Current Medications Ondansetron HCl (Zofran) 4 mg PRN Q8HRS PRN IV NAUSEA/VOMITING; Start 09/12/20 at 20:30; Stop 09/13/20 at 20:29 Morphine Sulfate (Morphine Sulfate) 4 mg PRN Q2HR PRN IV PAIN Last administered on 09/13/20at 04:30; Start 09/12/20 at 20:30; Stop 09/13/20 at 20:29 Sodium Chloride 1,000 ml @ 75 mls/hr [id number] IV Last administered on 09/12/20at 21:03; Start 09/12/20 at 21:00; Stop 09/13/20 at 20:59 Acetaminophen (Tylenol) 650 mg PRN Q4HRS PRN PO FEVER > 100.3'F; Start 09/12/20 at 20:30; Stop 09/13/20 at 20:29 Vancomycin HCl 1.5 gm/Sodium Chloride 500 ml @ 250 mls/hr 1X ONCE IV Last administered on 09/12/20at 21:04; Start 09/12/20 at 21:00; Stop 09/12/20 at 22:59; Status DC Active Scripts Active Cefdinir 300 Mg Capsule 300 Mg PO BID 3 Days Hydralazine Hcl 25 Mg Tablet 25 Mg PO TID Reported Multi-Vitamin Daily (Multivitamin) 1 Each Tablet 1 Tab PO DAILY 30 Days Lidocaine PATCH (Lidocaine) 1 Each Adh..patch 1 Each TP DAILY REMOVE AFTER 12 HOURS Flonase Allergy Relief (Fluticasone Propionate) 9.9 Ml [place].susp 2 Sprays NS DAILY Culturelle (Lactobacillus Rhamnosus Gg) 1 Each Cap.sprink 1 Cap PO DAILY 30 Days Acetaminophen 500 Mg Tablet 1 Tab PO TID PRN 15 Days Clotrimazole-Betamethasone Crm (Clotrimazole/Betamethasone Dip) 15 Gm Cream..g. 1 Stephen TP BID Docusate Sodium 100 Mg Capsule 1 Cap PO DAILY Cetirizine Hcl 10 Mg Tablet 10 Mg PO HS Vitamin A 10,000 Unit Capsule 10,000 Unit PO DAILY Allopurinol 300 Mg Tablet 300 Mg PO BID Gabapentin (Gabapentin) 300 Mg Capsule 300 Mg PO DAILY Aspir 81 (Aspirin) 81 Mg Tablet. 1 Tab PO BID Vitamin E (Vitamin E (Dl,Tocopheryl Acet)) 1,000 Unit Capsule 1,000 Unit PO DAILY Vitamin C (Ascorbic Acid) 1,000 Mg Tablet 1,000 Mg PO Synthroid (Levothyroxine Sodium) 125 Mcg Tablet 137 Mcg PO DAILYAC Allergies Allergies: Coded Allergies: linaclotide (Verified Allergy, Severe, 07/03/17) Sulfa (Sulfonamide Antibiotics) (Verified Allergy, Intermediate, 09/17/15) atorvastatin (Verified Allergy, Intermediate, 09/17/15) bisoprolol (Verified Allergy, Intermediate, 09/14/15) cadexomer iodine (Verified Allergy, Intermediate, itching, 09/14/15) ciprofloxacin (Verified Allergy, Intermediate, 09/17/15) diltiazem (Verified Allergy, Intermediate, takes VERAPAMIL at home, 07/02/17) lisinopril (Verified Allergy, Intermediate, 09/18/15) methylphenidate (Verified Allergy, Intermediate, 09/17/15) naproxen (Verified Allergy, Intermediate, 07/03/17) TOLERATES ASA nitrofurantoin (Verified Allergy, Intermediate, 09/14/15) ofloxacin (Verified Allergy, Intermediate, 09/17/15) paroxetine (Verified Allergy, Intermediate, 09/17/15) piroxicam (Verified Allergy, Intermediate, 09/17/15) propoxyphene (Verified Allergy, Intermediate, 09/17/15) ranitidine (Verified Allergy, Intermediate, 09/17/15) senna (Verified Allergy, Intermediate, 09/17/15) valdecoxib (Verified Allergy, Intermediate, 09/17/15) ROS General: YES: Fatigue, Malaise; No: Chills, Night Sweats, Appetite, Other PSYCHOLOGICAL ROS: No: Anxiety, Behavioral Disorder, Concentration difficultie, Decreased libido, Depression, Disorientation, Hallucinations, Hostility, Irritablity, Memory difficulties, Mood Swings, Obsessive thoughts, Physical abuse, Sexual abuse, Sleep disturbances, Suicidal ideation, Other Eyes: No Blurry vision, No Decreased vision, No Double vision, No Dry eyes, No Excessive tearing, No Eye Pain, No Itchy Eyes, No Loss of vision, No Photophobia, No Scotomata, No Uses contacts, No Uses glasses, No Other HEENT: No: Heacaches, Visual Changes, Hearing change, Nasal congestion, Nasal discharge, Oral lesions, Sinus pain, Sore Throat, Epistaxis, Sneezing, Snoring, Tinnitus, Vertigo, Vocal changes, Other ALLERGY AND IMMUNOLOGY: No: Hives, Insect Bite Sensitivity, Itchy/Watery Eyes, Nasal Congestion, Post Nasal Drip, Seasonal Allergies, Other Hematological and Lymphatic: No: Bleeding Problems, Blood Clots, Blood Transfusions, Brusing, Night Sweats, Pallor, Swollen Lymph Nodes, Other ENDOCRINE: No: Breast Changes, Galactorrhea, Hair Pattern Changes, Hot Flashes, Malaise/lethargy, Mood Swings, Palpitations, Polydipsia/polyuria, Skin Changes, Temperature Intolerance, Unexpected Weight Changes, Other Breast: No New/Changing Breast Lumps, No Nipple changes, No Nipple discharge, No Other Respiratory: YES: Cough, Shortness of breath; No: Hemoptysis, Orthopnea, Pleuritic Pain, SOB with excertion, Sputum Changes, Stridor, Tachypnea, Wheezing, Other Cardiovascular: No Chest Pain, No Palpitations, No Orthopnea, No Paroxysmal Noc. Dyspnea, No Edema, No Lt Headedness, No Other Gastrointestinal: No Nausea, No Vomiting, No Abdominal Pain, No Diarrhea, No Constipation, No Melena, No Hematochezia, No Other Genitourinary: YES Dysuria; No Frequency, No Incontinence, No Hematuria, No Retention, No Discharge, No Urgency, No Pain, No Flank Pain, No Other, No , No , No , No , No , No , No Musculoskeletal: Yes Gait Disturbance, Yes Joint Pain; No Joint Stiffness, No Joint Swelling, No Muscle Pain, No Muscular Weakness, No Pain In:, No Swelling In:, No Other Neurological: No Behavorial Changes, No Bowel/Bladder ControlChng, No Confusion, No Dizziness, No Gait Disturbance, No Headaches, No Impaired Coord/balance, No Memory Loss, No Numbness/Tingling, No Seizures, No Speech Problems, No Tremors, No Visual Changes, No Weakness, No Other Skin: Yes Rash, Yes Skin Lesion Changes; No Dry Skin, No Eczema, No Hair Changes, No Lumps, No Mole Changes, No Mottling, No Nail Changes, No Pruritus, No Other, No Acne Physical Exam General: Alert, Oriented X3, Cooperative, mild distress HEENT: Atraumatic, PERRLA, EOMI, Mucous membr. moist/pink Lungs: Other (Right upper wheezing) Heart: irregularly irregular Abdomen: Normal bowel sounds, Soft, No tenderness, No hepatosplenomegaly, No masses Rectal Exam: not examined Extremities: Other (Severe kyphoscoliosis. Right medial leg 7 ulcers with clean base and 3rd toe with dorsal wound) Neuro: Normal gait, Normal speech, Strength at 5/5 X4 ext, Normal tone, Sensation intact, Cranial nerves 3-12 NL, Reflexes 2+ Psych/Mental Status: Mental status NL, Mood NL Vitals Vitals Vital Signs Date Time Temp Pulse Resp B/P (MAP) Pulse Ox O2 Delivery O2 Flow Rate FiO2 09/13/20 04:59 19 Nasal Cannula 2.0 09/13/20 03:49 97.3 85 123/48 (73) 98 97.3 Labs Labs Laboratory Tests Test 09/12/20 19:13 09/12/20 19:30 Urine Collection Type Unknown Urine Color Yellow Urine Clarity Clear Urine pH 5.5 (<5.0-8.0) Urine Specific [place] 1.010 (1.000-1.030) Urine Protein Negative mg/dL (NEG-TRACE) Urine Glucose (UA) Negative mg/dL (NEG) Urine Ketones (Stick) Negative mg/dL (NEG) Urine Blood Negative (NEG) Urine Nitrite Positive (NEG) Urine Bilirubin Negative (NEG) Urine Urobilinogen Dipstick 0.2 mg/dL (0.2 mg/dL) Urine Leukocyte Esterase Large (NEG) Urine RBC Occ /HPF (0-2) Urine WBC 11-20 /HPF (0-4) Urine Squamous Epithelial Cells Mod /LPF Urine Renal Epithelial Cells Occ /LPF Urine Bacteria Many /HPF (0-FEW) White Blood Count 4.5 x10^3/uL (4.0-11.0) Red Blood Count 3.70 x10^6/uL (3.50-5.40) Hemoglobin 11.2 g/dL (12.0-15.5) Hematocrit 35.2 % (36.0-47.0) Mean Corpuscular Volume 95 fL (79-100) Mean Corpuscular Hemoglobin 30 pg (25-35) Mean Corpuscular Hemoglobin Concent 32 g/dL (31-37) Red Cell Distribution Width 17.3 % (11.5-14.5) Platelet Count 259 x10^3/uL (140-400) Neutrophils (%) (Auto) 64 % (31-73) Lymphocytes (%) (Auto) 22 % (24-48) Monocytes (%) (Auto) 10 % (0-9) Eosinophils (%) (Auto) 3 % (0-3) Basophils (%) (Auto) 1 % (0-3) Neutrophils # (Auto) 2.9 x10^3/uL (1.8-7.7) Lymphocytes # (Auto) 1.0 x10^3/uL (1.0-4.8) Monocytes # (Auto) 0.4 x10^3/uL (0.0-1.1) Eosinophils # (Auto) 0.1 x10^3/uL (0.0-0.7) Basophils # (Auto) 0.0 x10^3/uL (0.0-0.2) Erythrocyte Sedimentation Rate 29 (0-25) Sodium Level 146 mmol/L (136-145) Potassium Level 4.1 mmol/L (3.5-5.1) Chloride Level 108 mmol/L (98-107) Carbon Dioxide Level 30 mmol/L (21-32) Anion Gap 8 (6-14) Blood Urea Nitrogen 22 mg/dL (7-20) Creatinine 1.1 mg/dL (0.6-1.0) Estimated GFR (Cockcroft-Gault) 47.0 BUN/Creatinine Ratio 20 (6-20) Glucose Level 94 mg/dL (70-99) Lactic Acid Level 0.9 mmol/L (0.4-2.0) Calcium Level 8.8 mg/dL (8.5-10.1) Total Bilirubin 0.4 mg/dL (0.2-1.0) Aspartate Amino Transf (AST/SGOT) 34 U/L (15-37) Alanine Aminotransferase (ALT/SGPT) 22 U/L (14-59) Alkaline Phosphatase 160 U/L (46-116) C-Reactive Protein, Quantitative 11.7 mg/L (0-3.3) Total Protein 6.8 g/dL (6.4-8.2) Albumin 3.4 g/dL (3.4-5.0) Albumin/Globulin Ratio 1.0 (1.0-1.7) Laboratory Tests Test 09/12/20 19:13 09/12/20 19:30 Urine Collection Type Unknown Urine Color Yellow Urine Clarity Clear Urine pH 5.5 (<5.0-8.0) Urine Specific [place] 1.010 (1.000-1.030) Urine Protein Negative mg/dL (NEG-TRACE) Urine Glucose (UA) Negative mg/dL (NEG) Urine Ketones (Stick) Negative mg/dL (NEG) Urine Blood Negative (NEG) Urine Nitrite Positive (NEG) Urine Bilirubin Negative (NEG) Urine Urobilinogen Dipstick 0.2 mg/dL (0.2 mg/dL) Urine Leukocyte Esterase Large (NEG) Urine RBC Occ /HPF (0-2) Urine WBC 11-20 /HPF (0-4) Urine Squamous Epithelial Cells Mod /LPF Urine Renal Epithelial Cells Occ /LPF Urine Bacteria Many /HPF (0-FEW) White Blood Count 4.5 x10^3/uL (4.0-11.0) Red Blood Count 3.70 x10^6/uL (3.50-5.40) Hemoglobin 11.2 g/dL (12.0-15.5) Hematocrit 35.2 % (36.0-47.0) Mean Corpuscular Volume 95 fL (79-100) Mean Corpuscular Hemoglobin 30 pg (25-35) Mean Corpuscular Hemoglobin Concent 32 g/dL (31-37) Red Cell Distribution Width 17.3 % (11.5-14.5) Platelet Count 259 x10^3/uL (140-400) Neutrophils (%) (Auto) 64 % (31-73) Lymphocytes (%) (Auto) 22 % (24-48) Monocytes (%) (Auto) 10 % (0-9) Eosinophils (%) (Auto) 3 % (0-3) Basophils (%) (Auto) 1 % (0-3) Neutrophils # (Auto) 2.9 x10^3/uL (1.8-7.7) Lymphocytes # (Auto) 1.0 x10^3/uL (1.0-4.8) Monocytes # (Auto) 0.4 x10^3/uL (0.0-1.1) Eosinophils # (Auto) 0.1 x10^3/uL (0.0-0.7) Basophils # (Auto) 0.0 x10^3/uL (0.0-0.2) Erythrocyte Sedimentation Rate 29 (0-25) Sodium Level 146 mmol/L (136-145) Potassium Level 4.1 mmol/L (3.5-5.1) Chloride Level 108 mmol/L (98-107) Carbon Dioxide Level 30 mmol/L (21-32) Anion Gap 8 (6-14) Blood Urea Nitrogen 22 mg/dL (7-20) Creatinine 1.1 mg/dL (0.6-1.0) Estimated GFR (Cockcroft-Gault) 47.0 BUN/Creatinine Ratio 20 (6-20) Glucose Level 94 mg/dL (70-99) Lactic Acid Level 0.9 mmol/L (0.4-2.0) Calcium Level 8.8 mg/dL (8.5-10.1) Total Bilirubin 0.4 mg/dL (0.2-1.0) Aspartate Amino Transf (AST/SGOT) 34 U/L (15-37) Alanine Aminotransferase (ALT/SGPT) 22 U/L (14-59) Alkaline Phosphatase 160 U/L (46-116) C-Reactive Protein, Quantitative 11.7 mg/L (0-3.3) Total Protein 6.8 g/dL (6.4-8.2) Albumin 3.4 g/dL (3.4-5.0) Albumin/Globulin Ratio 1.0 (1.0-1.7) Images Images Chest radiograph: Heart is mildly enlarged. Pulmonary vessels are within normal limits. Bandlike airspace disease at the right upper lung. No pleural effusion. IMPRESSION: Right apical airspace disease may represent infectious or inflammatory process. Right foot and ankle radiograph: Bones are diffusely osteopenia which limits evaluation. Moderate degenerative changes are noted. Hammertoe deformities further limit evaluation. No definite osseous destructive changes are seen to confirm acute osteomyelitis, however, given the limitations of this exam, and the limitations of radiography in general in detecting acute osteomyelitis, further evaluation MRI with and without contrast should be performed if there is clinical suspicion for acute osteomyelitis. Prominent vascular calcifications are seen. Ankle mortise is intact. No definite acute fracture or dislocation. VTE Prophylaxis Ordered VTE Prophylaxis Devices: Yes VTE Pharmacological Prophylaxi: Yes Assessment/Plan Assessment/Plan A/P: Right leg ulcer - multiple wounds, positive for MRSA, clean based wounds. ID consulted. On zyvox. Will obtain arterial doppler for concern for PAD. Sees ULISES - likely vasomotor nephropathy from difficulty accessing PO well. Hydrate Abnormal chest radiograph - will order prn nebs. No cough. Will order CT to better characterize HLD - cont statin HTN - cont home meds AFIB - rate is currently controlled, has h/o fall, not on anticoagulation, likely not on BB due to bradycardia Chronic diastolic CHF - can only tolerate low dose hydralazine. No BB for popeye. H/o cervical cancer - in remission Allergic rhinitis - nasacort prn Lumbar and cervical spinal stenosis - lidoderm patch. FEN - Cardiac diet ppx - heparin CODE - DNR/DNI Dispo - inpatient for above Justifications for Admission Other Justification SPEEDY OVIEDO MD Sep 13, 2020 07:59
[2020-09-13 08:05] LABS: ALBUMIN 2.8 g/dL (3.4-5.0); ALBUMIN/GLOBULIN RATIO 0.9 (1.0-1.7); CALCIUM 8.2 mg/dL (8.5-10.1); CREATININE 0.8 mg/dL (0.6-1.0); GFR 67.8; POTASSIUM 3.6 mmol/L (3.5-5.1); TOTAL BILIRUBIN 0.5 mg/dL (0.2-1.0); TOTAL PROTEIN 5.8 g/dL (6.4-8.2)
[2020-09-13] MEDS: LINEZOLID 600 MG TABLET PO SCH ×2 (10:11→22:00)
[2020-09-13] MEDS: IV NORMAL SALINE 1000ML BAG 1,000 ML IV SCH (10:20)
[2020-09-13 11:00] VITALS: BP 165/68
[2020-09-13] MEDS ORDERED: ACETAMINOPHEN 325 MG TABLET. PO PRN (11:30)
--- NOTE | 2020-09-13 11:32 | CONS ---
DATE OF CONSULTATION: 09/13/2020 REFERRING PHYSICIAN: Dr. Kauffman. REASON FOR CONSULTATION: Leg cellulitis. HISTORY OF PRESENT ILLNESS: This is an 85-year-old female who comes from home. Has multiple medical problems including hypertension, AFib, congestive heart failure, cervical cancer, spinal stenosis, who has right leg wounds for what the patient calls it for years. The patient off and on looking bad, it off and on has pain. The patient apparently was sent in by [facility] for re-culture and it was MRSA and they tried oral antibiotics and "it wasn't working." The patient denies any nausea, vomiting, diarrhea. Denies any trauma, denies any chest pain, shortness of breath. Denies any fever or chills. PAST MEDICAL HISTORY: Positive for hypertension, hyperlipidemia, congestive heart failure, atrial fibrillation, asthma, peripheral neuropathy, peptic ulcer disease, renal insufficiency, hypothyroidism. PAST SURGICAL HISTORY: Has had total knee replacement and hysterectomy. SOCIAL HISTORY: Negative for smoking, alcohol or illicit drug use. ALLERGIES: SHE IS LISTED ALLERGIC TO SULFA, CIPRO, NITROFURANTOIN, OFLOXACIN. THESE ARE THE ANTIBIOTIC ALLERGIES APART FROM OTHER MEDICATION. REVIEW OF SYSTEMS: As in HPI. All other systems reviewed are negative. CURRENT MEDICATIONS: Reviewed. PHYSICAL EXAMINATION: GENERAL: On examination, alert, oriented female, not in distress. VITAL SIGNS: Temperature 97.3, pulse 85, respirations 19, blood pressure 123/48. HEENT: NAD. NECK: Supple, no JVP, no lymphadenopathy. LUNGS: Clear. HEART: S1, S2 regular. ABDOMEN: Soft, nontender, no organomegaly. EXTREMITIES: The patient has venous insufficiency and stasis dermatitis present. There are superficial relatively clean wounds onto the leg. Dorsalis pedis is weak palpable. NEUROLOGIC: The patient is alert, awake, appropriate. No focal neurologic deficit. LABORATORY DATA: White count is 5000, platelets are normal. BUN and creatinine ____ actually it improved from 1.1 to 0.8. DIAGNOSTIC DATA: Her chest x-ray, ankle x-ray and foot x-ray is unremarkable. IMPRESSION: 1. Right lower extremity superficial ulcers. 2. Right lower extremity cellulitis. 3. Venous insufficiency. 4. Stasis dermatitis. 5. Peripheral vascular disease. 6. Multiple medication allergies. RECOMMENDATIONS: Recommend leg elevation, local wound care, p.o. Zyvox, PT, OT Thank you very much, Dr. Kauffman, for giving me opportunity to participate in this patient's care. ARMAAN/SUB DR: ARMAAN/dillon TID: [id number]
[2020-09-13] MEDS ORDERED: ALBUTEROL SULFATE 2.5 MG/3 ML NEBU. NEB PRN (11:45)
[2020-09-13] MEDS: LIDOCAINE (700MG/PATCH) PATCH. TD SCH (14:13)
[2020-09-13] MEDS: MULTIVITAMIN with MINERAL TABLET. PO SCH (14:14)
[2020-09-13] MEDS: ASCORBIC ACID 1,000 MG TABLET PO SCH (14:14)
[2020-09-13] MEDS: VITAMIN E 200 UNIT CAPSULE. PO SCH (14:14)
[2020-09-13] MEDS: ASPIRIN ENTERIC COATED 81 MG TABLET.DR. PO SCH ×2 (14:14→22:00)
[2020-09-13] MEDS: DOCUSATE SODIUM 100 MG CAPSULE. PO SCH (14:14)
[2020-09-13] MEDS: LEVOTHYROXINE 137 MCG TABLET PO SCH (14:14)
[2020-09-13] MEDS: GABAPENTIN 300 MG CAPSULE. PO SCH (14:14)
[2020-09-13] MEDS: LACTOBACILLUS RHAMNOSUS GG 1 CAPSULE. PO SCH (14:14)
[2020-09-13] MEDS: hydrALAZINE 25 MG TABLET PO SCH ×2 (14:23→22:01)
[2020-09-13] MEDS: HEPARIN for SUB-Q USE 5,000 UNIT/ML VIAL. SQ SCH ×2 (14:32→22:00)
[2020-09-13 15:00] VITALS: BP 162/82
[2020-09-13 19:00] VITALS: BP 119/55
[2020-09-13] MEDS ORDERED: CETIRIZINE HCL 10 MG TABLET. PO SCH (21:00)
[2020-09-13] MEDS: CLOTRIMAZOLE/BETAMETH 1%-0.05% TOPICAL CREAM 15GM TUBE. TP SCH (21:00)
--- NOTE | 2020-09-13 22:00 | NUR ---
NURSING NOTE CT called regarding CT chest ordered for pt earlier in the day. signals collection technician reported that they had called the floor a few times asking for someone to bring the pt down for scan, but staff was unable. This was unknown to this rewriter. Went to inform pt of CT order, and pt wanted to wait until AM to do CT d/t the late hour.
[2020-09-13] MEDS: PATCH REMOVAL. MC SCH (22:03)
[2020-09-13] MEDS: traMADol 50 MG TABLET PO PRN (22:06)
[2020-09-13 23:11] VITALS: BP 153/79
[2020-09-14 03:13] VITALS: BP 127/69
[2020-09-14] MEDS: LEVOTHYROXINE 137 MCG TABLET PO SCH (05:56)
[2020-09-14] MEDS: CETIRIZINE HCL 10 MG TABLET. PO SCH (05:56)
[2020-09-14] MEDS: HEPARIN for SUB-Q USE 5,000 UNIT/ML VIAL. SQ SCH ×3 (05:59→21:30)
[2020-09-14 07:00] VITALS: BP 161/86
[2020-09-14 07:38] LABS: BASO % 1 % (0-3); EOS # 0.2 x10^3/uL (0.0-0.7); EOS % 5 % (0-3); HEMATOCRIT 36.4 % (36.0-47.0); HEMOGLOBIN 11.7 g/dL (12.0-15.5); LYMPH # 0.7 x10^3/uL (1.0-4.8); LYMPH % 17 % (24-48); MEAN CORPUSCULAR HEMOGLOBIN 31 pg (25-35); MEAN CORPUSCULAR HGB CONC 32 g/dL (31-37); MEAN CORPUSCULAR VOLUME 96 fL (79-100); MONO # 0.3 x10^3/uL (0.0-1.1); MONO % 8 % (0-9); NEUT # 2.8 x10^3/uL (1.8-7.7); NEUT % 70 % (31-73); PLATELET COUNT 261 x10^3/uL (140-400); RED CELL DISTRIBUTION WIDTH 17.2 % (11.5-14.5)
[2020-09-14 08:18] LABS: CALCIUM 8.1 mg/dL (8.5-10.1); CREATININE 0.7 mg/dL (0.6-1.0); GFR 79.2
--- NOTE | 2020-09-14 08:52 | RAD ---
Exam: US RIGHT LOWER EXTREMITY ARTERIAL DUPLEX EVAL History: Chronic wounds, decreased pulses. Comparison: 10/28/2019. Technique: Grayscale, color, and spectral Doppler ultrasound images of the right lower extremity [facility]. Findings: Peak systolic velocities (cm/s) and waveforms in the lower extremities: Right: Common femoral artery: 156, triphasic Profunda femoris artery: 88, biphasic Proximal superficial femoral artery: 115, biphasic Mid superficial femoral artery: 97, biphasic Distal superficial femoral artery: 156, monophasic Popiteal artery: 102, monophasic Mid posterior tibial artery: 97, monophasic Mid peroneal artery: 61, monophasic Mid anterior tibial artery: 234, monophasic Dorsalis pedis artery: 68, monophasic Impression: 1. Increased velocity of the right anterior tibial artery suggesting significant stenosis at this seg ment. Diffuse right lower extremity peripheral artery disease with dampened waveforms distal to the c ommon femoral artery. Electronically signed by: Ken Pavon MD (09/14/2020 8:49 AM) [facility]
[2020-09-14] MEDS: CLOTRIMAZOLE/BETAMETH 1%-0.05% TOPICAL CREAM 15GM TUBE. TP SCH ×2 (09:00→21:00)
[2020-09-14] MEDS: FLUTICASONE 50MCG/NASAL SPRAY 16GM BOTTLE. NS SCH (09:43)
[2020-09-14] MEDS: VITAMIN E 200 UNIT CAPSULE. PO SCH (09:43)
[2020-09-14] MEDS: DOCUSATE SODIUM 100 MG CAPSULE. PO SCH (09:44)
[2020-09-14] MEDS: ASPIRIN ENTERIC COATED 81 MG TABLET.DR. PO SCH ×2 (09:44→21:19)
[2020-09-14] MEDS: LACTOBACILLUS RHAMNOSUS GG 1 CAPSULE. PO SCH (09:44)
[2020-09-14] MEDS: ASCORBIC ACID 1,000 MG TABLET PO SCH (09:44)
[2020-09-14] MEDS: LINEZOLID 600 MG TABLET PO SCH ×2 (09:44→21:19)
[2020-09-14] MEDS: GABAPENTIN 300 MG CAPSULE. PO SCH (09:44)
[2020-09-14] MEDS: MULTIVITAMIN with MINERAL TABLET. PO SCH (09:44)
[2020-09-14] MEDS: LIDOCAINE (700MG/PATCH) PATCH. TD SCH (09:45)
[2020-09-14] MEDS: hydrALAZINE 25 MG TABLET PO SCH ×3 (09:46→21:19)
--- NOTE | 2020-09-14 10:00 | RAD ---
CT THORAX WO History: Reason: Right upper lobe abnormality, shortness of breath / Spl. Instructions: / History: Comparison: Chest x-ray 09/12/2020, CT chest abdomen and pelvis 03/04/2020 Technique: Noncontrast CT of the chest. Findings: Assessment is limited by lack of IV contrast. Cardiovascular: Cardiomegaly. Aortic annular and arch calcifications. Moderate coronary artery calcif ications. Trace pericardial fluid. Mediastinum and calista: Calcified left hilar lymph nodes. No enlarged adenopathy. Airways, lungs and pleura: Groundglass opacification and peripheral consolidation in the right upper lobe, increased from comparison exam. Senescent peripheral reticulations redemonstrated. Mild bronchi ectatic changes. Small bilateral pleural effusions, new from February 2020 comparison. Upper abdomen: Surgical changes of the stomach at the gastroesophageal junction. Surgical clips throu ghout the upper abdomen. Osseous structures and soft tissues: Left chest subcutaneous heart monitor. Redemonstrated severe tho racic kyphosis multiple mid thoracic vertebral body wedging. Impression: 1. Interval increase in groundglass opacity and peripheral consolidation right upper lobe concerning for infectious process. 2. New small bilateral pleural effusions with adjacent compressive atelectasis. ------ Exposure: One or more of the following individualized dose reduction techniques were utilized for thi s examination: 1. Automated exposure control 2. Adjustment of the mA and/or kV according to patient size 3. Use of iterative reconstruction technique. Electronically signed by: Ken Pavon MD (09/14/2020 9:57 AM) [facility]
--- NOTE | 2020-09-14 10:19 | PDOC ---
Infectious Disease Note Subjective: Subjective Patient continues to have pain in the right foot Denies fever, nausea, vomiting, diarrhea, abdominal pain, symptoms Vital Signs: Vital Signs Vital Signs Date Time Temp Pulse Resp B/P (MAP) Pulse Ox O2 Delivery O2 Flow Rate FiO2 09/14/20 09:46 75 161/86 09/14/20 07:00 98.1 18 95 Nasal Cannula 2.0 98.1 Physical Exam: PHYSICAL EXAM GENERAL: On examination, alert, oriented female, not in distress. HEENT: Anicteric, no thrush NECK: Supple, no JVP LUNGS: Clear. HEART: S1, S2 regular. ABDOMEN: Soft, nontender, no organomegaly. EXTREMITIES: The patient has venous insufficiency and stasis dermatitis present. There are superficial wound over the dorsum and anterior roberts, dorsa lis pedis is weak palpable. NEUROLOGIC: The patient is alert, awake, appropriate. No focal neurologic deficit. Medications: Inpatient Meds: Medications reviewed. Labs: Lab Laboratory Tests Test 09/14/20 07:05 White Blood Count 4.0 x10^3/uL (4.0-11.0) Red Blood Count 3.80 x10^6/uL (3.50-5.40) Hemoglobin 11.7 g/dL (12.0-15.5) Hematocrit 36.4 % (36.0-47.0) Mean Corpuscular Volume 96 fL (79-100) Mean Corpuscular Hemoglobin 31 pg (25-35) Mean Corpuscular Hemoglobin Concent 32 g/dL (31-37) Red Cell Distribution Width 17.2 % (11.5-14.5) Platelet Count 261 x10^3/uL (140-400) Neutrophils (%) (Auto) 70 % (31-73) Lymphocytes (%) (Auto) 17 % (24-48) Monocytes (%) (Auto) 8 % (0-9) Eosinophils (%) (Auto) 5 % (0-3) Basophils (%) (Auto) 1 % (0-3) Neutrophils # (Auto) 2.8 x10^3/uL (1.8-7.7) Lymphocytes # (Auto) 0.7 x10^3/uL (1.0-4.8) Monocytes # (Auto) 0.3 x10^3/uL (0.0-1.1) Eosinophils # (Auto) 0.2 x10^3/uL (0.0-0.7) Basophils # (Auto) 0.0 x10^3/uL (0.0-0.2) Sodium Level 143 mmol/L (136-145) Potassium Level 4.0 mmol/L (3.5-5.1) Chloride Level 107 mmol/L (98-107) Carbon Dioxide Level 28 mmol/L (21-32) Anion Gap 8 (6-14) Blood Urea Nitrogen 14 mg/dL (7-20) Creatinine 0.7 mg/dL (0.6-1.0) Estimated GFR (Cockcroft-Gault) 79.2 Glucose Level 83 mg/dL (70-99) Calcium Level 8.1 mg/dL (8.5-10.1) Micro RUN DATE: 09/14/20 [facility] *LIVE* PAGE 1 RUN TIME: 815 Specimen Inquiry PATIENT: KAILA DISLA ACCT: [id number] LOC: 6 [facility] U: [id number] AGE/SX: 85/F ROOM: 676 RE09/12/[address]: SPEEDY TRACEY MD : [id number] BED: 1 DIS: STATUS: ADM IN TLOC: SPEC #: [id number] JACQUE: 09/12/20 STATUS: RES REQ #: [id number] RECD: 09/12/[address]: JAIRO GALLO MD SOURCE: VOID ENTR: 09/12/[address]: VERO WYNN MD [facility]: ORDERED: URINE CULTURE Procedure Result - URINE CULTURE Preliminary Preliminary GREATER THAN 100,000 CFU/ML GRAM NEGATIVE RODS on 09/14/20 at 0810 FINAL ID= [ESCHERICHIA COLI] LESS THAN 10,000 CFU/ML Normal genitourinary rayna, not indicative of infection on 09/14/20 at 0810 Testing Performed by: [facility] [place] [address] For Inquires, the Physician may contact the Microbiology department at [phone] ESCHERICHIA COLI Unless otherwise specified, Testing Performed by: [facility] [place] [address] For Inquires, the Physician may contact the Microbiology department at [phone] Objective: Assessment: 1. Right lower extremity superficial ulcers. 2. Right lower extremity cellulitis. 3. Venous insufficiency. 4. Stasis dermatitis. 5. Peripheral vascular disease. 6. Multiple medication allergies. 7. E Coli UTI Plan: Plan of Care Start rocephin cont linezolid leg elevation, local wound care PT, OT CRISSY CAMPBELL MD Sep 14, 2020 10:19
[2020-09-14 11:00] VITALS: BP 160/59
[2020-09-14] MEDS ORDERED: cefTRIAXone IV Push 2 GM VIAL. IVP SCH (11:00)
[2020-09-14] MEDS: fentaNYL PF VIAL 100 MCG/2 ML VIAL IVP PRN (11:40)
--- NOTE | 2020-09-14 13:18 | PDOC2 ---
CONSULT Date of Service Date of Service DATE: 09/14/20 TIME: 13:06 Reason for Consult Reason for Consult: Right lower extremity wounds, cellulitis Referring Physician Referring Physician: Dr. Medina Identification/Chief Complaint Chief Complaint Right lower extremity wounds, pain Source Source: Chart review, Patient History of Present Illness Reason for Visit: This is an 85 year old female who presented to the hospital with multiple medical problems including hypertension, AFib, congestive heart failure, cervical cancer, spinal stenosis, who has right leg wounds. She states these have been present for years, but have worsened with swelling and redness. She is currently being treated by home health and a older adult social work specialist. The wound on the dorsum of her foot is new. She has been on several rounds of oral antibiotics without improvement. The patient states the wounds worsened and now culture positive for MRSA. She denies any history of trauma. The patient denies any nausea, vomiting, diarrhea. She denies any chest pain or shortness of breath. Denies any fever or chills. She denies any nausea or vomiting. She resides in assisted living facility. Past Medical History Cardiovascular: AFIB, CHF, HTN, Hyperlipidemia Pulmonary: Asthma, Other CENTRAL NERVOUS SYSTEM: Periperal neuropathy GI: Peptic Ulcer disease, Other Heme/Onc: Cancer Hepatobiliary: No pertinent hx Musculoskeletal: low back pain Rheumatologic: Other Renal/: Chronic renal insuff, Other Endocrine: Hypothyroidism, Other Past Surgical History Past Surgical History: Total knee replacement, Hysterectomy, Other (bilateral lower extremity vein stripping) Family History Family History: Diabetes, Heart Disease, Hypertension Social History No ALCOHOL: none Drugs: None Lives: Long Term Current Problem List Problem List Problems Medical Problems: (1) Cellulitis of right foot due to methicillin-resistant Staphylococcus aureus Status: Acute Current Medications Current Medications Current Medications Ondansetron HCl (Zofran) 4 mg PRN Q8HRS PRN IV NAUSEA/VOMITING; Start 09/12/20 at 20:30; Stop 09/13/20 at 11:17; Status DC Morphine Sulfate (Morphine Sulfate) 4 mg PRN Q2HR PRN IV PAIN Last administered on 09/13/20at 04:30; Start 09/12/20 at 20:30; Stop 09/13/20 at 20:29; Status DC Sodium Chloride 1,000 ml @ 75 mls/hr [id number] IV Last administered on 09/13/20at 10:20; Start 09/12/20 at 21:00; Stop 09/13/20 at 20:59; Status DC Acetaminophen (Tylenol) 650 mg PRN Q4HRS PRN PO FEVER > 100.3'F; Start 09/12/20 at 20:30; Stop 09/13/20 at 11:17; Status DC Vancomycin HCl 1.5 gm/Sodium Chloride 500 ml @ 250 mls/hr 1X ONCE IV Last administered on 09/12/20at 21:04; Start 09/12/20 at 21:00; Stop 09/12/20 at 2 2:59; Status DC Linezolid (Zyvox) 600 mg BID PO Last administered on 09/14/20 09:44; Start 09/13/20 at 09:00 Ondansetron HCl (Zofran) 4 mg PRN Q4HRS PRN IV NAUSEA/VOMITING; Start 09/13/20 at 11:30 Acetaminophen (Tylenol) 650 mg PRN Q6HRS PRN PO FEVER > 100.3'F; Start 09/13/20 at 11:30 Lidocaine (Lidoderm) 1 patch DAILY TD Last administered on 09/14/20 09:45; Start 09/13/20 at 12:30 Miscellaneous (Lidoderm Patch Removal) 1 ea QHS MC Last administered on 09/13/20at 22:03; Start 09/13/20 at 21:00 Ascorbic Acid (Vitamin C) 1,000 mg DAILY PO Last administered on 09/14/20 09:44; Start 09/13/20 at 12:30 Aspirin (Ecotrin) 81 mg BID PO Last administered on 09/14/20at 09:44; Start 09/13/20 at 12:30 Cetirizine HCl (ZyrTEC) 10 mg HS PO ; Start 09/13/20 at 21:00; Stop 09/13/20 at 22:11; Status DC Betamethasone/ Clotrimazole (Lotrisone) 1 stephen BID TP ; Start 09/13/20 at 21:00 Docusate Sodium (Colace) 100 mg DAILY PO Last administered on 09/14/20 09:44; Start 09/13/20 at 12:30 Gabapentin (Neurontin) 300 mg DAILY PO Last administered on 7/12/21at 09:44; Start 09/13/20 at 12:30 Hydralazine HCl (Apresoline) 25 mg TID PO Last administered on 09/14/20 09:46; Start 09/13/20 at 14:00 Lactobacillus Rhamnosus (Culturelle) 1 cap DAILY PO Last administered on 09/14/20 09:44; Start 09/13/20 at 12:30 Levothyroxine Sodium (Synthroid) 137 mcg DAILY06 PO Last administered on 09/14/20 05:56; Start 09/13/20 at 12:30 Fluticasone Propionate (Flonase) 2 spray DAILY NS Last administered on 09/14/20 09:43; Start 09/14/20 at 09:00 Multivitamins (Thera M Plus) 1 tab DAILY PO Last administered on 09/14/20 09:44; Start 09/13/20 at 12:30 Vitamin E (Vitamin E) 1,000 unit DAILY PO Last administered on 09/14/20 09:43; Start 09/13/20 at 12:30 Olanzapine (ZyPREXA ZYDIS) 5 mg PRN BID PRN PO ANXIETY / AGITATION; Start 09/13/20 at 11:15 Fentanyl Citrate (Fentanyl 2ml Vial) 25 mcg PRN Q3HRS PRN IVP SEVERE PAIN 7-10 Last administered on 09/14/20 11:40; Start 09/13/20 at 11:15 Heparin Sodium (Porcine) (Heparin Sodium) 5,000 unit Q8HRS SQ Last administered on 09/14/20 05:59; Start 09/13/20 at 14:00 Tramadol HCl (Ultram) 50 mg PRN Q6HRS PRN PO PAIN Last administered on 09/13/20at 22:06; Start 09/13/20 at 11:15 Albuterol Sulfate (Ventolin Neb Soln) 2.5 mg PRN Q4HRS PRN NEB SHORTNESS OF BREATH; Start 09/13/20 at 11:45 Cetirizine HCl (ZyrTEC) 10 mg DAILY06 PO Last administered on 09/14/20 05:56; Start 09/14/20 at 06:00 Ceftriaxone Sodium (Rocephin) 2 gm Q24H IVP Last administered on 09/14/20at 11:17; Start 09/14/20 at 11:00 Active Scripts Active Cefdinir 300 Mg Capsule 300 Mg PO BID 3 Days Hydralazine Hcl 25 Mg Tablet 25 Mg PO TID Reported Multi-Vitamin Daily (Multivitamin) 1 Each Tablet 1 Tab PO DAILY 30 Days Lidocaine PATCH (Lidocaine) 1 Each Adh..patch 1 Each TP DAILY REMOVE AFTER 12 HOURS Flonase Allergy Relief (Fluticasone Propionate) 9.9 Ml [place].susp 2 Sprays NS DAILY Culturelle (Lactobacillus Rhamnosus Gg) 1 Each Cap.sprink 1 Cap PO DAILY 30 Days Acetaminophen 500 Mg Tablet 1 Tab PO TID PRN 15 Days Clotrimazole-Betamethasone Crm (Clotrimazole/Betamethasone Dip) 15 Gm Cream..g. 1 Stephen TP BID Docusate Sodium 100 Mg Capsule 1 Cap PO DAILY Cetirizine Hcl 10 Mg Tablet 10 Mg PO HS Vitamin A 10,000 Unit Capsule 10,000 Unit PO DAILY Allopurinol 300 Mg Tablet 300 Mg PO BID Gabapentin (Gabapentin) 300 Mg Capsule 300 Mg PO DAILY Aspir 81 (Aspirin) 81 Mg Tablet.dr 1 Tab PO BID Vitamin E (Vitamin E (Dl,Tocopheryl Acet)) 1,000 Unit Capsule 1,000 Unit PO DAILY Vitamin C (Ascorbic Acid) 1,000 Mg Tablet 1,000 Mg PO Synthroid (Levothyroxine Sodium) 125 Mcg Tablet 137 Mcg PO DAILYAC Allergies Allergies: Coded Allergies: linaclotide (Verified Allergy, Severe, 07/03/17) Sulfa (Sulfonamide Antibiotics) (Verified Allergy, Intermediate, 09/17/15) atorvastatin (Verified Allergy, Intermediate, 09/17/15) bisoprolol (Verified Allergy, Intermediate, 09/14/15) cadexomer iodine (Verified Allergy, Intermediate, itching, 09/14/15) ciprofloxacin (Verified Allergy, Intermediate, 09/17/15) diltiazem (Verified Allergy, Intermediate, takes VERAPAMIL at home, ) lisinopril (Verified Allergy, Intermediate, 09/18/15) methylphenidate (Verified Allergy, Intermediate, 09/17/15) naproxen (Verified Allergy, Intermediate, 07/03/17) TOLERATES ASA nitrofurantoin (Verified Allergy, Intermediate, 09/14/15) ofloxacin (Verified Allergy, Intermediate, 09/17/15) paroxetine (Verified Allergy, Intermediate, 09/17/15) piroxicam (Verified Allergy, Intermediate, 09/17/15) propoxyphene (Verified Allergy, Intermediate, 09/17/15) ranitidine (Verified Allergy, Intermediate, 09/17/15) senna (Verified Allergy, Intermediate, 09/17/15) valdecoxib (Verified Allergy, Intermediate, 09/17/15) I S O L A T I O N *CONTACT* (Verified Allergy, Unknown, 09/14/20) mrsa ROS Review of System Physical Exam Physical Exam General: Alert and oriented X3 HEENT: Atraumatic, Pupils equal, round. Mucous membranes moist. Neck: supple, no lymphadenopathy Cardiac: Heart rate regular. Normal carotid pulses Lungs: Non-labored respirations. Abdomen: Soft, nontender, nondistended, no palpable masses. Extremities: 2+ bilateral femoral pulses, 2+ bilateral radial pulses, 2+ left DP, unable to palpate right DP or PT Musculoskeletal: Moving all extremities. Skin: Moderate swelling right lower extremity. Erythema with multiple full thickness ulcerations medial and anterior ankle, superficial ulceration dorsum near 2,3rd toe webspace. Neurological: Motor and sensation intact. Psychiatry: No depression or anxiety Vitals VITALS Vital Signs Date Time Temp Pulse Resp B/P (MAP) Pulse Ox O2 Delivery O2 Flow Rate FiO2 09/14/20 11:40 20 95 Nasal Cannula 2.0 09/14/20 11:00 97.7 62 160/59 (92) 97.7 Labs Labs Laboratory Tests Test 09/12/20 19:13 09/12/20 19:30 09/13/20 06:45 09/14/20 07:05 Urine Collection Type Unknown Urine Color Yellow Urine Clarity Clear Urine pH 5.5 (<5.0-8.0) Urine Specific [place] 1.010 (1.000-1.030) Urine Protein Negative mg/dL (NEG-TRACE) Urine Glucose (UA) Negative mg/dL (NEG) Urine Ketones (Stick) Negative mg/dL (NEG) Urine Blood Negative (NEG) Urine Nitrite Positive (NEG) Urine Bilirubin Negative (NEG) Urine Urobilinogen Dipstick 0.2 mg/dL (0.2 mg/dL) Urine Leukocyte Esterase Large (NEG) Urine RBC Occ /HPF (0-2) Urine WBC 11-20 /HPF (0-4) Urine Squamous Epithelial Cells Mod /LPF Urine Renal Epithelial Cells Occ /LPF Urine Bacteria Many /HPF (0-FEW) White Blood Count 4.5 x10^3/uL (4.0-11.0) 5.0 x10^3/uL (4.0-11.0) 4.0 x10^3/uL (4.0-11.0) Red Blood Count 3.70 x10^6/uL (3.50-5.40) 3.71 x10^6/uL (3.50-5.40) 3.80 x10^6/uL (3.50-5.40) Hemoglobin 11.2 g/dL (12.0-15.5) 11.5 g/dL (12.0-15.5) 11.7 g/dL (12.0-15.5) Hematocrit 35.2 % (36.0-47.0) 35.8 % (36.0-47.0) 36.4 % (36.0-47.0) Mean Corpuscular Volume 95 fL (79-100) 96 fL (79-100) 96 fL (79-100) Mean Corpuscular Hemoglobin 30 pg (25-35) 31 pg (25-35) 31 pg (25-35) Mean Corpuscular Hemoglobin Concent 32 g/dL (31-37) 32 g/dL (31-37) 32 g/dL (31-37) Red Cell Distribution Width 17.3 % (11.5-14.5) 17.2 % (11.5-14.5) 17.2 % (11.5-14.5) Platelet Count 259 x10^3/uL (140-400) 262 x10^3/uL (140-400) 261 x10^3/uL (140-400) Neutrophils (%) (Auto) 64 % (31-73) 69 % (31-73) 70 % (31-73) Lymphocytes (%) (Auto) 22 % (24-48) 19 % (24-48) 17 % (24-48) Monocytes (%) (Auto) 10 % (0-9) 8 % (0-9) 8 % (0-9) Eosinophils (%) (Auto) 3 % (0-3) 4 % (0-3) 5 % (0-3) Basophils (%) (Auto) 1 % (0-3) 1 % (0-3) 1 % (0-3) Neutrophils # (Auto) 2.9 x10^3/uL (1.8-7.7) 3.4 x10^3/uL (1.8-7.7) 2.8 x10^3/uL (1.8-7.7) Lymphocytes # (Auto) 1.0 x10^3/uL (1.0-4.8) 0.9 x10^3/uL (1.0-4.8) 0.7 x10^3/uL (1.0-4.8) Monocytes # (Auto) 0.4 x10^3/uL (0.0-1.1) 0.4 x10^3/uL (0.0-1.1) 0.3 x10^3/uL (0.0-1.1) Eosinophils # (Auto) 0.1 x10^3/uL (0.0-0.7) 0.2 x10^3/uL (0.0-0.7) 0.2 x10^3/uL (0.0-0.7) Basophils # (Auto) 0.0 x10^3/uL (0.0-0.2) 0.0 x10^3/uL (0.0-0.2) 0.0 x10^3/uL (0.0-0.2) Erythrocyte Sedimentation Rate 29 (0-25) Sodium Level 146 mmol/L (136-145) 146 mmol/L (136-145) 143 mmol/L (136-145) Potassium Level 4.1 mmol/L (3.5-5.1) 3.6 mmol/L (3.5-5.1) 4.0 mmol/L (3.5-5.1) Chloride Level 108 mmol/L (98-107) 109 mmol/L (98-107) 107 mmol/L (98-107) Carbon Dioxide Level 30 mmol/L (21-32) 31 mmol/L (21-32) 28 mmol/L (21-32) Anion Gap 8 (6-14) 6 (6-14) 8 (6-14) Blood Urea Nitrogen 22 mg/dL (7-20) 20 mg/dL (7-20) 14 mg/dL (7-20) Creatinine 1.1 mg/dL (0.6-1.0) 0.8 mg/dL (0.6-1.0) 0.7 mg/dL (0.6-1.0) Estimated GFR (Cockcroft-Gault) 47.0 67.8 79.2 BUN/Creatinine Ratio 20 (6-20) 25 (6-20) Glucose Level 94 mg/dL (70-99) 78 mg/dL (70-99) 83 mg/dL (70-99) Lactic Acid Level 0.9 mmol/L (0.4-2.0) Calcium Level 8.8 mg/dL (8.5-10.1) 8.2 mg/dL (8.5-10.1) 8.1 mg/dL (8.5-10.1) Total Bilirubin 0.4 mg/dL (0.2-1.0) 0.5 mg/dL (0.2-1.0) Aspartate Amino Transf (AST/SGOT) 34 U/L (15-37) 35 U/L (15-37) Alanine Aminotransferase (ALT/SGPT) 22 U/L (14-59) 23 U/L (14-59) Alkaline Phosphatase 160 U/L (46-116) 149 U/L (46-116) C-Reactive Protein, Quantitative 11.7 mg/L (0-3.3) Total Protein 6.8 g/dL (6.4-8.2) 5.8 g/dL (6.4-8.2) Albumin 3.4 g/dL (3.4-5.0) 2.8 g/dL (3.4-5.0) Albumin/Globulin Ratio 1.0 (1.0-1.7) 0.9 (1.0-1.7) Laboratory Tests Test 09/14/20 07:05 White Blood Count 4.0 x10^3/uL (4.0-11.0) Red Blood Count 3.80 x10^6/uL (3.50-5.40) Hemoglobin 11.7 g/dL (12.0-15.5) Hematocrit 36.4 % (36.0-47.0) Mean Corpuscular Volume 96 fL (79-100) Mean Corpuscular Hemoglobin 31 pg (25-35) Mean Corpuscular Hemoglobin Concent 32 g/dL (31-37) Red Cell Distribution Width 17.2 % (11.5-14.5) Platelet Count 261 x10^3/uL (140-400) Neutrophils (%) (Auto) 70 % (31-73) Lymphocytes (%) (Auto) 17 % (24-48) Monocytes (%) (Auto) 8 % (0-9) Eosinophils (%) (Auto) 5 % (0-3) Basophils (%) (Auto) 1 % (0-3) Neutrophils # (Auto) 2.8 x10^3/uL (1.8-7.7) Lymphocytes # (Auto) 0.7 x10^3/uL (1.0-4.8) Monocytes # (Auto) 0.3 x10^3/uL (0.0-1.1) Eosinophils # (Auto) 0.2 x10^3/uL (0.0-0.7) Basophils # (Auto) 0.0 x10^3/uL (0.0-0.2) Sodium Level 143 mmol/L (136-145) Potassium Level 4.0 mmol/L (3.5-5.1) Chloride Level 107 mmol/L (98-107) Carbon Dioxide Level 28 mmol/L (21-32) Anion Gap 8 (6-14) Blood Urea Nitrogen 14 mg/dL (7-20) Creatinine 0.7 mg/dL (0.6-1.0) Estimated GFR (Cockcroft-Gault) 79.2 Glucose Level 83 mg/dL (70-99) Calcium Level 8.1 mg/dL (8.5-10.1) Images Images Lowe extremity US Right: Common femoral artery: 156, triphasic Profunda femoris artery: 88, biphasic Proximal superficial femoral artery: 115, biphasic Mid superficial femoral artery: 97, biphasic Distal superficial femoral artery: 156, monophasic Popiteal artery: 102, monophasic Mid posterior tibial artery: 97, monophasic Mid peroneal artery: 61, monophasic Mid anterior tibial artery: 234, monophasic Dorsalis pedis artery: 68, monophasic Impression: 1. Increased velocity of the right anterior tibial artery suggesting significant stenosis at this segment. Diffuse right lower extremity peripheral artery disease with dampened waveforms distal to the common femoral artery. Assessment/Plan Assessment/Plan 85 year old female with right lower extremity ulcerations, venous stasis dermatitis and cellulitis. Arterial ultrasound suggest monophasic flow distal to the SFA with significant stenosis in the anterior tibial artery. Recommend continued local wound care and antibiotics. The patient reports history of iodine allergy. She may benefit form angiogram with possible percutaneous intervention, if so she may need pretreatment prior to procedure. Dr. Marin will see the patient and review images and make additional recommendations as needed. Recommend continued risk factor modification to include antiplatelet therapy and statin therapy will defer to IM with regards to her multiple medication allergies. GEN UNDERWOOD UPFITTER Sep 14, 2020 13:18
--- NOTE | 2020-09-14 14:29 | NUR ---
SW following. Discussed with RN, pt from [facility] [place], 2L (does not use at home), regular diet. [facility] following. Pt on IV abx. PT/OT ordered. SW will continue to follow.
--- NOTE | 2020-09-14 14:57 | NUR ---
Wound Care Wound Type/Assessment: Pt seen for wound care consultation re: R 2nd/3rd toe and R leg stasis ulcerations, see wound assessments. R medial lower leg with multiple stasis ulcers, yellow slough covered, with minimal red granulation tissue present, periwound red, edematous and taut. R foot with reddened weeping skin at base of 2nd/3rd toes. Treatment Recommendations/Plan: Cleanse wounds with saline, pat dry. Apply Medihoney gel to leg wound, cover with Aquacel AG, ABD and kerlix, weave a strip of AG between toes to wick away moisture. Change dressings every 3 days and PRN if soiled. Education provided: to pt re: POC and information re: Angiography, as pt was asking about procedure. Offloading surface/device: heels floated with pillows. Recommended Referrals/Tests: Arterial workup per Vascular Discharge Recommendations for dressings: see treatment plan above *Ass[facility] pt from [facility] back to bed, no wounds noted on skin inspection.
[2020-09-14 15:00] VITALS: BP 159/76
--- NOTE | 2020-09-14 17:09 | PDOC ---
[employer] PROGRESS NOTE Date of Service DOS: DATE: 09/14/20 TIME: 17:05 Chief Complaint Chief Complaint Right leg ulcer - multiple wounds, positive for MRSA, clean based wounds. ID consulted. On zyvox. ULISES - likely vasomotor nephropathy from difficulty accessing PO well. Hydrate Abnormal chest radiograph - will order prn nebs. No cough. Will order CT to better characterize HLD - cont statin HTN - cont home meds AFIB - rate is currently controlled, has h/o fall, not on anticoagulation, likely not on BB due to bradycardia Chronic diastolic CHF - can only tolerate low dose hydralazine. No BB for popeye. H/o cervical cancer - in remission Allergic rhinitis - nasacort prn Lumbar and cervical spinal stenosis - lidoderm patch. PVD with Right AT stenosis- vascular surgery recommend CT angio and will need pretreatment with steroids/benadryl/fluids if she decided to proceed. FEN - Cardiac diet ppx - heparin CODE - DNR/DNI Dispo - inpatient for above History of Present Illness History of Present Illness 85 yo female w/ PMHx HLD, HTN, AFIB, chronic diastolic CHF, cervical cancer, allergic rhinitis, lumbar and cervical spinal stenosis who is most wheelchair bound coming in from home at direction of her home health wound care nurse from her assisted living facility, [facility] for failed outpatient treatment of bilateral lower extremity cellulitis and wounds. Has been on home health wound nursing for wound of 3rd right toe and medial lower leg ulcers and recently been on 3 rounds of antibiotics for 10 days each without improvement. Has had chills but denies any fevers. No other complaints. Per wound culture provided the patient has MRSA is resistant to multiple medications including tetracyclines the wound culture was from 09/09/2020 and is in her paper chart Started on linezolid here. Patient has allergy to sulfa and multiple other antibiotics Labs with WBC 4.5, Hb 11.2, platelets 259, sed rate 29, NA 146, K4.1, BUN 22, CR 1.1, glucose 94, alk phos 160 LFTs otherwise within normal laboratory limits, CRP 11.7, lactic acid 0.9 urinalysis large leuk esterase positive nitrates. Chest radiograph with right apical small consolidation and right ankle and foot x-rays with no acute findings. Admitted for further care. 09/14/20 No acute events overnight. Patient seen and examined bedside. Her pasin is controlled. Her edema has not worsened. Wound care to see. She does wear compression stockings over wraps whenever she gets her ulcers treated. > 50% time spent in patient chart, labs, and image review and discussion with RN and SW In addition to E/M visit, advanced care planning was done: A total time of 20 minutes was spent from 1120 to 1140 face to face in discussion with the patient and family regarding their goals of care, end of life care, and pain management. Vitals/I&O Vitals/I&O: Vital Signs Date Time Temp Pulse Resp B/P (MAP) Pulse Ox O2 Delivery O2 Flow Rate FiO2 09/14/20 15:23 62 160/59 09/14/20 15:00 97.9 18 96 Nasal Cannula 2.0 97.9 I & O 0 09/13/20 09/13/20 09/14/20 15:00 23:00 07:00 Intake Total 1200 ml Output Total 450 ml Balance 750 ml Physical Exam Physical Exam: GENERAL: On examination, alert, oriented female, not in distress. HEENT: Anicteric, no thrush NECK: Supple, no JVP LUNGS: Clear. HEART: S1, S2 regular. ABDOMEN: Soft, nontender, no organomegaly. EXTREMITIES: The patient has venous insufficiency and stasis dermatitis present. There are superficial wound over the dorsum and anterior roberts, dorsalis pedis is weak palpable. NEUROLOGIC: The patient is alert, awake, appropriate. No focal neurologic deficit. General: Alert, Oriented X3, Cooperative, mild distress Lungs: Clear Abdomen: Normal bowel sounds, Soft, No tenderness, No hepatosplenomegaly, No masses Extremities: Other (Severe kyphoscoliosis. Right medial leg 7 ulcers with clean base and 3rd toe with dorsal wound) Labs Labs: Laboratory Tests Test 09/14/20 07:05 White Blood Count 4.0 x10^3/uL (4.0-11.0) Red Blood Count 3.80 x10^6/uL (3.50-5.40) Hemoglobin 11.7 g/dL (12.0-15.5) Hematocrit 36.4 % (36.0-47.0) Mean Corpuscular Volume 96 fL (79-100) Mean Corpuscular Hemoglobin 31 pg (25-35) Mean Corpuscular Hemoglobin Concent 32 g/dL (31-37) Red Cell Distribution Width 17.2 % (11.5-14.5) Platelet Count 261 x10^3/uL (140-400) Neutrophils (%) (Auto) 70 % (31-73) Lymphocytes (%) (Auto) 17 % (24-48) Monocytes (%) (Auto) 8 % (0-9) Eosinophils (%) (Auto) 5 % (0-3) Basophils (%) (Auto) 1 % (0-3) Neutrophils # (Auto) 2.8 x10^3/uL (1.8-7.7) Lymphocytes # (Auto) 0.7 x10^3/uL (1.0-4.8) Monocytes # (Auto) 0.3 x10^3/uL (0.0-1.1) Eosinophils # (Auto) 0.2 x10^3/uL (0.0-0.7) Basophils # (Auto) 0.0 x10^3/uL (0.0-0.2) Sodium Level 143 mmol/L (136-145) Potassium Level 4.0 mmol/L (3.5-5.1) Chloride Level 107 mmol/L (98-107) Carbon Dioxide Level 28 mmol/L (21-32) Anion Gap 8 (6-14) Blood Urea Nitrogen 14 mg/dL (7-20) Creatinine 0.7 mg/dL (0.6-1.0) Estimated GFR (Cockcroft-Gault) 79.2 Glucose Level 83 mg/dL (70-99) Calcium Level 8.1 mg/dL (8.5-10.1) Assessment and Plan Assessmemt and Plan Problems Medical Problems: (1) Cellulitis of right foot due to methicillin-resistant Staphylococcus aureus Status: Acute Comment Review of Relevant I have reviewed the following items radha (where applicable) has been applied. Medications: Current Medications Medications (Trade) Dose Ordered Sig/Jena Route PRN Reason Start Time Stop Time Status Last Admin Dose Admin Miscellaneous (Lidoderm Patch Removal) 1 ea QHS MC 09/13/20 21:00 09/13/20 22:03 Fluticasone Propionate (Flonase) 2 spray DAILY NS 09/14/20 09:00 09/14/20 09:43 Cetirizine HCl (ZyrTEC) 10 mg DAILY06 PO 7/12/21 06:00 09/14/20 05:56 Ceftriaxone Sodium (Rocephin) 2 gm Q24H IVP 09/14/20 11:00 09/14/20 11:17 Justifications for Admission Other Justification JAYNE DUBOIS MD Sep 14, 2020 17:09
[2020-09-14 19:00] VITALS: BP 140/68
[2020-09-14] MEDS: PATCH REMOVAL. MC SCH (21:00)
[2020-09-14] MEDS: traMADol 50 MG TABLET PO PRN (21:19)
[2020-09-14 23:00] VITALS: BP 178/82
[2020-09-15] MEDS: LEVOTHYROXINE 137 MCG TABLET PO SCH (06:00)
[2020-09-15] MEDS: HEPARIN for SUB-Q USE 5,000 UNIT/ML VIAL. SQ SCH ×3 (06:00→21:27)
[2020-09-15] MEDS: CETIRIZINE HCL 10 MG TABLET. PO SCH (06:00)
[2020-09-15 07:00] VITALS: BP 198/83
--- NOTE | 2020-09-15 07:33 | PDOC ---
Infectious Disease Note Subjective: Subjective Patient continues to have pain in the right foot Has some nausea Denies fever, vomiting, diarrhea, abdominal pain, symptoms Vital Signs: Vital Signs Vital Signs Date Time Temp Pulse Resp B/P (MAP) Pulse Ox O2 Delivery O2 Flow Rate FiO2 09/14/20 23:00 67 18 178/82 (114) 93 Nasal Cannula 2.0 09/14/20 19:00 98.8 98.8 Physical Exam: PHYSICAL EXAM GENERAL: On examination, alert, oriented female, not in distress. HEENT: Anicteric, no thrush NECK: Supple, no JVP LUNGS: Clear. HEART: S1, S2 regular. ABDOMEN: Soft, nontender, no organomegaly. EXTREMITIES: The patient has venous insufficiency and stasis dermatitis present. There are superficial wound over the dorsum and anterior roberts, dorsalis pedis is weak palpable. NEUROLOGIC: The patient is alert, awake, appropriate. No focal neurologic deficit. Medications: Inpatient Meds: Medications reviewed. Labs: Micro RUN DATE: 09/14/20 [facility] *LIVE* PAGE 1 RUN TIME: 815 Specimen Inquiry PATIENT: KAILA DISLA ACCT: [id number] LOC: 6 [facility] U: [id number] AGE/SX: 85/F ROOM: [facility] RE09/12/[address]: SPEEDY TRACEY MD : 1935 BED: 1 DIS: STATUS: ADM IN TLOC: SPEC #: [id number] JACQUE: 09/12/20 STATUS: RES REQ #: [id number] RECD: 09/12/[address]: JAIRO GALLO MD SOURCE: VOID ENTR: 09/12/[address]: VERO WYNN MD [facility]: ORDERED: URINE CULTURE Procedure Result URINE CULTURE Preliminary Preliminary GREATER THAN 100,000 CFU/ML GRAM NEGATIVE RODS on 09/14/20 at 0810 FINAL ID= [ESCHERICHIA COLI] LESS THAN 10,000 CFU/ML Normal genitourinary rayna, not indicative of infection on 09/14/20 at 0810 Testing Performed by: [facility] [address] For Inquires, the Physician may contact the Microbiology department at [phone] ESCHERICHIA COLI Unless otherwise specified, Testing Performed by: [facility] [place] [address] For Inquires, the Physician may contact the Microbiology department at [phone] Objective: Assessment: 1. Right lower extremity superficial ulcers. 2. Right lower extremity cellulitis. 3. Venous insufficiency. 4. Stasis dermatitis. 5. Peripheral vascular disease. 6. Multiple medication allergies. 7. E Coli UTI ESBL Plan: Plan of Care Change Rocephin to merrem Change linezolid to IV leg elevation, Awaiting angiogram local wound care PT, OT Discussed with nursing staff CRISSY CAMPBELL MD Sep 15, 2020 07:33
--- NOTE | 2020-09-15 08:05 | PDOC ---
PROGRESS NOTES Date of Service DATE: 09/15/20 TIME: 08:01 Subjective Subjective Patient states her leg pain remains unchanged. She is agreeable to angiogram. Objective Objective Vital Signs Date Time Temp Pulse Resp B/P (MAP) Pulse Ox O2 Delivery O2 Flow Rate FiO2 09/14/20 23:00 67 18 178/82 (114) 93 Nasal Cannula 2.0 09/14/20 19:00 98.8 98.8 Intake and Output 09/15/20 07:00 Intake Total 480 ml Output Total 25 ml Balance 455 ml Intake Oral 480 ml Emesis 25 ml # Voids 3 # Bowel Movements 2 Physical Exam Physical Exam Awake and alert HRR Non-labored respirations, O2 per NC Right leg dressings intact, toes pink with cap refill < 3 secs Assessment Assessment Problems Medical Problems: (1) Cellulitis of right foot due to methicillin-resistant Staphylococcus aureus Status: Acute Plan Plan of Care 85 year old female with PAD, venous insufficiency and right lower extremity ulcerations. Recommend angiogram with possible percutaneous intervention. Patient is agreeable. 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 NPO in case she can get angiogram today. Continue local wound care and abx. Leg elevation and eventually tubigrips. Comment Review of Relevant I have reviewed the following items radha (where applicable) has been applied. Labs Laboratory Tests Test 09/14/20 07:05 White Blood Count 4.0 x10^3/uL (4.0-11.0) Red Blood Count 3.80 x10^6/uL (3.50-5.40) Hemoglobin 11.7 g/dL (12.0-15.5) Hematocrit 36.4 % (36.0-47.0) Mean Corpuscular Volume 96 fL (79-100) Mean Corpuscular Hemoglobin 31 pg (25-35) Mean Corpuscular Hemoglobin Concent 32 g/dL (31-37) Red Cell Distribution Width 17.2 % (11.5-14.5) Platelet Count 261 x10^3/uL (140-400) Neutrophils (%) (Auto) 70 % (31-73) Lymphocytes (%) (Auto) 17 % (24-48) Monocytes (%) (Auto) 8 % (0-9) Eosinophils (%) (Auto) 5 % (0-3) Basophils (%) (Auto) 1 % (0-3) Neutrophils # (Auto) 2.8 x10^3/uL (1.8-7.7) Lymphocytes # (Auto) 0.7 x10^3/uL (1.0-4.8) Monocytes # (Auto) 0.3 x10^3/uL (0.0-1.1) Eosinophils # (Auto) 0.2 x10^3/uL (0.0-0.7) Basophils # (Auto) 0.0 x10^3/uL (0.0-0.2) Sodium Level 143 mmol/L (136-145) Potassium Level 4.0 mmol/L (3.5-5.1) Chloride Level 107 mmol/L (98-107) Carbon Dioxide Level 28 mmol/L (21-32) Anion Gap 8 (6-14) Blood Urea Nitrogen 14 mg/dL (7-20) Creatinine 0.7 mg/dL (0.6-1.0) Estimated GFR (Cockcroft-Gault) 79.2 Glucose Level 83 mg/dL (70-99) Calcium Level 8.1 mg/dL (8.5-10.1) Microbiology 09/12/20 Urine Culture - Final, Complete 09/12/20 Antimicrobic Susceptibility - Final, Complete 09/12/20 Blood Culture - Preliminary, Resulted NO GROWTH AFTER 2 DAYS Medications Current Medications Ondansetron HCl (Zofran) 4 mg PRN Q8HRS PRN IV NAUSEA/VOMITING; Start 09/12/20 at 20:30; Stop 09/13/20 at 11:17; Status DC Morphine Sulfate (Morphine Sulfate) 4 mg PRN Q2HR PRN IV PAIN Last administered on 09/13/20at 04:30; Start 09/12/20 at 20:30; Stop 09/13/20 at 20:29; Status DC Sodium Chloride 1,000 ml @ 75 mls/hr [id number] IV Last administered on 09/13/20at 10:20; Start 09/12/20 at 21:00; Stop 09/13/20 at 20:59; Status DC Acetaminophen (Tylenol) 650 mg PRN Q4HRS PRN PO FEVER > 100.3'F; Start 09/12/20 at 20:30; Stop 09/13/20 at 11:17; Status DC Vancomycin HCl 1.5 gm/Sodium Chloride 500 ml @ 250 mls/hr 1X ONCE IV Last administered on 09/12/20at 21:04; Start 09/12/20 at 21:00; Stop 09/12/20 at 22:59; Status DC Linezolid (Zyvox) 600 mg BID PO Last administered on 09/14/20at 21:19; Start 09/13/20 at 09:00 Ondansetron HCl (Zofran) 4 mg PRN Q4HRS PRN IV NAUSEA/VOMITING; Start 09/13/20 at 11:30 Acetaminophen (Tylenol) 650 mg PRN Q6HRS PRN PO FEVER > 100.3'F; Start 09/13/20 at 11:30 Lidocaine (Lidoderm) 1 patch DAILY TD Last administered on 09/14/20at 09:45; Start 09/13/20 at 12:30 Miscellaneous (Lidoderm Patch Removal) 1 ea QHS MC Last administered on 09/14/20at 21:00; Start 09/13/20 at 21:00 Ascorbic Acid (Vitamin C) 1,000 mg DAILY PO Last administered on 09/14/20at 09:44; Start 09/13/20 at 12:30 Aspirin (Ecotrin) 81 mg BID PO Last administered on 09/14/20 21:19; Start 09/13/20 at 12:30 Cetirizine HCl (ZyrTEC) 10 mg HS PO ; Start 09/13/20 at 21:00; Stop 09/13/20 at 22:11; Status DC Betamethasone/ Clotrimazole (Lotrisone) 1 stephen BID TP ; Start 09/13/20 at 21:00 Docusate Sodium (Colace) 100 mg DAILY PO Last administered on 09/14/20at 09:44; Start 09/13/20 at 12:30 Gabapentin (Neurontin) 300 mg DAILY PO Last administered on 09/14/20 09:44; Start 09/13/20 at 12:30 Hydralazine HCl (Apresoline) 25 mg TID PO Last administered on 09/14/20at 21:19; Start 09/13/20 at 14:00 Lactobacillus Rhamnosus (Culturelle) 1 cap DAILY PO Last administered on 09/14/20 09:44; Start 09/13/20 at 12:30 Levothyroxine Sodium (Synthroid) 137 mcg DAILY06 PO Last administered on 09/15/20 06:00; Start 09/13/20 at 12:30 Fluticasone Propionate (Flonase) 2 spray DAILY NS Last administered on 09/14/20 09:43; Start 09/14/20 at 09:00 Multivitamins (Thera M Plus) 1 tab DAILY PO Last administered on 09/14/20 09:44; Start 09/13/20 at 12:30 Vitamin E (Vitamin E) 1,000 unit DAILY PO Last administered on 09/14/20 09:43; Start 09/13/20 at 12:30 Olanzapine (ZyPREXA ZYDIS) 5 mg PRN BID PRN PO ANXIETY / AGITATION; Start 09/13/20 at 11:15 Fentanyl Citrate (Fentanyl 2ml Vial) 25 mcg PRN Q3HRS PRN IVP SEVERE PAIN 7-10 Last administered on 09/14/20at 11:40; Start 09/13/20 at 11:15 Heparin Sodium (Porcine) (Heparin Sodium) 5,000 unit Q8HRS SQ Last administered on 09/14/20 21:30; Start 09/13/20 at 14:00 Tramadol HCl (Ultram) 50 mg PRN Q6HRS PRN PO PAIN Last administered on 09/14/20 21:19; Start 09/13/20 at 11:15 Albuterol Sulfate (Ventolin Neb Soln) 2.5 mg PRN Q4HRS PRN NEB SHORTNESS OF BREATH; Start 09/13/20 at 11:45 Cetirizine HCl (ZyrTEC) 10 mg DAILY06 PO Last administered on 09/15/20 06:00; Start 09/14/20 at 06:00 Ceftriaxone Sodium (Rocephin) 2 gm Q24H IVP Last administered on 09/14/20 11:17; Start 09/14/20 at 11:00; Stop 09/15/20 at 07:34; Status DC Meropenem 500 mg/ Sodium Chloride 50 ml @ 100 mls/hr Q6HRS IV ; Start 09/15/20 at 08:00 Active Scripts Active Cefdinir 300 Mg Capsule 300 Mg PO BID 3 Days Hydralazine Hcl 25 Mg Tablet 25 Mg PO TID Reported Multi-Vitamin Daily (Multivitamin) 1 Each Tablet 1 Tab PO DAILY 30 Days Lidocaine PATCH (Lidocaine) 1 Each Adh..patch 1 Each TP DAILY REMOVE AFTER 12 HOURS Flonase Allergy Relief (Fluticasone Propionate) 9.9 Ml [place].susp 2 Sprays NS DAILY Culturelle (Lactobacillus Rhamnosus Gg) 1 Each Cap.sprink 1 Cap PO DAILY 30 Days Acetaminophen 500 Mg Tablet 1 Tab PO TID PRN 15 Days Clotrimazole-Betamethasone Crm (Clotrimazole/Betamethasone Dip) 15 Gm Cream..g. 1 Stephen TP BID Docusate Sodium 100 Mg Capsule 1 Cap PO DAILY Cetirizine Hcl 10 Mg Tablet 10 Mg PO HS Vitamin A 10,000 Unit Capsule 10,000 Unit PO DAILY Allopurinol 300 Mg Tablet 300 Mg PO BID Gabapentin (Gabapentin) 300 Mg Capsule 300 Mg PO DAILY Aspir 81 (Aspirin) 81 Mg Tablet.dr 1 Tab PO BID Vitamin E (Vitamin E (Dl,Tocopheryl Acet)) 1,000 Unit Capsule 1,000 Unit PO DAILY Vitamin C (Ascorbic Acid) 1,000 Mg Tablet 1,000 Mg PO Synthroid (Levothyroxine Sodium) 125 Mcg Tablet 137 Mcg PO DAILYAC Vitals/I & O Vital Sign - Last 24 Hours 09/14/20 09/14/20 09/14/20 09/14/20 09:46 11:00 11:40 12:10 Temp 97.7 97.7 Pulse 75 62 Resp 18 20 20 B/P (MAP) 161/86 160/59 (92) Pulse Ox 95 95 96 O2 Delivery Nasal Cannula Nasal Cannula Nasal Cannula O2 Flow Rate 2.0 2.0 2.0 09/14/20 09/14/20 09/14/20 09/14/20 15:00 15:23 19:00 20:30 Temp 97.9 98.8 97.9 98.8 Pulse 73 62 78 Resp 18 18 B/P (MAP) 159/76 (103) 160/59 140/68 (92) Pulse Ox 96 92 O2 Delivery Nasal Cannula Nasal Cannula Nasal Cannula O2 Flow Rate 2.0 2.0 2.0 09/14/20 09/14/20 09/14/20 09/14/20 21:19 21:19 21:49 23:00 Pulse 110 67 Resp 20 20 18 B/P (MAP) 140/68 178/82 (114) Pulse Ox 96 93 O2 Delivery Nasal Cannula Nasal Cannula Nasal Cannula O2 Flow Rate 2.0 2.0 2.0 Intake and Output 09/14/20 09/14/20 09/15/20 15:00 23:00 07:00 Intake Total 240 ml 240 ml Output Total 25 ml Balance 240 ml -25 ml 240 ml Justifications for Admission Other Justification GEN UNDER[employer]OD [employer] Sep 15, 2020 08:05
[2020-09-15] MEDS: LIDOCAINE (700MG/PATCH) PATCH. TD SCH (08:16)
[2020-09-15] MEDS: MEROPENEM 500 MG in IV NORMAL SALINE 50ML 50 ML IV SCH ×3 (08:16→17:59)
[2020-09-15] MEDS: ASPIRIN ENTERIC COATED 81 MG TABLET.DR. PO SCH ×2 (08:23→21:07)
[2020-09-15] MEDS: ASCORBIC ACID 1,000 MG TABLET PO SCH (08:23)
[2020-09-15] MEDS: DOCUSATE SODIUM 100 MG CAPSULE. PO SCH (08:23)
[2020-09-15] MEDS: LACTOBACILLUS RHAMNOSUS GG 1 CAPSULE. PO SCH (08:23)
[2020-09-15] MEDS: VITAMIN E 200 UNIT CAPSULE. PO SCH (08:23)
[2020-09-15] MEDS: hydrALAZINE 25 MG TABLET PO SCH ×3 (08:23→21:07)
[2020-09-15] MEDS: FLUTICASONE 50MCG/NASAL SPRAY 16GM BOTTLE. NS SCH (08:23)
[2020-09-15] MEDS: MULTIVITAMIN with MINERAL TABLET. PO SCH (08:23)
[2020-09-15] MEDS: GABAPENTIN 300 MG CAPSULE. PO SCH (08:23)
[2020-09-15] MEDS: CLOTRIMAZOLE/BETAMETH 1%-0.05% TOPICAL CREAM 15GM TUBE. TP SCH ×2 (08:24→21:00)
[2020-09-15] MEDS: LINEZOLID 600 MG TABLET PO SCH (08:24)
[2020-09-15 11:00] VITALS: BP 177/80
[2020-09-15 11:33] LABS: PROTHROMBIN TIME PATIENT 12.9 SEC (11.7-14.0)
--- NOTE | 2020-09-15 13:25 | NUR ---
This nurse non-administered Heparin d/t pt having a procedure done in the AM
--- NOTE | 2020-09-15 13:44 | PDOC ---
[employer] PROGRESS NOTE Date of Service DOS: DATE: 09/15/20 TIME: 13:42 Chief Complaint Chief Complaint Right leg ulcer - multiple wounds, positive for MRSA, clean based wounds. ID consulted. On zyvox. ULISES - likely vasomotor nephropathy from difficulty accessing PO well. Hydrate Abnormal chest radiograph - will order prn nebs. No cough. Will order CT to better characterize HLD - cont statin HTN - cont home meds AFIB - rate is currently controlled, has h/o fall, not on anticoagulation, likely not on BB due to bradycardia Chronic diastolic CHF - can only tolerate low dose hydralazine. No BB for popeye. H/o cervical cancer - in remission Allergic rhinitis - nasacort prn Lumbar and cervical spinal stenosis - lidoderm patch. PVD with Right AT stenosis- vascular surgery recommend CT angio and will need pretreatment with steroids/benadryl/fluids if she decided to proceed. FEN - Cardiac diet ppx - heparin CODE - DNR/DNI Dispo - inpatient for above History of Present Illness History of Present Illness 85 yo female w/ PMHx HLD, HTN, AFIB, chronic diastolic CHF, cervical cancer, allergic rhinitis, lumbar and cervical spinal stenosis who is most wheelchair bound coming in from home at direction of her home health wound care nurse from her assisted living facility, [facility] for failed outpatient treatment of bilateral lower extremity cellulitis and wounds. Has been on home health wound nursing for wound of 3rd right toe and medial lower leg ulcers and recently been on 3 rounds of antibiotics for 10 days each without improvement. Has had chills but denies any fevers. No other complaints. Per wound culture provided the patient has MRSA is resistant to multiple medications including tetracyclines the wound culture was from 09/09/2020 and is in her paper chart Started on linezolid here. Patient has allergy to sulfa and multiple other antibiotics Labs with WBC 4.5, Hb 11.2, platelets 259, sed rate 29, NA 146, K4.1, BUN 22, CR 1.1, glucose 94, alk phos 160 LFTs otherwise within normal laboratory limits, CRP 11.7, lactic acid 0.9 urinalysis large leuk esterase positive nitrates. Chest radiograph with right apical small consolidation and right ankle and foot x-rays with no acute findings. Admitted for further care. 09/14/20 No acute events overnight. Patient seen and examined bedside. Her pasin is controlled. Her edema has not worsened. Wound care to see. She does wear compression stockings over wraps whenever she gets her ulcers treated. > 50% time spent in patient chart, labs, and image review and discussion with RN and SW In addition to E/M visit, advanced care planning was done: A total time of 20 minutes was spent from 1120 to 1140 face to face in discussion with the patient and family regarding their goals of care, end of life care, and pain management. 09/15/20 No acute events overnight. Patient seen and examined bedside. Pt reading book and has no complaints. Agreed to proceed with IR angio for angioplasty. > 50% time spent in patient chart, labs, and image review and discussion with RN and SW Vitals/I&O Vitals/I&O: Vital Signs Date Time Temp Pulse Resp B/P (MAP) Pulse Ox O2 Delivery O2 Flow Rate FiO2 09/15/20 12:30 Nasal Cannula 2.0 09/15/20 11:00 97.5 69 18 177/80 (112) 93 97.5 I & O0 09/14/20 09/14/20 09/15/20 15:00 23:00 07:00 Intake Total 240 ml 240 ml Output Total 25 ml Balance 240 ml -25 ml 240 ml Physical Exam Physical Exam: GENERAL: On examination, alert, oriented female, not in distress. HEENT: Anicteric, no thrush NECK: Supple, no JVP LUNGS: Clear. HEART: S1, S2 regular. ABDOMEN: Soft, nontender, no organomegaly. EXTREMITIES: The patient has venous insufficiency and stasis dermatitis present. There are superficial wound over the dorsum and anterior robrets, dorsalis pedis is weak palpable. NEUROLOGIC: The patient is alert, awake, appropriate. No focal neurologic deficit. General: Alert, Oriented X3, Cooperative, mild distress Lungs: Clear Abdomen: Normal bowel sounds, Soft, No tenderness, No hepatosplenomegaly, No m asses Extremities: Other (Severe kyphoscoliosis. Right medial leg 7 ulcers with clean base and 3rd toe with dorsal wound) Labs Labs: Laboratory Tests Test 09/15/20 10:12 Prothrombin Time 12.9 SEC (11.7-14.0) Prothromb Time International Ratio 1.0 (0.8-1.1) Activated Partial Thromboplast Time 36 SEC (24-38) Assessment and Plan Assessmemt and Plan Problems Medical Problems: (1) Cellulitis of right foot due to methicillin-resistant Staphylococcus aureus Status: Acute Comment Review of Relevant I have reviewed the following items radha (where applicable) has been applied. Medications: Current Medications Medications (Trade) Dose Ordered Sig/Jena Route PRN Reason Start Time Stop Time Status Last Admin Dose Admin Meropenem 500 mg/ Sodium Chloride 50 ml @ 100 mls/hr Q6HRS IV 09/15/20 08:00 09/15/20 12:52 Linezolid/Dextrose 300 ml @ 300 mls/hr Q12HR IV 09/15/20 10:00 09/15/20 10:42 Justifications for Admission Other Justification JAYNE DUBOIS MD Sep 15, 2020 13:44
[2020-09-15 15:00] VITALS: BP 151/67
[2020-09-15 19:00] VITALS: BP 179/82
[2020-09-15] MEDS: PATCH REMOVAL. MC SCH (21:00)
[2020-09-15] MEDS: ONDANSETRON PF 4 MG/2 ML VIAL. IV PRN (21:06)
[2020-09-15] MEDS: traMADol 50 MG TABLET PO PRN (21:29)
--- NOTE | 2020-09-15 22:30 | NUR ---
Pt transferred to room 440 from room 676. Report called to JOIE Gu. Pt transported via bed. Pt had multiple personal belonging bags removed from closet and three handbags at bedside that were brought down with patient. Pt hammerer helper and phone and tablet also brought downstairs as well. Will continue to monitor.
[2020-09-15 23:00] VITALS: BP 132/63
[2020-09-16] VITALS (13 sets, daily range): BP systolic 108–162; BP diastolic 51–73
[2020-09-16] MEDS: MEROPENEM 500 MG in IV NORMAL SALINE 50ML 50 ML IV SCH ×4 (00:56→18:00)
[2020-09-16] MEDS: ONDANSETRON PF 4 MG/2 ML VIAL. IV PRN ×2 (01:10→20:39)
[2020-09-16] MEDS: fentaNYL PF VIAL 100 MCG/2 ML VIAL IVP PRN ×2 (01:21→20:47)
[2020-09-16] MEDS: HEPARIN for SUB-Q USE 5,000 UNIT/ML VIAL. SQ SCH ×3 (06:00→22:00)
[2020-09-16] MEDS: LEVOTHYROXINE 137 MCG TABLET PO SCH (06:00)
[2020-09-16] MEDS: CETIRIZINE HCL 10 MG TABLET. PO SCH (06:00)
[2020-09-16] MEDS: FLUTICASONE 50MCG/NASAL SPRAY 16GM BOTTLE. NS SCH (09:00)
[2020-09-16] MEDS: LIDOCAINE (700MG/PATCH) PATCH. TD SCH (09:00)
[2020-09-16] MEDS: MULTIVITAMIN with MINERAL TABLET. PO SCH (09:00)
[2020-09-16] MEDS: ASCORBIC ACID 1,000 MG TABLET PO SCH (09:00)
[2020-09-16] MEDS: VITAMIN E 200 UNIT CAPSULE. PO SCH (09:00)
[2020-09-16] MEDS: ASPIRIN ENTERIC COATED 81 MG TABLET.DR. PO SCH ×2 (09:00→21:00)
[2020-09-16] MEDS: DOCUSATE SODIUM 100 MG CAPSULE. PO SCH (09:00)
[2020-09-16] MEDS: CLOTRIMAZOLE/BETAMETH 1%-0.05% TOPICAL CREAM 15GM TUBE. TP SCH ×2 (09:00→23:32)
[2020-09-16] MEDS: LACTOBACILLUS RHAMNOSUS GG 1 CAPSULE. PO SCH (09:00)
[2020-09-16] MEDS: GABAPENTIN 300 MG CAPSULE. PO SCH (09:00)
--- NOTE | 2020-09-16 09:03 | PDOC ---
Infectious Disease Note Subjective: Subjective Patient feels better today Denies fever, vomiting, diarrhea, abdominal pain, symptoms Vital Signs: Vital Signs Vital Signs Date Time Temp Pulse Resp B/P (MAP) Pulse Ox O2 Delivery O2 Flow Rate FiO2 09/16/20 08:18 92 Nasal Cannula 2.0 09/16/20 03:00 97.9 62 18 108/51 (70) 97.9 Physical Exam: PHYSICAL EXAM GENERAL: On examination, alert, oriented female, not in distress. HEENT: Anicteric, no thrush NECK: Supple, no JVP LUNGS: Clear. HEART: S1, S2 regular. ABDOMEN: Soft, nontender, no organomegaly. EXTREMITIES: The patient has venous insufficiency and stasis dermatitis present. There are superficial wound over the dorsum and anterior roberts, dorsalis pedis is weak palpable. NEUROLOGIC: The patient is alert, awake, appropriate. No focal neurologic deficit. Medications: Inpatient Meds: Medications reviewed. Labs: Lab Laboratory Tests Test 09/15/20 10:12 09/15/20 18:25 Prothrombin Time 12.9 SEC (11.7-14.0) Prothromb Time International Ratio 1.0 (0.8-1.1) Activated Partial Thromboplast Time 36 SEC (24-38) SARS-CoV-2 Antigen (Rapid) Negative (NEGATIVE) Micro RUN DATE: 09/14/20 [facility] LAB *LIVE* PAGE 1 RUN TIME: 815 Specimen Inquiry PATIENT: KAILA DISLA ACCT: [id number] LOC: [address] [place] [address] U: [id number] AGE/SX: 85/F ROOM: 676 RE09/12/[address]: SPEEDY TRACEY MD : 1935 BED: 1 DIS: STATUS: ADM IN TLOC: SPEC #: [id number] JACQUE: 09/12/20 STATUS: RES REQ #: [id number] RECD: 09/12/[address]: JAIRO GALLO MD SOURCE: VOID ENTR: 09/12/[address]: VERO WYNN MD SPDC: ORDERED: URINE CULTURE ------- ----- Procedure Result URINE CULTURE Preliminary Preliminary GREATER THAN 100,000 CFU/ML GRAM NEGATIVE RODS on 09/14/20 at 0810 FINAL ID= [ESCHERICHIA COLI] LESS THAN 10,000 CFU/ML Normal genitourinary rayna, not indicative of infection on 09/14/20 at 0810 Testing Performed by: [address] [place] [address] For Inquires, the Physician may contact the Microbiology department at [phone] ESCHERICHIA COLI Unless otherwise specified, Testing Performed by: [facility] [address] [place] [address] For Inquires, the Physician may contact the Microbiology department at [phone] Objective: Assessment: 1. Right lower extremity superficial ulcers. 2. Right lower extremity cellulitis. 3. Venous insufficiency. 4. Stasis dermatitis. 5. Peripheral vascular disease. 6. Multiple medication allergies. 7. E Coli UTI ESBL 8. Abnormal CT chest with GGO, SARS Covid negative Plan: Plan of Care Continue merrem/linezolid leg elevation, Angiogram and CT chest reviewed local wound care PT, OT Discussed with nursing staff CRISSY CAMPBELL MD Sep 16, 2020 09:03
[2020-09-16] MEDS: hydrALAZINE 25 MG TABLET PO SCH ×3 (09:19→21:00)
[2020-09-16] MEDS ORDERED: LIDOCAINE WITH 8.4% SOD BICARB 3 ML DISP.SYRIN. ONE (12:39)
[2020-09-16] MEDS ORDERED: IODIXANOL 320 MG/ML 100 ML VIAL. ONE (12:39)
[2020-09-16] MEDS ORDERED: HEPARIN for ARTERIAL LINE 1,500 ML ONE (12:40)
[2020-09-16] MEDS ORDERED: MIDAZOLAM HCL/PF 2 MG/2 ML VIAL. ONE (12:48)
[2020-09-16] MEDS ORDERED: HEPARIN for IV BOLUS 10,000 UNIT/10 ML VIAL. ONE (12:48)
[2020-09-16] MEDS ORDERED: diphenhydrAMINE 50 MG/ML VIAL ONE (12:48)
[2020-09-16] MEDS ORDERED: fentaNYL PF VIAL 100 MCG/2 ML VIAL ONE (12:48)
[2020-09-16] MEDS ORDERED: LIDOCAINE WITH 8.4% SOD BICARB 3 ML DISP.SYRIN. IJ ONE (13:30)
[2020-09-16] MEDS ORDERED: diphenhydrAMINE 50 MG/ML VIAL IVP ONE (13:30)
[2020-09-16] MEDS ORDERED: IODIXANOL 320 MG/ML 100 ML VIAL. IART ONE (13:30)
[2020-09-16] MEDS ORDERED: MIDAZOLAM HCL/PF 2 MG/2 ML VIAL. IV ONE (13:30)
[2020-09-16] MEDS ORDERED: fentaNYL PF VIAL 100 MCG/2 ML VIAL IV ONE (13:30)
[2020-09-16] MEDS ORDERED: hydrALAZINE 20 MG/ML VIAL. ONE (13:51)
[2020-09-16] MEDS ORDERED: hydrALAZINE 20 MG/ML VIAL. IVP ONE (14:00)
[2020-09-16] MEDS ORDERED: CONTRAST GIVEN. MC PRN (14:00)
--- NOTE | 2020-09-16 14:04 | PDOC ---
MODERATE SEDATION ASSESSMENT RISKS/ALTERNATIVES Risks/Alternatives Risks and alternatives of this type of sedation and procedure discussed with: RISK/ALTERNATIVES: Patient H & P ON CHART H & P H & P on chart and reviewed for co-morbid conditions and appropriate labs. H&P ON CHART: Yes STATUS PREG STATUS ASSESSED: Yes MEDS/ALLERGIES REVIEWED Meds/Allergies Reviewed Medications and Allergies including time and route of recently administered narcotics and sedatives. MEDS/ALLERGIES REVIEWED: Yes ASA RATING ASA RATING: III AIRWAY ASSESSMENT Airway Assessment Airway patency, oral function limitations, presence of caps, crowns, dentures, partials, and ability to extend neck assessed. AIRWAY ASSESSMENT: Yes MALLAMPATI SCORE MALLAMPATI SCORE: II PRE-SEDATION ASSESSMENT PRE-SEDATION ASSESSMENT: Yes MARCIA COELHO MD Sep 16, 2020 14:04
--- NOTE | 2020-09-16 16:51 | PDOC ---
[employer] PROGRESS NOTE Date of Service DOS: DATE: 09/16/20 TIME: 16:44 Chief Complaint Chief Complaint Right leg ulcer - multiple wounds, positive for MRSA, clean based wounds. ID consulted. On zyvox. ULISES - likely vasomotor nephropathy from difficulty accessing PO well. Hydrate Abnormal chest radiograph - will order prn nebs. No cough. Will order CT to better characterize HLD - cont statin HTN - cont home meds AFIB - rate is currently controlled, has h/o fall, not on anticoagulation, likely not on BB due to bradycardia Chronic diastolic CHF - can only tolerate low dose hydralazine. No BB for popeye. H/o cervical cancer - in remission Allergic rhinitis - nasacort prn Lumbar and cervical spinal stenosis - lidoderm patch. PVD with Right AT stenosis- vascular surgery recommend CT angio and will need pretreatment with steroids/benadryl/fluids if she decided to proceed. FEN - Cardiac diet ppx - heparin CODE - DNR/DNI Dispo - inpatient for above History of Present Illness History of Present Illness 85 yo female w/ PMHx HLD, HTN, AFIB, chronic diastolic CHF, cervical cancer, allergic rhinitis, lumbar and cervical spinal stenosis who is most wheelchair bound coming in from home at direction of her home health wound care nurse from her assisted living facility, [facility] for failed outpatient treatment of bilateral lower extremity cellulitis and wounds. Has been on home health wound nursing for wound of 3rd right toe and medial lower leg ulcers and recently been on 3 rounds of antibiotics for 10 days each without improvement. Has had chills but denies any fevers. No other complaints. Per wound culture provided the patient has MRSA is resistant to multiple medications including tetracyclines the wound culture was from 09/09/2020 and is in her paper chart Started on linezolid here. Patient has allergy to sulfa and multiple other antibiotics Labs with WBC 4.5, Hb 11.2, platelets 259, sed rate 29, NA 146, K4.1, BUN 22, CR 1.1, glucose 94, alk phos 160 LFTs otherwise within normal laboratory limits, CRP 11.7, lactic acid 0.9 urinalysis large leuk esterase positive nitrates. Chest radiograph with right apical small consolidation and right ankle and foot x-rays with no acute findings. Admitted for further care. 09/14/20 No acute events overnight. Patient seen and examined bedside. Her pasin is controlled. Her edema has not worsened. Wound care to see. She does wear compression stockings over wraps whenever she gets her ulcers treated. > 50% time spent in patient chart, labs, and image review and discussion with RN and SW In addition to E/M visit, advanced care planning was done: A total time of 20 minutes was spent from 1120 to 1140 face to face in discussion with the patient and family regarding their goals of care, end of life care, and pain management. 09/15/20 No acute events overnight. Patient seen and examined bedside. Pt reading book and has no complaints. Agreed to proceed with IR angio for angioplasty. > 50% time spent in patient chart, labs, and image review and discussion with RN and SW 09/16/20 No acute events overnight. Patient seen and examined bedside. Pending Angio to address Right AT artery stenosis. No concerns from nursing. > 50% time spent in patient chart, labs, and image review and discussion with RN and SW Vitals/I&O Vitals/I&O: Vital Signs Date Time Temp Pulse Resp B/P (MAP) Pulse Ox O2 Delivery O2 Flow Rate FiO2 09/16/20 15:00 92 17 137/60 (85) 88 Nasal Cannula 2.0 09/16/20 11:00 98.1 98.1 I & O 09/15/20 09/15/20 09/16/20 14:59 22:59 06:59 Intake Total 200 ml 50 ml Balance 200 ml 50 ml Physical Exam Physical Exam: GENERAL: On examination, alert, oriented female, not in distress. HEENT: Anicteric, no thrush NECK: Supple, no JVP LUNGS: Clear. HEART: S1, S2 regular. ABDOMEN: Soft, nontender, no organomegaly. EXTREMITIES: The patient has venous insufficiency and stasis dermatitis present. There are superficial wound over the dorsum and anterior roberts, dorsalis pedis is weak palpable. NEUROLOGIC: The patient is alert, awake, appropriate. No focal neurologic deficit. General: Alert, Oriented X3, Cooperative, mild distress Lungs: Clear Abdomen: Normal bowel sounds, Soft, No tenderness, No hepatosplenomegaly, No masses Extremities: Other (Severe kyphoscoliosis. Right medial leg 7 ulcers with clean base and 3rd toe with dorsal wound) Labs Labs: Laboratory Tests Test 09/15/20 18:25 SARS-CoV-2 Antigen (Rapid) Negative (NEGATIVE) Assessment and Plan Assessmemt and Plan Problems Medical Problems: (1) Cellulitis of right foot due to methicillin-resistant Staphylococcus aureus Status: Acute Comment Review of Relevant I have reviewed the following items radha (where applicable) has been applied. Medications: Current Medications Medications (Trade) Dose Ordered Sig/Jena Route PRN Reason Start Time Stop Time Status Last Admin Dose Admin Heparin Sodium/ Sodium Chloride (HEPARIN for ARTERIAL LINE FLUSH) 2,000 unit 1X ONCE IART 09/16/20 13:30 09/16/20 13:49 DC 09/16/20 14:01 Heparin Sodium/ Sodium Chloride (HEPARIN for ARTERIAL LINE FLUSH) 1,000 unit 1X ONCE IART 09/16/20 13:30 09/16/20 13:49 DC 09/16/20 14:02 Lidocaine HCl (Buffered Lidocaine 1%) 3 ml 1X ONCE IJ 09/16/20 13:30 09/16/20 13:49 DC 09/16/20 14:04 Midazolam HCl (Versed) 2 mg 1X ONCE IV 09/16/20 13:30 09/16/20 13:49 DC 09/16/20 14:02 Fentanyl Citrate (Fentanyl 2ml Vial) 100 mcg 1X ONCE IV 09/16/20 13:30 09/16/20 13:49 DC 09/16/20 14:03 Iodixanol (Visipaque 320) 100 ml 1X ONCE IART 09/16/20 13:30 09/16/20 13:49 DC 09/16/20 14:02 Diphenhydramine HCl (Benadryl) 50 mg 1X ONCE IVP 09/16/20 13:30 09/16/20 13:49 DC 09/16/20 14:05 Hydralazine HCl (Apresoline Inj) 10 mg 1X ONCE IVP 09/16/20 14:00 09/16/20 14:01 DC 09/16/20 14:05 Justifications for Admission Other Justification JAYNE DUBOIS MD Sep 16, 2020 16:51
--- NOTE | 2020-09-16 17:26 | RAD ---
09/16/2020 1. Abdominal aortogram 2. Pelvic angiography 3. Right lower extremity angiography . Indication: History of peripheral vascular disease. History of venous insufficiency. Right lower extr emity wound. COMPARISON STUDY: Right lower extremity arterial duplex ultrasound. September 13, 2020. Consent: The procedure was explained in its entirety to the patient or the patients designated repres entative by a member of the treatment team, including a discussion of the risks, benefits and commonl y accepted alternatives to the procedure, as well as the expected consequences of no therapy whatsoev er. Discussion of the risks included, but was not limited to, those that are most frequent and thos e that are rare but possibly severe or life-threatening, as well as the possibility of unforeseen com plications. The patient was brought to the fluoroscopy suite and placed in the supine position. A timeout procedu re was performed. The left groin was prepped and draped using sterile barrier technique. This include s the use of: Current guideline approved cutaneous antisepsis, a large sterile sheet to establish a s terile field. Additionally the furnace operator oil or gas wore a hat, mask, sterile gloves, a sterile gown during the p rocedure as well as practiced acceptable hand hygiene prior to placing the line. Ultrasound evaluation demonstrates left common femoral artery to be patent. One percent lidocaine was administered for local anesthesia. The left common femoral artery was accessed under direct ultrasou nd guidance with micropuncture technique. Reference ultrasound images were saved medical record. 5 Fr ench vascular sheath was placed. Catheter was advanced into the abdominal aorta. Abdominal aortogram was obtained. This demonstrates diffuse aphthous chronic vascular disease and mild tortuosity of the abdominal aorta. There is ectasia of the inferior most abdominal aorta. The catheter was repositioned in the inferior abdominal aorta and pelvic angiograms were obtained dem onstrating no hemodynamically significant aortoiliac stenosis. The catheter was used to cross the aortic bifurcation positioned in the external iliac artery on the right. Angiograms obtained demonstrating a patent right external iliac artery, common femoral artery, profunda artery. The catheter was repositioned in the SFA angiograms of the right lower extremity co ntinued. The right SFA is irregular but patent. The right popliteal artery is patent. These angiogram s were performed in lateral projection secondary to knee arthroplasty. There is occlusion of the anterior tibial and peroneal arteries. There is single vessel runoff to the foot and ankle via a somewhat hypertrophied posterior tibial artery. The lateral plantar artery is p atent. The dorsalis pedis artery is not visualized. Angiography of the access site demonstrates a mid common femoral puncture. A minx device was deployed as the sheath was removed. Hemostasis was achieved. Sterile dressings were applied. Total fluoroscopy time: 6.5 minutes Dose area product 77 Merrill centimeter squared. Sedation: The procedure was performed under conscious sedation including continuous cardiopulmonary m onitoring via a dedicated sedation nurse. [id number] sedation time: 60 minutes Impression: 1. No hemodynamically significant aortoiliac or femoropopliteal stenosis 2. Single vessel runoff to the right foot via a prominent posterior tibial artery supplying the later al plantar artery. Peroneal artery, anterior tibial artery, dorsalis pedis artery are nonvisualized. No adequate target first additional distal tibial revascularization was identified. 3. Infrarenal abdominal aortic ectasia Electronically signed by: Stuart Liu MD (09/16/2020 5:23 PM) [id number]
[2020-09-16] MEDS: PATCH REMOVAL. MC SCH (21:00)
[2020-09-17 03:00] VITALS: BP 150/67
[2020-09-17] MEDS: MEROPENEM 500 MG in IV NORMAL SALINE 50ML 50 ML IV SCH ×4 (06:23→16:41)
[2020-09-17] MEDS: HEPARIN for SUB-Q USE 5,000 UNIT/ML VIAL. SQ SCH ×3 (06:27→22:07)
[2020-09-17 07:00] VITALS: BP 171/78
[2020-09-17] MEDS: FLUTICASONE 50MCG/NASAL SPRAY 16GM BOTTLE. NS SCH (09:00)
[2020-09-17] MEDS: CLOTRIMAZOLE/BETAMETH 1%-0.05% TOPICAL CREAM 15GM TUBE. TP SCH ×2 (09:00→21:00)
[2020-09-17] MEDS: LIDOCAINE (700MG/PATCH) PATCH. TD SCH (09:00)
[2020-09-17] MEDS: LACTOBACILLUS RHAMNOSUS GG 1 CAPSULE. PO SCH (09:48)
[2020-09-17] MEDS: MULTIVITAMIN with MINERAL TABLET. PO SCH (09:48)
[2020-09-17] MEDS: GABAPENTIN 300 MG CAPSULE. PO SCH (09:48)
[2020-09-17] MEDS: VITAMIN E 200 UNIT CAPSULE. PO SCH (09:48)
[2020-09-17] MEDS: DOCUSATE SODIUM 100 MG CAPSULE. PO SCH (09:48)
[2020-09-17] MEDS: ASPIRIN ENTERIC COATED 81 MG TABLET.DR. PO SCH ×2 (09:49→21:06)
[2020-09-17] MEDS: LEVOTHYROXINE 137 MCG TABLET PO SCH (09:49)
[2020-09-17] MEDS: CETIRIZINE HCL 10 MG TABLET. PO SCH (09:49)
[2020-09-17] MEDS: ASCORBIC ACID 1,000 MG TABLET PO SCH (09:49)
[2020-09-17] MEDS: hydrALAZINE 25 MG TABLET PO SCH ×4 (09:49→21:06)
--- NOTE | 2020-09-17 10:18 | PDOC ---
Infectious Disease Note Subjective: Subjective Patient feels better pain is under control Denies fever, vomiting, diarrhea, abdominal pain, symptoms Vital Signs: Vital Signs Vital Signs Date Time Temp Pulse Resp B/P (MAP) Pulse Ox O2 Delivery O2 Flow Rate FiO2 09/17/20 09:49 84 171/78 09/17/20 08:00 Nasal Cannula 2.0 09/17/20 07:00 97.8 14 90 97.8 Physical Exam: PHYSICAL EXAM GENERAL: On examination, alert, oriented female, not in distress. HEENT: Anicteric, no thrush NECK: Supple, no JVP LUNGS: Clear. HEART: S1, S2 regular. ABDOMEN: Soft, nontender, no organomegaly. EXTREMITIES: The patient has venous insufficiency and stasis dermatitis present. There are superficial wound over the dorsum and anterior roberts, dorsalis pedis is weak palpable. NEUROLOGIC: The patient is alert, awake, appropriate. No focal neurologic deficit. Medications: Inpatient Meds: Medications reviewed. Labs: Micro RUN DATE: 09/14/20 [facility] *LIVE* PAGE 1 RUN TIME: 815 Specimen Inquiry PATIENT: KAILA DISLA ACCT: [id number] LOC: [facility] U: [id number] AGE/SX: 85/F ROOM: [facility] RE09/12/[address]: SPEEDY TRACEY MD : 1935 BED: 1 DIS: STATUS: ADM IN TLOC: SPEC #: [id number] JACQUE: 09/12/20 STATUS: RES REQ #: [id number] RECD: 09/12/[address]: JAIRO GALLO MD SOURCE: VOID ENTR: 09/12/[address]: VERO WYNN MD [facility]: ORDERED: URINE CULTURE --- --------- Procedure Result URINE CULTURE Preliminary Preliminary GREATER THAN 100,000 CFU/ML GRAM NEGATIVE RODS on 09/14/20 at 0810 FINAL ID= [ESCHERICHIA COLI] LESS THAN 10,000 CFU/ML Normal genitourinary rayna, not indicative of infection on 09/14/20 at 0810 Testing Performed by: [address] [address] For Inquires, the Physician may contact the Microbiology department at [phone] ESCHERICHIA COLI Unless otherwise specified, Testing Performed by: [address] [place] [address] For Inquires, the Physician may contact the Microbiology department at [phone] Objective: Assessment: 1. Right lower extremity superficial ulcers. 2. Right lower extremity cellulitis. 3. Venous insufficiency. 4. Stasis dermatitis. 5. Peripheral vascular disease. 6. Multiple medication allergies. 7. E Coli UTI ESBL 8. Abnormal CT chest with GGO, SARS Covid negative Plan: Plan of Care Continue merrem/linezolid leg elevation, Vascular following local wound care PT, OT Discussed with nursing staff CRISSY CAMPBELL MD Sep 17, 2020 10:18
[2020-09-17] MEDS: traMADol 50 MG TABLET PO PRN (10:44)
[2020-09-17 11:00] VITALS: BP 142/67
--- NOTE | 2020-09-17 12:59 | PDOC ---
[employer] PROGRESS NOTE Date of Service DOS: DATE: 09/17/20 TIME: 12:57 Chief Complaint Chief Complaint Right leg ulcer - multiple wounds, positive for MRSA, clean based wounds. ID consulted. On zyvox. ULISES - likely vasomotor nephropathy from difficulty accessing PO well. Hydrate Abnormal chest radiograph - will order prn nebs. No cough. Will order CT to better characterize HLD - cont statin HTN - cont home meds AFIB - rate is currently controlled, has h/o fall, not on anticoagulation, likely not on BB due to bradycardia Chronic diastolic CHF - can only tolerate low dose hydralazine. No BB for popeye. H/o cervical cancer - in remission Allergic rhinitis - nasacort prn Lumbar and cervical spinal stenosis - lidoderm patch. PVD with Right AT stenosis- vascular surgery recommend CT angio and will need pretreatment with steroids/benadryl/fluids if she decided to proceed. FEN - Cardiac diet ppx - heparin CODE - DNR/DNI Dispo - inpatient for above History of Present Illness History of Present Illness 85 yo female w/ PMHx HLD, HTN, AFIB, chronic diastolic CHF, cervical cancer, allergic rhinitis, lumbar and cervical spinal stenosis who is most wheelchair bound coming in from home at direction of her home health wound care nurse from her assisted living facility, [facility] for failed outpatient treatment of bilateral lower extremity cellulitis and wounds. Has been on home health wound nursing for wound of 3rd right toe and medial lower leg ulcers and recently been on 3 rounds of antibiotics for 10 days each without improvement. Has had chills but denies any fevers. No other complaints. Per wound culture provided the patient has MRSA is resistant to multiple medications including tetracyclines the wound culture was from 09/09/2020 and is in her paper chart Started on linezolid here. Patient has allergy to sulfa and multiple other antibiotics Labs with WBC 4.5, Hb 11.2, platelets 259, sed rate 29, NA 146, K4.1, BUN 22, CR 1.1, glucose 94, alk phos 160 LFTs otherwise within normal laboratory limits, CRP 11.7, lactic acid 0.9 urinalysis large leuk esterase positive nitrates. Chest radiograph with right apical small consolidation and right ankle and foot x-rays with no acute findings. Admitted for further care. 09/14/20 No acute events overnight. Patient seen and examined bedside. Her pasin is controlled. Her edema has not worsened. Wound care to see. She does wear compression stockings over wraps whenever she gets her ulcers treated. > 50% time spent in patient chart, labs, and image review and discussion with RN and SW In addition to E/M visit, advanced care planning was done: A total time of 20 minutes was spent from 1120 to 1140 face to face in discussion with the patient and family regarding their goals of care, end of life care, and pain management. 09/15/20 No acute events overnight. Patient seen and examined bedside. Pt reading book and has no complaints. Agreed to proceed with IR angio for angioplasty. > 50% time spent in patient chart, labs, and image review and discussion with RN and SW 09/16/20 No acute events overnight. Patient seen and examined bedside. Pending Angio to address Right AT artery stenosis. No concerns from nursing. > 50% time spent in patient chart, labs, and image review and discussion with RN and SW 09/17/2020 No major events overnight. Patient seen and examined bedside. Angio completed and third did not show any good targets for intervention. Will discuss with vascular surgery for further intervention. Increase hydralazine to 25 mg every 6 hours. Blood pressures are currently labile in the 160s to 180s. Patient's chart, labs, images were reviewed and discussed with RN Vitals/I&O Vitals/I&O: Vital Signs Date Time Temp Pulse Resp B/P (MAP) Pulse Ox O2 Delivery O2 Flow Rate FiO2 09/17/20 09:49 84 171/78 09/17/20 08:00 Nasal Cannula 2.0 09/17/20 07:00 97.8 14 90 97.8 I & O 09/16/20 09/16/20 09/17/20 15:00 23:00 07:00 Intake Total 0 ml 300 ml Output Total 0 ml Balance 0 ml 300 ml 0 ml Physical Exam Physical Exam: GENERAL: On examination, alert, oriented female, not in distress. HEENT: Anicteric, no thrush NECK: Supple, no JVP LUNGS: Clear. HEART: S1, S2 regular. ABDOMEN: Soft, nontender, no organomegaly. EXTREMITIES: The patient has venous insufficiency and stasis dermatitis present. There are superficial wound over the dorsum and anterior roberts, dorsalis pedis is weak palpable. NEUROLOGIC: The patient is alert, awake, appropriate. No focal neurologic deficit. General: Alert, Oriented X3, Cooperative, mild distress Lungs: Clear Abdomen: Normal bowel sounds, Soft, No tenderness, No hepatosplenomegaly, No masses Extremities: Other (Severe kyphoscoliosis. Right medial leg 7 ulcers with clean base and 3rd toe with dorsal wound) Assessment and Plan Assessmemt and Plan Problems Medical Problems: (1) Cellulitis of right foot due to methicillin-resistant Staphylococcus aureus Status: Acute Comment Review of Relevant I have reviewed the following items radha (where applicable) has been applied. Medications: Current Medications Medications (Trade) Dose Ordered Sig/Jena Route PRN Reason Start Time Stop Time Status Last Admin Dose Admin Heparin Sodium/ Sodium Chloride (HEPARIN for ARTERIAL LINE FLUSH) 2,000 unit 1X ONCE IART 09/16/20 13:30 09/16/20 13:49 DC 09/16/20 14:01 Heparin Sodium/ Sodium Chloride (HEPARIN for ARTERIAL LINE FLUSH) 1,000 unit 1X ONCE IART 09/16/20 13:30 09/16/20 13:49 DC 09/16/20 14:02 Lidocaine HCl (Buffered Lidocaine 1%) 3 ml 1X ONCE IJ 09/16/20 13:30 09/16/20 13:49 DC 09/16/20 14:04 Midazolam HCl (Versed) 2 mg 1X ONCE IV 09/16/20 13:30 09/16/20 13:49 DC 09/16/20 14:02 Fentanyl Citrate (Fentanyl 2ml Vial) 100 mcg 1X ONCE IV 09/16/20 13:30 09/16/20 13:49 DC 09/16/20 14:03 Iodixanol (Visipaque 320) 100 ml 1X ONCE IART 09/16/20 13:30 09/16/20 13:49 DC 09/16/20 14:02 Diphenhydramine HCl (Benadryl) 50 mg 1X ONCE IVP 09/16/20 13:30 09/16/20 13:49 DC 09/16/20 14:05 Hydralazine HCl (Apresoline Inj) 10 mg 1X ONCE IVP 09/16/20 14:00 09/16/20 14:01 DC 09/16/20 14:05 Justifications for Admission Other Justification JAYNE DUBOIS MD Sep 17, 2020 12:59
[2020-09-17 15:00] VITALS: BP 162/72
--- NOTE | 2020-09-17 15:57 | NUR ---
SW following. Discussed with RN, pt from [facility], 2L (does not use at home), regular diet, COVID-19 negative. Therapy recommending home health. SW met with pt, pt is current with [facility] and would like to continue with them. RN notified. Pt would prefer to not go home on oxygen. SW will continue to follow.
--- NOTE | 2020-09-17 17:37 | PDOC ---
Provider Note Date of Service: DATE: 09/17/20 TIME: 17:36 Provider Note S: No complaints. O: Afebrile Cellulitis persists right lower extremity. Angiogram reviewed. Patient has single-vessel runoff via a prominent posterior tibial artery with adequate vascularity. Impression: #1 cellulitis of the right lower extremity with no evidence of significant arterial occlusive disease. Plan: Continue conservative therapy with IV antibiotics. No surgical de bridement is required at this time. No further imaging or vascular intervention is required at this time. We will sign off but be available Justifications for Admission Other Justification JALEESA FINE II, MD Sep 17, 2020 17:37
[2020-09-17 19:30] VITALS: BP 140/73
[2020-09-17] MEDS: PATCH REMOVAL. MC SCH (21:00)
[2020-09-17 23:47] VITALS: BP 123/63
[2020-09-18] MEDS: MEROPENEM 500 MG in IV NORMAL SALINE 50ML 50 ML IV SCH ×4 (00:02→17:38)
[2020-09-18 03:15] VITALS: BP 103/64
[2020-09-18] MEDS: LEVOTHYROXINE 137 MCG TABLET PO SCH (06:21)
[2020-09-18] MEDS: CETIRIZINE HCL 10 MG TABLET. PO SCH (06:21)
[2020-09-18] MEDS: HEPARIN for SUB-Q USE 5,000 UNIT/ML VIAL. SQ SCH ×3 (06:33→22:17)
[2020-09-18 07:00] VITALS: BP 131/61
[2020-09-18] MEDS: CLOTRIMAZOLE/BETAMETH 1%-0.05% TOPICAL CREAM 15GM TUBE. TP SCH ×2 (09:00→20:49)
[2020-09-18] MEDS: FLUTICASONE 50MCG/NASAL SPRAY 16GM BOTTLE. NS SCH (09:00)
--- NOTE | 2020-09-18 09:49 | PDOC ---
Infectious Disease Note Subjective: Subjective Patient feels better pain is under control Denies fever, vomiting, diarrhea, abdominal pain, symptoms Vital Signs: Vital Signs Vital Signs Date Time Temp Pulse Resp B/P (MAP) Pulse Ox O2 Delivery O2 Flow Rate FiO2 09/18/20 07:00 98.2 78 17 131/61 (84) 93 Nasal Cannula 5.0 98.2 Physical Exam: PHYSICAL EXAM GENERAL: On examination, alert, oriented female, not in distress. HEENT: Anicteric, no thrush NECK: Supple, no JVP LUNGS: Clear. HEART: S1, S2 regular. ABDOMEN: Soft, nontender, no organomegaly. EXTREMITIES: The patient has venous insufficiency and stasis dermatitis present. There are superficial wound over the dorsum and anterior roberts, dorsalis pedis is weak palpable. NEUROLOGIC: The patient is alert, awake, appropriate. No focal neurologic deficit. Medications: Inpatient Meds: Medications reviewed. Labs: Micro RUN DATE: 09/14/20 [facility] LAB *LIVE* PAGE 1 RUN TIME: 815 Specimen Inquiry PATIENT: KAILA DISLA ACCT: [id number] LOC: 6 [facility] U: [id number] AGE/SX: 85/F ROOM: 676 RE09/12/[address]: SPEEDY TRACEY MD : 1935 BED: 1 DIS: STATUS: ADM IN TLOC: SPEC #: [id number] JACQUE: 09/12/20 STATUS: RES REQ #: [id number] RECD: 09/12/[address]: JAIRO GALLO MD SOURCE: VOID ENTR: 09/12/[address]: VERO WYNN MD [facility]: ORDERED: URINE CULTURE Procedure Result URINE CULTURE Preliminary Preliminary GREATER THAN 100,000 CFU/ML GRAM NEGATIVE RODS on 09/14/20 at 0810 FINAL ID= [ESCHERICHIA COLI] LESS THAN 10,000 CFU/ML Normal genitourinary rayna, not indicative of infection on 09/14/20 at 0810 Testing Performed by: [facility] [place] [address] For Inquires, the Physician may contact the Microbiology department at [phone] ESCHERICHIA COLI Unless otherwise specified, Testing Performed by: [facility] [place] [address] For Inquires, the Physician may contact the Microbiology department at [phone] Objective: Assessment: 1. Right lower extremity superficial ulcers. 2. Right lower extremity cellulitis. 3. Venous insufficiency. 4. Stasis dermatitis. 5. Peripheral vascular disease. 6. Multiple medication allergies. 7. E Coli UTI ESBL 8. Abnormal CT chest with GGO, SARS Covid negative Plan: Plan of Care Patient is ready for discharge home today per team Augmentin and doxycycline for 7 days leg elevation, Vascular input noted local wound care as directed Discussed with nursing staff CRISSY CAMPBELL MD Sep 18, 2020 09:49
[2020-09-18] MEDS: GABAPENTIN 300 MG CAPSULE. PO SCH (09:59)
[2020-09-18] MEDS: MULTIVITAMIN with MINERAL TABLET. PO SCH (09:59)
[2020-09-18] MEDS: DOCUSATE SODIUM 100 MG CAPSULE. PO SCH (09:59)
[2020-09-18] MEDS: LACTOBACILLUS RHAMNOSUS GG 1 CAPSULE. PO SCH (09:59)
[2020-09-18] MEDS: LIDOCAINE (700MG/PATCH) PATCH. TD SCH (09:59)
[2020-09-18] MEDS: ASCORBIC ACID 1,000 MG TABLET PO SCH (09:59)
[2020-09-18] MEDS: ASPIRIN ENTERIC COATED 81 MG TABLET.DR. PO SCH ×2 (09:59→20:48)
[2020-09-18] MEDS: hydrALAZINE 25 MG TABLET PO SCH ×4 (10:00→20:49)
[2020-09-18] MEDS: VITAMIN E 200 UNIT CAPSULE. PO SCH (10:07)
--- NOTE | 2020-09-18 10:56 | PDOC ---
[employer] PROGRESS NOTE Date of Service DOS: DATE: 09/18/20 TIME: 10:55 Chief Complaint Chief Complaint Right leg ulcer - multiple wounds, positive for MRSA, clean based wounds. ID consulted. On zyvox. ULISES - likely vasomotor nephropathy from difficulty accessing PO well. Hydrate Abnormal chest radiograph - will order prn nebs. No cough. Will order CT to better characterize HLD - cont statin HTN - cont home meds AFIB - rate is currently controlled, has h/o fall, not on anticoagulation, likely not on BB due to bradycardia Chronic diastolic CHF - can only tolerate low dose hydralazine. No BB for popeye. H/o cervical cancer - in remission Allergic rhinitis - nasacort prn Lumbar and cervical spinal stenosis - lidoderm patch. PVD with Right AT stenosis- vascular surgery recommend CT angio and will need pretreatment with steroids/benadryl/fluids if she decided to proceed. FEN - Cardiac diet ppx - heparin CODE - DNR/DNI Dispo - inpatient for above History of Present Illness History of Present Illness 09/18/2020 Patient seen and examined She is resting with no apparent distress Chart reviewed Discussed with RN Discussed with case management She is on IV Zyvox and meropenem Has O2 on per nasal cannula 85 yo female w/ PMHx HLD, HTN, AFIB, chronic diastolic CHF, cervical cancer, allergic rhinitis, lumbar and cervical spinal stenosis who is most wheelchair bound coming in from home at direction of her home health wound care nurse from her assisted living facility, [facility] for failed outpatient treatment of bilateral lower extremity cellulitis and wounds. Has been on home health wound nursing for wound of 3rd right toe and medial lower leg ulcers and recently been on 3 rounds of antibiotics for 10 days each without improvement. Has had chills but denies any fevers. No other complaints. Per wound culture provided the patient has MRSA is resistant to multiple medications including tetracyclines the wound culture was from 09/09/2020 and is in her paper chart Started on linezolid here. Patient has allergy to sulfa and multiple other antibiotics Labs with WBC 4.5, Hb 11.2, platelets 259, sed rate 29, NA 146, K4.1, BUN 22, CR 1.1, glucose 94, alk phos 160 LFTs otherwise within normal laboratory limits, CRP 11.7, lactic acid 0.9 urinalysis large leuk esterase positive nitrates. Chest radiograph with right apical small consolidation and right ankle and foot x-rays with no acute findings. Admitted for further care. 09/14/20 No acute events overnight. Patient seen and examined bedside. Her pasin is controlled. Her edema has not worsened. Wound care to see. She does wear compression stockings over wraps whenever she gets her ulcers treated. > 50% time spent in patient chart, labs, and image review and discussion with RN and SW In addition to E/M visit, advanced care planning was done: A total time of 20 minutes was spent from 1120 to 1140 face to face in discussion with the patient and family regarding their goals of care, end of life care, and pain management. 09/15/20 No acute events overnight. Patient seen and examined bedside. Pt reading book and has no complaints. Agreed to proceed with IR angio for angioplasty. > 50% time spent in patient chart, labs, and image review and discussion with RN and SW 09/16/20 No acute events overnight. Patient seen and examined bedside. Pending Angio to address Right AT artery stenosis. No concerns from nursing. > 50% time spent in patient chart, labs, and image review and discussion with RN and SW 09/17/2020 No major events overnight. Patient seen and examined bedside. Angio completed and third did not show any good targets for intervention. Will discuss with vascular surgery for further intervention. Increase hydralazine to 25 mg every 6 hours. Blood pressures are currently labile in the 160s to 180s. Patient's chart, labs, images were reviewed and discussed with RN Vitals/I&O Vitals/I&O: Vital Signs Date Time Temp Pulse Resp B/P (MAP) Pulse Ox O2 Delivery O2 Flow Rate FiO2 09/18/20 10:00 78 131/61 09/18/20 07:00 98.2 17 93 Nasal Cannula 5.0 98.2 I & O 09/17/20 09/17/20 09/18/20 15:00 23:00 07:00 Intake Total 240 ml 240 ml 240 ml Output Total 400 ml Balance 240 ml -160 ml 240 ml Physical Exam Physical Exam: GENERAL: On examination, alert, oriented female, not in distress. HEENT: Anicteric, no thrush NECK: Supple, no JVP LUNGS: Clear. HEART: S1, S2 regular. ABDOMEN: Soft, nontender, no organomegaly. EXTREMITIES: The patient has venous insufficiency and stasis dermatitis present. There are superficial wound over the dorsum and anterior roberts, dorsalis pedis is weak palpable. NEUROLOGIC: The patient is alert, awake, appropriate. No focal neurologic deficit. General: No acute distress Lungs: Clear Abdomen: Normal bowel sounds, Soft, No tenderness, No hepatosplenomegaly, No masses Extremities: Other (Severe kyphoscoliosis. Right medial leg 7 ulcers with clean base and 3rd toe with dorsal wound) Assessment and Plan Assessmemt and Plan Problems Medical Problems: (1) Cellulitis of right foot due to methicillin-resistant Staphylococcus aureus Status: Acute Right leg ulcer - multiple wounds, positive for MRSA, clean based wounds. ID consulted. On zyvox. ULISES - likely vasomotor nephropathy from difficulty accessing PO well. Hydrate Abnormal chest radiograph - will order prn nebs. No cough. Will order CT to better characterize HLD - cont statin HTN - cont home meds AFIB - rate is currently controlled, has h/o fall, not on anticoagulation, likely not on BB due to bradycardia Chronic diastolic CHF - can only tolerate low dose hydralazine. No BB for popeye. H/o cervical cancer - in remission Allergic rhinitis - nasacort prn Lumbar and cervical spinal stenosis - lidoderm patch. PVD with Right AT stenosis- vascular surgery recommend CT angio and will need pretreatment with steroids/benadryl/fluids if she decided to proceed. FEN - Cardiac diet ppx - heparin CODE - DNR/DNI Dispo - inpatient for above Comment Review of Relevant I have reviewed the following items radha (where applicable) has been applied. Medications: Current Medications Medications (Trade) Dose Ordered Sig/Jena Route PRN Reason Start Time Stop Time Status Last Admin Dose Admin Hydralazine HCl (Apresoline) 25 mg QIDAFTMEAL PO 09/17/20 13:00 09/18/20 10:00 Justifications for Admission Other Justification SANDY MARCUS III DO Sep 18, 2020 10:56
[2020-09-18 11:00] VITALS: BP 131/71
[2020-09-18] MEDS: traMADol 50 MG TABLET PO PRN (12:09)
[2020-09-18 15:00] VITALS: BP 128/90
[2020-09-18 19:00] VITALS: BP 110/48
[2020-09-18] MEDS: PATCH REMOVAL. MC SCH (20:49)
[2020-09-18 23:00] VITALS: BP 147/74
[2020-09-19] MEDS: MEROPENEM 500 MG in IV NORMAL SALINE 50ML 50 ML IV SCH ×2 (00:12→05:42)
[2020-09-19 03:00] VITALS: BP 147/62
[2020-09-19] MEDS: HEPARIN for SUB-Q USE 5,000 UNIT/ML VIAL. SQ SCH ×3 (05:46→21:57)
[2020-09-19] MEDS: LEVOTHYROXINE 137 MCG TABLET PO SCH (06:02)
[2020-09-19] MEDS: CETIRIZINE HCL 10 MG TABLET. PO SCH (06:03)
[2020-09-19 07:00] VITALS: BP 127/76
[2020-09-19] MEDS: hydrALAZINE 25 MG TABLET PO SCH ×4 (08:34→20:59)
[2020-09-19] MEDS: ASCORBIC ACID 1,000 MG TABLET PO SCH (08:34)
[2020-09-19] MEDS: MULTIVITAMIN with MINERAL TABLET. PO SCH (08:35)
[2020-09-19] MEDS: LACTOBACILLUS RHAMNOSUS GG 1 CAPSULE. PO SCH (08:35)
[2020-09-19] MEDS: DOCUSATE SODIUM 100 MG CAPSULE. PO SCH (08:35)
[2020-09-19] MEDS: GABAPENTIN 300 MG CAPSULE. PO SCH (08:35)
[2020-09-19] MEDS: LIDOCAINE (700MG/PATCH) PATCH. TD SCH (08:36)
[2020-09-19] MEDS: FLUTICASONE 50MCG/NASAL SPRAY 16GM BOTTLE. NS SCH (08:36)
[2020-09-19] MEDS: CLOTRIMAZOLE/BETAMETH 1%-0.05% TOPICAL CREAM 15GM TUBE. TP SCH ×2 (08:36→21:57)
[2020-09-19] MEDS: VITAMIN E 200 UNIT CAPSULE. PO SCH (08:36)
[2020-09-19] MEDS: ASPIRIN ENTERIC COATED 81 MG TABLET.DR. PO SCH ×2 (08:36→20:58)
--- NOTE | 2020-09-19 08:41 | PDOC ---
Infectious Disease Note Subjective: Subjective Patient feels better pain is under control Denies fever, vomiting, diarrhea, abdominal pain, symptoms Vital Signs: Vital Signs Vital Signs Date Time Temp Pulse Resp B/P (MAP) Pulse Ox O2 Delivery O2 Flow Rate FiO2 09/19/20 08:34 86 147/62 09/19/20 03:00 97.9 18 91 Nasal Cannula 5.0 97.9 Physical Exam: PHYSICAL EXAM GENERAL: On examination, alert, oriented female, not in distress. HEENT: Anicteric, no thrush NECK: Supple, no JVP LUNGS: Clear. HEART: S1, S2 regular. ABDOMEN: Soft, nontender, no organomegaly. EXTREMITIES: The patient has venous insufficiency and stasis dermatitis present. There are superficial wound over the dorsum and anterior roberts, dorsalis pedis is weak palpable. NEUROLOGIC: The patient is alert, awake, appropriate. No focal neurologic deficit. Medications: Inpatient Meds: Medications reviewed. Labs: Micro RUN DATE: 09/14/20 [facility] *LIVE* PAGE 1 RUN TIME: 815 Specimen Inquiry ----- ------- PATIENT: KAILA DISLA ACCT: [id number] LOC: [address] [place] [address] U: [id number] AGE/SX: 85/F ROOM: [facility] RE09/12/[address]: SPEEDY TRACEY MD : 1935 BED: 1 DIS: STATUS: ADM IN TLOC: SPEC #: [id number] JACQUE: 09/12/20 STATUS: RES REQ #: [id number] RECD: 09/12/[address]: JAIRO GALLO MD SOURCE: VOID ENTR: 09/12/[address]: VERO WYNN MD [facility]: ORDERED: URINE CULTURE Procedure Result URINE CULTURE Preliminary Preliminary GREATER THAN 100,000 CFU/ML GRAM NEGATIVE RODS on 09/14/20 at 0810 FINAL ID= [ESCHERICHIA COLI] LESS THAN 10,000 CFU/ML Normal genitourinary rayna, not indicative of infection on 09/14/20 at 0810 Testing Performed by: [facility] [place] [address] For Inquires, the Physician may contact the Microbiology department at [phone] ESCHERICHIA COLI Unless otherwise specified, Testing Performed by: [facility] [place] [address] For Inquires, the Physician may contact the Microbiology department at [phone] Objective: Assessment: 1. Right lower extremity superficial ulcers. 2. Right lower extremity cellulitis. 3. Venous insufficiency. 4. Stasis dermatitis. 5. Peripheral vascular disease. 6. Multiple medication allergies. 7. E Coli UTI ESBL 8. Abnormal CT chest with GGO, SARS Covid negative Plan: Plan of Care DC Merrem DC linezolid Fosfomycin one dose When ready for discharge transition to Augmentin and doxycycline for 7 days, prescription chart leg elevation, Vascular input noted local wound care as directed Discussed with nursing staff CRISSY CAMPBELL MD Sep 19, 2020 08:41
[2020-09-19] MEDS: DOXYCYCLINE HYCLATE 100 MG TABLET PO SCH ×2 (08:56→20:59)
[2020-09-19] MEDS ORDERED: FOSFOMYCIN TROMETHAMINE 3 GM PACKET PO ONE (09:30)
--- NOTE | 2020-09-19 10:39 | PDOC ---
[employer] PROGRESS NOTE Date of Service DOS: DATE: 09/19/20 TIME: 10:36 Chief Complaint Chief Complaint Right leg ulcer Cellulitis ULISES Hyperlipidemia Hypertension A. fib Chronic CHF History of cervical cancer Chronic lumbar and cervical spinal stenosis History of peripheral vascular disease History of Present Illness History of Present Illness 09/20/2019 Patient seen and examined She is pleasantly confused Chart reviewed Discussed with RN 09/18/2020 Patient seen and examined She is resting with no apparent distress Chart reviewed Discussed with RN Discussed with case management She is on IV Zyvox and meropenem Has O2 on per nasal cannula 85 yo female w/ PMHx HLD, HTN, AFIB, chronic diastolic CHF, cervical cancer, allergic rhinitis, lumbar and cervical spinal stenosis who is most wheelchair bound coming in from home at direction of her home health wound care nurse from her assisted living facility, [facility] for failed outpatient treatment of bilateral lower extremity cellulitis and wounds. Has been on home health wound nursing for wound of 3rd right toe and medial lower leg ulcers and recently been on 3 rounds of antibiotics for 10 days each without improvement. Has had chills but denies any fevers. No other complaints. Per wound culture provided the patient has MRSA is resistant to multiple medications including tetracyclines the wound culture was from 09/09/2020 and is in her paper chart Started on linezolid here. Patient has allergy to sulfa and multiple other antibiotics Labs with WBC 4.5, Hb 11.2, platelets 259, sed rate 29, NA 146, K4.1, BUN 22, CR 1.1, glucose 94, alk phos 160 LFTs otherwise within normal laboratory limits, CRP 11.7, lactic acid 0.9 urinalysis large leuk esterase positive nitrates. Chest radiograph with right apical small consolidation and right ankle and foot x-rays with no acute findings. Admitted for further care. 09/14/20 No acute events overnight. Patient seen and examined bedside. Her pasin is controlled. Her edema has not worsened. Wound care to see. She does wear compression stockings over wraps whenever she gets her ulcers treated. > 50% time spent in patient chart, labs, and image review and discussion with RN and SW In addition to E/M visit, advanced care planning was done: A total time of 20 minutes was spent from 1120 to 1140 face to face in discussion with the patient and family regarding their goals of care, end of life care, and pain management. 09/15/20 No acute events overnight. Patient seen and examined bedside. Pt reading book and has no complaints. Agreed to proceed with IR angio for angioplasty. > 50% time spent in patient chart, labs, and image review and discussion with RN and MARYURI 09/16/20 No acute events overnight. Patient seen and examined bedside. Pending Angio to address Right AT artery stenosis. No concerns from nursing. > 50% time spent in patient chart, labs, and image review and discussion with RN and SW 09/17/2020 No major events overnight. Patient seen and examined bedside. Angio completed and third did not show any good targets for intervention. Will discuss with vascular surgery for further intervention. Increase hydralazine to 25 mg every 6 hours. Blood pressures are currently labile in the 160s to 180s. Patient's chart, labs, images were reviewed and discussed with RN Vitals/I&O Vitals/I&O: Vital Signs Date Time Temp Pulse Resp B/P (MAP) Pulse Ox O2 Delivery O2 Flow Rate FiO2 09/19/20 08:34 86 147/62 09/19/20 08:00 Nasal Cannula 5.0 09/19/20 07:00 98.1 18 90 98.1 I & O 09/18/20 09/18/20 09/19/20 15:00 23:00 07:00 Intake Total 300 ml Balance 300 ml Physical Exam Physical Exam: GENERAL: On examination, alert, oriented female, not in distress. HEENT: Anicteric, no thrush NECK: Supple, no JVP LUNGS: Clear. HEART: S1, S2 regular. ABDOMEN: Soft, nontender, no organomegaly. EXTREMITIES: The patient has venous insufficiency and stasis dermatitis present. There are superficial wound over the dorsum and anterior roberts, dorsalis pedis is weak palpable. NEUROLOGIC: The patient is alert, awake, appropriate. No focal neurologic deficit. General: No acute distress Lungs: Clear Abdomen: Normal bowel sounds, Soft, No tenderness, No hepatosplenomegaly, No masses Extremities: Other (Severe kyphoscoliosis. Right medial leg 7 ulcers with clean base and 3rd toe with dorsal wound) Assessment and Plan Assessmemt and Plan Problems Medical Problems: (1) Cellulitis of right foot due to methicillin-resistant Staphylococcus aureus Status: Acute Right leg ulcer Cellulitis ULISES Hyperlipidemia Hypertension A. fib Chronic CHF History of cervical cancer Chronic lumbar and cervical spinal stenosis History of peripheral vascular disease Plan Antibiotics per infectious disease Trend labs PT OT Home meds DVT prophylaxis DO NOT RESUSCITATE Hope to discharge soon Per infectious disease note from yesterday see the following recommendations and we agree; DC Merrem DC linezolid Fosfomycin one dose When ready for discharge transition to Augmentin and doxycycline for 7 days, prescription chart leg elevation, Vascular input noted local wound care as directed Comment Review of Relevant I have reviewed the following items radha (where applicable) has been applied. Justifications for Admission Other Justification SANDY MARCUS III DO Sep 19, 2020 10:39
[2020-09-19 11:00] VITALS: BP 111/52
[2020-09-19] MEDS: AMOXICILLIN/K CLAV 875/125MG TABLET. PO SCH ×2 (13:02→20:58)
[2020-09-19 15:00] VITALS: BP 157/75
[2020-09-19 19:00] VITALS: BP 132/60
[2020-09-19] MEDS: PATCH REMOVAL. MC SCH (20:59)
[2020-09-19 23:00] VITALS: BP 145/60
[2020-09-20 03:00] VITALS: BP 127/61
[2020-09-20] MEDS: LEVOTHYROXINE 137 MCG TABLET PO SCH (06:10)
[2020-09-20] MEDS: CETIRIZINE HCL 10 MG TABLET. PO SCH (06:10)
[2020-09-20] MEDS: HEPARIN for SUB-Q USE 5,000 UNIT/ML VIAL. SQ SCH ×3 (06:15→22:43)
[2020-09-20 07:00] VITALS: BP 144/86
--- NOTE | 2020-09-20 08:02 | PDOC ---
Infectious Disease Note Subjective: Subjective Patient feels better pain is under control Denies fever, vomiting, diarrhea, abdominal pain, symptoms Vital Signs: Vital Signs Vital Signs Date Time Temp Pulse Resp B/P (MAP) Pulse Ox O2 Delivery O2 Flow Rate FiO2 09/20/20 03:00 98.0 70 18 127/61 (83) 91 Nasal Cannula 5.0 98.0 Physical Exam: PHYSICAL EXAM GENERAL: On examination, alert, oriented female, not in distress. HEENT: Anicteric, no thrush NECK: Supple, no JVP LUNGS: Clear. HEART: S1, S2 regular. ABDOMEN: Soft, nontender, no organomegaly. EXTREMITIES: The patient has venous insufficiency and stasis dermatitis present. There are superficial wound over the dorsum and anterior roberts, dorsalis pedis is weak palpable. NEUROLOGIC: The patient is alert, awake, appropriate. No focal neurologic deficit. Medications: Inpatient Meds: Medications reviewed. Labs: Micro RUN DATE: 09/14/20 [facility] LAB *LIVE* PAGE 1 RUN TIME: 815 Specimen Inquiry PATIENT: KAILA DISLA ACCT: [id number] LOC: 6 [facility] U: [id number] AGE/SX: 85/F ROOM: 676 RE09/12/[address]: SPEEDY TRACEY MD : 1935 BED: 1 DIS: STATUS: ADM IN TLOC: SPEC #: [id number] JACQUE: 09/12/20 STATUS: RES REQ #: [id number] RECD: 09/12/[address]: JAIRO GALLO MD SOURCE: VOID ENTR: 09/12/[address]: VERO WYNN MD [facility]: ORDERED: URINE CULTURE Procedure Result URINE CULTURE Preliminary Preliminary GREATER THAN 100,000 CFU/ML GRAM NEGATIVE RODS on 09/14/20 at 0810 FINAL ID= [ESCHERICHIA COLI] LESS THAN 10,000 CFU/ML Normal genitourinary rayna, not indicative of infection on 09/14/20 at 0810 Testing Performed by: [facility] [place] [address] For Inquires, the Physician may contact the Microbiology department at [phone] ESCHERICHIA COLI Unless otherwise specified, Testing Performed by: [facility] [place] [address] For Inquires, the Physician may contact the Microbiology department at [phone] Objective: Assessment: 1. Right lower extremity superficial ulcers. 2. Right lower extremity cellulitis. 3. Venous insufficiency. 4. Stasis dermatitis. 5. Peripheral vascular disease. 6. Multiple medication allergies. 7. E Coli UTI ESBL 8. Abnormal CT chest with GGO, SARS Covid negative Plan: Plan of Care Fosfomycin one dose given Augmentin and doxycycline for 7 days, prescription chart leg elevation, Vascular input noted local wound care as directed awaiting HHN Discussed with nursing staff CRISSY CAMPBELL MD Sep 20, 2020 08:02
[2020-09-20] MEDS: CLOTRIMAZOLE/BETAMETH 1%-0.05% TOPICAL CREAM 15GM TUBE. TP SCH ×2 (09:00→20:46)
[2020-09-20] MEDS: DOCUSATE SODIUM 100 MG CAPSULE. PO SCH (09:00)
[2020-09-20] MEDS: FLUTICASONE 50MCG/NASAL SPRAY 16GM BOTTLE. NS SCH (09:00)
[2020-09-20] MEDS: ASPIRIN ENTERIC COATED 81 MG TABLET.DR. PO SCH ×2 (09:00→20:43)
[2020-09-20] MEDS: DOXYCYCLINE HYCLATE 100 MG TABLET PO SCH ×2 (09:09→20:43)
[2020-09-20] MEDS: LACTOBACILLUS RHAMNOSUS GG 1 CAPSULE. PO SCH (09:09)
[2020-09-20] MEDS: VITAMIN E 200 UNIT CAPSULE. PO SCH (09:09)
[2020-09-20] MEDS: LIDOCAINE (700MG/PATCH) PATCH. TD SCH (09:09)
[2020-09-20] MEDS: hydrALAZINE 25 MG TABLET PO SCH ×4 (09:10→20:45)
[2020-09-20] MEDS: ASCORBIC ACID 1,000 MG TABLET PO SCH (09:10)
[2020-09-20] MEDS: MULTIVITAMIN with MINERAL TABLET. PO SCH (09:10)
[2020-09-20] MEDS: GABAPENTIN 300 MG CAPSULE. PO SCH (09:10)
[2020-09-20] MEDS: AMOXICILLIN/K CLAV 875/125MG TABLET. PO SCH ×2 (09:10→20:43)
[2020-09-20 11:00] VITALS: BP 134/72
--- NOTE | 2020-09-20 12:05 | PDOC ---
[employer] PROGRESS NOTE Date of Service DOS: DATE: 09/20/20 TIME: 11:56 Chief Complaint Chief Complaint Right leg ulcer Cellulitis ULISES Hyperlipidemia Hypertension A. fib Chronic CHF History of cervical cancer Chronic lumbar and cervical spinal stenosis History of peripheral vascular disease History of Present Illness History of Present Illness 09/20/20 Patient seen and examined She is pleasantly confused Is requiring O2 per nasal cannula now Chart reviewed Discussed with RN Chart reviewed 09/20/2019 Patient seen and examined She is pleasantly confused Chart reviewed Discussed with RN 09/18/2020 Patient seen and examined She is resting with no apparent distress Chart reviewed Discussed with RN Discussed with case management She is on IV Zyvox and meropenem Has O2 on per nasal cannula 85 yo female w/ PMHx HLD, HTN, AFIB, chronic diastolic CHF, cervical cancer, allergic rhinitis, lumbar and cervical spinal stenosis who is most wheelchair bound coming in from home at direction of her home health wound care nurse from her assisted living facility, [facility] for failed outpatient treatment of bilateral lower extremity cellulitis and wounds. Has been on home health wound nursing for wound of 3rd right toe and medial lower leg ulcers and recently been on 3 rounds of antibiotics for 10 days each without improvement. Has had chills but denies any fevers. No other complaints. Per wound culture provided the patient has MRSA is resistant to multiple medications including tetracyclines the wound culture was from 09/09/2020 and is in her paper chart Started on linezolid here. Patient has allergy to sulfa and multiple other antibiotics Labs with WBC 4.5, Hb 11.2, platelets 259, sed rate 29, NA 146, K4.1, BUN 22, CR 1.1, glucose 94, alk phos 160 LFTs otherwise within normal laboratory limits, CRP 11.7, lactic acid 0.9 urinalysis large leuk esterase positive nitrates. Chest radiograph with right apical small consolidation and right ankle and foot x-rays with no acute findings. Admitted for further care. 09/14/20 No acute events overnight. Patient seen and examined bedside. Her pasin is controlled. Her edema has not worsened. Wound care to see. She does wear compression stockings over wraps whenever she gets her ulcers treated. > 50% time spent in patient chart, labs, and image review and discussion with RN and SW In addition to E/M visit, advanced care planning was done: A total time of 20 minutes was spent from 1120 to 1140 face to face in discussion with the patient and family regarding their goals of care, end of life care, and pain management. 09/15/20 No acute events overnight. Patient seen and examined bedside. Pt reading book and has no complaints. Agreed to proceed with IR angio for angioplasty. > 50% time spent in patient chart, labs, and image review and discussion with RN and SW 09/16/20 No acute events overnight. Patient seen and examined bedside. Pending Angio to address Right AT artery stenosis. No concerns from nursing. > 50% time spent in patient chart, labs, and image review and discussion with RN and SW 09/17/2020 No major events overnight. Patient seen and examined bedside. Angio completed and third did not show any good targets for intervention. Will discuss with vascular surgery for further intervention. Increase hydralazine to 25 mg every 6 hours. Blood pressures are currently labile in the 160s to 180s. Patient's chart, labs, images were reviewed and discussed with RN Vitals/I&O Vitals/I&O: Vital Signs Date Time Temp Pulse Resp B/P (MAP) Pulse Ox O2 Delivery O2 Flow Rate FiO2 09/20/20 11:00 98.1 73 18 134/72 (92) 90 Nasal Cannula 5.0 98.1 I & O 09/19/20 09/19/20 09/20/20 15:00 23:00 07:00 Intake Total 340 ml Balance 340 ml Physical Exam Physical Exam: GENERAL: On examination, alert, oriented female, not in distress. HEENT: Anicteric, no thrush NECK: Supple, no JVP LUNGS: Clear. HEART: S1, S2 regular. ABDOMEN: Soft, nontender, no organomegaly. EXTREMITIES: The patient has venous insufficiency and stasis dermatitis present. There are superficial wound over the dorsum and anterior roberts, dorsalis pedis is weak palpable. NEUROLOGIC: The patient is alert, awake, appropriate. No focal neurologic deficit. General: Alert, No acute distress Heart: Normal S1, Normal S2, No murmurs Lungs: Clear Abdomen: Normal bowel sounds, Soft, No tenderness, No hepatosplenomegaly, No m asses Extremities: Other (Severe kyphoscoliosis. Right medial leg 7 ulcers with clean base and 3rd toe with dorsal wound) Skin: No significant lesion Review of Systems Review of Systems: CONSTITUTIONAL: No fever or chills CARDIOVASCULAR: No chest pain, no palpitations, no chest pressure RESPIRATORY: No shortness of breath, cough GI: No nausea, vomiting, or diarrhea, abdominal pain NEURO: No headache, dizziness Assessment and Plan Assessmemt and Plan Problems Medical Problems: (1) Cellulitis of right foot due to methicillin-resistant Staphylococcus aureus Status: Acute ASSESSMENT Right leg ulcer New possible volume overload? Cellulitis New hypoxia ULISES Hyperlipidemia Hypertension A. fib Chronic CHF History of cervical cancer Chronic lumbar and cervical spinal stenosis History of peripheral vascular disease PLAN Ordered IV Lasix 40 a day Discussed with RN We will check a chest x-ray and CBC BMP Continue O2 per nasal cannula Antibiotics per infectious disease Trend labs PT OT Home meds DVT prophylaxis DO NOT RESUSCITATE Comment Review of Relevant I have reviewed the following items radha (where applicable) has been applied. Medications: Current Medications Medications (Trade) Dose Ordered Sig/Jena Route PRN Reason Start Time Stop Time Status Last Admin Dose Admin Amoxicillin/ Clavulanate Potassium (Augmentin 875/ 125mg) 1 tab BID PO 09/19/20 12:00 09/20/20 09:10 Justifications for Admission Other Justification SANDY MARCUS III DO Sep 20, 2020 12:05
[2020-09-20] MEDS ORDERED: FUROSEMIDE 40 MG/4 ML VIAL. IVP SCH (14:00)
[2020-09-20 15:00] VITALS: BP 145/61
[2020-09-20 15:13] LABS: BASO % 1 % (0-3); EOS # 0.1 x10^3/uL (0.0-0.7); EOS % 3 % (0-3); HEMATOCRIT 37.5 % (36.0-47.0); HEMOGLOBIN 12.6 g/dL (12.0-15.5); LYMPH # 0.6 x10^3/uL (1.0-4.8); LYMPH % 19 % (24-48); MEAN CORPUSCULAR HEMOGLOBIN 32 pg (25-35); MEAN CORPUSCULAR HGB CONC 34 g/dL (31-37); MEAN CORPUSCULAR VOLUME 95 fL (79-100); MONO # 0.3 x10^3/uL (0.0-1.1); MONO % 10 % (0-9); NEUT # 2.3 x10^3/uL (1.8-7.7); NEUT % 67 % (31-73); PLATELET COUNT 303 x10^3/uL (140-400); RED BLOOD COUNT 3.94 x10^6/uL (3.50-5.40); RED CELL DISTRIBUTION WIDTH 17.7 % (11.5-14.5); WHITE BLOOD COUNT 3.4 x10^3/uL (4.0-11.0)
[2020-09-20 15:25] LABS: CALCIUM 8.7 mg/dL (8.5-10.1)
[2020-09-20 15:26] LABS: CREATININE 0.9 mg/dL (0.6-1.0); GFR 59.2; POTASSIUM 5.3 mmol/L (3.5-5.1)
[2020-09-20 19:00] VITALS: BP 142/59
[2020-09-20] MEDS: PATCH REMOVAL. MC SCH (20:46)
[2020-09-20 23:00] VITALS: BP 140/64
--- NOTE | 2020-09-21 02:52 | RAD ---
XR CHEST 1V INDICATION: Reason: increasing oxygen needs / Spl. Instructions: / History: . COMPARISON STUDY: 09/12/2020. FINDINGS: Lungs: Normal lung volume. Increasing bilateral perihilar and basilar opacities. Pleura: Increased small left pleural effusion. Heart and Mediastinum: Stable cardiomediastinal silhouette and great vessels. IMPRESSION: 1. Increasing bilateral perihilar and basilar opacities. 2. Increased small left pleural effusion. Electronically signed by: Marvin Torres MD (09/21/2020 2:49 AM) [facility]
[2020-09-21 03:00] VITALS: BP 134/53
[2020-09-21] MEDS: HEPARIN for SUB-Q USE 5,000 UNIT/ML VIAL. SQ SCH ×2 (06:00→13:00)
[2020-09-21] MEDS: CETIRIZINE HCL 10 MG TABLET. PO SCH (06:09)
[2020-09-21] MEDS: LEVOTHYROXINE 137 MCG TABLET PO SCH (06:09)
[2020-09-21 06:13] LABS: BASO # 0.1 x10^3/uL (0.0-0.2); BASO % 2 % (0-3); EOS # 0.2 x10^3/uL (0.0-0.7); EOS % 6 % (0-3); HEMATOCRIT 35.4 % (36.0-47.0); HEMOGLOBIN 11.8 g/dL (12.0-15.5); LYMPH # 0.7 x10^3/uL (1.0-4.8); LYMPH % 25 % (24-48); MEAN CORPUSCULAR HEMOGLOBIN 32 pg (25-35); MEAN CORPUSCULAR HGB CONC 33 g/dL (31-37); MEAN CORPUSCULAR VOLUME 95 fL (79-100); MONO # 0.3 x10^3/uL (0.0-1.1); MONO % 11 % (0-9); NEUT # 1.6 x10^3/uL (1.8-7.7); NEUT % 55 % (31-73); PLATELET COUNT 261 x10^3/uL (140-400); RED BLOOD COUNT 3.73 x10^6/uL (3.50-5.40); RED CELL DISTRIBUTION WIDTH 17.6 % (11.5-14.5); WHITE BLOOD COUNT 2.8 x10^3/uL (4.0-11.0)
[2020-09-21 06:40] LABS: CALCIUM 8.4 mg/dL (8.5-10.1); CREATININE 0.8 mg/dL (0.6-1.0); GFR 67.8
[2020-09-21 07:00] VITALS: BP 139/63
--- NOTE | 2020-09-21 08:17 | PDOC ---
[employer] PROGRESS NOTE Date of Service DOS: DATE: 09/21/20 TIME: 08:12 Chief Complaint Chief Complaint A/P: Right leg ulcer Cellulitis of right lower extremity ULISES Hyperlipidemia Hypertension A. fib Chronic CHF History of cervical cancer Chronic lumbar and cervical spinal stenosis peripheral vascular disease Venous insufficiency. Stasis dermatitis. E Coli UTI ESBL Abnormal CT chest with GGO, SARS Covid negative FEN - Cardiac diet PPx - eliquis CODE - DNR/DNI Dispo - inpatient History of Present Illness History of Present Illness Ms Garcia is a 85 yo female w/ PMHx HLD, HTN, AFIB, chronic diastolic CHF, cervical cancer, allergic rhinitis, lumbar and cervical spinal stenosis who is most wheelchair bound coming in from home at direction of her home health wound care nurse from her assisted living facility, [facility] for failed outpatient treatment of bilateral lower extremity cellulitis and wounds. Has been on home health wound nursing for wound of 3rd right toe and medial lower leg ulcers and recently been on 3 rounds of antibiotics for 10 days each without improvement. Has had chills but denies any fevers. No other complaints. Per wound culture provided the patient has MRSA is resistant to multiple medications including tetracyclines the wound culture was from 09/09/2020 and is in her paper chart Started on linezolid here. Patient has allergy to sulfa and multiple other antibiotics Labs with WBC 4.5, Hb 11.2, platelets 259, sed rate 29, NA 146, K4.1, BUN 22, CR 1.1, glucose 94, alk phos 160 LFTs otherwise within normal laboratory limits, CRP 11.7, lactic acid 0.9 urinalysis large leuk esterase positive nitrates. Chest radiograph with right apical small consolidation and right ankle and foot x-rays with no acute findings. Admitted for further care. 09/14: Pain reasonably controlled. Arterial doppler concerning for possible occlusive tibial arterial disease. 09/15: Agreed to proceed with IR angio for angioplasty. Urine returned with ESBL. 09/16: No amenable artery for revascularization per IR and vascular surgery based on RLE and abominal angiography 09/17: Angio completed and third did not show any good targets for intervention. Will discuss with vascular surgery for further intervention. Increase hydralazine to 25 mg every 6 hours. 09/18: She is on IV Zyvox and meropenem. Has O2 on per nasal cannula 09/19: On Zyvox and merrem 09/20: Is requiring O2 per nasal cannula now, given IV lasix with improvement. Shortness of breath and O2 needs improved with IV lasix. She does note she takes furosemide PO outpatient but did not mention this initially on med reconciliation on admission. Changed to PO antibiotics for cellulitis. Wound dressing changed bedside. Plan for return to assisted living facility with home health. Vitals/I&O Vitals/I&O: Vital Signs Date Time Temp Pulse Resp B/P (MAP) Pulse Ox O2 Delivery O2 Flow Rate FiO2 09/21/20 03:00 97.8 86 18 134/53 (80) 92 Nasal Cannula 5.0 97.8 I & O 09/20/20 09/20/20 09/21/20 15:00 23:00 07:00 Intake Total 320 ml Balance 320 ml Physical Exam Physical Exam: GENERAL: On examination, alert, oriented female, not in distress. HEENT: Anicteric, no thrush NECK: Supple, no JVP LUNGS: Clear. HEART: S1, S2 regular. ABDOMEN: Soft, nontender, no organomegaly. EXTREMITIES: The patient has venous insufficiency and stasis dermatitis present. There are superficial wound over the dorsum and anterior roberts, dorsalis pedis is weak palpable. NEUROLOGIC: The patient is alert, awake, appropriate. No focal neurologic deficit. General: Alert, No acute distress Heart: Normal S1, Normal S2, No murmurs Lungs: Clear Abdomen: Normal bowel sounds, Soft, No tenderness, No hepatosplenomegaly, No masses Extremities: Other (Severe kyphoscoliosis. Right medial leg 7 ulcers with clean base and 3rd toe with dorsal wound) Skin: No significant lesion Labs Labs: Laboratory Tests Test 09/20/20 15:00 09/21/20 05:41 White Blood Count 3.4 x10^3/uL (4.0-11.0) 2.8 x10^3/uL (4.0-11.0) Red Blood Count 3.94 x10^6/uL (3.50-5.40) 3.73 x10^6/uL (3.50-5.40) Hemoglobin 12.6 g/dL (12.0-15.5) 11.8 g/dL (12.0-15.5) Hematocrit 37.5 % (36.0-47.0) 35.4 % (36.0-47.0) Mean Corpuscular Volume 95 fL (79-100) 95 fL (79-100) Mean Corpuscular Hemoglobin 32 pg (25-35) 32 pg (25-35) Mean Corpuscular Hemoglobin Concent 34 g/dL (31-37) 33 g/dL (31-37) Red Cell Distribution Width 17.7 % (11.5-14.5) 17.6 % (11.5-14.5) Platelet Count 303 x10^3/uL (140-400) 261 x10^3/uL (140-400) Neutrophils (%) (Auto) 67 % (31-73) 55 % (31-73) Lymphocytes (%) (Auto) 19 % (24-48) 25 % (24-48) Monocytes (%) (Auto) 10 % (0-9) 11 % (0-9) Eosinophils (%) (Auto) 3 % (0-3) 6 % (0-3) Basophils (%) (Auto) 1 % (0-3) 2 % (0-3) Neutrophils # (Auto) 2.3 x10^3/uL (1.8-7.7) 1.6 x10^3/uL (1.8-7.7) Lymphocytes # (Auto) 0.6 x10^3/uL (1.0-4.8) 0.7 x10^3/uL (1.0-4.8) Monocytes # (Auto) 0.3 x10^3/uL (0.0-1.1) 0.3 x10^3/uL (0.0-1.1) Eosinophils # (Auto) 0.1 x10^3/uL (0.0-0.7) 0.2 x10^3/uL (0.0-0.7) Basophils # (Auto) 0.0 x10^3/uL (0.0-0.2) 0.1 x10^3/uL (0.0-0.2) Sodium Level 141 mmol/L (136-145) 141 mmol/L (136-145) Potassium Level 5.3 mmol/L (3.5-5.1) 4.0 mmol/L (3.5-5.1) Chloride Level 106 mmol/L (98-107) 105 mmol/L (98-107) Carbon Dioxide Level 34 mmol/L (21-32) 33 mmol/L (21-32) Anion Gap 1 (6-14) 3 (6-14) Blood Urea Nitrogen 14 mg/dL (7-20) 13 mg/dL (7-20) Creatinine 0.9 mg/dL (0.6-1.0) 0.8 mg/dL (0.6-1.0) Estimated GFR (Cockcroft-Gault) 59.2 67.8 Glucose Level 73 mg/dL (70-99) 86 mg/dL (70-99) Calcium Level 8.7 mg/dL (8.5-10.1) 8.4 mg/dL (8.5-10.1) Assessment and Plan Assessmemt and Plan Problems Medical Problems: (1) Cellulitis of right foot due to methicillin-resistant Staphylococcus aureus Status: Acute Comment Review of Relevant I have reviewed the following items radha (where applicable) has been applied. Medications: Current Medications Medications (Trade) Dose Ordered Sig/Jena Route PRN Reason Start Time Stop Time Status Last Admin Dose Admin Furosemide (Lasix) 40 mg DAILY IVP 09/20/20 14:00 09/20/20 15:15 Justifications for Admission Other Justification SPEEDY OVIEDO MD Sep 21, 2020 08:17
[2020-09-21] MEDS ORDERED: FUROSEMIDE 40 MG TABLET. PO SCH (09:00)
[2020-09-21] MEDS: DOCUSATE SODIUM 100 MG CAPSULE. PO SCH (09:00)
[2020-09-21] MEDS: FLUTICASONE 50MCG/NASAL SPRAY 16GM BOTTLE. NS SCH (09:00)
[2020-09-21] MEDS: CLOTRIMAZOLE/BETAMETH 1%-0.05% TOPICAL CREAM 15GM TUBE. TP SCH (09:00)
[2020-09-21] MEDS ORDERED: DOXY100T PO (09:15)
[2020-09-21] MEDS ORDERED: FURO40TA4 PO (09:15)
[2020-09-21] MEDS ORDERED: AMOX1TAB11 PO (09:15)
--- NOTE | 2020-09-21 09:17 | SNU/HH DC ---
DISCHARGE WITH HOME HEALTH DISCHARGE INFORMATION: Discharge Date: Sep 21, 2020 Final Diagnosis: Problems Medical Problems: (1) Cellulitis of right foot due to methicillin-resistant Staphylococcus aureus Status: Acute Condition on Discharge: Stable CODE STATUS: Code Status: DNR/DNI HOME HEALTH: Face to Face: I certify this patient is under my care and that I, or a nurse practitioner or physician's conventions assistant working with me, had a face to face encounter that meets the physician face to face encounter requirements with this patient on 09/21. Medical Complications: HTN Mcfp For: Assess & Educate Safety, Medication Management RN For Eval/Treatment: Yes Physical Therapy For: Evalulation/Treatment Occupational Therapy For: Evaluation/Treatment Pt Meets Homebound Status: Fatigue w/ amb. POST DISCHARGE ORDERS: Activity Instructions for Disc: Resume previous activity Weight Bearing Status after Di: Full weight bearing DIET AFTER DISCHARGE: Cardiac Wound/Incision Care: Other, see below (Cleanse wounds with saline, pat dry. Apply Medihoney gel to leg wound, cover with Aquacel AG, ABD and kerlix, weave a strip of AG between toes to wick away moisture. Change dressings every 3 days and PRN if soiled.) CHECKS AFTER DISCHARGE: Checks after discharge: Check blood press - daily, Check your Temp as needed, Weigh Yourself Daily FOLLOW-UP: DC TO SNF LABS: CBC, CMP TREATMENT/EQUIPMENT ORDERS: Adaptive Equipment Issued: None, Cane, Commode, Front wheeled walker CERTIFICATION STATEMENT: Certification Statement: Certification Statement: Based on the above finding, I certify that this patient is confined to the home and needs intermittent prison care, physical therapy and/or speech therapy, or continues to need occupational therapy.~ This patient is under my care, and I have initiated the establishment of the plan of care.~ This patient will be followed by myself or a community physician who will periodically review the plan of care. Home Meds Active Scripts Furosemide (FUROSEMIDE) 40 Mg Tablet, 40 MG PO DAILY for CHF for 30 Days, #30 TAB Prov:SPEEDY OVIEDO MD 09/21/20 Doxycycline Hyclate (DOXYCYCLINE HYCLATE) 100 Mg Tablet, 100 MG PO BID for Cellulitis for 6 Days, #12 TAB Prov:SPEEDY OVIEDO MD 09/21/20 Amoxicillin/Potassium Clav (AMOX TR-K CLV 875-125 MG TAB) 1 Each Tablet, 1 TAB PO BID for Cellulitis for 6 Days, #12 TAB Prov:SPEEDY OVIEDO MD 09/21/20 Hydralazine Hcl (HYDRALAZINE HCL) 25 Mg Tablet, 25 MG PO TID for hypertension, #90 TAB 3 Refills Prov:JAYNE DUBOIS MD 05/15/20 Reported Medications Multivitamin (MULTI-VITAMIN DAILY) 1 Each Tablet, 1 TAB PO DAILY for supp for 30 Days, #30 TAB 0 Refills 03/04/20 Lidocaine (Lidocaine PATCH ) 1 Each Adh..patch, 1 EACH TP DAILY for FOR LOCAL PAIN, PATCH REMOVE AFTER 12 HOURS 03/04/20 Fluticasone Propionate (Flonase Allergy Relief) 9.9 Ml [place].susp, 2 SPRAYS NS DAILY for allergies, BOTTLE 03/04/20 Lactobacillus Rhamnosus Gg (CULTURELLE) 1 Each Cap.sprink, 1 CAP PO DAILY for supp for 30 Days, #30 CAP 0 Refills 03/04/20 Acetaminophen (ACETAMINOPHEN) 500 Mg Tablet, 1 TAB PO TID PRN for pain or fever for 15 Days, #60 TAB 0 Refills 03/04/20 Clotrimazole/Betamethasone Dip (CLOTRIMAZOLE-BETAMETHASONE CRM) 15 Gm Cream..g., 1 YUSUF TP BID for to affected areas, #15 GM 11/16/18 Docusate Sodium (DOCUSATE SODIUM) 100 Mg Capsule, 1 CAP PO DAILY for constipation, #30 CAP 11/16/18 Cetirizine Hcl (CETIRIZINE HCL) 10 Mg Tablet, 10 MG PO HS for allergies, TAB 11/16/18 Gabapentin (GABAPENTIN ) 300 Mg Capsule, 300 MG PO DAILY for NEUROGENIC PAIN, CAP 10/10/18 Aspirin (ASPIR 81) 81 Mg Tablet.dr, 1 TAB PO BID for clot prevention, #30 TAB 5 Refills 01/06/15 Vitamin E (Dl,Tocopheryl Acet) (VITAMIN E) 1,000 Unit Capsule, 1000 UNIT PO DAILY for supplement 01/06/15 Ascorbic Acid (VITAMIN C) 1,000 Mg Tablet, 1000 MG PO for supplement 01/06/15 Levothyroxine Sodium (SYNTHROID) 125 Mcg Tablet, 137 MCG PO DAILYAC for Thyroid supplement, #30 TAB 0 Refills 01/06/15 Discontinued Reported Medications Vitamin A (VITAMIN A) 10,000 Unit Capsule, [address]18 UNIT PO DAILY for supplement, CAP 11/16/18 Allopurinol (ALLOPURINOL) 300 Mg Tablet, 300 MG PO BID for ulcer prevention, TAB 10/10/18 Discontinued Scripts Cefdinir (CEFDINIR) 300 Mg Capsule, 300 MG PO BID for UTI for 3 Days, #6 CAP Prov:JAYNE DUBOIS MD 05/15/20 SPEEDY OVIEDO MD Sep 21, 2020 09:17
[2020-09-21] MEDS: LACTOBACILLUS RHAMNOSUS GG 1 CAPSULE. PO SCH (09:36)
[2020-09-21] MEDS: VITAMIN E 200 UNIT CAPSULE. PO SCH (09:36)
[2020-09-21] MEDS: GABAPENTIN 300 MG CAPSULE. PO SCH (09:36)
[2020-09-21] MEDS: DOXYCYCLINE HYCLATE 100 MG TABLET PO SCH (09:36)
[2020-09-21] MEDS: MULTIVITAMIN with MINERAL TABLET. PO SCH (09:36)
[2020-09-21] MEDS: hydrALAZINE 25 MG TABLET PO SCH ×2 (09:36→13:46)
[2020-09-21] MEDS: ASCORBIC ACID 1,000 MG TABLET PO SCH (09:36)
[2020-09-21] MEDS: ASPIRIN ENTERIC COATED 81 MG TABLET.DR. PO SCH (09:36)
[2020-09-21] MEDS: AMOXICILLIN/K CLAV 875/125MG TABLET. PO SCH (09:36)
[2020-09-21] MEDS: LIDOCAINE (700MG/PATCH) PATCH. TD SCH (09:37)
--- NOTE | 2020-09-21 10:12 | PDOC ---
Infectious Disease Note Subjective: Subjective Patient without complaints pain is under control Denies fever, vomiting, diarrhea, abdominal pain, symptoms Vital Signs: Vital Signs Vital Signs Date Time Temp Pulse Resp B/P (MAP) Pulse Ox O2 Delivery O2 Flow Rate FiO2 09/21/20 09:36 79 139/63 09/21/20 08:00 Nasal Cannula 3.0 09/21/20 07:00 98.0 15 93 98.0 Physical Exam: PHYSICAL EXAM GENERAL: On examination, alert, oriented female, not in distress. HEENT: Anicteric, no thrush NECK: Supple, no JVP LUNGS: Clear. HEART: S1, S2 regular. ABDOMEN: Soft, nontender, no organomegaly. EXTREMITIES: The patient has venous insufficiency and stasis dermatitis present. There are superficial wound over the dorsum and anterior roberts, dorsalis pedis is weak palpable. NEUROLOGIC: The patient is alert, awake, appropriate. No focal neurologic deficit. Medications: Inpatient Meds: Medications reviewed. Labs: Lab Laboratory Tests Test 09/20/20 15:00 09/21/20 05:41 White Blood Count 3.4 x10^3/uL (4.0-11.0) 2.8 x10^3/uL (4.0-11.0) Red Blood Count 3.94 x10^6/uL (3.50-5.40) 3.73 x10^6/uL (3.50-5.40) Hemoglobin 12.6 g/dL (12.0-15.5) 11.8 g/dL (12.0-15.5) Hematocrit 37.5 % (36.0-47.0) 35.4 % (36.0-47.0) Mean Corpuscular Volume 95 fL (79-100) 95 fL (79-100) Mean Corpuscular Hemoglobin 32 pg (25-35) 32 pg (25-35) Mean Corpuscular Hemoglobin Concent 34 g/dL (31-37) 33 g/dL (31-37) Red Cell Distribution Width 17.7 % (11.5-14.5) 17.6 % (11.5-14.5) Platelet Count 303 x10^3/uL (140-400) 261 x10^3/uL (140-400) Neutrophils (%) (Auto) 67 % (31-73) 55 % (31-73) Lymphocytes (%) (Auto) 19 % (24-48) 25 % (24-48) Monocytes (%) (Auto) 10 % (0-9) 11 % (0-9) Eosinophils (%) (Auto) 3 % (0-3) 6 % (0-3) Basophils (%) (Auto) 1 % (0-3) 2 % (0-3) Neutrophils # (Auto) 2.3 x10^3/uL (1.8-7.7) 1.6 x10^3/uL (1.8-7.7) Lymphocytes # (Auto) 0.6 x10^3/uL (1.0-4.8) 0.7 x10^3/uL (1.0-4.8) Monocytes # (Auto) 0.3 x10^3/uL (0.0-1.1) 0.3 x10^3/uL (0.0-1.1) Eosinophils # (Auto) 0.1 x10^3/uL (0.0-0.7) 0.2 x10^3/uL (0.0-0.7) Basophils # (Auto) 0.0 x10^3/uL (0.0-0.2) 0.1 x10^3/uL (0.0-0.2) Sodium Level 141 mmol/L (136-145) 141 mmol/L (136-145) Potassium Level 5.3 mmol/L (3.5-5.1) 4.0 mmol/L (3.5-5.1) Chloride Level 106 mmol/L (98-107) 105 mmol/L (98-107) Carbon Dioxide Level 34 mmol/L (21-32) 33 mmol/L (21-32) Anion Gap 1 (6-14) 3 (6-14) Blood Urea Nitrogen 14 mg/dL (7-20) 13 mg/dL (7-20) Creatinine 0.9 mg/dL (0.6-1.0) 0.8 mg/dL (0.6-1.0) Estimated GFR (Cockcroft-Gault) 59.2 67.8 Glucose Level 73 mg/dL (70-99) 86 mg/dL (70-99) Calcium Level 8.7 mg/dL (8.5-10.1) 8.4 mg/dL (8.5-10.1) Micro RUN DATE: 09/14/20 [facility] LAB *LIVE* PAGE 1 RUN TIME: 815 Specimen Inquiry PATIENT: KAILA DISLA Hans ACCT: [id number] LOC: [address] [place] [address] U: [id number] AGE/SX: 85/F ROOM: 676 RE09/12/[address]: SPEEDY TRACEY MD : 1935 BED: 1 DIS: STATUS: ADM IN TLOC: SPEC #: [id number] JACQUE: 09/12/20 STATUS: RES REQ #: [id number] RECD: 09/12/[address]: JAIRO GALLO MD SOURCE: VOID ENTR: 09/12/[address]: VERO WYNN MD SPDESC: ORDERED: URINE CULTURE - Procedure Result URINE CULTURE Preliminary Preliminary GREATER THAN 100,000 CFU/ML GRAM NEGATIVE RODS on 09/14/20 at 0810 FINAL ID= [ESCHERICHIA COLI] LESS THAN 10,000 CFU/ML Normal genitourinary rayna, not indicative of infection on 09/14/20 at 0810 Testing Performed by: [place] [address] For Inquires, the Physician may contact the Microbiology department at [phone] ESCHERICHIA COLI Unless otherwise specified, Testing Performed by: [address] [address] For Inquires, the Physician may contact the Microbiology department at [phone] -- Objective: Assessment: 1. Right lower extremity superficial ulcers. 2. Right lower extremity cellulitis. 3. Venous insufficiency. 4. Stasis dermatitis. 5. Peripheral vascular disease. 6. Multiple medication allergies. 7. E Coli UTI ESBL 8. Abnormal CT chest with GGO, SARS Covid negative Plan: Plan of Care Fosfomycin one dose given Augmentin and doxycycline for 7 days, prescription chart leg elevation, Vascular input noted local wound care as directed Discussed with nursing staff CRISSY CAMPBELL MD Sep 21, 2020 10:12
--- NOTE | 2020-09-21 10:32 | PDOC3 ---
Discharge Summary Visit Information Date of Admission: Sep 12, 2020 Date of Discharge: Sep 21, 2020 Admitting Diagnosis: Cellulitis of right foot due to MRSA Final Diagnosis Problems Medical Problems: (1) Cellulitis of right foot due to methicillin-resistant Staphylococcus aureus Status: Acute Brief Hospital Course Allergies Allergies Coded Allergies Type Severity Reaction Last Updated Verified linaclotide Allergy Severe 07/03/17 Yes Sulfa (Sulfonamide Antibiotics) Allergy Intermediate 09/17/15 Yes atorvastatin Allergy Intermediate 09/17/15 Yes bisoprolol Allergy Intermediate 09/14/15 Yes cadexomer iodine Allergy Intermediate itching 09/14/15 Yes ciprofloxacin Allergy Intermediate 09/17/15 Yes diltiazem Allergy Intermediate takes VERAPAMIL at home 07/02/17 Yes lisinopril Allergy Intermediate 09/18/15 Yes methylphenidate Allergy Intermediate 09/17/15 Yes naproxen Allergy Intermediate 07/03/17 Yes nitrofurantoin Allergy Intermediate 09/14/15 Yes ofloxacin Allergy Intermediate 09/17/15 Yes paroxetine Allergy Intermediate 09/17/15 Yes piroxicam Allergy Intermediate 09/17/15 Yes propoxyphene Allergy Intermediate 09/17/15 Yes ranitidine Allergy Intermediate 09/17/15 Yes senna Allergy Intermediate 09/17/15 Yes valdecoxib Allergy Intermediate 09/17/15 Yes I S O L A T I O N *CONTACT* Allergy Unknown 09/16/20 Yes Vital Signs Vital Signs Date Time Temp Pulse Resp B/P (MAP) Pulse Ox O2 Delivery O2 Flow Rate FiO2 09/21/20 09:36 79 139/63 09/21/20 08:00 Nasal Cannula 3.0 09/21/20 07:00 98.0 15 93 98.0 Lab Results Laboratory Tests Test 09/20/20 15:00 09/21/20 05:41 White Blood Count 3.4 x10^3/uL (4.0-11.0) 2.8 x10^3/uL (4.0-11.0) Red Blood Count 3.94 x10^6/uL (3.50-5.40) 3.73 x10^6/uL (3.50-5.40) Hemoglobin 12.6 g/dL (12.0-15.5) 11.8 g/dL (12.0-15.5) Hematocrit 37.5 % (36.0-47.0) 35.4 % (36.0-47.0) Mean Corpuscular Volume 95 fL (79-100) 95 fL (79-100) Mean Corpuscular Hemoglobin 32 pg (25-35) 32 pg (25-35) Mean Corpuscular Hemoglobin Concent 34 g/dL (31-37) 33 g/dL (31-37) Red Cell Distribution Width 17.7 % (11.5-14.5) 17.6 % (11.5-14.5) Platelet Count 303 x10^3/uL (140-400) 261 x10^3/uL (140-400) Neutrophils (%) (Auto) 67 % (31-73) 55 % (31-73) Lymphocytes (%) (Auto) 19 % (24-48) 25 % (24-48) Monocytes (%) (Auto) 10 % (0-9) 11 % (0-9) Eosinophils (%) (Auto) 3 % (0-3) 6 % (0-3) Basophils (%) (Auto) 1 % (0-3) 2 % (0-3) Neutrophils # (Auto) 2.3 x10^3/uL (1.8-7.7) 1.6 x10^3/uL (1.8-7.7) Lymphocytes # (Auto) 0.6 x10^3/uL (1.0-4.8) 0.7 x10^3/uL (1.0-4.8) Monocytes # (Auto) 0.3 x10^3/uL (0.0-1.1) 0.3 x10^3/uL (0.0-1.1) Eosinophils # (Auto) 0.1 x10^3/uL (0.0-0.7) 0.2 x10^3/uL (0.0-0.7) Basophils # (Auto) 0.0 x10^3/uL (0.0-0.2) 0.1 x10^3/uL (0.0-0.2) Sodium Level 141 mmol/L (136-145) 141 mmol/L (136-145) Potassium Level 5.3 mmol/L (3.5-5.1) 4.0 mmol/L (3.5-5.1) Chloride Level 106 mmol/L (98-107) 105 mmol/L (98-107) Carbon Dioxide Level 34 mmol/L (21-32) 33 mmol/L (21-32) Anion Gap 1 (6-14) 3 (6-14) Blood Urea Nitrogen 14 mg/dL (7-20) 13 mg/dL (7-20) Creatinine 0.9 mg/dL (0.6-1.0) 0.8 mg/dL (0.6-1.0) Estimated GFR (Cockcroft-Gault) 59.2 67.8 Glucose Level 73 mg/dL (70-99) 86 mg/dL (70-99) Calcium Level 8.7 mg/dL (8.5-10.1) 8.4 mg/dL (8.5-10.1) Laboratory Tests Test 09/20/20 15:00 09/21/20 05:41 White Blood Count 3.4 x10^3/uL (4.0-11.0) 2.8 x10^3/uL (4.0-11.0) Red Blood Count 3.94 x10^6/uL (3.50-5.40) 3.73 x10^6/uL (3.50-5.40) Hemoglobin 12.6 g/dL (12.0-15.5) 11.8 g/dL (12.0-15.5) Hematocrit 37.5 % (36.0-47.0) 35.4 % (36.0-47.0) Mean Corpuscular Volume 95 fL (79-100) 95 fL (79-100) Mean Corpuscular Hemoglobin 32 pg (25-35) 32 pg (25-35) Mean Corpuscular Hemoglobin Concent 34 g/dL (31-37) 33 g/dL (31-37) Red Cell Distribution Width 17.7 % (11.5-14.5) 17.6 % (11.5-14.5) Platelet Count 303 x10^3/uL (140-400) 261 x10^3/uL (140-400) Neutrophils (%) (Auto) 67 % (31-73) 55 % (31-73) Lymphocytes (%) (Auto) 19 % (24-48) 25 % (24-48) Monocytes (%) (Auto) 10 % (0-9) 11 % (0-9) Eosinophils (%) (Auto) 3 % (0-3) 6 % (0-3) Basophils (%) (Auto) 1 % (0-3) 2 % (0-3) Neutrophils # (Auto) 2.3 x10^3/uL (1.8-7.7) 1.6 x10^3/uL (1.8-7.7) Lymphocytes # (Auto) 0.6 x10^3/uL (1.0-4.8) 0.7 x10^3/uL (1.0-4.8) Monocytes # (Auto) 0.3 x10^3/uL (0.0-1.1) 0.3 x10^3/uL (0.0-1.1) Eosinophils # (Auto) 0.1 x10^3/uL (0.0-0.7) 0.2 x10^3/uL (0.0-0.7) Basophils # (Auto) 0.0 x10^3/uL (0.0-0.2) 0.1 x10^3/uL (0.0-0.2) Sodium Level 141 mmol/L (136-145) 141 mmol/L (136-145) Potassium Level 5.3 mmol/L (3.5-5.1) 4.0 mmol/L (3.5-5.1) Chloride Level 106 mmol/L (98-107) 105 mmol/L (98-107) Carbon Dioxide Level 34 mmol/L (21-32) 33 mmol/L (21-32) Anion Gap 1 (6-14) 3 (6-14) Blood Urea Nitrogen 14 mg/dL (7-20) 13 mg/dL (7-20) Creatinine 0.9 mg/dL (0.6-1.0) 0.8 mg/dL (0.6-1.0) Estimated GFR (Cockcroft-Gault) 59.2 67.8 Glucose Level 73 mg/dL (70-99) 86 mg/dL (70-99) Calcium Level 8.7 mg/dL (8.5-10.1) 8.4 mg/dL (8.5-10.1) Brief Hospital Course Ms Garcia is a 85 yo female w/ PMHx HLD, HTN, AFIB, chronic diastolic CHF, cervical cancer, allergic rhinitis, lumbar and cervical spinal stenosis who is most wheelchair bound coming in from home at direction of her home health wound care nurse from her assisted living facility, [facility] for failed outpatient treatment of bilateral lower extremity cellulitis and wounds. Has been on home health wound nursing for wound of 3rd right toe and medial lower leg ulcers and recently been on 3 rounds of antibiotics for 10 days each without improvement. Has had chills but denies any fevers. No other complaints. Per wound culture provided the patient has MRSA is resistant to multiple medications including tetracyclines the wound culture was from 09/09/2020 and is in her paper chart Started on linezolid here. Patient has allergy to sulfa and multiple other antibiotics Labs with WBC 4.5, Hb 11.2, platelets 259, sed rate 29, NA 146, K4.1, BUN 22, CR 1.1, glucose 94, alk phos 160 LFTs otherwise within normal laboratory limits, CRP 11.7, lactic acid 0.9 urinalysis large leuk esterase positive nitrates. Chest radiograph with right apical small consolidation and right ankle and foot x-rays with no acute findings. Admitted for further care. Consults: Wound care, vascular surgery, ID 09/14: Pain reasonably controlled. Arterial doppler concerning for possible occlusive tibial arterial disease. 09/15: Agreed to proceed with IR angio for angioplasty. Urine returned with ESBL. 09/16: No amenable artery for revascularization per IR and vascular surgery based on RLE and abominal angiography 09/17: Angio completed and third did not show any good targets for intervention. Will discuss with vascular surgery for further intervention. Increase hydralazine to 25 mg every 6 hours. 09/18: She is on IV Zyvox and meropenem. Has O2 on per nasal cannula 09/19: On Zyvox and merrem 09/20: Is requiring O2 per nasal cannula now, given IV lasix with improvement. Shortness of breath and O2 needs improved with IV lasix. She does note she takes furosemide PO outpatient but did not mention this initially on med reconciliation on admission. Changed to PO antibiotics for cellulitis. Wound dressing changed bedside. Plan for return to assisted living facility with home health. Problem list: Right leg ulcer Cellulitis of right lower extremity ULISES Hyperlipidemia Hypertension A. fib Chronic CHF History of cervical cancer Chronic lumbar and cervical spinal stenosis peripheral vascular disease Venous insufficiency. Stasis dermatitis. E Coli UTI ESBL Abnormal CT chest with GGO, SARS Covid negative Greater than 30 minutes spent on d/c to [facility] with home health. Discharge Information Condition at Discharge: Improved Follow Up: Weeks (1) Disposition/Orders: D/C to Home w/ HH Scheduled Amoxicillin/Potassium Clav (Amox Tr-K Clv 875-125 Mg Tab) 1 Each Tablet, 1 TAB PO BID for Cellulitis for 6 Days, #12 Prescribed by: SPEEDY OVIEDO MD on 09/21/20 0915 Aspirin (Aspir 81) 81 Mg Tablet.dr, 1 TAB PO BID for clot prevention, #30 Ref 5 (Reported) Entered as Reported by: CATALINA BALBUENA on 01/06/15 1225 Last Taken: Unknown Dose on 09/12/20 Last Action: Continued on 09/13/201116 by SPEEDY OVIEDO MD Cetirizine Hcl (Cetirizine Hcl) 10 Mg Tablet, 10 MG PO HS for allergies, (Reported) Entered as Reported by: NII HUTTON on 11/16/181721 Last Taken: Unknown Dose on 09/12/20 Last Action: Continued on 09/13/201116 by SPEEDY OVIEDO MD Clotrimazole/Betamethasone Dip (Clotrimazole-Betamethasone Crm) 15 Gm Cream..g., 1 YUSUF TP BID for to affected areas, #15 (Reported) Entered as Reported by: NII HUTTON on 11/16/18 172 Last Action: Continued on 09/13/201116 by SPEEDY OVIEDO MD Docusate Sodium (Docusate Sodium) 100 Mg Capsule, 1 CAP PO DAILY for constipation, #30 (Reported) Entered as Reported by: NII HUTTON on 11/16/18 172 Last Taken: Unknown Dose on 09/12/20 Last Action: Continued on 09/13/201116 by SPEEDY OVIEDO MD Doxycycline Hyclate (Doxycycline Hyclate) 100 Mg Tablet, 100 MG PO BID for Cellulitis for 6 Days, #12 Prescribed by: SPEEDY OVIEDO MD on 09/21/20 0915 Fluticasone Propionate (Flonase Allergy Relief) 9.9 Ml Miranda.susp, 2 SPRAYS NS DAILY for allergies, (Reported) Entered as Reported by: SANA PRETTY on 03/04/20 1430 Last Taken: Unknown Dose on 09/12/20 Last Action: Converted on 09/13/201116 by SPEEDY OVIEDO MD Furosemide (Furosemide) 40 Mg Tablet, 40 MG PO DAILY for CHF for 30 Days, #30 Prescribed by: SPEEDY OVIEDO MD on 09/21/20 0915 Gabapentin (Gabapentin ) 300 Mg Capsule, 300 MG PO DAILY for NEUROGENIC PAIN, (Reported) Entered as Reported by: AMALIA BYRNES RN on 10/10/18 1614 Last Taken: Unknown Dose on 09/12/20 Last Action: Continued on 09/13/201116 by SPEEDY OVIEDO MD Hydralazine Hcl (Hydralazine Hcl) 25 Mg Tablet, 25 MG PO TID for hypertension, #90 Ref 3 Prescribed by: JAYNE DUBOIS MD on 05/15/20 1306 Last Taken: Unknown Dose on 09/12/20 Last Action: Continued on 09/13/201116 by SPEEDY OVIEDO MD Lactobacillus Rhamnosus Gg (Culturelle) 1 Each Cap.sprink, 1 CAP PO DAILY for supp for 30 Days, #30 Ref 0 (Reported) Entered as Reported by: SANA PRETTY on 03/04/20 1430 Last Taken: Unknown Dose on 09/12/20 Last Action: Continued on 09/13/201116 by SPEEDY OVIEDO MD Levothyroxine Sodium (Synthroid) 125 Mcg Tablet, 137 MCG PO DAILYAC for Thyroid supplement, #30 Ref 0 (Reported) Entered as Reported by: JAZ PATEL on 01/06/15 1155 Last Taken: Unknown Dose on 09/12/20 Last Action: Continued on 09/13/201116 by SPEEDY OVIEDO MD Lidocaine (Lidocaine PATCH ) 1 Each Adh..patch, 1 EACH TP DAILY for FOR LOCAL PAIN, (Reported) REMOVE AFTER 12 HOURS Entered as Reported by: SANA PRETTY on 03/04/20 1430 Last Taken: Unknown Dose on 09/12/20 Last Action: Last Taken Edited on 09/13/20446 by DAO SEGURA Multivitamin (Multi-Vitamin Daily) 1 Each Tablet, 1 TAB PO DAILY for supp for 30 Days, #30 Ref 0 (Reported) Entered as Reported by: SANA PRETTY on 03/04/20 1554 Last Taken: Unknown Dose on 09/12/20 Last Action: Converted on 09/13/201116 by SPEEDY OVIEDO MD Vitamin E (Dl,Tocopheryl Acet) (Vitamin E) 1,000 Unit Capsule, 1,000 UNIT PO DAILY for supplement, (Reported) Entered as Reported by: CATALINA BALBUENA on 01/06/15 1225 Last Taken: Unknown Dose on 09/12/20 Last Action: Converted on 09/13/201116 by SPEEDY OVIEDO MD Scheduled PRN Acetaminophen (Acetaminophen) 500 Mg Tablet, 1 TAB PO TID PRN for pain or fever for 15 Days, #60 Ref 0 (Reported) Entered as Reported by: SANA PRETTY on 03/04/20 1430 Last Taken: Unknown Dose on 09/12/20 Last Action: Last Taken Edited on 09/13/20446 by DAO SEGURA Miscellaneous Medications Ascorbic Acid (Vitamin C) 1,000 Mg Tablet, 1,000 MG PO for supplement, (Reported) Entered as Reported by: CATALINA BALBUENA on 01/06/15 1225 Last Taken: Unknown Dose on 09/12/20 Last Action: Continued on 09/13/201116 by SPEEDY OVIEDO MD Discontinued Medications Allopurinol (Allopurinol) 300 Mg Tablet, 300 MG PO BID for ulcer prevention, (Reported) Entered as Reported by: AMALIA BYRNES RN on 10/10/18 1614 Last Taken: Unknown Dose on 09/12/20 Last Action: Last Taken Edited on 09/13/20446 by DAO SEGURA Cefdinir (Cefdinir) 300 Mg Capsule, 300 MG PO BID for UTI for 3 Days, #6 Prescribed by: JAYNE DUBOIS MD on 05/15/20 1306 Vitamin A (Vitamin A) 10,000 Unit Capsule, 10,000 UNIT PO DAILY for supplement, (Reported) Entered as Reported by: NII HUTTON on 11/16/18 1711 Last Taken: Unknown Dose on 09/12/20 Last Action: Last Taken Edited on 09/13/20 3547 by DAO SEGURA Justicifation of Admission Dx: Justifications for Admission: Justification of Admission Dx: N/A SPEEDY OVIEDO MD Sep 21, 2020 10:32
[2020-09-21 10:58] VITALS: BP 140/74
[2020-09-21 15:00] VITALS: BP 145/70
--- NOTE | 2020-09-21 16:34 | NUR ---
Report called to Hanna SALTER at [facility].
--- NOTE | 2020-09-21 18:11 | NUR ---
Discharge Note: KAILA DISLA [address] [place] [address] Discharge instructions and discharge home medications reviewed with Patient and a copy given. All questions have been answered and understanding verbalized. The following instructions and handouts were given: Diet, activity, medication list and follow up instructions provided to patient and home health. Discontinued lines and drains: Peripheral IV discontinued and catheter intact. Patient discharged to Home w/services with Family Member via Wheelchair
== END 2020-09-21 16:40 | disposition home health service (06) | DRG 603 ==
LOC: ER 18:21 → ED HOLD 21:38 → 6 SOUTH 09-13 02:20 → 4 NORTH 09-15 23:00
PROVIDERS: ADMIT Student in an Organized Health Care Education/Training Program; ATTEND Student in an Organized Health Care Education/Training Program
PROC: B41D1ZZ Fluoroscopy of Aorta and Bilateral Lower Extremity Arteries using Low Osmolar Contrast (ICD-10-PCS; principal; 2020-09-16)
PROC: B41C1ZZ Fluoroscopy of Pelvic Arteries using Low Osmolar Contrast (ICD-10-PCS; 2020-09-16)
DX: L03.115 Cellulitis of right lower limb (principal); I13.0 Hypertensive heart and chronic kidney disease with heart failure and stage 1 through stage 4 chronic kidney disease, or unspecified chronic kidney disease; I50.32 Chronic diastolic (congestive) heart failure; L97.919 Non-pressure chronic ulcer of unspecified part of right lower leg with unspecified severity; N39.0 Urinary tract infection, site not specified; N17.9 Acute kidney failure, unspecified; B95.62 Methicillin resistant Staphylococcus aureus infection as the cause of diseases classified elsewhere; B96.20 Unspecified Escherichia coli [E. coli] as the cause of diseases classified elsewhere; C53.9 Malignant neoplasm of cervix uteri, unspecified; E03.9 Hypothyroidism, unspecified; E78.00 Pure hypercholesterolemia, unspecified; E78.5 Hyperlipidemia, unspecified; I48.91 Unspecified atrial fibrillation; I73.9 Peripheral vascular disease, unspecified; I87.2 Venous insufficiency (chronic) (peripheral); J44.9 Chronic obstructive pulmonary disease, unspecified; L03.116 Cellulitis of left lower limb; M48.02 Spinal stenosis, cervical region; M79.7 Fibromyalgia; N18.9 Chronic kidney disease, unspecified; R09.02 Hypoxemia; Z20.822 Contact with and (suspected) exposure to COVID-19; Z51.5 Encounter for palliative care; Z66 Do not resuscitate; Z82.49 Family history of ischemic heart disease and other diseases of the circulatory system; Z83.3 Family history of diabetes mellitus; Z85.41 Personal history of malignant neoplasm of cervix uteri; Z87.11 Personal history of peptic ulcer disease; Z88.2 Allergy status to sulfonamides; Z90.710 Acquired absence of both cervix and uterus; Z91.041 Radiographic dye allergy status; Z96.653 Presence of artificial knee joint, bilateral; Z99.3 Dependence on wheelchair; Z88.8 Allergy status to other drugs, medicaments and biological substances; Z79.899 Other long term (current) drug therapy; Z86.718 Personal history of other venous thrombosis and embolism; Z79.01 Long term (current) use of anticoagulants
CPT/HCPCS: 36246; 36415; 71045; 71250; 73610; 73630; 75625; 76937; 80048; 80053; 81001; 83605; 85025; 85610; 85651; 85730; 86140; 87040; 87077; 87086; 87186; 87426; 93926; 94618; 94760; 96365; 96366; 99152; 99153; C1760; C1769; C1892; C1894; G0269; J0360; J0696; J1200; J1644; J1940; J2020; J2185; J2250; J2270; J2405; J3010; J3370; J3490; J7030; J7040; Q9967; U0003; U0005; 97110-GP; 97530-GO; 97530-GP; 97535-GO; 99285-25; G0378

== ENCOUNTER → 2020-10-29 | Outpatient (CLI) | payer MEDICARE, OTHER ==
[~2020-10-29] MED LIST changes: +AMOX1TAB11 PO; +DOXY100T PO
--- NOTE | 2020-10-29 13:50 | RAD ---
EXAM: Chest, 2 views. HISTORY: Abnormal chest x-ray. COMPARISON: 09/10/2020 FINDINGS: 2 views of the chest are obtained. There has been slight interval decrease in previously de monstrated interstitial infiltrate. There is chronic appearing interstitial change within both lungs. There is emphysema. There is cardiomegaly. No pleural effusion or pneumothorax is seen. There is a c ardiac event monitor overlying the left thorax. There are calcified granulomas. There are surgical cl ips within the upper abdomen. There is thoracic kyphosis and there are multiple chronic appearing tho racic compression fractures.. IMPRESSION: 1. Chronic appearing interstitial changes and emphysema. 2. Cardiomegaly. Electronically signed by: Lila Oliver MD (10/29/2020 1:48 PM) [id number]
== END ==
LOC: RAD 12:44
PROVIDERS: ATTEND Family Medicine
DX: J43.9 Emphysema, unspecified (principal); I51.7 Cardiomegaly; M40.294 Other kyphosis, thoracic region; Z98.890 Other specified postprocedural states
CPT/HCPCS: 71046

== ENCOUNTER → 2020-11-16 | Outpatient (CLI) | payer MEDICARE, OTHER ==
--- NOTE | 2020-11-16 15:05 | KCIC ---
EXAMINATION: CT THORAX WO (CT CHEST WITHOUT IV CONTRAST) CLINICAL HISTORY: Follow-up right upper lobe infiltration. Technique: Spiral CT acquisition of the chest from the thoracic inlet to the upper abdomen without co ntrast. CT Dose Reduction Employed: One or more of the following individualized dose reduction techniques wer e utilized for this examination: 1. Automated exposure control 2. Adjustment of the mA and/or kV ac cording to patient size 3. Use of iterative reconstruction technique. Comparison: CT chest 09/13/2020, CT chest/abdomen/pelvis 03/04/2020 FINDINGS: Prominent respiratory motion artifact somewhat limits evaluation. Lines, Tubes, and Devices: Subcutaneous implantable loop recorder in the anterior medial left chest. Lung Parenchyma, Pleura, and Airways: Interval resolution of bilateral pleural effusions. Improved ae ration of the right upper lobe. No focal consolidation. Scattered subpleural reticulation, asymmetric ally prominent in the right upper lobe, right middle lobe, and lingula, similar to comparison from 20 20. Scattered subsegmental atelectasis and/or scarring throughout the bilateral lungs and changes com patible with COPD. Central airways patent. Lower Neck, Mediastinum, and Heart: Visualized thyroid gland within normal limits. Borderline enlarge d paratracheal lymph nodes measuring up to 9 mm in short axis, previously 13 mm. Tortuous calcified a jermain with ectasia of the descending thoracic aorta measuring up to 3.8 x 3.3 cm, similar to prior magdaleno dy. Calcified aortic annulus. Coronary atherosclerotic calcifications/stents, incompletely evaluated. Cardiomegaly and mild pericardial fluid, similar to prior study. Bones and Soft Tissues: Multilevel degenerative changes in the thoracic spine with exaggerated thorac ic kyphosis. Upper Abdomen: Bariatric postoperative changes. Cholecystectomy. IMPRESSION: No evidence of acute cardiopulmonary abnormality. Improved aeration of the right upper lobe with interval resolution of bilateral pleural effusions. Decreased mediastinal lymphadenopathy with residual borderline enlarged paratracheal lymph node measu ring up to 9 mm, likely reactive. Multiple chronic findings in the chest as described. Electronically signed by: Wai Ramos DO (11/16/2020 3:03 PM) [facility]
== END ==
LOC: KCIC CT 12:25
PROVIDERS: ATTEND Family Medicine
DX: I77.810 Thoracic aortic ectasia (principal); R59.0 Localized enlarged lymph nodes; I51.7 Cardiomegaly; I70.0 Atherosclerosis of aorta; R93.89 Abnormal findings on diagnostic imaging of other specified body structures; I25.10 Atherosclerotic heart disease of native coronary artery without angina pectoris; M47.814 Spondylosis without myelopathy or radiculopathy, thoracic region; M40.204 Unspecified kyphosis, thoracic region; Z90.49 Acquired absence of other specified parts of digestive tract
CPT/HCPCS: 71250

== ENCOUNTER 2021-01-14 10:29 | Emergency (ER) | payer MEDICARE, OTHER ==
[~2021-01-14] VITALS: Ht 160 cm; Wt 62.0 kg
--- NOTE | 2021-01-14 11:03 | PHYS DOC ---
Past Medical History Past Medical History: Anemia, Asthma, Cancer, CHF, DVT, Fibromyalgia, High Cholesterol, Hypertension, Other Additional Past Medical Histor: NEUROPATHY Past Surgical History: Other Additional Past Surgical Histo: unknown Smoking Status: Never Smoker Alcohol Use: None Drug Use: None General Adult EDM: Chief Complaint: LOWER EXT PAIN HPI: HPI: Patient is a 85 year old female who presents from her assisted living facility with bilateral lower extremity swelling, mild pain and redness. She has a his tory of recurrent and chronic cellulitis. She has multiple antibiotic allergies or intolerances. No real changes in symptoms today. She reports that she has had this redness and swelling for many weeks. She has not contacted her primary care physician about this. She denies fevers or chills. She denies chest pain or dyspnea. She has chronic lower extremity lymphedema and chronic lower extremity weakness, which is unchanged. She denies abdominal pain. She does report nausea, which occurs frequently for her. No vomiting. She has previously been admitted to the hospital and been given linezolid for MRSA cellulitis. She has tolerated oral doxycycline. Her doctor gave her a 10-day course of an antibiotic a couple of months ago, for this problem, and she reports that she has no idea what that antibiotic might have been, but she said she did not like it because it made her "sick" inasmuch that it caused nausea and vomiting. She did not have any itching, hives, swelling or allergic reaction to this antibiotic. She did not reach back out to her primary care physician to discuss this issue reportedly. She reports that in her assisted living, she has access to nursing care, wound care and she is frequently evaluated by healthcare staff there. Review of Systems: Review of Systems: Constitutional: Denies fever or chills. [] Respiratory: Denies cough or shortness of breath. [] Cardiovascular: Denies chest pain or edema. [] GI: Denies abdominal pain. Reports nausea without vomiting. Denies bowel habit changes. : Denies dysuria. [] Musculoskeletal: Chronic bilateral lower extremity pain and swelling and cellulitis, as detailed in HPI. Integument: Chronic and recurrent lower extremity cellulitis and redness Neurologic: Denies headache, focal weakness or sensory changes. [] Endocrine: Denies polyuria or polydipsia. [] Lymphatic: Denies swollen glands. [] Psychiatric: Denies depression or anxiety. [] Heart Score: C/O Chest Pain: No Risk Factors: Risk Factors: DM, Current or recent (<one month) smoker, HTN, HLP, family history of CAD, obesity. Risk Scores: Score 0 - 3: 2.5% MACE over next 6 weeks - Discharge Home Score 4 - 6: 20.3% MACE over next 6 weeks - Admit for Clinical Observation Score 7 - 10: 72.7% MACE over next 6 weeks - Early Invasive Strategies Allergies: Allergies: Allergies Coded Allergies Type Severity Reaction Last Updated Verified linaclotide Allergy Severe 01/14/21 Yes Sulfa (Sulfonamide Antibiotics) Allergy Intermediate 01/14/21 Yes atorvastatin Allergy Intermediate 01/14/21 Yes bisoprolol Allergy Intermediate 01/14/21 Yes cadexomer iodine Allergy Intermediate itching 01/14/21 Yes ciprofloxacin Allergy Intermediate 01/14/21 Yes diltiazem Allergy Intermediate takes VERAPAMIL at home 01/14/21 Yes lisinopril Allergy Intermediate 01/14/21 Yes methylphenidate Allergy Intermediate 01/14/21 Yes naproxen Allergy Intermediate 01/14/21 Yes nitrofurantoin Allergy Intermediate 01/14/21 Yes ofloxacin Allergy Intermediate 01/14/21 Yes paroxetine Allergy Intermediate 01/14/21 Yes piroxicam Allergy Intermediate 01/14/21 Yes propoxyphene Allergy Intermediate 01/14/21 Yes ranitidine Allergy Intermediate 01/14/21 Yes senna Allergy Intermediate 01/14/21 Yes valdecoxib Allergy Intermediate 01/14/21 Yes I S O L A T I O N *CONTACT* Allergy Unknown 09/16/20 Yes Physical Exam: PE: Constitutional: Well developed, well nourished, no acute distress, non-toxic appearance. [] HENT: Normocephalic, atraumatic, mucous membranes are moist Eyes: Sclera clear and anicteric Neck: Trachea midline Cardiovascular:Heart rate regular rhythm, +2 radial and +2 dorsalis pedis pulses bilaterally, well-perfused appearing Lungs & Thorax: Bilateral breath sounds clear to auscultation [] Abdomen: Abdomen soft, nondistended, nontender to palpation. Skin: Subtle bilateral anterior lower extremity erythema, slightly worse on the left than the right. No large open wounds. No drainage. No focal areas of large induration or fluctuance. No palpable crepitus or step-offs. No dusky discoloration. Back: No tenderness, Extremities: Bilateral, symmetric 1+ lower extremity pitting edema. No calf tenderness. Compartments are soft. Soft tissue tenderness around areas of subtle lower extremity cellulitis. No subcutaneous emphysema or crepitus palpated. No bony tenderness. Pelvis is stable. Neurologic: Alert and oriented X 3, no facial asymmetry, sensation is grossly intact, speech is clear symmetric lower extremity weakness, though she is able to spontaneously move both lower extremities equally., This is chronic for her. Psychologic: Affect normal, judgement normal, mood normal. [] Current Patient Data: Vital Signs: Vital Signs Date Time Temp Pulse Resp B/P (MAP) Pulse Ox O2 Delivery O2 Flow Rate FiO2 01/14/21 10:46 97.6 72 16 160/120 (133) 92 Room Air 97.6 EKG: EKG: [] Radiology/Procedures: Radiology/Procedures: IMAGING REPORT Signed PATIENT: KAILA DISLA LACCOUNT: [id number] : 1935 LOCATION: ER AGE: 85 SEX: F EXAM STATUS: PRE ER ORD. PHYSICIAN: DMITRIY ROSENTHAL DO REASON: LE pain, swelling PROCEDURE: VENOUS LOWER EXT BILATERAL EXAMINATION: US BILATERAL LOWEREXTREMITY VENOUS DOPPLER (LOWER EXTREMITY VENOUS ULTRASOUND) CLINICAL HISTORY: Bilateral lower extremity pain and swelling TECHNIQUE: Sonographic grayscale images obtained of the bilateral lower extremity deep venous systems with color flow Doppler, compression, and augmentation techniques as indicated. Images obtained and stored in a permanent archive. COMPARISON: None FINDINGS: RIGHT: No evidence of absent flow or incompressibility within the common femoral vein, femoral vein, or popliteal vein. Visualized calf veins appear patent on limited evaluation. LEFT: No evidence of absent flow or incompressibility within the common femoral vein, femoral vein, or popliteal vein. Visualized calf veins appear patent on limited evaluation. IMPRESSION: No evidence of bilateral lower extremity DVT. Electronically signed by: Wai Tadeo DO (01/14/2021 12:11 PM) [facility] DICTATED and SIGNED BY: WAI TADEO DO DATE: 01/14/21 [id number] Course & Med Decision Making: Course & Med Decision Making Pertinent Labs and Imaging studies reviewed. (See chart for details) I discussed the findings, differential diagnosis and plan of care with the patient. Venous Dopplers did not demonstrate DVT. Laboratory evaluation is unremarkable. She requested Tylenol for pain, so this is given. She reported mild nausea, so she was given IV Zofran. She is resting comfortable. She is manifesting no evidence of distress. I reviewed previous records, and it appears that she has been previously discharged on oral doxycycline for lower extremity cellulitis in the past, and she reports to me multiple times that she believes she has tolerated this well. I have strongly encouraged her to contact her primary care physician within the next 24 hours to ensure close follow-up. She reports that she feels comfortable going back home to her assisted living facility, and her daughter will pick her up and take her there. She is comfortable with outpatient treatment of her cellulitis. She has access to nursing care and help at her living facility. Strict return precautions are given. She verbalized understanding of instructions provided. Elmo Disclaimer: Elmo Disclaimer: This electronic medical record was generated, in whole or in part, using a voice recognition dictation system. Departure Departure Impression: Primary Impression: Bilateral lower leg cellulitis Disposition: HOME / SELF CARE / HOMELESS Condition: STABLE Referrals: VERO WYNN MD (PCP) Patient Instructions: Cellulitis Additional Instructions: Take the full course of antibiotics. Use the nausea medicine as needed. Return to the ER for any worsening redness, worsening swelling, more severe pain, fever 100.4 or higher, chest pain, shortness of breath, if you have any acute trauma or injury or for any other concerns. You tolerated his antibiotic previously after your discharge from the hospital this last summer. Please contact your primary care physician tomorrow to arrange for close follow-up. Scripts Doxycycline Hyclate (DOXYCYCLINE HYCLATE) 100 Mg Tablet 1 TAB PO BID for 10 Days, #20 TAB Prov: DMITRIY ROSENTHAL DO 01/14/21 DMITRIY ROSENTHAL DO Jan 14, 2021 11:03
[2021-01-14] MEDS ORDERED: ONDANSETRON PF 4 MG/2 ML VIAL. IVP ONE (11:15)
[2021-01-14] MEDS ORDERED: ACETAMINOPHEN 500 MG TABLET PO ONE (11:15)
[2021-01-14 11:28] LABS: BASO % 1 % (0-3); EOS # 0.2 x10^3/uL (0.0-0.7); EOS % 3 % (0-3); HEMATOCRIT 32.1 % (36.0-47.0); HEMOGLOBIN 10.6 g/dL (12.0-15.5); LYMPH % 18 % (24-48); MEAN CORPUSCULAR HEMOGLOBIN 32 pg (25-35); MEAN CORPUSCULAR HGB CONC 33 g/dL (31-37); MEAN CORPUSCULAR VOLUME 96 fL (79-100); MONO # 0.7 x10^3/uL (0.0-1.1); MONO % 13 % (0-9); NEUT # 3.8 x10^3/uL (1.8-7.7); NEUT % 66 % (31-73); PLATELET COUNT 264 x10^3/uL (140-400); RED BLOOD COUNT 3.37 x10^6/uL (3.50-5.40); RED CELL DISTRIBUTION WIDTH 14.4 % (11.5-14.5); WHITE BLOOD COUNT 5.8 x10^3/uL (4.0-11.0)
[2021-01-14 11:36] LABS: CALCIUM 8.1 mg/dL (8.5-10.1); GFR 52.4; POTASSIUM 3.2 mmol/L (3.5-5.1)
--- NOTE | 2021-01-14 12:13 | RAD ---
EXAMINATION: US BILATERAL LOWEREXTREMITY VENOUS DOPPLER (LOWER EXTREMITY VENOUS ULTRASOUND) CLINICAL HISTORY: Bilateral lower extremity pain and swelling TECHNIQUE: Sonographic grayscale images obtained of the bilateral lower extremity deep venous systems with color flow Doppler, compression, and augmentation techniques as indicated. Images obtained and stored in a permanent archive. COMPARISON: None FINDINGS: RIGHT: No evidence of absent flow or incompressibility within the common femoral vein, femoral vein, or popl iteal vein. Visualized calf veins appear patent on limited evaluation. LEFT: No evidence of absent flow or incompressibility within the common femoral vein, femoral vein, or popl iteal vein. Visualized calf veins appear patent on limited evaluation. IMPRESSION: No evidence of bilateral lower extremity DVT. Electronically signed by: Wai Ramos DO (01/14/2021 12:11 PM) JORDYN
[2021-01-14 13:48] LABS: % ATYL 1 % (0-0); % BANDS 1 % (0-9); % BASOS 2 % (0-3); % EOS 1 % (0-5); % LYMPHS 21 % (24-48); % METAS 1 % (0-0); % MONOS 7 % (0-10); % MYELOS 1 % (0-0); % SEGS 65 % (35-66); PLT ESTIMATE ADEQUATE (ADEQUATE)
[2021-01-14] MEDS ORDERED: DOXY100T PO (15:35)
[2021-01-14 16:46] VITALS: BP 139/70
== END 2021-01-14 16:48 | disposition home or self-care (01) ==
LOC: ER 12:19
DX: L03.116 Cellulitis of left lower limb (principal); L03.115 Cellulitis of right lower limb; J45.909 Unspecified asthma, uncomplicated; I11.0 Hypertensive heart disease with heart failure; I50.9 Heart failure, unspecified; Z86.2 Personal history of diseases of the blood and blood-forming organs and certain disorders involving the immune mechanism; M79.7 Fibromyalgia; E78.00 Pure hypercholesterolemia, unspecified; Z86.718 Personal history of other venous thrombosis and embolism
CPT/HCPCS: 36415; 80048; 83605; 85007; 85025; 87040; 93970; 99284

== ENCOUNTER 2021-02-03 12:44 | Inpatient (IN) | payer MEDICARE, OTHER ==
[~2021-02-03] VITALS: Ht 160 cm; Wt 67.9 kg
[2021-02-03] MEDS ORDERED: ACETAMINOPHEN 500 MG TABLET PO ONE (13:30)
[2021-02-03] MEDS ORDERED: fentaNYL PF VIAL 100 MCG/2 ML VIAL IV PRN (13:30)
--- NOTE | 2021-02-03 14:02 | PHYS DOC ---
Past Medical History Past Medical History: Anemia, Asthma, Cancer, CHF, DVT, Fibromyalgia, High Cholesterol, Hypertension, Other Additional Past Medical Histor: NEUROPATHY, MALIGNANT NEOPLASM, CELLULITIS Past Surgical History: Other Additional Past Surgical Histo: unknown Smoking Status: Never Smoker Alcohol Use: None Drug Use: None General Adult EDM: Chief Complaint: CELLULITIS HPI: HPI: Patient is a 85 year old female with a history of hypertension, high cholesterol, CHF, lymphedema, who presents to the ED today with cellulitis of the left lower extremity that she states has been going on for months. Patient states she was on doxycycline in January which she finished it with no improvement. She states she needs to be admitted for IV antibiotics because previously that has cleared up her cellulitis. Denies any fever, nausea, vomiting. Review of Systems: Review of Systems: Constitutional: Denies fever or chills. [] Eyes: Denies change in visual acuity. [] HENT: Denies nasal congestion or sore throat. [] Respiratory: Denies cough or shortness of breath. [] Cardiovascular: Denies chest pain or edema. [] GI: Denies abdominal pain, nausea, vomiting, bloody stools or diarrhea. [] : Denies dysuria. [] Musculoskeletal: Denies back pain or joint pain. [] Integument: Reports left lower extremity cellulitis Neurologic: Denies headache, focal weakness or sensory changes. [] Psychiatric: Denies depression or anxiety. [] Heart Score: C/O Chest Pain: N/A Risk Factors: Risk Factors: DM, Current or recent (<one month) smoker, HTN, HLP, family history of CAD, obesity. Risk Scores: Score 0 - 3: 2.5% MACE over next 6 weeks - Discharge Home Score 4 - 6: 20.3% MACE over next 6 weeks - Admit for Clinical Observation Score 7 - 10: 72.7% MACE over next 6 weeks - Early Invasive Strategies Current Medications: Current Medications Medications (Trade) Dose Ordered Sig/Jena Start Time Stop Time Status Last Admin Dose Admin Acetaminophen (Tylenol) 500 mg 1X ONCE 02/03/21 13:30 02/03/21 13:36 DC Fentanyl Citrate (Fentanyl 2ml Vial) 50 mcg PRN Q15MIN PRN 02/03/21 13:30 02/04/21 13:29 Linezolid/Dextrose 300 ml @ 300 mls/hr 1X ONCE 02/03/21 14:00 02/03/21 14:59 Allergies: Allergies: Allergies Coded Allergies Type Severity Reaction Last Updated Verified linaclotide Allergy Severe 01/14/21 Yes Sulfa (Sulfonamide Antibiotics) Allergy Intermediate 01/14/21 Yes atorvastatin Allergy Intermediate 01/14/21 Yes bisoprolol Allergy Intermediate 01/14/21 Yes cadexomer iodine Allergy Intermediate itching 01/14/21 Yes ciprofloxacin Allergy Intermediate 01/14/21 Yes diltiazem Allergy Intermediate takes VERAPAMIL at home 01/14/21 Yes lisinopril Allergy Intermediate 01/14/21 Yes methylphenidate Allergy Intermediate 01/14/21 Yes naproxen Allergy Intermediate 01/14/21 Yes nitrofurantoin Allergy Intermediate 01/14/21 Yes ofloxacin Allergy Intermediate 01/14/21 Yes paroxetine Allergy Intermediate 01/14/21 Yes piroxicam Allergy Intermediate 01/14/21 Yes propoxyphene Allergy Intermediate 01/14/21 Yes ranitidine Allergy Intermediate 01/14/21 Yes senna Allergy Intermediate 01/14/21 Yes valdecoxib Allergy Intermediate 01/14/21 Yes I S O L A T I O N *CONTACT* Allergy Unknown 09/16/20 Yes Physical Exam: PE: Constitutional: Appears frail, no acute distress, non-toxic appearance. [] HENT: Normocephalic, atraumatic, bilateral external ears normal, oropharynx moist, no oral exudates, nose normal. [] Eyes: PERRLA, EOMI, conjunctiva normal, no discharge. [] Neck: Normal range of motion, no tenderness, supple, no stridor. [] Cardiovascular:Heart rate regular rhythm Lungs & Thorax: Diminished breath sounds Abdomen: Bowel sounds normal, soft, no tenderness, no masses, no pulsatile masses. [] Skin: +1 edema to bilateral lower extremity, left lower extremity with scattered areas of cellulitis from the thigh to the foot. The leg is warm, negative Homans' sign, +2 bilateral pedal pulses. Back: No tenderness, no CVA tenderness. [] Extremities: See extremity Neurologic: Alert and oriented X 3, normal motor function, normal sensory function, no focal deficits noted. [] Psychologic: Affect normal, judgement normal, mood normal. [] Current Patient Data: Vital Signs: Vital Signs Date Time Temp Pulse Resp B/P (MAP) Pulse Ox O2 Delivery O2 Flow Rate FiO2 02/03/21 13:00 85 16 171/69 (103) 83 Nasal Cannula EKG: EKG: [] Radiology/Procedures: Radiology/Procedures: []PROCEDURE: VENOUS LOWER EXTREMITY LEFT Left lower extremity venous duplex study Clinical History: Left lower extremity cellulitis Technique: Using a combination of real time ultrasound imaging and color-flow and pulse Doppler imaging techniques, including spectral analysis, graded compression and augmentation, duplex evaluation of the deep venous system of the left lower extremity was performed. Multiple images were obtained. Findings: There is no sonographic evidence of deep venous thrombosis involving the visualized deep venous structures of the left lower extremity Impression: No evidence of deep venous thrombosis involving the left lower extremity Electronically signed by: Stuart Coelho MD (02/03/2021 2:15 PM) [id number] DICTATED and SIGNED BY: STUART COELHO MD DATE: 02/03/21 [id number] 0 Course & Med Decision Making: Course & Med Decision Making Pertinent Labs and Imaging studies reviewed. (See chart for details) This is a 85-year-old female patient presenting to the ED today complaining of left lower extremity cellulitis that has been going on for months. Has finished 1 dose of doxycycline with no improvement. Has previously been admitted for IV antibiotics. Sepsis work-up was initiated, was started on linezolid, venous Doppler of the left lower extremity was also ordered which is negative. CBC with a normal WBC, noted for bandemia and a left shift. CMP with no acute findings. CRP 131.2, Sed rate [address] Jara who accepted patient for admission Elmo Disclaimer: Elmo Disclaimer: This electronic medical record was generated, in whole or in part, using a voice recognition dictation system. Departure Departure Impression: Primary Impression: Cellulitis of left lower extremity Disposition: ADMITTED INPATIENT Condition: STABLE Referrals: VERO WYNN MD (PCP) LAZARO CHAWLA [employer] Feb 03, 2021 14:02
--- NOTE | 2021-02-03 14:17 | RAD ---
Left lower extremity venous duplex study Clinical History: Left lower extremity cellulitis Technique: Using a combination of real time ultrasound imaging and color-flow and pulse Doppler imagi ng techniques, including spectral analysis, graded compression and augmentation, duplex evaluation of the deep venous system of the left lower extremity was performed. Multiple images were obtained. Findings: There is no sonographic evidence of deep venous thrombosis involving the visualized deep ve nous structures of the left lower extremity Impression: No evidence of deep venous thrombosis involving the left lower extremity Electronically signed by: Stuart Liu MD (02/03/2021 2:15 PM) [id number]
[2021-02-03 14:37] LABS: BASO # 0.1 x10^3/uL (0.0-0.2); BASO % 1 % (0-3); EOS % 0 % (0-3); HEMATOCRIT 32.5 % (36.0-47.0); HEMOGLOBIN 11.1 g/dL (12.0-15.5); LYMPH # 0.4 x10^3/uL (1.0-4.8); LYMPH % 5 % (24-48); MEAN CORPUSCULAR HEMOGLOBIN 33 pg (25-35); MEAN CORPUSCULAR HGB CONC 34 g/dL (31-37); MEAN CORPUSCULAR VOLUME 97 fL (79-100); MONO # 0.4 x10^3/uL (0.0-1.1); MONO % 4 % (0-9); NEUT # 8.3 x10^3/uL (1.8-7.7); NEUT % 91 % (31-73); PLATELET COUNT 199 x10^3/uL (140-400); RED BLOOD COUNT 3.36 x10^6/uL (3.50-5.40); RED CELL DISTRIBUTION WIDTH 15.9 % (11.5-14.5); WHITE BLOOD COUNT 9.1 x10^3/uL (4.0-11.0)
[2021-02-03 14:56] LABS: CREATININE 0.9 mg/dL (0.6-1.0); GFR 59.2; POTASSIUM 3.7 mmol/L (3.5-5.1)
[2021-02-03 15:08] LABS: ALBUMIN 2.7 g/dL (3.4-5.0); ALBUMIN/GLOBULIN RATIO 0.8 (1.0-1.7); TOTAL BILIRUBIN 0.6 mg/dL (0.2-1.0); TOTAL PROTEIN 5.9 g/dL (6.4-8.2)
[2021-02-03] MEDS ORDERED: ACETAMINOPHEN 325 MG TABLET. PO PRN (15:45)
[2021-02-03] MEDS ORDERED: fentaNYL PF VIAL 100 MCG/2 ML VIAL IVP PRN (15:45)
[2021-02-03] MEDS ORDERED: ONDANSETRON PF 4 MG/2 ML VIAL. IVP PRN (15:45)
--- NOTE | 2021-02-03 17:41 | HP ---
DATE OF SERVICE: 02/03/2021 ADMIT DATE: 02/03/2021 CHIEF COMPLAINT: Lower extremity cellulitis. HISTORY OF PRESENT ILLNESS: The patient is a pleasant 85-year-old female who presented to the ER with complaints of left lower extremity cellulitis. I discussed the case with the ER physician. We are going to admit the patient, give her IV antibiotics and do some physical therapy and she may need to go to penitentiary. PAST MEDICAL HISTORY: Anemia, asthma, some type of cancer, CHF, DVT, fibromyalgia, hyperlipidemia, hypertension, neuropathy, cellulitis. ALLERGIES: MULTIPLE INCLUDING SULFA, ATORVASTATIN, CIPRO, CARDIZEM, LISINOPRIL, NAPROSYN, NITROFURANTOIN, PAROXETINE. PLEASE REFER TO THE CHART. FAMILY HISTORY: Diabetes. SOCIAL HISTORY: She does not drink, smoke or take drugs. MEDICATIONS: Reviewed, please refer to the MRAD. REVIEW OF SYSTEMS: GENERAL: No history of weight change, weakness or fevers. SKIN: She complains of left lower extremity cellulitis. EYES: No blurred, double or loss of vision. NOSE AND THROAT: No history of nosebleeds, hoarseness or sore throat. HEART: No history of palpitations, chest pain or shortness of breath on exertion. LUNGS: Denies cough, hemoptysis, wheezing or shortness of breath. GASTROINTESTINAL: Denies changes in appetite, nausea, vomiting, diarrhea or constipation. GENITOURINARY: No history of frequency, urgency, hesitancy or nocturia. NEUROLOGIC: Denies history of numbness, tingling, tremor or weakness. PSYCHIATRIC: No history of panic, anxiety or depression. ENDOCRINE: No history of heat or cold intolerance, polyuria or polydipsia. EXTREMITIES: Denies muscle weakness, joint pain, pain on walking or stiffness. PHYSICAL EXAMINATION: VITALS: Within normal limits and are stable. GENERAL: She is resting with no apparent distress. HEENT: Normal cephalic atraumatic, external auditory canals are patent EYES: Extraocular muscles are intact, pupils are equally round and reactive to light and accommodation MUSCULOSKELETAL: Well developed, well nourished, good range of motion ENDOCRINE: No thyromegaly was palpated LYMPHATICS: No cervical chain or axillary nodes were noted HEMATOPOIETIC: No bruising NECK: Supple, no JVD, no thyromegaly was noted. LUNGS: Clear to auscultation in all lung dominique without rhonchi or wheezing. HEART: RRR, S1, S2 present. Peripheral pulses intact, no obvious murmurs were noted. ABDOMEN: Soft, nontender. Positive bowel sounds no organomegaly, normal bowel sounds. EXTREMITIES: She has left lower extremity cellulitis. Please see the pictures. NEUROLOGIC: She is resting with no apparent distress. PSYCHIATRIC: She is resting with no apparent distress. SKIN: No ulcerations or rashes, good skin turgor, no jaundice. VASCULAR: Good capillary refill, neurovascular bundle appears to be intact. LABORATORY DATA: Her white count is 9.1. ASSESSMENT AND PLAN: Left lower extremity cellulitis. The patient has been admitted. We will start IV Rocephin. Home meds. Deep venous thrombosis prophylaxis. Full code. PT, OT. Suspect she might need to go to skilled. GEOVANNA/CHARLENE DR: Pillo TID: [id number]
[2021-02-03 17:57] LABS: % BANDS 15 % (0-9); % LYMPHS 1 % (24-48); % SEGS 84 % (35-66); PLT ESTIMATE ADEQUATE (ADEQUATE)
[2021-02-03 22:11] VITALS: BP 145/53
[2021-02-04] MEDS: cefTRIAXone IV Push 1 GM VIAL. IVP SCH ×2 (00:09→17:50)
[2021-02-04 03:14] VITALS: BP 105/54
[2021-02-04 06:50] LABS: ALBUMIN 2.3 g/dL (3.4-5.0); ALBUMIN/GLOBULIN RATIO 0.7 (1.0-1.7); CALCIUM 7.7 mg/dL (8.5-10.1); CREATININE 0.9 mg/dL (0.6-1.0); GFR 59.2; POTASSIUM 3.7 mmol/L (3.5-5.1); TOTAL BILIRUBIN 0.3 mg/dL (0.2-1.0); TOTAL PROTEIN 5.4 g/dL (6.4-8.2)
[2021-02-04 07:15] VITALS: BP 120/71
--- NOTE | 2021-02-04 10:17 | NUR ---
SW following. Discussed with RN, pt from [facility], 2L (uses oxygen at home), cardiac diet. PT/OT ordered. Woundcare and ID following. SW will continue to follow.
--- NOTE | 2021-02-04 10:19 | CONS ---
DATE OF CONSULTATION: 02/04/2021 REFERRING PHYSICIAN: Jailene Jara DO REASON FOR CONSULTATION: Left lower extremity cellulitis, antibiotic management. HISTORY OF PRESENT ILLNESS: An 85-year-old female with history of CHF, DVT, cancer, neuropathy, hypertension, hyperlipidemia, fibromyalgia, anemia, asthma, presented to the ER with nonresolving left lower extremity cellulitis despite p.o. antibiotics, Augmentin and doxycycline prior to admission. The patient denies any fevers, chills, nausea, vomiting, diarrhea, abdominal pain, shortness of breath. The patient was started on IV ceftriaxone, received 1 dose of linezolid. White count is normal. The patient is afebrile. PAST MEDICAL HISTORY: Anemia, asthma, some type of cancer, CHF, DVT, fibromyalgia, hypertension, hyperlipidemia, neuropathy, history of cellulitis to bilateral lower extremities and right leg wound. ALLERGIES: SULFA, ATORVASTATIN, CIPRO, CARDIZEM, LISINOPRIL, NAPROXEN, NITROFURANTOIN, PAROXETINE. Please refer to the chart for full details. FAMILY HISTORY: As per HPI. SOCIAL HISTORY: No smoking, alcohol or drugs. CURRENT MEDICATIONS: Ceftriaxone, Zyvox. The patient was on Augmentin and doxycycline prior to admission. Please refer to medication list for full details. REVIEW OF SYSTEMS: Negative except for above in HPI. PHYSICAL EXAMINATION: VITAL SIGNS: Stable. GENERAL: Alert, oriented x 3, pleasant female, sitting upright in bed, in no acute distress. HEENT: Normocephalic, atraumatic. Anicteric. Oral mucosa moist, no thrush. NECK: Supple. LUNGS: Clear. HEART: S1, S2. ABDOMEN: Soft, nontender, nondistended. EXTREMITIES: Lower extremity edema present, left lower extremity cellulitis going up to the posterior aspect of the knee up to the thigh. Right foot wounds present, chronic. No warmth or erythema. NEUROLOGIC: Alert x 3, grossly nonfocal. PSYCHIATRIC: Calm and cooperative. DERMATOLOGIC: Warm, dry, no generalized rash except for above. PIV looks clean. LABORATORY DATA: WBC 9.1, hemoglobin 11.1, hematocrit 32.5, platelets 199. ESR 37. Sodium 139, potassium 3.7, chloride 105, bicarbonate 30, BUN 17, creatinine 0.9, total protein 5.4, albumin 2.3. MICRO: None. IMAGING: Ultrasound of the left lower extremity, negative for DVT. IMPRESSION: 1. Left lower extremity cellulitis, failed outpatient treatment with Augmentin and doxycycline. 2. Right foot chronic wound, improving per patient. 3. Chronic lymphedema. 4. Congestive heart failure. 5. Neuropathy. 6. History of deep venous thrombosis. RECOMMENDATIONS: 1. Continue ceftriaxone. 2. Restart Zyvox. 3. Elevate left lower extremity. 4. Monitor labs and cultures. 5. Continue supportive care. Thank you, Dr. Jara, for consulting Infectious Disease to participate in this patient's care. If you have any questions, do not hesitate to contact me. DANELLE/CAT GARCIA: Carmen TID: [id number]
--- NOTE | 2021-02-04 10:25 | PDOC ---
[employer] PROGRESS NOTE Date of Service DOS: DATE: 02/04/21 TIME: 10:25 Chief Complaint Chief Complaint 1. Left lower extremity cellulitis, failed outpatient treatment with Augmentin and doxycycline. 2. Right foot chronic wound, improving per patient. 3. Chronic lymphedema. 4. Congestive heart failure. 5. Neuropathy. 6. History of deep venous thrombosis. History of Present Illness History of Present Illness ceftriaxone and Zyvox. Elevate left lower extremity. Monitor labs and cultures. Continue supportive care. PT and OT, plan skilled [facility] Vitals/I&O Vitals/I&O: Vital Signs Date Time Temp Pulse Resp B/P (MAP) Pulse Ox O2 Delivery O2 Flow Rate FiO2 02/04/21 07:15 Nasal Cannula 2.0 02/04/21 07:15 97.3 64 18 120/71 (87) 95 97.3 I & O 02/03/21 02/03/21 02/04/21 15:00 23:00 07:00 Intake Total 200 ml Balance 200 ml Physical Exam General: Alert, No acute distress Heart: Regular rate Lungs: Clear Abdomen: Normal bowel sounds, Soft Extremities: No clubbing, No edema Labs Labs: Laboratory Tests Test 02/03/21 14:17 02/04/21 05:55 White Blood Count 9.1 x10^3/uL (4.0-11.0) Red Blood Count 3.36 x10^6/uL (3.50-5.40) Hemoglobin 11.1 g/dL (12.0-15.5) Hematocrit 32.5 % (36.0-47.0) Mean Corpuscular Volume 97 fL (79-100) Mean Corpuscular Hemoglobin 33 pg (25-35) Mean Corpuscular Hemoglobin Concent 34 g/dL (31-37) Red Cell Distribution Width 15.9 % (11.5-14.5) Platelet Count 199 x10^3/uL (140-400) Neutrophils (%) (Auto) 91 % (31-73) Lymphocytes (%) (Auto) 5 % (24-48) Monocytes (%) (Auto) 4 % (0-9) Eosinophils (%) (Auto) 0 % (0-3) Basophils (%) (Auto) 1 % (0-3) Neutrophils # (Auto) 8.3 x10^3/uL (1.8-7.7) Lymphocytes # (Auto) 0.4 x10^3/uL (1.0-4.8) Monocytes # (Auto) 0.4 x10^3/uL (0.0-1.1) Eosinophils # (Auto) 0.0 x10^3/uL (0.0-0.7) Basophils # (Auto) 0.1 x10^3/uL (0.0-0.2) Segmented Neutrophils % 84 % (35-66) Band Neutrophils % 15 % (0-9) Lymphocytes % 1 % (24-48) Platelet Estimate Adequate (ADEQUATE) Erythrocyte Sedimentation Rate 37 (0-25) Sodium Level 138 mmol/L (136-145) 139 mmol/L (136-145) Potassium Level 3.7 mmol/L (3.5-5.1) 3.7 mmol/L (3.5-5.1) Chloride Level 103 mmol/L (98-107) 105 mmol/L (98-107) Carbon Dioxide Level 28 mmol/L (21-32) 30 mmol/L (21-32) Anion Gap 7 (6-14) 4 (6-14) Blood Urea Nitrogen 21 mg/dL (7-20) 17 mg/dL (7-20) Creatinine 0.9 mg/dL (0.6-1.0) 0.9 mg/dL (0.6-1.0) Estimated GFR (Cockcroft-Gault) 59.2 59.2 BUN/Creatinine Ratio 23 (6-20) 19 (6-20) Glucose Level 100 mg/dL (70-99) 79 mg/dL (70-99) Lactic Acid Level 0.5 mmol/L (0.4-2.0) Calcium Level 8.0 mg/dL (8.5-10.1) 7.7 mg/dL (8.5-10.1) Total Bilirubin 0.6 mg/dL (0.2-1.0) 0.3 mg/dL (0.2-1.0) Aspartate Amino Transf (AST/SGOT) 33 U/L (15-37) 32 U/L (15-37) Alanine Aminotransferase (ALT/SGPT) 24 U/L (14-59) 22 U/L (14-59) Alkaline Phosphatase 127 U/L (46-116) 118 U/L (46-116) C-Reactive Protein, Quantitative 131.2 mg/L (0-3.3) Total Protein 5.9 g/dL (6.4-8.2) 5.4 g/dL (6.4-8.2) Albumin 2.7 g/dL (3.4-5.0) 2.3 g/dL (3.4-5.0) Albumin/Globulin Ratio 0.8 (1.0-1.7) 0.7 (1.0-1.7) Assessment and Plan Assessmemt and Plan Problems Medical Problems: (1) Cellulitis of left lower extremity Status: Acute Comment Review of Relevant I have reviewed the following items radha (where applicable) has been applied. Medications: Current Medications Medications (Trade) Dose Ordered Sig/Jnea Route PRN Reason Start Time Stop Time Status Last Admin Dose Admin Fentanyl Citrate (Fentanyl 2ml Vial) 50 mcg PRN Q15MIN PRN IV PAIN GREATER THAN 3/10 02/03/21 13:30 02/04/21 13:29 02/03/21 14:45 Linezolid/Dextrose 300 ml @ 300 mls/hr 1X ONCE IV 02/03/21 14:00 02/03/21 14:59 DC 02/03/21 15:13 Acetaminophen (Tylenol) 500 mg 1X ONCE PO 02/03/21 13:30 02/03/21 13:36 DC 02/03/21 14:45 Ceftriaxone Sodium (Rocephin) 1 gm Q24H IVP 02/03/21 17:00 02/04/21 00:09 Justifications for Admission Other Justification YVROSE PEREZ MD Feb 04, 2021 10:25
[2021-02-04 10:51] VITALS: BP_SYST 136; BP_SYST 142; BP_DIAS 60; BP_DIAS 63
[2021-02-04] MEDS: LINEZOLID 600 MG TABLET PO SCH ×2 (10:59→21:10)
[2021-02-04 15:09] VITALS: BP 110/56
--- NOTE | 2021-02-04 17:10 | NUR ---
Wound/Ostomy Care Wound Type/Assessment: WC consult for LLE cellulitis. Pt has open wound to right dorsal 2nd toe and left lateral ankle. LLE is reddened and edematous. Cleansed, pictured and measured wounds. No other wounds noted Treatment Recommendations/Plan: Cleanse wounds, apply honey, xeroform and gauze, change every 2 days and PRN. Education provided: WC POC and PU Prevention Offloading surface/device: Float heels, TQ2H, pt is self turn Recommended Referrals/Tests: Na Discharge Recommendations for dressings: see above, pt has home health
[2021-02-04 19:00] VITALS: BP 161/66
[2021-02-04] MEDS ORDERED: UBID200C7 PO (20:37)
[2021-02-04] MEDS ORDERED: vitamin A PO (20:37)
[2021-02-04] MEDS ORDERED: TRAM50TA PO (20:37)
[2021-02-04] MEDS ORDERED: SELE200C PO (20:37)
[2021-02-04] MEDS ORDERED: GLUC-11 PO (20:37)
[2021-02-04] MEDS ORDERED: CLON0.1T PO (20:37)
[2021-02-04] MEDS ORDERED: POTA-112 PO (20:37)
[2021-02-04] MEDS ORDERED: CHOL10004 PO (20:37)
[2021-02-04] MEDS ORDERED: tylenol arthritis PO (20:42)
[2021-02-04] MEDS: LACTOBACILLUS RHAMNOSUS GG 1 CAPSULE. PO SCH (21:10)
[2021-02-04 23:00] VITALS: BP 178/53
[2021-02-05 03:00] VITALS: BP 167/69
[2021-02-05 07:00] VITALS: BP 173/69
--- NOTE | 2021-02-05 08:27 | PDOC ---
Infectious Disease Note Subjective: Subjective Patient feels much better Left lower extremity redness swelling and pain is improving Underwent wound care by wound team yesterday for right foot wound chronic and left lateral ankle wound chronic Vital Signs: Vital Signs Vital Signs Date Time Temp Pulse Resp B/P (MAP) Pulse Ox O2 Delivery O2 Flow Rate FiO2 02/05/21 07:00 97.5 65 18 173/69 (103) 96 Nasal Cannula 2.0 97.5 Physical Exam: PHYSICAL EXAM GENERAL: Alert, oriented x 3, pleasant female, in no acute distress. HEENT: Normocephalic, atraumatic. Anicteric. Oral mucosa moist, no thrush. NECK: Supple. LUNGS: Clear. HEART: S1, S2. ABDOMEN: Soft, nontender, nondistended. EXTREMITIES: Lower extremity edema present, left lower extremity cellulitis going up to the posterior aspect of the knee up to the thigh improving. Right foot wound and left lateral ankle wound dressed, dry, Not taken down NEUROLOGIC: Alert x 3, grossly nonfocal. PSYCHIATRIC: Calm and cooperative. DERMATOLOGIC: Warm, dry, no generalized rash except for above. PIV looks clean. Medications: Inpatient Meds: Medications reviewed. Objective: Assessment: 1. Left lower extremity cellulitis, failed outpatient treatment with Augmentin and doxycycline. 2. Right foot chronic wound, improving per patient. Left lateral ankle wound stable 3. Chronic lymphedema. 4. Congestive heart failure. 5. Neuropathy. 6. History of deep venous thrombosis. Plan: Plan of Care Continue ceftriaxone and Zyvox Elevate left lower extremity Local wound care as directed CRISSY CAMPBELL MD Feb 05, 2021 08:27
[2021-02-05] MEDS: LINEZOLID 600 MG TABLET PO SCH ×2 (08:55→21:00)
[2021-02-05] MEDS: LACTOBACILLUS RHAMNOSUS GG 1 CAPSULE. PO SCH ×2 (08:55→21:00)
[2021-02-05] MEDS ORDERED: LINE600T12 PO (10:08)
[2021-02-05] MEDS ORDERED: TRAM50TA PO (10:08)
--- NOTE | 2021-02-05 10:12 | SNU/HH DC ---
DISCHARGE ORDERS DISCHARGE INFORMATION: DISCHARGE DATE: Feb 05, 2021 FINAL DIAGNOSIS Problems Medical Problems: (1) Cellulitis of left lower extremity Status: Acute CONDITION ON DISCHARGE: Stable CODE STATUS: Code Status: Full SENIOR LIVING: SNF STAY <30 DAYS: Yes POST DISCHARGE ORDERS: ACTIVITY ORDERS: No restrictions, Resume previous activity WEIGHT BEARING STATUS: No restrictions, Full weight bearing DIET AFTER DISCHARGE: Cardiac WOUND/INCISION CARE: Other, see below CHECKS AFTER DISCHARGE: CHECKS AFTER DISCHARGE: Check blood press - daily, Check your Temp as needed, Weigh Yourself Daily FOLLOW-UP: LAB ORDERS FOR FOLLOW-UP: CBC, CMP < 1 week TREATMENT/EQUIPMENT ORDERS: ADAPTIVE EQUIPMENT NEEDED: Front wheeled walker, Sliding board, Wheelchair Physical Therapy For: Evalulation/Treatment Occupational Therapy For: Evaluation/Treatment Speech Language Pathology For: Swallow Cognition DISCHARGE MEDICATIONS: Home Meds Active Scripts Cephalexin (KEFLEX) 500 Mg Capsule, 1 CAP PO TID for skin infection, #15 CAP Prov:YVROSE PEREZ MD 02/05/21 Linezolid (ZYVOX) 600 Mg Tablet, 600 MG PO BID for skin infection, #14 TAB Prov:YVROSE PEREZ MD 02/05/21 Tramadol Hcl (TRAMADOL HCL) 50 Mg Tablet, 50 MG PO Q4HRS PRN for PAIN, #24 TAB Prov:YVROSE PEREZ MD 02/05/21 Furosemide (FUROSEMIDE) 40 Mg Tablet, 40 MG PO DAILY for CHF for 30 Days, #30 TAB Prov:SPEEDY OVIEDO MD 09/21/20 Hydralazine Hcl (HYDRALAZINE HCL) 25 Mg Tablet, 25 MG PO TID for hypertension, #90 TAB 3 Refills Prov:JAYNE DUBOIS MD 05/15/20 Reported Medications [tylenol arthritis] No Conflict Check, 650 PO PRN Q6HRS PRN for PAIN 02/04/21 Cholecalciferol (Vitamin D3) (Vitamin D3 ) 25 Mcg Tablet, 5000 INTLU PO DAILY for SUPPLEMENT, TAB 1,000 UNITS = 25 MCG 02/04/21 Glucosamine Hcl/Chondr Choe A Na (CIDAFLEX TABLET) 1 Each Tablet, 1 TAB PO BID for supplement for 30 Days, #60 TAB 0 Refills 02/04/21 Ubidecarenone (CO Q-10) 200 Mg Capsule, 1 CAP PO DAILY for supplement for 30 Days, #30 CAP 0 Refills 02/04/21 Selenium (SELENIUM) 200 Mcg Capsule, 1 CAP PO BID for supplement for 30 Days, #60 CAP 0 Refills 02/04/21 [vitamin A] No Conflict Check, 8000 INTLU PO QODAY for supplement 02/04/21 Clonidine Hcl (CLONIDINE HCL) 0.1 Mg Tablet, 1 TAB PO TID for hypertension, #30 TAB 2 Refills 02/04/21 Potassium Chloride (Klor-Con 10) 10 Meq Tablet.er, 1 TAB PO QID for potassium supplement for 30 Days, #120 TAB 0 Refills 02/04/21 Multivitamin (MULTI-VITAMIN DAILY) 1 Each Tablet, 1 TAB PO DAILY for supp for 30 Days, #30 TAB 0 Refills 03/04/20 Lidocaine (Lidocaine PATCH ) 1 Each Adh..patch, 1 EACH TP DAILY for FOR LOCAL PAIN, PATCH REMOVE AFTER 12 HOURS 03/04/20 Fluticasone Propionate (Flonase Allergy Relief) 9.9 Ml [place].susp, 2 SPRAYS NS DAILY for allergies, BOTTLE 03/04/20 Lactobacillus Rhamnosus Gg (CULTURELLE) 1 Each Cap.sprink, 1 CAP PO DAILY for supp for 30 Days, #30 CAP 0 Refills 03/04/20 Acetaminophen (ACETAMINOPHEN) 500 Mg Tablet, 1 TAB PO TID PRN for pain or fever for 15 Days, #60 TAB 0 Refills 03/04/20 Clotrimazole/Betamethasone Dip (CLOTRIMAZOLE-BETAMETHASONE CRM) 15 Gm Cream..g., 1 YUSUF TP BID for to affected areas, #15 GM 11/16/18 Docusate Sodium (DOCUSATE SODIUM) 100 Mg Capsule, 1 CAP PO DAILY for constipation, #30 CAP 11/16/18 Cetirizine Hcl (CETIRIZINE HCL) 10 Mg Tablet, 10 MG PO HS for allergies, TAB 11/16/18 Gabapentin (GABAPENTIN ) 300 Mg Capsule, 300 MG PO DAILY for NEUROGENIC PAIN, CAP 10/10/18 Aspirin (ASPIR 81) 81 Mg Tablet.dr, 1 TAB PO BID for clot prevention, #30 TAB 5 Refills 01/06/15 Vitamin E (Dl,Tocopheryl Acet) (VITAMIN E) 1,000 Unit Capsule, 1000 UNIT PO DA UMANG for supplement 01/06/15 Ascorbic Acid (VITAMIN C) 1,000 Mg Tablet, 1000 MG PO for supplement 01/06/15 Levothyroxine Sodium (SYNTHROID) 125 Mcg Tablet, 137 MCG PO DAILYAC for Thyroid supplement, #30 TAB 0 Refills 01/06/15 Discontinued Scripts Doxycycline Hyclate (DOXYCYCLINE HYCLATE) 100 Mg Tablet, 1 TAB PO BID for 10 Days, #20 TAB Prov:DMITRIY ROSENTHAL DO 01/14/21 Doxycycline Hyclate (DOXYCYCLINE HYCLATE) 100 Mg Tablet, 100 MG PO BID for Cellulitis for 6 Days, #12 TAB Prov:SPEEDY OVIEDO MD 09/21/20 Amoxicillin/Potassium Clav (AMOX TR-K CLV 875-125 MG TAB) 1 Each Tablet, 1 TAB PO BID for Cellulitis for 6 Days, #12 TAB Prov:SPEEDY OVIEDO MD 09/21/20 YVROSE PEREZ MD Feb 05, 2021 10:12
--- NOTE | 2021-02-05 10:15 | PDOC3 ---
Discharge Summary Visit Information Date of Admission: Feb 03, 2021 Date of Discharge: Feb 05, 2021 Final Diagnosis 1. Left lower extremity cellulitis, failed outpatient treatment with Augmentin and doxycycline. 2. Right foot chronic wound, improving per patient. 3. Chronic lymphedema. 4. Congestive heart failure. 5. Neuropathy. 6. History of deep venous thrombosis. 7, weakness and debility, kyphosis, Problems Medical Problems: (1) Cellulitis of left lower extremity Status: Acute Brief Hospital Course Allergies Allergies Coded Allergies Type Severity Reaction Last Updated Verified linaclotide Allergy Severe 01/14/21 Yes Sulfa (Sulfonamide Antibiotics) Allergy Intermediate 01/14/21 Yes atorvastatin Allergy Intermediate 01/14/21 Yes bacitracin Allergy Intermediate Itching 02/04/21 Yes bisoprolol Allergy Intermediate 01/14/21 Yes cadexomer iodine Allergy Intermediate itching 01/14/21 Yes ciprofloxacin Allergy Intermediate 01/14/21 Yes diltiazem Allergy Intermediate takes VERAPAMIL at home 01/14/21 Yes hydrocodone Allergy Intermediate Itching 02/04/21 Yes lisinopril Allergy Intermediate 01/14/21 Yes methylphenidate Allergy Intermediate 01/14/21 Yes naproxen Allergy Intermediate 01/14/21 Yes neomycin Allergy Intermediate Itching 02/04/21 Yes nitrofurantoin Allergy Intermediate 01/14/21 Yes ofloxacin Allergy Intermediate 01/14/21 Yes paroxetine Allergy Intermediate 01/14/21 Yes piroxicam Allergy Intermediate 01/14/21 Yes polymyxin B Allergy Intermediate Itching 02/04/21 Yes propoxyphene Allergy Intermediate 01/14/21 Yes ranitidine Allergy Intermediate 01/14/21 Yes senna Allergy Intermediate 01/14/21 Yes valdecoxib Allergy Intermediate 01/14/21 Yes I S O L A T I O N *CONTACT* Allergy Unknown 09/16/20 Yes Uncoded Allergies Type Severity Reaction Last Updated Verified duoderm gel Adverse Reaction Intermediate Itching 02/04/21 Vital Signs Vital Signs Date Time Temp Pulse Resp B/P (MAP) Pulse Ox O2 Delivery O2 Flow Rate FiO2 02/05/21 07:00 97.5 65 18 173/69 (103) 96 Nasal Cannula 2.0 97.5 Lab Results Laboratory Tests Test 02/03/21 14:17 02/04/21 05:55 White Blood Count 9.1 x10^3/uL (4.0-11.0) Red Blood Count 3.36 x10^6/uL (3.50-5.40) Hemoglobin 11.1 g/dL (12.0-15.5) Hematocrit 32.5 % (36.0-47.0) Mean Corpuscular Volume 97 fL (79-100) Mean Corpuscular Hemoglobin 33 pg (25-35) Mean Corpuscular Hemoglobin Concent 34 g/dL (31-37) Red Cell Distribution Width 15.9 % (11.5-14.5) Platelet Count 199 x10^3/uL (140-400) Neutrophils (%) (Auto) 91 % (31-73) Lymphocytes (%) (Auto) 5 % (24-48) Monocytes (%) (Auto) 4 % (0-9) Eosinophils (%) (Auto) 0 % (0-3) Basophils (%) (Auto) 1 % (0-3) Neutrophils # (Auto) 8.3 x10^3/uL (1.8-7.7) Lymphocytes # (Auto) 0.4 x10^3/uL (1.0-4.8) Monocytes # (Auto) 0.4 x10^3/uL (0.0-1.1) Eosinophils # (Auto) 0.0 x10^3/uL (0.0-0.7) Basophils # (Auto) 0.1 x10^3/uL (0.0-0.2) Segmented Neutrophils % 84 % (35-66) Band Neutrophils % 15 % (0-9) Lymphocytes % 1 % (24-48) Platelet Estimate Adequate (ADEQUATE) Erythrocyte Sedimentation Rate 37 (0-25) Sodium Level 138 mmol/L (136-145) 139 mmol/L (136-145) Potassium Level 3.7 mmol/L (3.5-5.1) 3.7 mmol/L (3.5-5.1) Chloride Level 103 mmol/L (98-107) 105 mmol/L (98-107) Carbon Dioxide Level 28 mmol/L (21-32) 30 mmol/L (21-32) Anion Gap 7 (6-14) 4 (6-14) Blood Urea Nitrogen 21 mg/dL (7-20) 17 mg/dL (7-20) Creatinine 0.9 mg/dL (0.6-1.0) 0.9 mg/dL (0.6-1.0) Estimated GFR (Cockcroft-Gault) 59.2 59.2 BUN/Creatinine Ratio 23 (6-20) 19 (6-20) Glucose Level 100 mg/dL (70-99) 79 mg/dL (70-99) Lactic Acid Level 0.5 mmol/L (0.4-2.0) Calcium Level 8.0 mg/dL (8.5-10.1) 7.7 mg/dL (8.5-10.1) Total Bilirubin 0.6 mg/dL (0.2-1.0) 0.3 mg/dL (0.2-1.0) Aspartate Amino Transf (AST/SGOT) 33 U/L (15-37) 32 U/L (15-37) Alanine Aminotransferase (ALT/SGPT) 24 U/L (14-59) 22 U/L (14-59) Alkaline Phosphatase 127 U/L (46-116) 118 U/L (46-116) C-Reactive Protein, Quantitative 131.2 mg/L (0-3.3) Total Protein 5.9 g/dL (6.4-8.2) 5.4 g/dL (6.4-8.2) Albumin 2.7 g/dL (3.4-5.0) 2.3 g/dL (3.4-5.0) Albumin/Globulin Ratio 0.8 (1.0-1.7) 0.7 (1.0-1.7) Brief Hospital Course Ms. Garcia is a 85 old female, admti wtih left leg pain, redness, cellulitis, Failure of augmentin outpatient, started on ceftriaxone and Zyvox. Elevate left lower extremity. ID consult PT and OT, DC to skilled, marked weakess, kyphosis, Discharge Information Condition at Discharge: Improved Follow Up: Weeks Disposition/Orders: D/C to Home Scheduled Aspirin (Aspir 81) 81 Mg Tablet., 1 TAB PO BID for clot prevention, #30 Ref 5 (Reported) Entered as Reported by: CATALINA BALBUENA on 01/06/15 1225 Last Taken: Unknown Dose on 02/03/21 Last Action: Reviewed on 02/04/215 by LOGAN NEAL Cephalexin (Keflex) 500 Mg Capsule, 1 CAP PO TID for skin infection, #15 Prescribed by: YVROSE PEREZ on 02/05/21 1016 Cetirizine Hcl (Cetirizine Hcl) 10 Mg Tablet, 10 MG PO HS for allergies, (Reported) Entered as Reported by: NII HUTTON on 11/16/181721 Last Taken: Unknown Dose on 02/03/21 Last Action: Reviewed on 02/04/2134 by LOGAN NEAL Cholecalciferol (Vitamin D3) (Vitamin D3 ) 25 Mcg Tablet, 5,000 INTLU PO DAILY for SUPPLEMENT, (Reported) 1,000 UNITS = 25 MCG Entered as Reported by: CHARLEE MARTIN on 02/04/212036 Last Action: New Order on 02/04/212036 by CHARLEE MARTIN Clonidine Hcl (Clonidine Hcl) 0.1 Mg Tablet, 1 TAB PO TID for hypertension, #30 Ref 2 (Reported) Entered as Reported by: CHARLEE MARTIN on 02/04/212036 Last Action: New Order on 02/04/212036 by CHARLEE MARTIN Clotrimazole/Betamethasone Dip (Clotrimazole-Betamethasone Crm) 15 Gm Cream..g., 1 YUSUF TP BID for to affected areas, #15 (Reported) Entered as Reported by: NII HUTTON on 11/16/181724 Last Taken: Unknown Dose on Unknown Date & Time Last Action: Reviewed on 02/04/2134 by LOGAN NEAL Docusate Sodium (Docusate Sodium) 100 Mg Capsule, 1 CAP PO DAILY for constipation, #30 (Reported) Entered as Reported by: NII HUTTON on 11/16/181722 Fluticasone Propionate (Flonase Allergy Relief) 9.9 Ml [place].susp, 2 SPRAYS NS DAILY for allergies, (Reported) Entered as Reported by: SANA PRETTY on 03/04/20 1430 Last Taken: Unknown Dose on 02/03/21 Last Action: Reviewed on 02/04/2134 by LOGAN NEAL Furosemide (Furosemide) 40 Mg Tablet, 40 MG PO DAILY for CHF for 30 Days, #30 Prescribed by: SPEEDY OVIEDO MD on 09/21/20 0915 Last Taken: Unknown Dose on 02/03/21 Last Action: Reviewed on 02/04/2134 by LOGAN NEAL Gabapentin (Gabapentin ) 300 Mg Capsule, 300 MG PO DAILY for NEUROGENIC PAIN, (Reported) Entered as Reported by: AMALIA BYRNES RN on 10/10/18 1614 Last Taken: Unknown Dose on 02/03/21 Last Action: Reviewed on 02/04/2134 by LOGAN NEAL Glucosamine Hcl/Chondr Choe A Na (Cidaflex Tablet) 1 Each Tablet, 1 TAB PO BID for supplement for 30 Days, #60 Ref 0 (Reported) Entered as Reported by: CHARLEE MARTIN on 02/04/212036 Last Action: New Order on 02/04/212036 by CHARLEE MARTIN Hydralazine Hcl (Hydralazine Hcl) 25 Mg Tablet, 25 MG PO TID for hypertension, #90 Ref 3 Prescribed by: JAYNE DUBOIS MD on 05/15/20 1306 Last Taken: Unknown Dose on 02/03/21 Last Action: Reviewed on 02/04/2134 by LOGAN NEAL Lactobacillus Rhamnosus Gg (Culturelle) 1 Each Cap.sprink, 1 CAP PO DAILY for supp for 30 Days, #30 Ref 0 (Reported) Entered as Reported by: SANA PRETTY on 03/04/20 1430 Levothyroxine Sodium (Synthroid) 125 Mcg Tablet, 137 MCG PO DAILYAC for Thyroid supplement, #30 Ref 0 (Reported) Entered as Reported by: JAZ PATEL on 01/06/15 1155 Last Taken: Unknown Dose on 02/03/21 Last Action: Reviewed on 02/04/2134 by LOGAN NEAL Lidocaine (Lidocaine PATCH ) 1 Each Adh..patch, 1 EACH TP DAILY for FOR LOCAL PAIN, (Reported) REMOVE AFTER 12 HOURS Entered as Reported by: SANA PRETTY on 03/04/20 1430 Linezolid (Zyvox) 600 Mg Tablet, 600 MG PO BID for skin infection, #14 Prescribed by: YVROSE PEREZ on 02/05/21 1008 Multivitamin (Multi-Vitamin Daily) 1 Each Tablet, 1 TAB PO DAILY for supp for 30 Days, #30 Ref 0 (Reported) Entered as Reported by: SANA PRETTY on 03/04/20 1554 Potassium Chloride (Klor-Con 10) 10 Meq Tablet.er, 1 TAB PO QID for potassium supplement for 30 Days, #120 Ref 0 (Reported) Entered as Reported by: CHARLEE MARTIN on 02/04/212036 Last Action: New Order on 02/04/212036 by CHARLEE MARTIN Selenium (Selenium) 200 Mcg Capsule, 1 CAP PO BID for supplement for 30 Days, #60 Ref 0 (Reported) Entered as Reported by: CHARLEE MARTIN on 02/04/212036 Last Action: New Order on 02/04/212036 by CHARLEE MARTIN Ubidecarenone (Co Q-10) 200 Mg Capsule, 1 CAP PO DAILY for supplement for 30 Days, #30 Ref 0 (Reported) Entered as Reported by: CHARLEE MARTIN on 02/04/212036 Last Action: New Order on 02/04/212036 by CHARLEE MARTIN Vitamin E (Dl,Tocopheryl Acet) (Vitamin E) 1,000 Unit Capsule, 1,000 UNIT PO DAILY for supplement, (Reported) Entered as Reported by: CATALINA BALBUENA on 01/06/15 1225 [vitamin A] , 8,000 INTLU PO QODAY for supplement, (Reported) Entered as Reported by: CHARLEE MARTIN on 02/04/212036 Last Action: New Order on 02/04/212036 by CHARLEE MARTIN Scheduled PRN Acetaminophen (Acetaminophen) 500 Mg Tablet, 1 TAB PO TID PRN for pain or fever for 15 Days, #60 Ref 0 (Reported) Entered as Reported by: SANA PRETTY on 03/04/20 1430 Last Taken: Unknown Dose on Unknown Date & Time Last Action: Reviewed on 02/04/21 0035 by LOGAN NEAL Tramadol Hcl (Tramadol Hcl) 50 Mg Tablet, 50 MG PO Q4HRS PRN for PAIN, #24 Prescribed by: YVROSE PEREZ on 02/05/21 1010 [tylenol arthritis] , 650 PO PRN Q6HRS PRN for PAIN, (Reported) Entered as Reported by: CHARLEE MARTIN on 02/04/212041 Last Action: New Order on 02/04/212041 by CHARLEE MARTIN Miscellaneous Medications Ascorbic Acid (Vitamin C) 1,000 Mg Tablet, 1,000 MG PO for supplement, (Reported) Entered as Reported by: CATALINA BALBUENA on 01/06/15 1225 Last Taken: Unknown Dose on 02/03/21 Last Action: Reviewed on 02/04/2136 by LOGAN NEAL Discontinued Medications Amoxicillin/Potassium Clav (Amox Tr-K Clv 875-125 Mg Tab) 1 Each Tablet, 1 TAB PO BID for Cellulitis for 6 Days, #12 Prescribed by: SPEEDY OVIEDO MD on 09/21/20914 Last Taken: Unknown Dose on 02/03/21 Last Action: Reviewed on 02/04/2134 by LOGAN NEAL Doxycycline Hyclate (Doxycycline Hyclate) 100 Mg Tablet, 100 MG PO BID for Cellulitis for 6 Days, #12 Prescribed by: SPEEDY OVIEDO MD on 09/21/20914 Last Taken: Unknown Dose on 02/03/21 Last Action: Reviewed on 02/04/2134 by LOGAN NEAL Doxycycline Hyclate (Doxycycline Hyclate) 100 Mg Tablet, 1 TAB PO BID for 10 Days, #20 Prescribed by: DMITRIY ROSENTHAL DO on 01/14/21 153 Last Taken: Unknown Dose on 02/03/21 Last Action: Reviewed on 02/04/2134 by LOGAN NEAL Patient Instructions Patient Instructions face to face 36 minutes Justicifation of Admission Dx: Justifications for Admission: Justification of Admission Dx: N/A YVROSE PEREZ MD Feb 05, 2021 10:15
[2021-02-05] MEDS ORDERED: CEPH500C PO (10:16)
--- NOTE | 2021-02-05 10:46 | PDOC ---
[employer] PROGRESS NOTE Date of Service DOS: DATE: 02/05/21 TIME: 10:45 Chief Complaint Chief Complaint 1. Left lower extremity cellulitis, failed outpatient treatment with Augmentin and doxycycline. 2. Right foot chronic wound, improving per patient. 3. Chronic lymphedema. 4. Congestive heart failure. 5. Neuropathy. 6. History of deep venous thrombosis. History of Present Illness History of Present Illness ceftriaxone and Zyvox. Elevate left lower extremity. Monitor labs and cultures. Continue supportive care. PT and OT, plan skilled leylaley not vaccinated, wanted to discuss merits of Ivermectin with me today Vitals/I&O Vitals/I&O: Vital Signs Date Time Temp Pulse Resp B/P (MAP) Pulse Ox O2 Delivery O2 Flow Rate FiO2 02/05/21 07:00 97.5 65 18 173/69 (103) 96 Nasal Cannula 2.0 97.5 I & O 02/04/21 02/04/21 02/05/21 14:59 22:59 06:59 Intake Total 120 ml 240 ml Output Total 200 ml Balance 120 ml 40 ml Physical Exam Physical Exam: GENERAL: Alert, oriented x 3, pleasant female, in no acute distress. HEENT: Normocephalic, atraumatic. Anicteric. Oral mucosa moist, no thrush. NECK: Supple. LUNGS: Clear. HEART: S1, S2. ABDOMEN: Soft, nontender, nondistended. EXTREMITIES: Lower extremity edema present, left lower extremity cellulitis going up to the posterior aspect of the knee up to the thigh improving. Right foot wound and left lateral ankle wound dressed, dry, Not taken down NEUROLOGIC: Alert x 3, grossly nonfocal. PSYCHIATRIC: Calm and cooperative. DERMATOLOGIC: Warm, dry, no generalized rash except for above. PIV looks clean. General: Alert, No acute distress Heart: Regular rate Lungs: Clear Abdomen: Normal bowel sounds, Soft Extremities: No clubbing, No edema Assessment and Plan Assessmemt and Plan Problems Medical Problems: (1) Cellulitis of left lower extremity Status: Acute Comment Review of Relevant I have reviewed the following items radha (where applicable) has been applied. Medications: Current Medications Medications (Trade) Dose Ordered Sig/[place] Route PRN Reason Start Time Stop Time Status Last Admin Dose Admin Lactobacillus Rhamnosus (Culturelle) 1 cap BID PO 02/04/21 21:00 02/05/21 08:55 Justifications for Admission Other Justification YVROSE PEREZ MD Feb 05, 2021 10:46
[2021-02-05 11:00] VITALS: BP 120/75
[2021-02-05 15:00] VITALS: BP 145/72
[2021-02-05] MEDS: cefTRIAXone IV Push 1 GM VIAL. IVP SCH (17:52)
[2021-02-05 19:00] VITALS: BP 169/67
[2021-02-05 23:00] VITALS: BP 161/72
[2021-02-06 03:00] VITALS: BP 158/78
[2021-02-06 06:53] VITALS: BP 167/81
--- NOTE | 2021-02-06 08:06 | PDOC ---
Infectious Disease Note Subjective: Subjective Patient feels much better Awaiting transfer to [facility] later today Vital Signs: Vital Signs Vital Signs Date Time Temp Pulse Resp B/P (MAP) Pulse Ox O2 Delivery O2 Flow Rate FiO2 02/06/21 06:53 98.0 71 18 167/81 (109) 98 Nasal Cannula 2.0 98.0 Physical Exam: PHYSICAL EXAM GENERAL: Alert, oriented x 3, pleasant female, in no acute distress. HEENT: Normocephalic, atraumatic. Anicteric. Oral mucosa moist, no thrush. NECK: Supple. LUNGS: Clear. HEART: S1, S2. ABDOMEN: Soft, nontender, nondistended. EXTREMITIES: Lower extremity edema present, left lower extremity cellulitis going up to the posterior aspect of the knee up to the thigh improving. Right foot wound and left lateral ankle wound dressed, dry, Not taken down NEUROLOGIC: Alert x 3, grossly nonfocal. PSYCHIATRIC: Calm and cooperative. DERMATOLOGIC: Warm, dry, no generalized rash except for above. PIV looks clean. Medications: Inpatient Meds: Medications reviewed. Objective: Assessment: 1. Left lower extremity cellulitis, failed outpatient treatment with Augmentin and doxycycline. 2. Right foot chronic wound, improving per patient. Left lateral ankle wound stable 3. Chronic lymphedema. 4. Congestive heart failure. 5. Neuropathy. 6. History of deep venous thrombosis. Plan: Plan of Care Continue Zyvox for 7 days DC ceftriaxone after today's dose Elevate left lower extremity Local wound care as directed Discussed with nursing staff CRISSY CAMPBELL MD Feb 06, 2021 08:06
[2021-02-06] MEDS: LINEZOLID 600 MG TABLET PO SCH (09:03)
[2021-02-06] MEDS: LACTOBACILLUS RHAMNOSUS GG 1 CAPSULE. PO SCH (09:03)
--- NOTE | 2021-02-06 10:45 | NUR ---
Discharge Note: KAILA DISLA [address] [place] [address] Discharge instructions and discharge home medications reviewed with Patient and a copy given. All questions have been answered and understanding verbalized. The following instructions and handouts were given: Diet, activity, medication list and follow up instructions provided to [facility]. Report called to patient's nurseApple. negative covid result provided to [facility]. Discontinued lines and drains: Peripheral IV discontinued and catheter intact. [facility]
== END 2021-02-06 11:00 | DRG 603 ==
LOC: ER 12:44 → ED HOLD 14:49 → 4 NORTH 15:03
PROVIDERS: ADMIT Internal Medicine; ATTEND Internal Medicine
DX: L03.116 Cellulitis of left lower limb (principal); E78.00 Pure hypercholesterolemia, unspecified; E78.5 Hyperlipidemia, unspecified; G62.9 Polyneuropathy, unspecified; I11.0 Hypertensive heart disease with heart failure; I50.9 Heart failure, unspecified; I89.0 Lymphedema, not elsewhere classified; J45.909 Unspecified asthma, uncomplicated; M40.209 Unspecified kyphosis, site unspecified; M79.7 Fibromyalgia; Z83.3 Family history of diabetes mellitus; Z86.718 Personal history of other venous thrombosis and embolism; Z79.01 Long term (current) use of anticoagulants; Z88.2 Allergy status to sulfonamides; Z88.8 Allergy status to other drugs, medicaments and biological substances
CPT/HCPCS: 36415; 80053; 83605; 85007; 85025; 85651; 86140; 87040; 93971; 96374; J0696; J2020; J3010; U0003; U0005; 97110-GP; 97530-GP; 97535-GO; 99285-25; G0378

== ENCOUNTER 2021-03-08 08:59 | Outpatient (CLI) | payer MEDICARE, OTHER ==
[~2021-03-08] VITALS: Ht 160 cm; Wt 68.6 kg
[~2021-03-08 08:59] MED LIST changes: +CEPH500C PO; +CHOL10004 PO; +GLUC-11 PO; +LINE600T12 PO; +POTA-112 PO; +SELE200C PO; +tylenol arthritis PO; +vitamin A PO
[2021-03-08] MEDS ORDERED: LIDOCAINE WITH 8.4% SOD BICARB 3 ML DISP.SYRIN. ONE (09:41)
[2021-03-08 09:59] VITALS: BP 147/81
[2021-03-08] MEDS ORDERED: LIDOCAINE WITH 8.4% SOD BICARB 3 ML DISP.SYRIN. INJ ONE (10:15)
[2021-03-08 11:00] VITALS: BP 150/72
--- NOTE | 2021-03-08 11:11 | NUR ---
pt A&O x4. RUE PICC placed. no bleeding from site but pt c/o tenderness in that area. d/c instructions reviewed. pt to be admitted to [facility]. pt taken out to vehicle per w/c. pt [place] to take [place] over to [place].
--- NOTE | 2021-03-08 11:56 | RAD ---
Date: 03/08/2021 Exam: Fluoroscopic and ultrasound guided peripheral central venous catheter placement. Indication: Consent: The procedure was explained in its entirety to the patient or the patients designated repres entative by a member of the treatment team, including a discussion of the risks, benefits and commonl y accepted alternatives to the procedure, as well as the expected consequences of no therapy whatsoev er. Discussion of the risks included, but was not limited to, those that are most frequent and thos e that are rare but possibly severe or life-threatening, as well as the possibility of unforeseen com plications. Discussion: A timeout procedure was performed. The patient was prepped and draped using maximum sterile techniq ue, including the use of: Current guideline approved cutaneous antisepsis, a large sterile sheet to e stablish a sterile field. Additionally the caramel coloring operator wore a hat, mask, sterile gloves, a sterile gown during the procedure as well as practiced acceptable hand hygiene prior to placing the line. 1% lidoc julio c was administered for local anesthesia. Ultrasound evaluation demonstrates a patent right basilic vein. Reference images were [facility] the [facility] biloxiical record. The selected vein was accessed using micropuncture technique. A guidewire was advanced centrally. The PICC line was cut to length, and advanced through a peel-away sheath such that it's tip resides at the cavoatrial junction. The peel-away sheath a sheath was removed. The catheter was s ecured in place. The catheter was found to flush and aspirate normally.. Sterile dressings were appli ed. No immediate complications were identified. Fluoroscopy time: 0.3 minutes Dose area product: 0.3 Gycm2 Impression: Successful placement of a right upper extremity PICC line Electronically signed by: Stuart Liu MD (03/08/2021 11:54 AM) [id number]
== END 2021-03-08 11:05 | disposition home or self-care (01) ==
LOC: INTRAD 08:59
DX: Z45.2 Encounter for adjustment and management of vascular access device (principal); I11.0 Hypertensive heart disease with heart failure; I50.9 Heart failure, unspecified; E78.00 Pure hypercholesterolemia, unspecified; E03.9 Hypothyroidism, unspecified; J45.909 Unspecified asthma, uncomplicated; G47.30 Sleep apnea, unspecified; M19.90 Unspecified osteoarthritis, unspecified site; Z87.440 Personal history of urinary (tract) infections; Z79.899 Other long term (current) drug therapy; Z98.890 Other specified postprocedural states; Z90.49 Acquired absence of other specified parts of digestive tract; Z79.82 Long term (current) use of aspirin; Z88.1 Allergy status to other antibiotic agents; Z88.2 Allergy status to sulfonamides; Z88.8 Allergy status to other drugs, medicaments and biological substances
CPT/HCPCS: 36573; C1751; C1892; J3490

== ENCOUNTER → 2021-04-01 | Outpatient (CLI) | payer MEDICARE, OTHER ==
[2021-03-08 11:00] VITALS: BP 150/72
--- NOTE | 2021-04-01 11:43 | RAD ---
EXAM: THYROID ULTRASOUND. HISTORY: Thyroid nodule. COMPARISON: 04/04/2019. FINDINGS: Sonographic evaluation of the thyroid gland was performed and evaluated using ACR TI-RADS c riteria. Right lobe: The right lobe measures 2.7 x 1.7 x 1.5 cm. The parenchyma is heterogeneous and hypoechoi c. Nodule #1. Maximum size: 1.5 cm; Other 2 dimensions 1.2 x 0.9 cm. Decreased from 1.8 x 1.6 x 1.3 cm. Location: m id pole. Solid, hyperechoic. ACR TI-RADS risk category: TR3 (3 points): FNA if 2.5 cm, follow-up if 1.5-2.4 cm in 1, 3, and 5 year s. Significant change in size (>= 20% in two dimensions and minimal increase of 2 mm): No. Change in features: No. Change in ACR TI-RADS risk category: No. Left lobe: The left lobe measures 2.5 x 1.7 x 0.9 cm. The parenchyma is homogeneous without focal les ions. Isthmus: The isthmus measures 3 mm. Number of spongiform nodules of at least 2 cm not described (TR1): 0. Number of mixed cystic and solid nodules of at least 1.5 cm not described (TR 2): 0. IMPRESSION/RECOMMENDATION: 1. Follow-up ultrasound in 1-2 years. 2. Thyroid atrophy. Correlate with thyroid function tests. Electronically signed by: Thiago Patterson MD (04/01/2021 11:40 AM) [id number]
== END ==
LOC: US 10:19
PROVIDERS: ATTEND Internal Medicine
DX: E03.4 Atrophy of thyroid (acquired) (principal); E04.1 Nontoxic single thyroid nodule
CPT/HCPCS: 76536